=== PATIENT | female | born 1970 | race Caucasian/White ===

== ENCOUNTER 2017-03-15 20:15 | Emergency (ER) | payer MEDICAID ==
[~2017-03-15] VITALS: Ht 162.6 cm; Wt 77.1 kg
[~2017-03-15 20:15] MED LIST: ACYCLOVIR800 MG PO; BACTRIM DS 8001 TA1 PO; CEPHALEXIN500 MG PO; CYCLOBENZAPRINE10 MG PO; Docusate Sodiu100 MG PO; FLAX OIL1000 MG PO; LAMICTAL 100 M100 MG PO; LORTAB 5/500 501 TAB PO; MUCINEX D 12001 TER PO; NEURONTIN400 MG PO; NEXIUM40 MG PO; PREVACID 30MG C30 M1 PO; SEROQUEL 100MG100 MG PO; SEROQUEL400 MG PO; VITAMIN D1000 IU PO; VITAMIN D31000 IU PO; ZANAFLEX4 MG PO; ZOFRAN4 MG PO
--- NOTE | 2017-03-15 20:46 | Emergency Room Report ---
History of Present Illness Time Seen by MD 2020 Presenting Problem in Triage Pt arrived:Walked Presenting Problem:SEVERAL WEEKS OF HACKY COUGH WITH ALLERGIES AND DRAINAGE, FEVER X 2 DAYS. HAD CARDIAC STENT OF LAD X 3 DAYS AGO AND SINCE PATIENT HAS WORSENED COUGH WITH SUBSTERNAL CHEST PAIN UPON COUGHING. 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 Y Clinical Suspician of Infection? Y Mental Status: 1 - Regular (Normal Baseline) Sepsis Risk:Possible Sepsis Risk Have you (or family members/close friends) recently traveled outside the [place]? N If Yes, where/when: Have you had exposure to infectious disease within the past month? N TB? Other? Specify: Source patient, RN notes reviewed, RN/MD Exam Limitations no limitations Comment This is a 46-year-old female arriving to the emergency room with midsternal chest pain, worse with deep inspiration, associated with a productive cough, for the past 2 weeks. Patient stated that she underwent a cardiac catheterization by Dr. Weston, 2 weeks ago, resulting in one stent deployment. Currently on Brillenta. She continues to smoke, however she has decreased the number of cigarettes per day drastically. She denies any shortness of breath, or radiation. ALLERGIES Coded Allergies: hydroxyzine (From Vistaril) (Intermediate, JITTERY 04/14/16) Home Medications Reported Medications TIZANIDINE HCL (Zanaflex) 4 MG PO Q8P Lamotrigine (Lamictal 100Mg) 200 MG PO DAILY QUETIAPINE FUMARATE (Quetiapine Fumarate) 300 MG PO QHS Lansoprazole (Prevacid) 30 MG PO DAILY Docusate Sodium (Docusate Sodium 100MG Capsule) 100 MG PO BID CHOLECALCIFEROL (VITAMIN D3) (Vitamin D3) 5,000 IUNITS PO DAILY GUAIFENESIN/PSEUDOEPHEDRNE HCL (Mucinex D ER 1,200-120 MG Tab) 1 TAB PO BID GABAPENTIN (Gabapentin) 400 MG PO QHS Acyclovir (Acyclovir 800MG) 800 MG PO TID Quetiapine Fumarate (Seroquel 400MG) 400 MG PO QHS Cyclobenzaprine Hcl (Cyclobenzaprine 10MG) 10 MG PO BID History Medical History General Angina: No VT: No Hypertension? No Hyperlipidemia? No CHF? No COPD? No Asthma? No Anemia? Yes Hernia? No CVA? No Seizures? No Diabetes? No UTI? Yes Stones? No GB Disease: No Hepatitis? No Arthritis? Yes Cataracts? No Glaucoma? No MRSA? No TB? No Cancer? Yes Site: KIDNEY CA-NO TREATMENTS More? Yes Additional hx: RECENT STENT OF LAD ON 03/12/17 Immunization Hx DT/Tetanus 2016 Flu 2015-FSN Pneumonia Unknown Surgical Hx Previous Surgery?Y HYSTERECTOMY APPENDECTOMY TUBAL BLADDER TACK - 2010 LEFT KIDNEY CA-REMOV 12/01 D & C SINUS Cath w/Stent [employer] Hx LMP N/A Family History Family Hx Diabetes No CAD Yes Hypertension No Hyperlipidemia Yes Cancer No TB No Social History Smoking Hx Smoker: Current Every Day Smoker Tobacco: Yes Type Cigarettes Packs/day 1 1/2 - 2 Packs Alcohol Alcohol: No Review of Systems All Other Systems Reviewed and Negative Respiratory cough Cardiovascular chest pain Physical Exam Vital Signs Vital Signs Date Time Temp Pulse Resp B/P Pulse O2 O2 Flow FiO2 Ox Delivery Rate 03/16 0152 18 97 03/16 0150 97.7 69 18 132/68 97 03/16 0149 97.7 69 18 132/68 97 03/16 0041 66 22 110/63 97 03/15 2322 72 22 110/40 97 03/15 2231 67 22 111/60 99 03/15 2109 22 03/15 2019 98.5 98 20 127/72 99 General Appearance normal appearance, WD/WN, no apparent distress Respiratory Status Yes: trachea midline, chest symmetrical, tender on palpation (also with deep inspiration). No: respiratory distress. Lung Sounds bilateral: normal breath sounds, lungs clear. Cardiovascular normal exam, regular rate/rhythm, no peripheral edema, no gallop, no JVD, no murmur, no rub, normal peripheral pulses Gastrointestinal normal bowel sounds, normal exam, non tender, soft, no organomegaly Extremities non-tender, normal range of motion, normal inspection Neurologic alert, wood heel back liner II-XII nml as tested, normal exam, oriented x 3 Mental status normal mood/affect Skin intact, normal color, warm/dry Medical Decision Making LABS/Meds/Orders Pt receiving controlled substance in ED? No Comment On reevaluation the patient appears medically stable, in no acute distress. Discussed with patient results obtained, and with a diagnosis of pleurisy. Given the patient's current treatment with Brillenta I did not feel that NSAIDs be safe for her. Prescribed patient antibiotics and cough suppressants and instructed her to follow-up with Dr. Weston if any further chest pain, within the next 2 days. Results/Orders Laboratory Tests 03/15/172109: Creatine Kinase 46, CK-MB (CK-2) Rel Index 1.1, CK and CKMB Interp 0.5, Troponin I 0.04 Current Medication Orders Sig/Erika Start time Last Medication Dose Route Stop Time Status Admin Amoxicillin/ 0 .STK-MED ONE 03/16 0140 DC Clavulanate Potassium PO Amoxicillin/ 500 MG ONCE ONE 03/150 DC 03/16 Clavulanate Potassium PO 03/15 2331 0141 Ketorolac 0 .STK-MED ONE 03/15 2054 DC Tromethamine .ROUTE Ondansetron HCl 0 .STK-MED ONE 03/15 2054 DC .ROUTE Ketorolac 30 MG ONCE ONE 03/15 2045 DC 03/15 Tromethamine IV 03/15 Ondansetron HCl 4 MG ONCE ONE 03/15 2045 DC 03/15 IV 03/15 Sodium Chloride 10 ML PRN PRN 03/15 2045 DCD IV 03/16 2043 Orders Procedure Date/time Status IV SALINE LOCK 03/15 2043 Active CARDIAC ENZYMES 03/15 2043 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 Rhythm Normal Sinus Rhythm Rate 88 Ectopy No Comments No acute ischemic changes XRAY/CT/US XRAY/CT/US XRAY chest XR interpretation by reviewed by me Xray Results no infiltrates, normal heart size, normal lung inflation louie Departure Departure Time of Disposition 2320 Disposition DC Home or Self Care(routine) Clinical Impression Primary Impression: Pleurisy Secondary Impressions: Acute bronchitis Qualifiers: Bronchitis organism: unspecified organism Qualified Code: J20.9 - Acute bronchitis, unspecified Condition STABLE Referrals ASHLEE MUSTAFA (Family) Patient Instructions DI for Acute Bronchitis, DI for Pleurisy Additional Instructions Please take the medications prescribed as directed, follow up with Dr Weston if not better. Discharge Counseling Counseled pt/family regarding diagnosis, test results, medications/RX, home care, follow up needs Comment Please take the medications prescribed as directed, follow up with Dr Weston if not better. Prescriptions Current Visit Scripts Amoxicillin/Potassium Clav (Augmentin 875-125 Tablet) 1 EACH PO BID #19 TAB Benzonatate (Tessalon Perle) 100 MG PO TIDP PRN cough #30 SGL ED Critical Care Critical Care No at 0806
--- NOTE | 2017-03-15 22:28 | RADIOLOGY REPORT PS360 ---
CHEST(2 VIEWS-NOT PORTABLE) HISTORY: pain with coughing ORDERING PHYSICIAN: Bola Barajas MD PATIENT AGE: 46 years COMPARISON: 07/09/2016 FINDINGS: The cardiomediastinal silhouette and pulmonary vascularity are within normal limits. The lungs are clear without infiltrates, suspicious nodules, or pleural effusions. No acute bony abnormalities. The extreme lung bases apices are clipped on the exam IMPRESSION: Negative chest, no acute finding
[2017-03-15] MEDS ORDERED: AUGMENTIN 875-1 EACH PO (23:23)
[2017-03-16] MEDS ORDERED: TESSALON PERLE100 M1 PO (01:43)
[2017-03-16 01:50] VITALS: BP 132/68
== END 2017-03-16 01:52 | disposition home or self-care (01) ==
LOC: ER 20:15
DX: J20.9 Acute bronchitis, unspecified (principal); R09.1 Pleurisy; F17.210 Nicotine dependence, cigarettes, uncomplicated; D64.9 Anemia, unspecified; Z88.8 Allergy status to other drugs, medicaments and biological substances
CPT/HCPCS: J2405

== ENCOUNTER 2017-04-05 16:10 | Emergency (ER) | payer MEDICAID ==
[~2017-04-05] VITALS: Ht 162.6 cm; Wt 83.9 kg
[~2017-04-05 16:10] MED LIST changes: +AUGMENTIN 875-1 EACH PO; +TESSALON PERLE100 M1 PO
--- OUTSIDE RECORDS SUMMARY | 2017-04-05 16:22 | External Medical Summary Rpt | CCD ---
Author Author , DEIDRE Organization DEIDRE Address Unknown Phone Care Team Providers Care Sales Training Representative Name Role Phone COLMENARES, COLMENARES Unavailable Unavailable COLMENARES IVETH, COLMENARES Unavailable Unavailable IVETH [facility] Un[facility] Unavailable [place] [place] ALLRAN JR REJI, ALLRAN Unavailable Unavailable JR REJI HUSSEIN TER, HUSSEIN TER Unavailable Unavailable BESSON FANNIE, BESSON Unavailable Unavailable FANNIE CHACON ALL, CHACON ALL Unavailable Unavailable SHEEHAN CHERYL Unavailable Unavailable LATANYA, SHEEHAN CHERYL LATANYA SHEEHAN CHERYL Unavailable Unavailable LATANYA, SHEEHAN CHERYL LATANY[facility]available [facility] BIRD, BIRD Unavailable Unavailable BIRD CUAUHTEMOC, Unavailable Unavailable BIRD CUAUHTEMOC SAEID ELINA, SAEID Unavailable Unavailable ELINA HODAN PEREZ PA-C Unavailable Unavailable HODAN RAE PA-C BUTCH BUCK BILL, Unavailable Unavailable BUCK BILL BUCK BILL, Unavailable Unavailable BUCK BILL FRYMAN EUG, FRYMAN Unavailable Unavailable EUG BELTRAN ELINA, BELTRAN Unavailable Unavailable ELINA [facility] Unavailable Unavailable INC, [facility] Unavailable Unavailable [facility], [facility] Unavailable Unavailable [facility] P, [facility] P [facility], Unavailable Unavailable [facility] Unavailable Unavailable [facility] DUMONT CLARITA, DUMONT Unavailable Unavailable CLARITA AMADOU JR DWI, AMADOU Unavailable Unavailable JR DWI MARLEEN GRE, Unavailable Unavailable MARLEEN GRE MARLEEN GRE, Unavailable Unavailable MARLEEN GRE [facility], Unavailable Unavailable [facility], Unavailable Unavailable [facility] SERGO TROTTER Unavailable Unavailable HAMILTON, HAMILTON Unavailable Unavailable NU, Unavailable Unavailable NU STONE, STONE Unavailable Unavailable STONE BUTCH, STONE BUTCH Unavailable Unavailable BETSY MALACHI, BETSY Unavailable Unavailable MALACHI RAYO CADE Unavailable Unavailable RAYO DIXON MAR Unavailable Unavailable Purpose Continuity of Care Document - 09-15-2013 through 2016 Problems Code Diagnosis DOS Provider Status I10 ESSENTIAL 03-12-2017 [facility] HYPERTENSIO [facility] N I208 OTHER FORMS 03-12-2017 [facility] OF ANGINA [facility]YS[facility] [place] GROUP [id number] [facility]SHD [place] 03-12-2017 [facility] COR ART PHYSICIANS W/OTH FORMS GROUP ANGINA [place] [id number] [facility]SHD [place] 03-12-2017 [facility] W/UNS INC ANGINA [place] Z720 TOBACCO USE 03-12-2017 [facility] INC R0600 DYSPNEA 02-05-2017 [facility]IED [facility] INC R0602 SHORTNESS 02-05-2017 [facility] OF BREATH PHYSICIANS GROUP R0789 OTHER CHEST 02-05-2017 [facility] INC R079 CHEST PAIN 02-05-2017 [facility] UNSPECIFIED PHYSICIANS GROUP R42 DIZZINESS 02-05-2017 [facility] GIDDINESS INC R531 WEAKNESS 02-05-2017 [facility] INC R609 EDEMA 02-05-2017 [facility] INC R9431 ABNORMAL 02-05-2017 [facility] ELECTROCARD PHYSICIANS IOGRAM GROUP I209 ANGINA 02-02-2017 [place] [facility] ASS I200 UNSTABLE 01-19-2017 [facility] INC J301 ALLERGIC 01-07-2017 [facility] DUE TO [place] POLLEN J3081 ALLERG 01-07-2017 [facility] D/T ANIMAL [place] CAT DOG HAIR & DANDER J3089 OTHER 01-07-2017 [facility] RHINITIS [place] J302 OTHER 12-31-2016 [facility] SEASONAL PHYSICIANS ALLERGIC GROUP RHINITIS [id number] UNSPECIFIED 12-31-2016 [facility] ASTHMA PHYSICIANS UNCOMPLICAT GROUP ED R030 ELEVATED 12-31-2016 [facility] BLOOD-PRESS PHYSICIANS URE READING GROUP WITHOUT DX HTN Z0000 ENCOUNTER 12-31-2016 [facility]ULT [facility] MED EXAM INC W/O ABNORMAL FIND Z8249 FAMILY HX 12-31-2016 [facility] ISCHEMIC PHYSICIANS HRT DZ OTH GROUP DZ CIRC SYSTEM J4540 MODERATE 12-29-2016 [facility] [place] UNCOMPLICAT ED [id number] OTHER 07-16-2016 [place] [facility] R05 COUGH 07-09-2016 [facility] J399 DISEASE OF 06-25-2016 [facility] UPPER PHYSICIANS RESPIRATORY GROUP TRACT UNSPECIFIED M1712 UNILATERAL 06-10-2016 [facility] OSTEOARTHRI INC TIS LEFT KNEE M7582 OTHER 06-10-2016 [facility] LESIONS INC LEFT SHOULDER Z23 ENCOUNTER 06-04-2016 [facility] FOR PHYSICIANS IMMUNIZATIO GROUP N M542 CERVICALGIA 05-27-2016 [facility] M545 LOW BACK 05-27-2016 [facility] PAIN BILL M546 PAIN IN 05-27-2016 [facility] THORACIC BILL SPINE M9901 SEGMENTAL & 05-27-2016 [facility] SOMATIC BILL DYSFUNCTION CERVICAL REGION M9902 SEGMENTAL & 05-27-2016 [facility] S[facility]AT[facility] BILL DYSFUNCTION THORACIC REGION M9903 SEGMENTAL & 05-27-2016 [facility] SOMATIC BILL DYSFUNCTION OF LUMBAR REGION M9905 SEGMENTAL & 05-27-2016 [facility] SOMAT[facility] BILL DYSFUNCTION OF PELVIC REGION R3911 HESITANCY 05-27-2016 [facility] P Z8553 PERSONAL 05-27-2016 [facility] NE[facility] RENAL PELVIS J4530 MILD 05-26-2016 [facility] [place] UNCOMPLICAT ED K219 GASTRO-ESOP 05-26-2016 [facility] H REFLUX [facility] DISEASE [place] WITHOUT ESOPHAGITIS Z0100 ENCOUNTER 05-21-2016 [facility] EXAM EYES & GRE VISION W/O ABNORMAL FIND 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 UNSPECIFIED R1013 EPIGASTRIC 05-19-2016 [facility] PAIN PHYSICIANS GROUP 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 R921 MAMMO 05-07-2016 [place] [facility] ON FOUND ON IMAGING ASS DX IMAGING BREAST R928 OTH ABNORM 05-07-2016 [facility] INCONCLUSIV INC E FIND ON DX IMAG BREAST R1310 DYSPHAGIA 04-23-2016 [place] [facility]ING ASS 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-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 K210 GASTRO-ESOP 04-15-2016 [facility] HAGEAL LLC REFLUX DISEASE W/ ESOPHAGITIS K5730 DIVERTICULO 04-15-2016 [facility] SIS LG PHYSICIANS INTEST W/O GROUP PERF/ABSC W/O BLEED Z1211 ENCOUNTER 04-15-2016 [facility] SCREENING PHYSICIANS MALIGNANT GROUP NEOPLASM OF COLON H06393 PERSONAL 04-15-2016 [facility] HISTORY OF PHYSICIANS COLONIC GROUP POLYPS R140 ABDOMINAL 03-25-2016 [facility] GASEOUS INC [id number] UNS ROT 03-24-2016 [facility] CUFF [facility] TEAR/RUPT INC LT SHLDR NOT SPEC TRAUMAT Z1231 ENCOUNTER 03-21-2016 [place] [facility]CRE[facility]ING [facility]ICAL MAMMO MALIG IMAGING ASS NEOPLASM BREAST J449 CHRONIC 03-13-2016 [facility] P DISEASE UNS R4702 DYSPHASIA 03-13-2016 [facility] Q08527 PAIN IN 02-26-2016 [place] LEFT MEDICAL SHOULDER IMAGING ASS J4520 MILD 02-11-2016 [facility] INTERMITTEN [facility] T [place] [place] UNCOMPLICAT ED J329 CHRONIC 01-22-2016 [facility] SINUSITIS PHYSICIANS UNSPECIFIED GROUP A08360 PAIN IN 01-22-2016 [facility] UNSPECIFIED PHYSICIANS KNEE GROUP Q42838 PAIN IN 01-22-2016 [facility] LEFT ARM PHYSICIANS GROUP J37917 ENCOUNTER 01-01-2016 [facility] R D INTERNSHIP EXAM LLC GENERAL RTN W/O ABNORMAL FIND N319 NEUROMUSCUL 12-25-2015 [facility] P OF BLADDER UNSPECIFIED E56942 OTHER 11-22-2015 [place] [facility] RIGHT KNEE IM[facility]ING ASS J28473 OTHER 11-22-2015 [place] [facility] LEFT KNEE IMAGING ASS L12874 CONTACT 11-22-2015 [place] WITH & MEDICAL SUSPECTED IMAGING ASS EXPOSURE TO MOLD TOXIC M179 OSTEOARTHRI 10-24-2015 [facility] TIS OF KNEE [facility] INC UNSPECIFIED J0390 ACUTE 10-11-2015 [facility] TONSILLITIS PHYSICIANS GROUP UNSPECIFIED J3501 CHRONIC 10-11-2015 [facility] TONSILLITIS [facility] INC J351 HYPERTROPHY 10-11-2015 [facility] OF TONSILS LLC T45032 ENCOUNTER 09-13-2015 [facility] P AL CARIOVASCUL AR EXAM S41631 ENCOUNTER 09-13-2015 [facility] P AL LABORATORY EXAM M797 FIBROMYALGI 08-14-2015 [facility] A PHYSICIANS GROUP J320 CHRONIC 05-31-2015 [facility] MAXILLARY LLC SINUSITIS J342 DEVIATED 05-31-2015 [facility] NASAL ANESTH OF SEPTUM THE BLUE J90422 ENCOUNTER 05-30-2015 [facility] FOR OTHER [facility] PREPROCEDUR INC AL EXAMINATION J0100 ACUTE 05-22-2015 [facility]ARY [facility] SINUSITIS HOSPITAL UNSPECIFIED J209 ACUTE 05-22-2015 [facility] J328 OTHER 04-26-2015 [facility] CHRONIC [facility] SINUSITIS INC B001 HERPESVIRAL 04-11-2015 [facility] VESICULAR PHYSICIANS DERMATITIS GROUP 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 H524 PRESBYOPIA 03-28-2015 SHEEHAN CHERYL LATANYA 4619 ACUTE 12-20-2014 [facility] 6929 CONTACT 12-20-2014 [facility]IS[facility] OTHER HOSPITAL ECZEMA DUE UNSPEC CAUSE 470 DEVIATED 12-14-2014 [facility] NASAL PHYSICIANS SEPTUM GROUP 4730 CHRONIC 12-14-2014 [facility] MAXILLARY PHYSICIANS SINUSITIS GROUP 4739 UNSPECIFIED 12-14-2014 [facility] SINUSITIS PHYSICIANS GROUP 46158 OTHER 12-14-2014 [facility] DISEASES OF PHYSICIANS NASAL GROUP CAVITY AND SINUSES 4779 ALLERGIC 10-31-2014 [facility] RHINITIS [facility] UNSPECIFIED 462 ACUTE 10-20-2014 [facility] PHARYNGITIS [facility] 4611 ACUTE 05-15-2014 [facility] FRONTAL [facility] SINUSITIS [facility] 68335 PAIN IN 10-27-2013 [place] JOINT, [facility] Allergies, Adverse Reactions, Alerts Clinical Alert Notifications Alert Asthma: ICS non-compliance with h/o of SA beta agonist Medications Na ND Rx Da Fi Fi Am Da Di Ph RX Ph St me C No te ll ll ou ys ag ar # ys at rm s nt no ma ic us Or Da si cy ia de te s n re d FL 60 09 10 16 30 00 OK Ac UT 43 -2 -1 .0 00 L- ti IC 20 0- 3- 00 07 MA ve 26 20 20 47 RT ON 41 17 17 46 E 5 36 PH VA AR OP MA CY 50 #5 MC 91 G SP RA Y ME 62 09 10 30 30 00 OK Ac TO 03 -1 -1 .0 00 L- ti VA 70 4- 3- 00 07 MA ve OL 83 20 20 50 RT OL 01 17 17 95 0 41 PH CASTELLANOS AR CC MA CY ER #5 25 91 MG TA B AC 00 09 10 90 30 00 WA Ac ET -1 -1 .0 00 L- ti AM 30 4- 3- 00 04 MA ve IN 15 20 20 53 RT OP 01 17 17 12 HE 0 00 PH N- AR CO MA D CY #3 #5 TA 91 BL ET AK 57 08 09 30 30 00 OK Ac RT 23 -2 -2 .0 00 L- ti AZ 70 8- 2- 00 07 MA ve AP 00 20 20 45 RT IN 93 17 17 83 E 0 99 PH 30 AR MA MG CY TA #5 BL 91 ET CY 68 08 09 90 30 00 [facility] CL 64 -2 -2 .0 00 L- ti OB 50 8- 2- 00 07 MA ve EN 51 20 20 45 RT ZA 89 17 17 83 VA 0 98 PH IN AR E MA 10 CY MG #5 91 TA BL ET MU 63 08 09 30 15 00 [facility] CI 82 -2 -2 .0 00 L- ti NE 40 8- 2- 00 08 MA ve X 05 20 20 83 RT D 71 17 17 77 ER 8 58 PH AR 60 MA 0- CY 60 #5 MG 91 TA BL ET MO 57 08 09 30 30 00 [facility] NT 23 -2 -2 .0 00 L- ti EL 70 8- 2- 00 07 MA ve UK 25 20 20 48 RT 53 17 17 06 T 0 14 PH SO AR D MA 10 CY MG #5 91 TA BL ET VE 00 08 09 18 17 00 [facility] NT 17 -2 -2 .0 00 L- ti OL 30 8- 2- 00 07 MA ve IN 68 20 20 48 RT 22 17 17 06 HF 0 13 PH A AR 90 MA CY MC G #5 IN 91 MENDEZ LE R LO 00 08 09 30 30 00 [facility] RA 78 -2 -2 .0 00 L- ti TA 15 8- 2- 00 08 MA ve DI 07 20 20 83 RT NE 70 17 17 83 1 62 PH 10 AR MA MG CY TA #5 BL 91 ET AC 00 08 09 60 30 00 OK Ac YC 09 -2 -2 .0 00 L- ti LO 38 8- 2- 00 07 MA ve 94 20 20 45 RT R 70 17 17 83 80 1 97 PH 0 AR MG MA CY TA BL #5 ET 91 64 08 09 4. 28 00 OK Ac T 38 -2 -2 00 00 L- ti D2 00 8- 2- 0 07 MA ve 73 20 20 49 RT 1. 70 17 17 97 25 6 33 PH AR MG MA CY (5 0, #5 00 91 0 UN IT ) ES 68 08 09 30 30 00 OK Ac CI 64 -2 -2 .0 00 L- ti TA 50 8- 2- 00 07 MA ve LO 52 20 20 50 RT VA 05 17 17 63 AM 4 44 PH AR 20 MA CY MG #5 TA 91 BL ET LA 69 08 09 60 30 00 OK Ac MO 09 -2 -2 .0 00 L- ti TR 70 8- 2- 00 07 MA ve IG 15 20 20 50 RT IN 20 17 17 63 E 3 41 PH 20 AR 0 MA MG CY TA #5 BL 91 ET FA 68 08 09 30 30 00 OK Ac MO 64 -2 -2 .0 00 L- ti TI 50 8- 2- 00 07 MA ve DI 14 20 20 50 RT NE 05 17 17 15 9 38 PH 20 AR MA MG CY TA #5 BL 91 ET LA 00 08 09 30 30 00 [facility] NS 09 -2 -2 .0 00 L- ti OP 37 8- 2- 00 07 MA ve RA 35 20 20 45 RT ZO 15 17 17 83 LE [address] MA CY 30 #5 MG 91 CA PS UL E QU 16 08 09 30 30 00 [facility] ET 72 -2 -2 .0 00 L- ti IA 90 8- 2- 00 07 MA ve PI 15 20 20 45 RT NE 00 17 17 84 1 01 PH FU AR MA MA RA CY TE #5 40 91 0 MG TA B AZ 51 08 09 30 31 00 [facility] EL 52 -2 -2 .0 00 L- ti 50 8- 2- 00 07 MA ve TI 29 20 20 47 RT NE 40 17 17 46 3 39 PH 0. AR 1% MA CY (1 37 #5 91 MC G) SP RY MU 63 08 09 60 30 00 [facility] CI 82 -2 -2 .0 00 L- ti NE 40 8- 2- 00 08 MA ve X 00 20 20 83 RT ER 83 17 17 88 4 80 PH 60 AR 0 MA MG CY TA #5 BL 91 ET FL 60 08 09 16 60 00 [facility] UT 43 -2 -2 .0 00 L- ti IC 20 8- 2- 00 07 MA ve 26 20 20 48 RT ON 41 17 17 06 E 5 16 PH VA AR OP MA CY 50 #5 MC 91 G SP RA Y LA 69 07 08 60 30 00 OK Ac MO 09 -2 -2 .0 00 L- ti TR 70 7- 5- 00 07 MA ve IG 15 20 20 50 RT IN 20 17 17 10 E 3 52 PH 20 AR 0 MA MG CY TA #5 BL 91 ET FA 68 07 08 30 30 00 WA Ac MO 64 -3 -2 .0 00 L- ti TI 50 1- 5- 00 07 MA ve DI 14 20 20 50 RT NE 05 17 17 15 9 38 PH 20 AR MA MG CY TA #5 BL 91 ET CY 68 07 08 90 30 00 WA Ac CL 64 -2 -1 .0 00 L- ti OB 50 1- 8- 00 07 MA ve EN 51 20 20 50 RT ZA 89 17 17 00 VA 0 95 PH IN AR E MA 10 CY MG #5 91 TA BL ET GA 00 07 08 90 30 00 WA Ac BA 22 -2 -1 .0 00 L- ti PE 82 1- 8- 00 04 MA ve NT 63 20 20 53 RT IN 65 17 17 11 0 99 PH 60 AR 0 MA MG CY TA #5 BL 91 ET AC 00 07 08 90 30 00 OK Ac ET 09 -2 -1 .0 00 L- ti AM 30 1 8 00 04 MA ve IN 15 20 20 53 RT OP 01 17 17 12 HE 0 00 PH N- AR CO MA D CY #3 #5 TA 91 BL ET LE 66 07 08 14 8 00 WA Ac VA 99 -1 -1 4. 00 L- ti LB 30 3- 1- 00 07 MA ve UT 02 20 20 0 49 RT ER 32 17 17 83 OL 7 56 PH AR 1. MA 25 CY MG #5 /3 91 ML SO L LO 00 07 08 30 30 00 WA Ac RA 78 -1 -1 .0 00 L- ti TA 15 9- 1- 00 08 MA ve DI 07 20 20 84 RT NE 70 17 17 02 1 08 PH 10 AR MA MG CY TA #5 BL 91 ET FL 60 07 08 16 30 00 WA Ac UT 43 -1 -1 .0 00 L- ti IC 20 9- 1- 00 07 MA ve 26 20 20 49 RT ON 41 17 17 78 E 5 66 PH VA AR OP MA CY 50 #5 MC 91 G SP RA Y AZ 51 07 08 30 30 00 WA Ac EL 52 -1 -1 .0 00 L- ti 50 9- 1- 00 07 MA ve TI 29 20 20 49 RT NE 40 17 17 78 3 67 PH 0. AR 1% MA CY (1 37 #5 91 MC G) SP RY 64 07 08 4. 28 00 OK Ac T 38 -1 -1 00 00 L- ti D2 00 9- 1- 0 07 MA ve 73 20 20 49 RT 1. 70 17 17 97 25 6 33 PH AR MG MA CY (5 0, #5 00 91 0 UN IT ) MO 31 07 08 30 30 00 OK Ac NT 72 -1 -0 .0 00 L- ti EL 20 2- 4- 00 07 MA ve UK 72 20 20 49 RT 61 17 17 78 T 0 68 PH SO AR D MA 10 CY MG #5 91 TA BL ET KE 17 07 08 5. 50 00 OK Ac TO 47 -1 -0 00 00 L- ti TI 80 0- 4- 0 08 MA ve FE 71 20 20 84 RT N 71 17 17 02 FU 0 09 PH M AR 0. MA 02 CY 5% #[address] OP S GA 00 06 07 90 30 00 [facility] BA 22 -2 -2 .0 00 L- ti PE 82 6- 8- 00 07 MA ve NT 63 20 20 44 RT IN 65 17 17 49 0 50 PH 60 AR 0 MA MG CY TA #5 BL 91 ET AC 00 06 07 60 30 00 OK Ac YC 09 -2 -2 .0 00 L- ti LO 38 6- 8- 00 07 MA ve 94 20 20 45 RT R 70 17 17 83 80 1 97 PH 0 AR MG MA CY TA BL #5 ET 91 LO 00 06 07 30 30 00 OK Ac RA 78 -2 -2 .0 00 L- ti TA 15 6- 8- 00 08 MA ve DI 07 20 20 83 RT NE 70 17 17 67 1 12 PH 10 AR MA MG CY TA #5 BL 91 ET ES 68 06 07 30 30 00 OK Ac CI 64 -2 -2 .0 00 L- ti TA 50 6- 8- 00 07 MA ve LO 52 20 20 44 RT VA 05 17 17 54 AM 4 27 PH AR 20 MA CY MG #5 TA 91 BL ET FL 60 06 07 16 30 00 OK Ac UT 43 -2 -2 .0 00 L- ti IC 20 6- 8- 00 07 MA ve 26 20 20 44 RT ON 41 17 17 85 E 5 36 PH VA AR OP MA CY 50 #5 MC 91 G SP RA Y AZ 51 06 07 30 30 00 OK Ac EL 52 -2 -2 .0 00 L- ti 50 6- 8- 00 07 MA ve TI 29 20 20 44 RT NE 40 17 17 85 3 44 PH 0. AR 1% MA CY (1 37 #5 91 MC G) SP RY [place] 57 06 30 30 00 OK Ac RT 23 -2 -2 .0 00 L- ti AZ 70 6- 8- 00 07 MA ve AP 00 20 20 45 RT IN 93 17 17 83 E 0 99 PH 30 AR MA MG CY TA #5 BL 91 ET LA 00 06 07 30 30 00 [facility] NS 09 -2 -2 .0 00 L- ti OP 37 6- 8- 00 07 MA ve RA 35 20 20 45 RT ZO 15 17 17 83 LE [address] MA CY 30 #5 MG 91 CA PS UL E CY 68 06 07 90 30 00 [facility] CL 64 -2 -2 .0 00 L- ti OB 50 6- 8- 00 07 MA ve EN 51 20 20 45 RT ZA 89 17 17 83 VA 0 98 PH IN AR E MA 10 CY MG #5 91 TA BL ET MU 63 06 07 60 30 00 [facility] CI 82 -1 -1 .0 00 L- ti NE 40 8- 4- 00 08 MA ve X 00 20 20 83 RT ER 83 17 17 88 2 80 PH 60 AR 0 MA MG CY TA #5 BL 91 ET MO 31 11 26 30 30 00 [facility] NT 72 -1 -1 .0 00 L- ti EL 20 9- 4- 00 07 MA ve UK 72 20 20 47 RT 61 17 17 46 T 0 38 PH SO AR D MA 10 CY MG #5 91 TA BL ET AZ 51 05 30 31 00 [facility] EL 52 -2 -2 .0 00 L- ti 50 7- 3- 00 07 MA ve TI 29 20 20 47 RT NE 40 17 17 46 3 39 PH 0. AR 1% MA CY (1 37 #5 91 MC G) SP RY FL 00 05 06 12 30 00 OK Ac OV 17 -2 -2 .0 00 L- ti EN 30 7- 3- 00 07 MA ve T 71 20 20 46 RT HF 92 17 17 55 A 0 99 PH 11 AR 0 MA MC CY G IN #5 MENDEZ 91 LE R FL 55 05 06 1. 1 00 [facility] UC 11 -2 -2 00 00 L- ti ON 10 7- 3- 0 07 MA ve AZ 14 20 20 46 RT OL 51 17 17 68 E 2 06 PH 15 AR 0 MA MG CY TA #5 BL 91 ET AK 57 05 30 30 00 WA Ac RT 23 -2 -2 .0 00 L- ti AZ 70 7- 3- 00 07 MA ve AP 00 20 20 45 RT IN 93 17 17 83 E 0 99 PH 30 AR MA MG CY TA #5 BL 91 ET QU 16 05 30 30 00 OK Ac ET 72 -2 -2 .0 00 L- ti IA 90 7- 3- 00 07 MA ve PI 15 20 20 45 RT NE 00 17 17 84 1 01 PH FU AR MA MA RA CY TE #5 40 91 0 MG TA B GA 00 05 06 90 30 00 OK Ac BA 22 -2 -2 .0 00 L- ti PE 82 7- 3- 00 07 MA ve NT 63 20 20 45 RT IN 65 17 17 83 0 92 PH 60 AR 0 MA MG CY TA #5 BL 91 ET LO 00 05 30 30 00 OK Ac RA 78 -2 -2 .0 00 L- ti TA 15 7- 3- 00 08 MA ve DI 07 20 20 83 RT NE 70 17 17 83 1 62 PH 10 AR MA MG CY TA #5 BL 91 ET MO 31 05 30 30 00 OK Ac NT 72 -2 -2 .0 00 L- ti EL 20 7- 3- 00 07 MA ve UK 72 20 20 44 RT 61 17 17 85 T 0 42 PH SO AR D MA 10 CY MG #5 91 TA BL ET FL 60 04 05 16 60 00 OK Ac UT 43 -1 -1 .0 00 L- ti IC 20 5- 2- 00 07 MA ve 26 20 20 48 RT ON 41 17 17 06 E 5 16 PH VA AR OP MA CY 50 #5 MC 91 G SP RA Y LO 00 04 04 30 30 00 OK Ac RA 78 -0 -2 .0 00 L- ti TA 15 5- 8- 00 08 MA ve DI 07 20 20 83 RT NE 70 17 17 88 1 79 PH 10 AR MA MG CY TA #5 BL 91 ET AZ 51 04 04 30 30 00 OK Ac EL 52 -0 -2 .0 00 L- ti 50 5- 8- 00 07 MA ve TI 29 20 20 48 RT NE 40 17 17 06 3 15 PH 0. AR 1% MA CY (1 37 #5 91 MC G) SP RY MU 63 04 04 60 30 00 OK Ac CI 82 -0 -2 .0 00 L- ti NE 40 5- 8- 00 08 MA ve X 00 20 20 83 RT ER 83 17 17 88 4 80 PH 60 AR 0 MA MG CY TA #5 BL 91 ET FL 00 04 04 12 30 00 OK Ac OV 17 -0 -2 .0 00 L- ti EN 30 5- 8- 07 MA ve T 71 20 20 48 RT HF 92 17 17 06 A 0 17 PH 11 AR 0 MA MC CY G IN #5 MENDEZ 91 LE R AL 00 04 04 75 30 00 OK Ac BU 48 -0 -2 .0 00 L- ti TE 79 5- 8- 00 07 MA ve RO 50 20 20 48 RT L 12 17 17 06 CASTELLANOS 5 19 PH L AR 2. MA 5 CY MG /3 #5 [address] SO LN MO 54 04 04 30 30 00 OK Ac NT 45 -0 -2 .0 00 L- ti EL 80 5 8 07 MA ve UK 89 20 20 48 RT 01 17 17 06 T 0 14 PH SO AR D MA 10 CY MG #5 91 TA BL ET LA 69 03 04 60 30 00 OK Ac MO 09 -2 -1 .0 00 L- ti TR 70 0- 4- 00 07 MA ve IG 15 20 20 47 RT IN 20 17 17 74 E 3 34 PH 20 AR 0 MA MG CY TA #5 BL 91 ET MU 63 03 03 60 30 00 [facility] CI 82 -0 -3 .0 00 L- ti NE 40 6- 1- 00 08 MA ve X 00 20 20 83 RT ER 83 17 17 83 4 63 PH 60 AR 0 MA MG CY TA #5 BL 91 ET AM 00 03 03 20 10 00 OK Ac OX 78 -0 -3 .0 00 L- ti -C 11 7- 1- 07 MA ve LA 85 20 20 47 RT V 22 17 17 47 87 0 96 PH 5- AR 12 MA 5 CY MG #5 TA 91 BL ET CASTELLANOS 65 03 03 20 10 00 OK Ac LF 86 -0 -3 .0 00 L- ti AM 20 8- 1- 00 07 MA ve ET 42 20 20 47 RT HO 00 17 17 50 XA 5 79 PH ZO AR LE MA -T CY MP #5 DS 91 TA BL ET CY 68 03 03 90 30 00 OK Ac CL 64 -0 -3 .0 00 L- ti OB 50 2- 1- 00 07 MA ve EN 51 20 20 47 RT ZA 89 17 17 38 VA 0 39 PH IN AR E MA 10 CY MG #5 91 TA BL ET FL 55 03 03 2. 2 00 WA Ac UC 11 -0 -3 00 00 L- ti ON 10 6- 1- 0 07 MA ve AZ 14 20 20 47 RT OL 51 17 17 46 E 2 35 PH 15 AR 0 MA MG CY TA #5 BL 91 ET LO 00 03 03 30 30 00 WA Ac RA 78 -0 -3 .0 00 L- ti TA 15 6- 1- 00 08 MA ve DI 07 20 20 83 RT NE 70 17 17 83 1 62 PH 10 AR MA MG CY TA #5 BL 91 ET FL 00 03 03 12 30 00 WA Ac OV 17 -0 -3 .0 00 L- ti EN 30 6- 1- 00 07 MA ve T 71 20 20 47 RT HF 92 17 17 46 A 0 37 PH 11 AR 0 MA MC CY G IN #5 MENDEZ 91 LE R AZ 51 03 03 30 31 00 [place] Ac EL 52 -0 -3 .0 00 L- ti 50 6- 1- 00 07 MA ve TI 29 20 20 47 RT NE 40 17 17 46 3 39 PH 0. AR 1% MA CY (1 37 #5 91 MC G) SP RY FL 60 03 03 16 60 00 WA Ac UT 43 -0 -2 .0 00 L- ti IC 20 1- 4- 00 07 MA ve 26 20 20 47 RT ON 41 17 17 37 E 5 81 PH VA AR OP MA CY 50 #5 MC 91 G SP RA Y MU 63 02 03 30 15 00 [place] Ac CI 82 -1 -1 .0 00 L- ti NE 40 6- 7- 00 08 MA ve X 05 20 20 83 RT D 73 17 17 77 ER 6 58 PH AR 60 MA 0- CY 60 #5 MG 91 TA BL ET LA 69 02 03 60 30 00 WA Ac MO 09 -1 -1 .0 00 L- ti TR 70 6- 7- 00 07 MA ve IG 15 20 20 45 RT IN 20 17 17 83 E 3 95 PH 20 AR 0 MA MG CY TA #5 BL 91 ET GA 00 02 03 90 30 00 WA Ac BA 22 -1 -1 .0 00 L- ti PE 82 6- 7- 00 07 MA ve NT 63 20 20 45 RT IN 65 17 17 83 0 92 PH 60 AR 0 MA MG CY TA #5 BL 91 ET AC 00 02 03 90 30 00 WA Ac ET 09 -1 -1 .0 00 L- ti AM 30 6- 7- 00 04 MA ve IN 15 20 20 52 RT OP 01 17 17 87 HE 0 41 PH N- AR CO MA D CY #3 #5 TA 91 BL ET PA 54 02 03 30 30 00 [facility] RO 45 -1 -1 .0 00 L- ti XE 80 6- 7- 00 07 MA ve TI 98 20 20 45 RT NE 91 17 17 84 0 00 PH HC AR L MA 20 CY MG #5 91 TA BL ET MO 54 02 03 30 30 00 [facility] NT 45 -1 -1 .0 00 L- ti EL 80 6- 7- 00 07 MA ve UK 89 20 20 44 RT 01 17 17 85 T 0 42 PH SO AR D MA 10 CY MG #5 91 TA BL ET AC 00 02 03 60 30 00 [facility] YC 09 -0 -1 .0 00 L- ti LO 38 9- 0- 00 07 MA ve 94 20 20 40 RT R 70 17 17 32 80 1 76 PH 0 AR MG MA CY TA BL #5 ET 91 AK 57 02 03 30 30 00 [facility] RT 23 -0 -0 .0 00 L- ti AZ 70 4- 3- 00 07 MA ve AP 00 20 20 45 RT IN 93 17 17 83 E 0 99 PH 30 AR MA MG CY TA #5 BL 91 ET LA 00 02 03 30 30 00 [facility] NS 09 -0 -0 .0 00 L- ti OP 37 4- 3- 00 07 MA ve RA 35 20 20 40 RT ZO 15 17 17 32 LE [address] MA CY 30 #5 MG 91 CA PS UL E CY 68 02 03 90 30 00 [facility] CL 64 -0 -0 .0 00 L- ti OB 50 4- 3- 00 07 MA ve EN 51 20 20 40 RT ZA 89 17 17 32 VA 0 71 PH IN AR E MA 10 CY MG #5 91 TA BL ET QU 16 02 03 30 30 00 [facility] ET 72 -0 -0 .0 00 L- ti IA 90 4- 3- 00 07 MA ve PI 15 20 20 45 RT NE 00 17 17 84 1 01 PH FU AR MA MA RA CY TE #5 40 91 0 MG TA B FL 55 01 02 1. 1 00 [facility] UC 11 -2 -1 00 00 L- ti ON 10 5- 7- 0 07 MA ve AZ 14 20 20 46 RT OL 51 17 17 68 E 2 06 PH 15 AR 0 MA MG CY TA #5 BL 91 ET FL 00 01 02 12 30 00 [place] Ac OV 17 -1 -1 .0 00 L- ti EN 30 9- 7- 00 07 MA ve T 71 20 20 46 RT HF 92 17 17 55 A 0 99 PH 11 AR 0 MA MC CY G IN #5 MENDEZ 91 LE R AM 00 01 02 20 10 00 WA Ac OX 14 -2 -1 .0 00 L- ti IC 39 5- 7- 00 07 MA ve IL 95 20 20 46 RT LI 10 17 17 68 N 1 08 PH 87 AR 5 MA MG CY TA #5 BL 91 ET AL 00 01 02 75 5 00 WA Ac BU 48 -2 -1 .0 00 L- ti TE 79 5- 7- 00 07 MA ve RO 50 20 20 46 RT L 12 17 17 68 CASTELLANOS 5 65 PH L AR 2. MA 5 CY MG /3 #5 [address] AC 00 01 02 60 30 00 OK Ac YC 09 -1 -1 .0 00 L- ti LO 38 2- 0- 00 07 MA ve 94 20 20 40 RT R 70 17 17 32 80 1 76 PH 0 AR MG MA CY TA BL #5 ET 91 AC 00 01 02 90 30 00 WA Ac ET 09 -1 -1 .0 00 L- ti AM 30 6- 0- 00 04 MA ve IN 15 20 20 52 RT OP 01 17 17 87 HE 0 41 PH N- AR CO MA D CY #3 #5 TA 91 BL ET ## 01 02 30 15 00 OK Ac ## -1 -1 .0 00 L- ti ## 8- 0- 00 08 MA ve ## 20 20 83 RT ## 17 17 77 # 58 PH AR MA CY #5 91 FL 00 01 02 10 60 00 WA Ac OV 17 -1 -1 .5 00 L- ti EN 30 4- 0- 99 07 MA ve T 71 20 20 44 RT HF 82 17 17 85 A 0 37 PH 44 AR MA MC CY G IN #5 MENDEZ 91 LE R VE 00 01 02 18 17 00 WA Ac NT 17 -1 -1 .0 00 L- ti OL 30 4- 0- 00 07 MA ve IN 68 20 20 44 RT 22 17 17 85 HF 0 43 PH A AR 90 MA CY MC G #5 IN 91 MENDEZ LE R MO 54 01 02 30 30 00 WA Ac NT 45 -1 -1 .0 00 L- ti EL 80 4- 0- 00 07 MA ve UK 89 20 20 44 RT 01 17 17 85 T 0 42 PH SO AR D MA 10 CY MG #5 91 TA BL ET PA 54 01 02 30 30 00 OK Ac RO 45 -1 -1 .0 00 L- ti XE 80 4- 0- 00 07 MA ve TI 98 20 20 45 RT NE 91 17 17 84 0 00 PH HC AR L MA 20 CY MG #5 91 TA BL ET LA 69 01 02 60 30 00 OK Ac MO 09 -1 -1 .0 00 L- ti TR 70 4- 0- 00 07 MA ve IG 15 20 20 45 RT IN 20 17 17 83 E 3 95 PH 20 AR 0 MA MG CY TA #5 BL 91 ET LA 00 02 30 30 00 OK Ac NS 09 -0 -0 .0 00 L- ti OP 37 6- 3- 00 07 MA ve RA 35 20 20 40 RT ZO 15 17 17 32 LE [address] MA CY 30 #5 MG 91 CA PS UL E CY 68 01 02 90 30 00 OK Ac CL 64 -0 -0 .0 00 L- ti OB 50 6- 3- 00 07 MA ve EN 51 20 20 40 RT ZA 89 17 17 32 VA 0 71 PH IN AR E MA 10 CY MG #5 91 TA BL ET QU 16 02 30 30 00 OK Ac ET 72 -0 -0 .0 00 L- ti IA 90 5- 3- 00 07 MA ve PI 15 20 20 42 RT NE 00 17 17 61 1 22 PH FU AR MA MA RA CY TE #5 40 91 0 MG TA B AK 57 01 02 30 30 00 OK Ac RT 23 -0 -0 .0 00 L- ti AZ 70 5- 3- 00 07 MA ve AP 00 20 20 42 RT IN 93 17 17 61 E 0 29 PH 30 AR MA MG CY TA #5 BL 91 ET LO 00 01 02 30 30 00 OK Ac RA 78 -0 -0 .0 00 L- ti TA 15 5- 3- 00 08 MA ve DI 07 20 20 83 RT NE 70 17 17 75 1 20 PH 10 AR MA MG CY TA #5 BL 91 ET BE 51 12 01 21 7 00 OK Ac NZ 22 -3 -2 .0 00 L- ti ON 40 0- 7- 00 07 MA ve AT 00 20 20 46 RT AT 16 16 17 17 E 0 02 PH 20 AR 0 MA MG CY CA #5 PS 91 UL E VA 00 01 01 20 10 00 OK Ac OM 60 -0 -2 0. 00 L- ti ET 31 4- 7- 00 07 MA ve MENDEZ 58 20 20 0 46 RT ZI 65 17 17 26 NE 8 85 PH -D AR M MA SY CY RU P #5 91 AZ 59 01 01 6. 5 00 OK Ac IT 76 -0 -2 00 00 L- ti HR 23 4- 7- 0 07 MA ve OM 06 20 20 46 RT YC 00 17 17 26 IN 1 86 PH AR 25 MA 0 CY MG #5 TA 91 BL ET VA 00 01 01 10 5 00 OK Ac ED 14 -0 -2 .0 00 L- ti NI 39 4- 7- 00 07 MA ve SO 73 20 20 46 RT NE 80 17 17 26 5 87 PH 20 AR MA MG CY TA #5 BL 91 ET FL 60 01 01 16 60 00 [facility] [place] 43 -0 -2 .0 00 L- ti IC 20 1- 7- 00 07 MA ve 26 20 20 40 RT ON 41 17 17 32 E 5 79 PH VA AR OP MA CY 50 #5 MC 91 G SP RA Y AC 00 12 01 60 30 00 OK Ac YC 09 -2 -1 .0 00 L- ti LO 38 0- 3- 00 07 MA ve 94 20 20 45 RT R 70 16 17 83 80 1 97 PH 0 AR MG MA CY TA BL #5 ET 91 AK 57 12 30 30 00 OK Ac RT 23 -1 -0 .0 00 L- ti AZ 70 3- 9- 00 07 MA ve AP 00 20 20 42 RT IN 93 16 17 61 E 0 29 PH 30 AR MA MG CY TA #5 BL 91 ET QU 16 12 30 30 00 OK Ac ET 72 -1 -0 .0 00 L- ti IA 90 3- 9- 00 07 MA ve PI 15 20 20 42 RT NE 00 16 17 61 1 22 PH FU AR MA MA RA CY TE #5 40 91 0 MG TA B GA 00 12 90 30 00 OK Ac BA 22 -1 -0 .0 00 L- ti PE 82 4- 9- 00 07 MA ve NT 63 20 20 45 RT IN 65 16 17 83 0 92 PH 60 AR 0 MA MG CY TA #5 BL 91 ET LA 00 12 30 30 00 OK Ac NS 09 -1 -0 .0 00 L- ti OP 37 4- 9- 00 07 MA ve RA 35 20 20 45 RT ZO 15 16 17 83 LE [address] MA CY 30 #5 MG 91 CA PS UL E CY 68 12 01 90 30 00 WA Ac CL 64 -1 -0 .0 00 L- ti OB 50 07 MA ve EN 45 20 20 45 RT ZA 09 16 17 83 VA 0 98 PH IN AR E MA 10 CY MG #5 91 TA BL ET PA 54 12 07 21 30 00 WA Ac RO 45 -1 -0 .0 00 L- ti XE 80 07 MA ve TI 98 20 20 45 RT NE 91 16 17 84 0 00 PH HC AR L MA 20 CY MG #5 91 TA BL ET LA 69 12 01 60 30 00 WA Ac MO 09 -1 -0 .0 00 L- ti TR 70 07 MA ve IG 15 20 20 45 RT IN 20 16 17 83 E 3 95 PH 20 AR 0 MA MG CY TA #5 BL 91 ET AC 00 12 01 90 30 00 OK Ac ET 09 -1 -0 .0 00 L- ti AM 30 04 MA ve IN 15 20 20 52 RT OP 01 16 17 87 HE 0 41 PH N- AR CO MA D CY #3 #5 TA 91 BL ET LO 00 12 07 21 30 00 WA Ac RA 78 -1 -0 .0 00 L- ti TA 15 08 MA ve DI 07 20 20 83 RT NE 70 16 17 73 1 03 PH 10 AR MA MG CY TA #5 BL 91 ET Immunization Name Date Rout CVX Reac Dose Comm Prov Is Faci e tion ent ider Refu lity Give sed n TDAP 02-2 115 GAIN No [facility] 3-20 EY PHYS VACC 16 ELINA ICIA INE NS 7 GROU YRS/ P > IM Procedures Procedure DOS Code Location Performer Comment BLOOD 49476 [facility] COMPLETE INC INC AUTO&AUTO DIFRNTL WBC COAGULATI 19982 ROBERT JONES ON TIME 7 [facility] [place] [address] [facility] SERGO TRLUML 7 PHYSICIAN CORONARY S GROUP STENT W/ANGIO ONE ART/BRNCH MOD SED 42021 ROBERT JONES SAME 7 [facility] PHYS/QHP INC INC INITIAL 15 MINS <5 YRS IV DOP 68387 [facility] SERGO NICKO&/OR 7 PHYSICIAN PRESS S GROUP C/MONO RSRV SHALA 1ST VSL CATH PLMT 25005 [facility] SERGO L HRT & 7 PHYSICIAN ARTS S GROUP W/NJX & ANGIO IMG S&I BASIC 24102 ROBERT JONES METABOLIC 7 [facility] PANEL INC INC CALCIUM TOTAL STENT C1876 ROBERT JONES NON-COATE 7 [facility] D/NON-COV INC INC ERED W/DELIVER Y SYSTEM TECHNETIU A9502 ROBERT ROBERT M TC-99M 7 [facility] TETROFOSM INC INC IN DX PER STUDY DOSE MYOCARDIA 70382 [facility] SRIVASTAV L SPECT 7 PHYSICIAN A MULTIPLE S GROUP STUDIES ECHO 63630 ROBERT JONES TTHRC R-T 7 [facility] 2D INC INC W/WOM-MOD E COMPL SPEC&COLR D CT HEART [address]04 [place] NO 7 MEDICAL CONTRAST IMAGING QUANT ASS EVAL CORONRY CALCIUM FINAL G9638 [place] [facility] REPORTS 7 MEDICAL W/O DOC IMAGING 1/MORE ASS DOSE REDUCTION TECH ECG 28593 ROBERT WALTERSON ROUTINE 7 [facility] ECG INC INC W/LEAST 12 LDS TRCG ONLY W/O I&R PREPJ& 12794 [facility] CADE ALLERGEN 7 PARTNERS IMMUNOTHE OF POE RAPY 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 COLLECTIO 30831 [facility] STONE N VENOUS 7 PHYSICIAN BLOOD S GROUP VENIPUNCT URE COMPREHEN 48703 ROBERT WALTERSON SIVE 7 [facility] METABOLIC INC INC PANEL BLOOD 79807 ROBERT JONES COUNT 7 [facility] COMPLETE INC INC AUTO&[place] [address] ROBERT JONES FREE 7 [facility] [place] [address] ROBERT JONES THYROID 7 [facility] STIMULATI INC INC NG HORMONE TSH SPMTRY 17106 [facility]GY [place] W/VC 7 PARTNERS EXPIRATOR OF POE Y MONO CO W/WO MXML VOL VNTJ SPMTRY 22359 ALLERGY CADE W/VC 7 PARTNERS EXPIRATOR OF POE Y MONO CO W/WO MXML VOL VNTJ PROF SVCS 22075 [facility] CADE ALLG 7 PARTNERS IMMNTX X OF POE W/PRV CO ALLGIC XTRCS NJXS NITRIC 84748 [facility]ER[facility] CADE OXIDE 7 PARTNERS OF PO[facility] GAS CO DETERMINA TION AREO MASK A7015 MT MED MT MED USED W/ 7 EQUIPMENT EQUIPMENT DME NEB INC INC NEBULIZER E0570 MT MED MT MED WITH 7 EQUIPMENT EQUIPMENT COMPRESSO INC INC R ADMN SET A7005 MT MED MT MED W/SM VOL 7 EQUIPMENT EQUIPMENT NONFILTR LonoCloud INC NEBULIZR NON-DISPB L NITRIC 02631 ALLERGY CADE OXIDE 7 PARTNERS OF POE GAS CO DETERMINA TION SPMTRY 62316 ALLERGY CADE W/VC 7 PARTNERS EXPIRATOR OF POE Y [place] W/[place] [address] [facility] CADE ALLG 7 PARTNERS IMMNTX X OF POE W/PRV CO ALLGIC XTRCS NJXS RADIOLOGI 27821 ROBERT JONES C EXAM 7 [facility] CHEST 2 INC INC VIEWS FRONTAL&L ATERAL THERAPEUT 11536 [facility] STONE IC 7 PHYSICIAN PROPHYLAC S GROUP TIC/DX INJECTION SUBQ/IM INJECTION J1040 [facility] SYSTEM 7 PHYSICIAN PHYSICIAN METHYLPRE S GROUP S GROUP DNISOLONE ACETATE 80 MG INJECTION J0696 [facility] STONE 7 PHYSICIAN CEFTRIAXO S GROUP NE SODIUM PER 250 MG PHYSICAL 47982 ROBRET JONES THERAPY 6 [facility] EVALUATIO INC INC N IM ADM 71062 [facility] STONE BUTCH PRQ ID 6 PHYSICIAN SUBQ/IM S GROUP NJXS 1 VACCINE PROF [facility] 22535 ALLERGY CADE MAR ALLG 6 PARTNERS IMMNTX X OF POE W/PRV CO ALLGIC XTRCS NJXS PROF [facility] 15363 ALLERGY CADE MAR ALLG 6 PARTNERS IMMNTX X OF POE W/PRV CO ALLGIC XTRCS NJXS SHALA 20892 ROBERT COLMENARES POST-VOID 6 [facility] RESIDUAL P URINE&/BL ADDER CAP CHIROPRAC 59124 CIELO BUCK TIC 6 BILL BILL MANIPULAT MIKE [place] SPINAL 3-4 REGIONS NITRIC 58582 ALLERGY CADE MAR OXIDE 6 PARTNERS OF POE GAS CO DETERMINA TION PROF [facility] 76709 ALLERGY CADE MAR ALLG 6 PARTNERS IMMNTX X OF POE W/PRV CO ALLGIC XTRCS NJXS SPMTRY 91612 ALLERGY CADE MAR W/VC 6 PARTNERS EXPIRATOR OF POE Y MONO CO W/WO MXML VOL VNTJ OPHTH 99574 [facility] 6 GRE GRE XM&EVAL COMPRHNSV ESTAB PT 1/> PROF [facility] 38135 ALLERGY CADE MAR ALLG 6 PARTNERS IMMNTX X OF POE W/PRV CO ALLGIC XTRCS NJXS BX BREAST 58260 ROBERT JONES W/DEVICE 6 [facility] 1ST INC INC LESION STEREOTAC TIC GUID DIAGNOSTI G0206 ROBERT JONES C 6 [facility] MAMMOGRAP INC INC HY INCL CAD [place]; [place] [address] [facility], SURG 6 [facility] PATHOLOGY GROSS&ELINA ROSCOPIC EXAM PROF [facility] 90263 ALLERGY CADE MAR ALLG 6 PARTNERS IMMNTX X OF POE W/PRV CO ALLGIC XTRCS NJXS PROF [facility] 87613 ALLERGY CADE MAR ALLG 6 PARTNERS IMMNTX X OF POE W/PRV CO ALLGIC XTRCS NJXS SWALLOWIN 57100 ROBERT Pritchett FUNCJ 6 [facility] W/CINERAD INC INC IOGRAPY/V IDRADIOG MOTION 65305 ROBERT JONES FLUOR 6 [facility] EVAL INC INC SWLNG FUNCJ C/V REC PROF [facility] 04780 ALLERGY CADE MAR ALLG 6 PARTNERS IMMNTX X OF POE W/PRV CO ALLGIC XTRCS NJXS ECG 10-25-201 06160 ROBERT TOBAR JR ROUTINE 6 [facility] W/LEAST P 12 LDS I&R ONLY COLONOSCO 33238 [facility] BYRON PEGUERO PY 6 PHYSICIAN REJI W/BIOPSY S GROUP SINGLE/MU LTIPLE EGD 65478 [facility] BYRON PEGUERO TRANSORAL 6 PHYSICIAN REJI BIOPSY S GROUP SINGLE/[place] [address] [facility]G [address] [place] [address] PATHOLOGY GROSS&[place] [address] ROBERT JONES HPYLORI 6 [facility] INC INC NITRIC 31153 ALLERGY CADE MAR OXIDE 6 PARTNERS OF POE GAS CO DETERMINA TION PROF SVCS 35189 ALLERGY CADE MAR ALLG 6 PARTNERS IMMNTX X OF POE W/PRV CO ALLGIC XTRCS NJXS SPMTRY 79434 ALLERGY CADE MAR W/VC 6 PARTNERS EXPIRATOR OF POE Y MONO CO W/WO MXML VOL VNTJ US BREAST 24756 ROBERT JONES UNI REAL 6 [facility] TIME INC INC WITH IMAGE COMPLETE US BREAST 84921 [place] UNI REAL 6 MEDICAL [place] TIME IMAGING WITH ASS IMAGE LIMITED DIAGNOSTI G0206 [facility] 6 MEDICAL [place] MAMMOGRAP IMAGING HY INCL ASS CAD WHEN PERF; UNI PHYSICAL 95880 ROBERT JONES THERAPY 6 [facility] EVALUATIO INC INC N CHIROPRAC 97699 BUCK BUCK TIC 6 BILL BILL MANIPULAT MIKE [place] SPINAL 3-4 REGIONS PROF SVCS 64299 ALLERGY CADE MAR ALLG 6 PARTNERS IMMNTX X OF POE W/[place] [address] ROBERT JONES ABDOMINAL 6 [facility] REAL INC INC TIME W/IMAGE LIMITED CHIROPRAC 85078 BUCK BUCK TIC 6 BILL BILL MANIPULAT MIKE [place] SPINAL 3-4 REGIONS SCREENING G0202 ROBERT JONES 6 [facility] MAMMOGRAP INC INC HY HILL INCL CAD WHEN [facility]- 15401 ROBERT JONES AIDED 6 [facility] DETECTION INC INC SCREENING MAMMOGRAP HY PROF [facility] 91284 ALLERGY CADE MAR ALLG 6 PARTNERS IMMNTX X OF POE W/PRV CO ALLGIC XTRCS NJXS PROF [facility] 05868 ALLERGY CADE MAR ALLG 6 PARTNERS IMMNTX X OF POE W/PRV CO ALLGIC XTRCS NJXS BRNCDILAT 99767 ROBERT JONES RSPSE 6 [facility] SPMTRY INC INC PRE&POST- BRNCDILAT ADMN RADEX 81253 ROBERT JONES ESOPHAGUS 6 [facility] INC CHIROPRAC 95045 BUCK BUCK TIC 6 BILL BILL MANIPULAT MIKE [place] SPINAL 3-4 REGIONS PROF [facility] 86734 ALLERGY CADE MAR ALLG 6 PARTNERS IMMNTX X OF POE W/PRV CO ALLGIC XTRCS NJXS PROF [facility] 02513 ALLERGY CADE MAR ALLG 6 PARTNERS IMMNTX X OF POE W/PRV CO ALLGIC XTRCS NJXS RADEX 87737 [place] [facility] [facility] 6 MEDICAL [place] COMPLETE IMAGING MINIMUM 2 ASS [facility]WS [facility] 76183 BUCK BUCK TIC 6 BILL BILL MANIPULAT MIKE [place] SPINAL 3-4 REGIONS CHIROPRA 96382 BUCK BUCK TIC 6 BILL BILL MANIPULAT MIKE [place] SPINAL 3-4 REGIONS PROF [facility] 79802 ALLERGY CADE MAR ALLG 6 PARTNERS IMMNTX X OF POE W/PRV CO ALLGIC XTRCS NJXS PREPJ& 51496 ALLERGY CADE ALLERGEN 6 PARTNERS IMMUNOTHE OF POE 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 CHIROPRA 09427 BUCK BUCK TIC 6 BILL BILL MANIPULAT MIKE [place] SPINAL 3-4 REGIONS NITRIC 41623 ALLERGY CADE MAR OXIDE 6 PARTNERS OF POE GAS CO DETERMINA TION SPACR A4627 MT MED MT MED BAG/RESRV 6 EQUIPMENT EQUIPMENT OR W/WO INC INC MASK W/METRD DOSE INHAL DEMO&/KIM 58864 ALLERGY CADE MAR L OF PT 6 PARTNERS UTILIZ OF POE AERSL CO GEN/NEB/I NHLR/IP SPMTRY 73722 ALLERGY CADE MAR W/VC 6 PARTNERS EXPIRATOR OF POE Y MONO CO W/WO MXML VOL VNTJ PERCUTANE 26160 ALLERGY CADE MAR OUS TESTS 6 PARTNERS OF POE W/ALLERGE CO CAROLINE EXTRACTS INTRACUTA 09900 ALLERGY CADE MAR NEOUS 6 PARTNERS TESTS OF POE W/ALLERGE CO CAROLINE EXTRACTS CHIROPRAC 31819 BUCK BUCK TIC 6 BILL BILL MANIPULAT MIKE [place] SPINAL 3-4 REGIONS CHIROPRAC 65966 BUCK BUCK TIC 6 BILL BILL MANIPULAT MIKE [place] SPINAL 3-4 REGIONS CHIROPRAC 06629 BUCK BUCK TIC 6 BILL BILL MANIPULAT MIKE [place] SPINAL 3-4 REGIONS CHIROPRAC 44077 BUCK BUCK TIC 6 BILL BILL MANIPULAT MIKE [place] SPINAL 3-4 REGIONS CYTP C/V 30182 [facility], AUTO THIN 6 [facility] LYR PREPJ SCR MNL RESCR PHYS RADIOLOGI 52989 [place] ALL C 6 MEDICAL EXAMINATI IMAGING ON CHEST ASS SINGLE VIEW FRONTAL RADIOLOGI 55368 [place] ALL C 6 MEDICAL EXAMINATI IMAGING ON KNEE ASS 1/2 VIEWS CHIROPRAC 75108 BUCK BUCK TIC 6 BILL BILL MANIPULAT MIKE [place] SPINAL 1-2 REGIONS DRUG TST G0477 ROBERT JONES PRESUMP;C 6 [facility] PBL BEING INC INC READ DC OPT OBV ONLY LEVEL III 12081 [facility] SURG 6 [facility] PATHOLOGY GROSS&ELINA ROSCOPIC EXAM INJECTION J2710 ROBERT JONES 6 [facility] NEOSTIGMI INC INC NE METHYLSUL FATE UP TO 0.5 MG TONSILLEC 83736 ROBERT JONES DAVID 6 [facility] PRIMARY/S INC INC ECONDARY AGE 12/> ANESTHESI 63907 [facility] BETSY A 6 ANESTH MALACHI INTRAORAL OF THE WITH BLUE BIOPSY NOS INJECTION J2405 ROBERT JONES 6 [facility] ONDANSETR INC INC ON HCL PER 1 MG ECG 56390 ROBERT JONES ROUTINE 6 [facility] ECG INC INC W/LEAST 12 LDS TRCG ONLY W/O I&R BLOOD 42336 ROBERT JONES COUNT 6 [facility] COMPLETE INC INC AUTO&AUTO DIFRNTL WBC ECG 55474 ROBERT PERALTA ROUTINE 6 [facility] W/LEAST P 12 LDS I&R ONLY COLLECTIO 71193 ROBERT JONES N VENOUS 6 [facility] BLOOD INC INC VENIPUNCT URE COMPREHEN 71684 ROBERT JONES SIVE 6 [facility] METABOLIC INC INC PANEL COLLECTIO 17142 [facility] BELTRAN N VENOUS 6 PHYSICIAN ELINA BLOOD S GROUP VENIPUNCT URE COMPREHEN 86139 ROBERT JONES SIVE 6 [facility] METABOLIC INC INC PANEL IM ADM 90950 [facility] BELTRAN PRQ ID 6 PHYSICIAN ELINA SUBQ/IM S GROUP NJXS 1 [place] [address] ROBERT JONES THYROXINE 6 [facility] [place] [address] ROBERT JONES THYROID 6 [facility] STIMULATI INC INC NG HORMONE TSH BLOOD 22731 ROBERT JONES COUNT 6 [facility] COMPLETE INC INC AUTO&AUTO DIFRNTL WBC TDAP 40647 [facility] BELTRAN VACCINE 7 6 PHYSICIAN ELINA YRS/> IM S GROUP 25 43841 ROBERT JONES HYDROXY 6 [facility] INCLUDES INC INC FRACTIONS IF PERFORMED ANESTHESI 77997 COMMUNITY BETSY A NOSE & 5 ANESTH MALACHI ACCESSORY [place] [address] [facility], SURG 5 [facility] PATHOLOGY GROSS&ELINA ROSCOPIC EXAM COLLECTIO 41496 ROBERT JONES N VENOUS 5 [facility] BLOOD INC INC VENIPUNCT URE BASIC 85366 ROBERT JONES METABOLIC 5 [facility] PANEL INC INC CALCIUM TOTAL ECG 64674 ROBERT JONES ROUTINE 5 [facility] ECG INC INC W/LEAST 12 LDS TRCG ONLY W/O I&R BLOOD 82009 ROBERT JONES COUNT 5 [facility] COMPLETE INC INC AUTO&AUTO DIFRNTL WBC ECG 50106 FABIAN PERALTA ROUTINE 5 FANNIE FANNIE ECG W/LEAST 12 LDS I&[place] [address] [place] ALL MAXILLOFA 5 MEDICAL CIAL W/O IMAGING CONTRAST ASS MATERIAL INJECTION J1040 [facility] HODAN 5 PHYSICIAN STONE METHYLPRE S GROUP PA-C BUTCH DNISOLONE ACETATE 80 MG THERAPEUT 70415 [facility] HODAN IC 5 PHYSICIAN STONE PROPHYLAC S GROUP PA-C BUTCH TIC/DX INJECTION SUBQ/IM OPHTH 04015 [facility] 5 CHERYL LUNA XM&EVAL LATANYA ORTIZ NEW PT 1/> VST INJECTION J1040 ROBERT BREAUX 5 [facility] DNISOLONE ACETATE 80 MG THERAPEUT 89753 ROBERT BREAUX IC 5 [facility] TIC/DX INJECTION SUBQ/IM INJECTION J0696 ROBERT BREAUX 5 [facility] NE SODIUM PER 250 MG RADIOLOGI 89356 ROBERT JONES C 4 [facility] EXAMINATI INC INC ON KNEE 1/2 VIEWS 3D 87834 ROBERT JONES RENDERING 4 [facility] INC INC W/INTERP& [place] [address] ROBERT JONES MAXILLOFA 4 [facility] CIAL W/O INC INC CONTRAST MATERIAL Encounters Encounter Start End Date Code Location Performer Type Date [facility] ROBERT - 7 7 [facility] OUTPATIEN INC [facility] ROBERT - 7 7 [facility] OUTPATIEN [facility] ROBERT - 7 7 [facility] OUTPATIEN [facility] T OFFICE 60650 [facility] STONE OUTPATIEN 7 7 PHYSICIAN T VISIT S GROUP 25 [facility] ROBERT - 7 7 [facility] OUTPATIEN [facility] T OFFICE 12447 [facility] OUTPATIEN 7 7 [facility] T VISIT OF POE 25 CO MINUTES OFFICE 14011 [facility] OUTPATIEN 7 7 [facility] T VISIT OF POE 25 CO MINUTES OFFICE 63981 [facility] OUTPATIEN 7 7 [facility] T V[facility]IT [facility] 40 CO MINUTES HOSPITAL ROBERT - 7 7 [facility] OUTPATIEN [facility] ROBERT - 6 6 [facility] OUTPATIEN [facility] T OFFICE 07710 ROBERT COLMENARES OUTPATIEN 6 6 [facility] 15 P MINUTES OFFICE 79040 [facility] MAR OUTPATIEN 6 6 [facility]NERS T VISIT OF POE 40 CO MINUTES OFFICE 73068 [facility] ALLRAN JR OUTPATIEN 6 6 PHYSICIAN REJI T VISIT S GROUP 10 [facility] ROBERT - 6 6 [facility] OUTPATIEN [facility] ROBERT - 6 6 [facility]PATIEN [facility] ROBERT - 6 6 [facility]PATI[facility] T OFFICE 84614 ALLERGY CADE MAR OUTPATIEN 6 6 PARTNERS T [facility]ISIT OF POE 25 CO MINUTES HOSPITAL ROBERT - 6 6 [facility] OUTPATIEN [facility] T OFFICE 60927 [facility] ALLRAN JR OUTPATIEN 6 6 PHYSICIAN REJI T VISIT S GROUP 10 [facility] ROBERT - 6 6 [facility] OUTPATIEN [facility] ROBERT - 6 6 [facility]PATIEN [facility] ROBERT - 6 6 [facility] OUTPATI[facility] T OFFICE 29905 [facility] BYRON OUTPATIEN 6 6 PHYSICIAN REJI T NEW 30 S GROUP MINUTES HOSPITAL ROBERT - 6 6 [facility]PATIEN [facility] ROBERT - 6 6 [facility] OUTPATIEN [facility] T OFFICE 90594 ALLERGY CADE MAR CONSULTAT 6 6 PARTNERS ION OF POE NEW/ESTAB CO PATIENT 60 MIN OFFICE 20011 [facility] CHRIS RAE OUTPATIEN 6 6 PHYSICIAN T VISIT S GROUP 15 MINUTES OFFICE 72786 ROBERT COLMENARES OUTPATIEN 6 6 [facility] 10 P [facility] ROBERT - 6 6 [facility] OUTPATIEN [facility] ROBERT - 6 6 [facility] ROBERT - 6 6 [facility] OUTPATIEN [facility] T OFFICE 70779 [facility] [place] OUTPATIEN 6 6 PHYSICIAN CLARITA T VISIT S GROUP 15 MINUTES HOSPITAL ROBERT - 6 6 [facility] OUTPATIEN [facility] ROBERT - 5 5 [facility] T OFFICE [id number] [facility] [place] OUTPATIEN 5 5 [facility] 15 MINUT[facility] OFFICE [id number] [facility] OUT[facility] 5 5 PHYS[facility] CLARITA T VISIT S GROUP 10 MINUTES HOSPITAL [facility]ERT [facility] 5 5 [facility] T OFFICE [id number] [facility] OUTPATIEN 5 5 PHYSICIAN STONE T VISIT S GROUP HUAN RAE 25 MINUTES OFFICE [id number] [facility]AUX OUTPATIEN 5 [facility] 15 MINUT[facility] OFFICE 80347 [facility] OUTPATI[facility] 5 5 PHYSICIAN CLARITA T NEW 30 S GROUP MINUTES OFFICE [id number] [facility] OUTPATIEN 5 5 [facility] 15 MINUTES OFFICE 24488 [facility] OUTPATIEN 5 5 [facility] 10 MINUT[facility] OFFICE [id number] [facility] OUTPATIEN 5 5 [facility] 15 MINUT[facility] OFFICE [id number] [facility] OUTPATIEN 4 4 [facility] ROBERT - 4 4 [facility]IEN [facility]ERT [facility] 4 4 [facility]
--- OUTSIDE RECORDS SUMMARY | 2017-04-05 16:22 | External Medical Summary Rpt | CCD ---
Author Author , DEIDRE Organization DEIDRE Address Unknown Phone [email or web address] Care Team Providers Care Fire Officer Name Role Phone COLMENARES, COLMENARES Unavailable Unavailable [...] EUG BELTRAN ELINA, BELTRAN Unavailable Unavailable ELINA [facility] Unavailable Unavailable INC, [facility] Un[facility] Un[facility] Un[facility], [facility], Unavailable Unavailable [facility] Unavailable Unavailable [facility], [facility] DUMONT CLARITA, DUMONT Unavailable [...] HYPERTENSIO INC N I208 OTHER FORMS 03-12-2017 [facility]A [facility] PECTORIS GROUP [id number] ASHD LYTTON 03-12-2017 [facility] COR ART PHYSICIANS W/OTH FORMS GROUP ANGINA PECTORIS [id number] ASHD LYTTON 03-12-2017 [facility] W/UNS INC ANGINA PECTORIS Z720 TOBACCO USE 03-12-2017 [facility] INC R0600 DYSPNEA 02-05-2017 [facility]NSPECIFIED [facility] INC R0602 SHORTNESS 02-05-2017 [facility] OF BREATH PHYSICIANS GROUP R0789 OTHER CHEST 02-05-2017 [facility] PAIN [facility] INC R079 CHEST PAIN 02-05-2017 [facility] UNSPECIFIED PHYSICIANS GROUP R42 DIZZINESS 02-05-2017 [facility] GIDDINESS INC R531 WEAKNESS 02-05-2017 [facility] INC R609 EDEMA 02-05-2017 [facility]PEC[facility] INC R9431 ABNORMAL 02-05-2017 [facility] ELECTROCARD PHYSICIANS IOGRAM GROUP I209 ANGINA 02-02-2017 [facility] UNSPECIFIED IMAGING ASS I200 UNSTABLE 01-19-2017 [facility] INC J301 ALLERGIC 01-07-2017 [facility] RHINITIS PARTNERS OF DUE TO [place] POLLEN J3081 ALLERG 01-07-2017 [facility] OF D/T ANIMAL [place] CAT DOG HAIR & DANDER J3089 OTHER 01-07-2017 [facility] ALLERGIC PARTN[facility] OF RHINITIS [place] J302 OTHER 12-31-2016 [facility] SEASONAL PHYSICIANS ALLERGIC GROUP RHINITIS [id number] UNSPECIFIED 12-31-2016 [facility] ASTHMA PHYSICIANS UNCOMPLICAT GROUP ED R030 ELEVATED 12-31-2016 [facility] BLOOD-PRESS PHYSICIANS URE READING GROUP WITHOUT DX HTN Z0000 ENCOUNTER 12-31-2016 [facility] ADULT [facility] MED EXAM INC W/O ABNORMAL FIND Z8249 FAMILY HX 12-31-2016 [facility] ISCHEMIC PHYSICIANS HRT DZ OTH GROUP DZ CIRC SYSTEM J4540 MODERATE 12-29-2016 [facility] PERSISTENT [facility] OF ASTHMA [place] UNCOMPLICAT ED [id number] OTHER 07-16-2016 [place] [facility] EQUIPMENT INC R05 COUGH 07-09-2016 [facility] J399 DISEASE OF 06-25-2016 [facility] UPPER PHYSICIANS RESPIRATORY GROUP TRACT UNSPECIFIED M1712 UNILATERAL 06-10-2016 [facility] OSTEOARTHRI INC TIS LEFT KNEE M7582 OTHER 06-10-2016 [facility] LESIONS INC LEFT SHOULDER Z23 ENCOUNTER 06-04-2016 [facility]YS[facility]ANS IMMUNIZATIO GROUP N M542 CERVICALGIA [...] REGION R3911 HESITANCY 05-27-2016 [facility] P Z8553 PERSONAL 05-27-2016 [facility] NEOPLASM RENAL PELVIS J4530 MILD 05-26-2016 [facility] AST[facility] [place] UNCOMPLICAT ED K219 GASTRO-ESOP 05-26-2016 [facility] H REFLUX PARTNERS OF DISEASE [place] WITHOUT ESOPHAGITIS Z0100 ENCOUNTER 05-21-2016 [facility] EXAM EYES & GRE VISION W/O ABNORMAL FIND 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 UNSPECIFIED R1013 EPIGASTRIC 05-19-2016 [facility] PAIN PHYSICIANS GROUP 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 R921 MAMMO 05-07-2016 [facility]ICAL ON FOUND ON IMAGING ASS DX IMAGING BREAST R928 OTH ABNORM 05-07-2016 [facility] INCONCLUSIV INC E FIND ON DX IMAG BREAST R1310 DYSPHAGIA 04-23-2016 [facility] ASS 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-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 K210 GASTRO-ESOP 04-15-2016 [facility] HAGEAL LLC REFLUX DISEASE W/ ESOPHAGITIS K5730 DIVERTICULO 04-15-2016 [facility] SIS LG PHYSICIANS INTEST W/O GROUP PERF/ABSC W/O BLEED Z1211 ENCOUNTER 04-15-2016 [facility] SCREENING PHYSICIANS MALIGNANT GROUP NEOPLASM OF COLON D60129 PERSONAL 04-15-2016 [facility] HISTORY OF PHYSICIANS COLONIC GROUP POLYPS R140 ABDOMINAL 03-25-2016 [facility] GASEOUS INC U01819 UNS ROT 03-24-2016 [facility] CUFF [facility] TEAR/RUPT INC LT SHLDR NOT SPEC TRAUMAT Z1231 ENCOUNTER 03-21-2016 [facility] MAMMO MALIG IMAGING ASS NEOPLASM BREAST J449 CHRONIC 03-13-2016 [facility] P DISEASE UNS R4702 DYSPHASIA 03-13-2016 [facility] I05585 PAIN IN 02-26-2016 [facility] LEFT MEDICAL SHOULDER IMAGING ASS J4520 MILD 02-11-2016 [facility] INTERMITTEN PARTNERS OF T ASTHMA [place] UNCOMPLICAT ED J329 CHRONIC 01-22-2016 [facility] SINUSITIS PHYSICIANS UNSPECIFIED GROUP D05964 PAIN IN 01-22-2016 [facility] UNSPECIFIED PHYSICIANS KNEE GROUP Q51904 PAIN IN 01-22-2016 [facility] LEFT ARM PHYSICIANS GROUP X78032 ENCOUNTER 01-01-2016 [facility] 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 AND PRODUCTION 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 EXAM LLC GENERAL RTN W/O ABNORMAL FIND N319 NEUROMUSCUL 12-25-2015 [facility] P OF BLADDER UNSPECIFIED Z69069 OTHER 11-22-2015 [facility] RIGHT KNEE IMAGING ASS M51323 OTHER 11-22-2015 [facility] LEFT KNEE IMAGING ASS O48319 CONTACT 11-22-2015 [facility] WITH & MEDICAL SUSPECTED IMAGING ASS EXPOSURE TO MOLD TOXIC M179 OSTEOARTHRI 10-24-2015 [facility] TIS OF KNEE [facility] INC UNSPECIFIED J0390 ACUTE 10-11-2015 [facility] TONSILLITIS PHYSICIANS GROUP UNSPECIFIED J3501 CHRONIC 10-11-2015 [facility] TONSILLITIS [facility] INC J351 HYPERTROPHY 10-11-2015 [facility], OF TONSILS LLC M61930 ENCOUNTER 09-13-2015 [facility] AL CARIOVASCUL AR EXAM N45554 ENCOUNTER 09-13-2015 [facility] P AL LABORATORY EXAM M797 FIBROMYALGI 08-14-2015 [facility] A PHYSICIANS GROUP J320 CHRONIC 05-31-2015 [facility] MAXILLARY LLC SINUSITIS J342 DEVIATED 05-31-2015 [facility] ANESTH OF SEPTUM THE BLUE O65501 ENCOUNTER 05-30-2015 [facility] [facility] FOR OTHER [facility] PREPROCEDUR INC AL EXAMINATION J0100 ACUTE 05-22-2015 [facility] [facility] MAXILLARY [facility] SINUSITIS HOSPITAL UNSPECIFIED J209 ACUTE 05-22-2015 [facility] J328 OTHER 04-26-2015 [place] [facility] CHRONIC [facility] SINUSITIS INC B001 HERPESVIRAL 04-11-2015 [facility] VESICULAR PHYSICIANS DERMATITIS GROUP 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 H524 PRESBYOPIA 03-28-2015 [facility] CHERYL LATANY[facility] 4619 ACUTE 12-20-2014 [place] [facility], [facility] 6929 CONTACT 12-20-2014 [place] DERMATITIS& [facility] OTHER HOSPITAL ECZEMA DUE UNSPEC CAUSE 470 DEVIATED 12-14-2014 [facility] NASAL PHYSICIANS SEPTUM GROUP 4730 CHRONIC 12-14-2014 [facility] MAXILLARY PHYSICIANS SINUSITIS GROUP 4739 UNSPECIFIED 12-14-2014 [facility] SINUSITIS PHYSICIANS GROUP 04300 OTHER 12-14-2014 [facility] DISEASES OF PHYSICIANS NASAL GROUP CAVITY AND SINUSES 4779 ALLERGIC 10-31-2014 [place] RHINITIS [facility] UNSPECIFIED 462 ACUTE 10-20-2014 [facility] [facility] PHARYNGITIS [facility] 4611 ACUTE 05-15-2014 [facility] [facility] FRONTAL [facility] SINUSITIS [facility] 71096 PAIN IN 10-27-2013 [place] JOINT, [facility] LOWER LEG INC Allergies, Adverse Reactions, Alerts [...] FL 60 09 [address] Ac [place] 43 -2 -1 .0 00 L- ti IC 20 0- 3- 00 07 MA ve 26 20 20 47 RT ON 41 17 17 46 E 5 36 PH KS AR OP MA CY 50 #5 MC 91 G SP RA Y ME 62 09 [address] Ac TO 03 -1 -1 .0 00 L- ti KS 70 4- 3- 00 07 MA ve [...] CY #3 #5 TA 91 BL ET WI 57 08 [address] Ac RT 23 -2 -2 .0 00 L- ti AZ 70 8- 2- 00 07 MA ve AP 00 20 20 45 RT IN 93 17 17 83 E 0 99 PH 30 AR MA MG CY TA #5 BL 91 ET CY 68 08 09 90 30 00 [facility] CL 64 -2 -2 .0 00 L- ti OB 50 8- 2- 00 07 MA ve EN 51 20 20 45 RT ZA 89 17 17 83 KS 0 98 PH IN AR E MA 10 CY MG #5 91 TA BL ET MU 63 08 09 30 15 00 [facility] CI 82 -2 -2 .0 00 L- ti NE 40 8- 2- 00 08 MA ve X 05 20 20 83 RT D 71 17 17 77 ER 8 58 PH AR 60 MA 0- CY 60 #5 MG 91 TA BL ET MO 57 08 09 30 30 00 [facility] NT 23 -2 -2 .0 00 L- ti EL 70 8- 2- 00 07 MA ve UK 25 20 20 48 RT 53 17 17 06 T 0 14 PH SO AR D MA 10 CY MG #5 91 TA BL ET VE 00 08 09 18 17 00 [facility] NT 17 -2 -2 .0 00 L- ti OL 30 8- 2- 00 07 MA ve IN 68 20 20 48 RT 22 17 17 06 HF 0 13 PH A AR 90 MA CY MC G #5 IN 91 MENDEZ LE R LO 00 08 09 30 30 00 [facility] RA 78 -2 -2 .0 00 L- ti TA 15 8- 2- 00 08 MA ve DI 07 20 20 83 RT NE 70 17 17 83 1 62 PH 10 AR MA MG CY TA #5 BL 91 ET AC 00 08 [address] Ac YC 09 -2 -2 .0 00 L- ti LO 38 8- 2- 00 07 MA ve 94 20 20 45 RT R 70 17 17 83 80 1 97 PH 0 AR MG MA CY TA BL #5 ET 91 64 [address] Ac T 38 -2 -2 00 00 L- ti D2 00 8- 2- 0 07 MA ve 73 20 20 49 RT 1. 70 17 17 97 25 6 33 PH AR MG MA CY (5 0, #5 00 91 0 UN IT ) ES 68 [address] Ac CI 64 -2 -2 .0 00 L- ti TA 50 8- 2- 00 07 MA ve LO 52 20 20 50 RT KS 05 17 17 63 AM 4 44 PH AR 20 MA CY MG #5 TA 91 BL ET LA 69 08 [address] Ac MO 09 -2 -2 .0 00 L- ti TR 70 8- 2- 00 07 MA ve IG 15 20 20 50 RT IN 20 17 17 63 E 3 41 PH 20 AR 0 MA MG CY TA #5 BL 91 ET FA 68 08 [address] Ac MO 64 -2 -2 .0 00 L- ti TI 50 8- 2- 00 07 MA ve DI 14 20 20 50 RT NE 05 17 17 15 9 38 PH 20 AR MA MG CY TA #5 BL 91 ET LA 00 08 09 30 30 00 [facility] NS 09 -2 -2 .0 00 L- ti OP 37 8- 2- 00 07 MA ve RA 35 20 20 45 RT ZO 15 17 17 83 LE [address] MA CY 30 #5 MG 91 CA PS UL E QU 16 08 09 30 30 00 [facility] ET 72 -2 -2 .0 00 L- ti IA 90 8- 2- 00 07 MA ve PI 15 20 20 45 RT NE 00 17 17 84 1 01 PH FU AR MA MA RA CY TE #5 40 91 0 MG TA B AZ 51 08 09 30 31 00 [facility] EL 52 -2 -2 .0 00 L- ti 50 8- 2- 00 07 MA ve TI 29 20 20 47 RT NE 40 17 17 46 3 39 PH 0. AR 1% MA CY (1 37 #5 91 MC G) SP RY MU 63 08 09 60 30 00 [facility] CI 82 -2 -2 .0 00 L- ti NE 40 8- 2- 00 08 MA ve X 00 20 20 83 RT ER 83 17 17 88 4 80 PH 60 AR 0 MA MG CY TA #5 BL 91 ET FL 60 08 09 16 60 00 [facility] UT 43 -2 -2 .0 00 L- ti IC 20 8- 2- 00 07 MA ve 26 20 20 48 RT ON 41 17 17 06 E 5 16 PH KS AR OP MA CY 50 #5 MC 91 G SP RA Y LA 69 07 [address] Ac MO 09 -2 -2 .0 00 [...] 50 RT ZA 89 17 17 00 KS 0 95 PH IN AR E MA [...] AC 00 07 [address] Ac ET 09 -2 -1 .0 00 [...] 17 17 78 E 5 66 PH KS AR OP MA CY 50 #5 MC [...] RY 64 [address] Ac T 38 -1 -1 00 00 L- ti D2 00 9- 1- 0 07 MA ve 73 20 20 49 RT 1. 70 17 17 97 25 6 33 PH AR MG MA CY (5 0, #5 00 91 0 UN IT ) MO 31 07 [address] Ac NT 72 -1 -0 .0 00 L- ti EL 20 2- 4- 00 07 MA ve UK 72 20 20 49 RT 61 17 17 78 T 0 68 PH SO AR D MA 10 CY MG #5 91 TA BL ET KE 17 [address] Ac TO 47 -1 -0 00 00 L- ti TI 80 0- 4- 0 08 MA ve FE 71 20 20 84 RT N 71 17 17 02 FU 0 09 PH M AR 0. MA 02 CY 5% #[address] OP S GA 00 06 07 90 30 00 [facility] BA 22 -2 -2 .0 00 L- ti PE 82 6- 8- 00 07 MA ve NT 63 20 20 44 RT IN 65 17 17 49 0 50 PH 60 AR 0 MA MG CY TA #5 BL 91 ET AC 00 06 [address] Ac YC 09 -2 -2 .0 00 L- ti LO 38 6- 8- 00 07 MA ve 94 20 20 45 RT R 70 17 17 83 80 1 97 PH 0 AR MG MA CY TA BL #5 ET 91 LO 00 06 [address] Ac RA 78 -2 -2 .0 00 L- ti TA 15 6- 8- 00 08 MA ve DI 07 20 20 83 RT NE 70 17 17 67 1 12 PH 10 AR MA MG CY TA #5 BL 91 ET ES 68 06 [address] Ac CI 64 -2 -2 .0 00 L- ti TA 50 6- 8- 00 07 MA ve LO 52 20 20 44 RT KS 05 17 17 54 AM 4 27 PH AR 20 MA CY MG #5 TA 91 BL ET FL 60 06 [address] Ac UT 43 -2 -2 .0 00 L- ti IC 20 6- 8- 00 07 MA ve 26 20 20 44 RT ON 41 17 17 85 E 5 36 PH KS AR OP MA CY 50 #5 MC 91 G SP RA Y AZ 51 06 [address] Ac EL 52 -2 -2 .0 00 L- ti 50 6- 8- 00 07 MA ve TI 29 20 20 44 RT NE 40 17 17 85 3 44 PH 0. AR 1% MA CY (1 37 #5 91 MC G) SP RY WI 57 [address] Ac RT 23 -2 -2 .0 00 L- ti AZ 70 6- 8- 00 07 MA ve AP 00 20 20 45 RT IN 93 17 17 83 E 0 99 PH 30 AR MA MG CY TA #5 BL 91 ET LA 00 06 07 30 30 00 [facility] NS 09 -2 -2 .0 00 L- ti OP 37 6- 8- 00 07 MA ve RA 35 20 20 45 RT ZO 15 17 17 83 LE [address] MA CY 30 #5 MG 91 CA PS UL E CY 68 06 07 90 30 00 [facility] CL 64 -2 -2 .0 00 L- ti OB 50 6- 8- 00 07 MA ve EN 51 20 20 45 RT ZA 89 17 17 83 KS 0 98 PH IN AR E MA 10 CY MG #5 91 TA BL ET MU 63 06 07 60 30 00 [facility] CI 82 -1 -1 .0 00 L- ti NE 40 8- 4- 00 08 MA ve X 00 20 20 83 RT ER 83 17 17 88 2 80 PH 60 AR 0 MA MG CY TA #5 BL 91 ET MO 31 11 26 30 30 00 [facility] NT 72 -1 -1 .0 00 L- ti EL 20 9- 4- 00 07 MA ve UK 72 20 20 47 RT 61 17 17 46 T 0 38 PH SO AR D MA 10 CY MG #5 91 TA BL ET AZ 51 05 30 31 00 [facility] EL 52 -2 -2 .0 00 L- ti 50 7- 3- 00 07 MA ve TI 29 20 20 47 RT NE 40 17 17 46 3 39 PH 0. AR 1% MA CY (1 37 #5 91 MC G) SP RY FL 00 05 [address] Ac OV 17 -2 -2 .0 00 L- ti EN 30 7- 3- 00 07 MA ve T 71 20 20 46 RT HF 92 17 17 55 A 0 99 PH 11 AR 0 MA MC CY G IN #5 MENDEZ 91 LE R FL 55 05 06 1. 1 00 [facility] UC 11 -2 -2 00 00 L- ti ON 10 7- 3- 0 07 MA ve AZ 14 20 20 46 RT OL 51 17 17 68 E 2 06 PH 15 AR 0 MA MG CY TA #5 BL 91 ET WI 57 05 30 30 00 [place] Ac RT 23 -2 -2 .0 00 L- ti AZ 70 7- 3- 00 07 MA ve AP 00 20 20 45 RT IN 93 17 17 83 E 0 99 PH 30 AR MA MG CY TA #5 BL 91 ET QU 16 [address] Ac ET 72 -2 -2 .0 00 L- ti IA 90 7- 3- 00 07 MA ve PI 15 20 20 45 RT NE 00 17 17 84 1 01 PH FU AR MA MA RA CY TE #5 40 91 0 MG TA B GA 00 05 [address] Ac BA 22 -2 -2 .0 00 L- ti PE 82 7- 3- 00 07 MA ve NT 63 20 20 45 RT IN 65 17 17 83 0 92 PH 60 AR 0 MA MG CY TA #5 BL 91 ET LO 00 [address] Ac RA 78 -2 -2 .0 00 L- ti TA 15 7- 3- 00 08 MA ve DI 07 20 20 83 RT NE 70 17 17 83 1 62 PH 10 AR MA MG CY TA #5 BL 91 ET MO 31 [address] Ac NT 72 -2 -2 .0 00 L- ti EL 20 7- 3- 00 07 MA ve UK 72 20 20 44 RT 61 17 17 85 T 0 42 PH SO AR D MA 10 CY MG #5 91 TA BL ET FL 60 04 [address] Ac UT 43 -1 -1 .0 00 L- ti IC 20 5- 2- 00 07 MA ve 26 20 20 48 RT ON 41 17 17 06 E 5 16 PH KS AR OP MA CY 50 #5 MC 91 G SP RA Y LO 00 04 [address] Ac RA 78 -0 -2 .0 00 L- ti TA 15 5- 8- 00 08 MA ve DI 07 20 20 83 RT NE 70 17 17 88 1 79 PH 10 AR MA MG CY TA #5 BL 91 ET AZ 51 04 [address] Ac EL 52 -0 -2 .0 00 L- ti 50 5- 8- 00 07 MA ve TI 29 20 20 48 RT NE 40 17 17 06 3 15 PH 0. AR 1% MA CY (1 37 #5 91 MC G) SP RY MU 63 04 [address] Ac CI 82 -0 -2 .0 00 L- ti NE 40 5- 8- 00 08 MA ve X 00 20 20 83 RT ER 83 17 17 88 4 80 PH 60 AR 0 MA MG CY TA #5 BL 91 ET FL 00 04 [address] Ac OV 17 -0 -2 .0 00 L- ti EN 30 5- 8- 07 MA ve T 71 20 20 48 RT HF 92 17 17 06 A 0 17 PH 11 AR 0 MA MC CY G IN #5 MENDEZ 91 LE R AL 00 04 [address] Ac BU 48 -0 -2 .0 00 L- ti TE 79 5- 8- 00 07 MA ve RO 50 20 20 48 RT L 12 17 17 06 CASTELLANOS 5 19 PH L AR 2. MA 5 CY MG /3 #5 [address] MO 54 04 [address] Ac NT 45 -0 -2 .0 00 L- ti EL 80 5 8 07 MA ve UK 89 20 20 48 RT 01 17 17 06 T 0 14 PH SO AR D MA 10 CY MG #5 91 TA BL ET LA 69 03 [address] Ac MO 09 -2 -1 .0 00 L- ti TR 70 0- 4- 00 07 MA ve IG 15 20 20 47 RT IN 20 17 17 74 E 3 34 PH 20 AR 0 MA MG CY TA #5 BL 91 ET MU 63 03 03 60 30 00 [facility] CI 82 -0 -3 .0 00 L- ti NE 40 6- 1- 00 08 MA ve X 00 20 20 83 RT ER 83 17 17 83 4 63 PH 60 AR 0 MA MG CY TA #5 BL 91 ET AM 00 03 [address] Ac OX 78 -0 -3 .0 00 L- ti -C 11 7- 1- 07 MA ve LA 85 20 20 47 RT V 22 17 17 47 87 0 96 PH 5- AR 12 MA 5 CY MG #5 TA 91 BL ET CASTELLANOS 65 03 [address] Ac LF 86 -0 -3 .0 00 L- ti AM 20 8- 1- 00 07 MA ve ET 42 20 20 47 RT HO 00 17 17 50 XA 5 79 PH ZO AR LE MA -T CY MP #5 DS 91 TA BL ET CY 68 03 [address] Ac CL 64 -0 -3 .0 00 L- ti OB 50 2- 1- 00 07 MA ve EN 51 20 20 47 RT ZA 89 17 17 38 KS 0 39 PH IN AR E MA [...] 17 17 37 E 5 81 PH KS AR OP MA CY 50 #5 MC [...] PA 54 02 03 30 30 00 [facility] RO 45 -1 -1 .0 00 L- ti XE 80 6- 7- 00 07 MA ve TI 98 20 20 45 RT NE 91 17 17 84 0 00 PH HC AR L MA 20 CY MG #5 91 TA BL ET MO 54 02 03 30 30 00 [facility] NT 45 -1 -1 .0 00 L- ti EL 80 6- 7- 00 07 MA ve UK 89 20 20 44 RT 01 17 17 85 T 0 42 PH SO AR D MA 10 CY MG #5 91 TA BL ET AC 00 02 03 60 30 00 [facility] YC 09 -0 -1 .0 00 L- ti LO 38 9- 0- 00 07 MA ve 94 20 20 40 RT R 70 17 17 32 80 1 76 PH 0 AR MG MA CY TA BL #5 ET 91 WI 57 02 03 30 30 00 [facility] RT 23 -0 -0 .0 00 L- ti AZ 70 4- 3- 00 07 MA ve AP 00 20 20 45 RT IN 93 17 17 83 E 0 99 PH 30 AR MA MG CY TA #5 BL 91 ET LA 00 02 03 30 30 00 [facility] NS 09 -0 -0 .0 00 L- ti OP 37 4- 3- 00 07 MA ve RA 35 20 20 40 RT ZO 15 17 17 32 LE [address] MA CY 30 #5 MG 91 CA PS UL E CY 68 02 03 90 30 00 [facility] CL 64 -0 -0 .0 00 L- ti OB 50 4- 3- 00 07 MA ve EN 51 20 20 40 RT ZA 89 17 17 32 KS 0 71 PH IN AR E MA 10 CY MG #5 91 TA BL ET QU 16 02 03 30 30 00 [facility] ET 72 -0 -0 .0 00 L- ti IA 90 4- 3- 00 07 MA ve PI 15 20 20 45 RT NE 00 17 17 84 1 01 PH FU AR MA MA RA CY TE #5 40 91 0 MG TA B FL 55 01 02 1. 1 00 [facility] UC 11 -2 -1 00 00 L- [...] AC 00 01 [address] Ac YC 09 -1 -1 .0 00 [...] ET ## 01 [address] Ac ## -1 -1 .0 00 L- [...] PA 54 01 [address] Ac RO 45 -1 -1 .0 00 L- ti XE 80 4- 0- 00 07 MA ve TI 98 20 20 45 RT NE 91 17 17 84 0 00 PH HC AR L MA 20 CY MG #5 91 TA BL ET LA 69 01 [address] Ac MO 09 -1 -1 .0 00 L- ti TR 70 4- 0- 00 07 MA ve IG 15 20 20 45 RT IN 20 17 17 83 E 3 95 PH 20 AR 0 MA MG CY TA #5 BL 91 ET LA 00 [address] Ac NS 09 -0 -0 .0 00 L- ti OP 37 6- 3- 00 07 MA ve RA 35 20 20 40 RT ZO 15 17 17 32 LE [address] MA CY 30 #5 MG 91 CA PS UL E CY 68 01 [address] Ac CL 64 -0 -0 .0 00 L- ti OB 50 6- 3- 00 07 MA ve EN 51 20 20 40 RT ZA 89 17 17 32 KS 0 71 PH IN AR E MA 10 CY MG #5 91 TA BL ET QU 16 [address] Ac ET 72 -0 -0 .0 00 L- ti IA 90 5- 3- 00 07 MA ve PI 15 20 20 42 RT NE 00 17 17 61 1 22 PH FU AR MA MA RA CY TE #5 40 91 0 MG TA B WI 57 01 [address] Ac RT 23 -0 -0 .0 00 L- ti AZ 70 5- 3- 00 07 MA ve AP 00 20 20 42 RT IN 93 17 17 61 E 0 29 PH 30 AR MA MG CY TA #5 BL 91 ET LO 00 01 [address] Ac RA 78 -0 -0 .0 00 L- ti TA 15 5- 3- 00 08 MA ve DI 07 20 20 83 RT NE 70 17 17 75 1 20 PH 10 AR MA MG CY TA #5 BL 91 ET BE 51 12 [address] Ac NZ 22 -3 -2 .0 00 L- ti ON 40 0- 7- 00 07 MA ve AT 00 20 20 46 RT AT 16 16 17 17 E 0 02 PH 20 AR 0 MA MG CY CA #5 PS 91 UL E KS 00 01 [address] Ac OM 60 -0 -2 0. 00 L- ti ET 31 4- 7- 00 07 MA ve MENDEZ 58 20 20 0 46 RT ZI 65 17 17 26 NE 8 85 PH -D AR M MA SY CY RU P #5 91 AZ 59 [address] Ac IT 76 -0 -2 00 00 L- ti HR 23 4- 7- 0 07 MA ve OM 06 20 20 46 RT YC 00 17 17 26 IN 1 86 PH AR 25 MA 0 CY MG #5 TA 91 BL ET KS 00 01 [address] Ac ED 14 -0 -2 .0 00 L- ti NI 39 4- 7- 00 07 MA ve SO 73 20 20 46 RT NE 80 17 17 26 5 87 PH 20 AR MA MG CY TA #5 BL 91 ET FL 60 01 01 16 60 00 [facility] UT 43 -0 -2 .0 00 L- ti IC 20 1- 7- 00 07 MA ve 26 20 20 40 RT ON 41 17 17 32 E 5 79 PH KS AR OP MA CY 50 #5 MC 91 G SP RA Y AC 00 12 [address] Ac YC 09 -2 -1 .0 00 L- ti LO 38 0- 3- 00 07 MA ve 94 20 20 45 RT R 70 16 17 83 80 1 97 PH 0 AR MG MA CY TA BL #5 ET 91 WI 57 [address] Ac RT 23 -1 -0 .0 00 L- ti AZ 70 3- 9- 00 07 MA ve AP 00 20 20 42 RT IN 93 16 17 61 E 0 29 PH 30 AR MA MG CY TA #5 BL 91 ET QU 16 [address] Ac ET 72 -1 -0 .0 00 L- ti IA 90 3- 9- 00 07 MA ve PI 15 20 20 42 RT NE 00 16 17 61 1 22 PH FU AR MA MA RA CY TE #5 40 91 0 MG TA B GA 00 [address] Ac BA 22 -1 -0 .0 00 L- ti PE 82 4- 9- 00 07 MA ve NT 63 20 20 45 RT IN 65 16 17 83 0 92 PH 60 AR 0 MA MG CY TA #5 BL 91 ET LA 00 [address] Ac NS 09 -1 -0 .0 00 [...] 45 RT ZA 09 16 17 83 KS 0 98 PH IN AR E MA [...] AC 00 12 [address] Ac ET 09 -1 -0 .0 00 [...] Procedure DOS Code Location Performer Comment BLOOD [id number] [facility] COMPLETE INC INC AUTO&AUTO DIFRNTL WBC COAGULATI [id number] [facility] ON TIME [facility] [place]Q [address] [facility] TRLUML 7 PHYSICIAN CORONARY S GROUP STENT W/ANGIO ONE ART/BRNCH MOD SED 42915 [facility] SAME 7 [facility] PHYS/QHP INC INC INITIAL 15 MINS <5 YRS IV DOP 97194 [facility] NICKO&/OR 7 PHYSICIAN PRESS S GROUP C/MONO RSRV SHALA 1ST VSL CATH PLMT 77403 [facility] L HRT & 7 PHYSICIAN ARTS S GROUP W/NJX & ANGIO IMG S&I BASIC [id number] [facility] METABOLIC 7 [facility] PANEL INC INC CALCIUM TOTAL STENT C1876 [facility] J[facility] NON-[facility] 7 [facility] D/NON-COV INC INC ERED W/DELIVER Y SYSTEM TECHNETIU [id number] ROBERT ROBERT M TC-99M 7 [facility] TETROFOSM INC INC IN DX PER STUDY DOSE MYOCARDIA 23822 [facility] SRIVASTAV L SPECT 7 PHYSICIAN A MULTIPLE S GROUP STUDIES ECHO 04422 ROBERT JONES TTHRC R-T 7 [facility] 2D INC INC W/WOM-MOD E COMPL SPEC&COLR D CT HEART 56414 [facility] [facility] NO 7 MEDICAL CONTRAST IMAGING QUANT ASS EVAL CORONRY CALCIUM FINAL G9638 [facility] REPORTS 7 MEDICAL W/O DOC IMAGING 1/MORE ASS DOSE REDUCTION TECH ECG 14400 ROBERT WALTERSON ROUTINE 7 [facility] ECG INC INC W/LEAST 12 LDS TRCG ONLY W/O I&R PREPJ& 23189 [facility] CADE ALLERGEN 7 PARTNERS IMMUNOTHE OF POE RAPY CO 1/INVESTIGATION OFFICER ANTIGEN COLLECTIO 83438 [facility] STONE N VENOUS 7 PHYSICIAN BLOOD S GROUP VENIPUNCT URE COMPREHEN 63504 [facility] WALTERSON SIVE 7 [facility] METABOLIC INC INC PANEL BLOOD 43678 [facility] JONES COUNT 7 [facility] COMPLETE INC INC AUTO&[place] [address] [facility] JONES FREE 7 [facility] [place] [address] ROB[facility] JONES THYROID 7 [facility] STIMULATI INC INC NG HORMONE TSH SPMTRY 74437 [facility] [place] W/VC 7 PARTNERS EXPIRATOR OF POE Y MONO CO W/WO MXML VOL VNTJ SPMTRY 49225 ALLERGY CADE W/VC 7 PARTNERS EXPIRATOR OF POE Y MONO CO W/WO MXML VOL VNTJ PROF SVCS 13745 [facility]ER[facility] CADE ALLG 7 PARTNERS IMMNTX X OF POE W/PRV CO ALLGIC XTRCS NJXS NITRIC 98778 ALLER[facility] CADE OXIDE 7 PARTNERS OF POE GAS CO DETERMINA TION AREO MASK A7015 [facility] MT MED USED W/ 7 EQUIPMENT EQUIPMENT DME NEB INC INC NEBULIZER E0570 [facility] MED MT MED WITH 7 EQUIPMENT EQUIPMENT COMPRESSO INC INC R ADMN SET A7005 MT MED MT MED W/SM VOL 7 EQUIPMENT EQUIPMENT NONFILTR [employer] INC NEBULIZR NON-DISPB L NITRIC 71216 ALLER[facility] CADE OXIDE 7 PARTNERS OF POE GAS CO DETERMINA TION SPMTRY 18112 ALLERGY CADE W/VC 7 PARTNERS EXPIRATOR OF POE Y MON[place] CO W/[place] [address] ALLERGY CADE ALLG 7 PARTNERS IMMNTX X OF POE W/PRV CO ALLGIC XTRCS NJXS RADIOLOGI 59445 ROBERT JONES C EXAM 7 [facility] CHEST 2 INC INC VIEWS FRONTAL&L ATERAL THERAPEUT 67155 [facility] STONE IC 7 PHYSICIAN PROPHYLAC S GROUP TIC/DX INJECTION SUBQ/IM INJECTION J1040 [facility] 7 PHYSICIAN PHYSICIAN METHYLPRE S GROUP S GROUP DNISOLONE ACETATE 80 MG INJECTION J0696 [facility] STONE 7 PHYSICIAN CEFTRIAXO S GROUP NE SODIUM PER 250 MG PHYSICAL 59417 ROBERT JONES THERAPY 6 [facility] EVALUATIO INC INC N IM ADM 94034 [facility] STONE BUTCH PRQ ID [id number] PHYSICIAN SUBQ/IM S GROUP NJXS 1 VACCINE PROF [facility] 42593 ALLERGY CADE MAR ALLG 6 PARTNERS IMMNTX X OF POE W/PRV CO ALLGIC XTRCS NJXS PROF [facility] 39950 ALLERGY CADE MAR ALLG 6 PARTNERS IMMNTX X OF POE W/PRV CO ALLGIC XTRCS NJXS SHALA 24411 ROBERT COLMENARES POST-VOID 6 [facility] RESIDUAL P URINE&/BL ADDER CAP CHIROPRAC 97720 CIELO BUCK TIC 6 BILL BILL MANIPULAT MIKE [place] SPINAL 3-4 REGIONS NITRIC 48821 ALLERGY CADE MAR OXIDE 6 PARTNERS OF POE GAS CO DETERMINA TION PROF [facility] 87096 ALLERGY CADE MAR ALLG 6 PARTNERS IMMNTX X OF POE W/PRV CO ALLGIC XTRCS NJXS SPMTRY 20148 ALLERGY CADE MAR W/VC 6 PARTNERS EXPIRATOR OF POE Y MONO CO W/WO MXML VOL VNTJ OPHTH 36855 [facility] 6 GRE GRE XM&EVAL COMPRHNSV ESTAB PT 1/> PROF [facility] 34151 ALLERGY CADE MAR ALLG 6 PARTNERS IMMNTX X OF POE W/PRV CO ALLGIC XTRCS NJXS BX BREAST 84438 ROBERT JONES W/DEVICE 6 [facility] 1ST INC INC LESION STEREOTAC TIC GUID DIAGNOSTI G0206 ROBERT JONES C 6 [facility] MAMMOGRAP INC INC HY INCL CAD [place]; [place] [address] [facility], SURG 6 [facility] PATHOLOGY GROSS&ELINA ROSCOPIC EXAM PROF [facility] 17792 ALLERGY CADE MAR ALLG 6 PARTNERS IMMNTX X OF POE W/PRV CO ALLGIC XTRCS NJXS PROF [facility] 78839 ALLERGY CADE MAR ALLG 6 PARTNERS IMMNTX X OF POE W/PRV CO ALLGIC XTRCS NJXS SWALLOWIN 68303 ROBERT Pritchett FUNCJ 6 [facility] W/CINERAD INC INC IOGRAPY/V IDRADIOG MOTION 99121 ROBERT JONES FLUOR 6 [facility] EVAL INC INC SWLNG FUNCJ C/V REC PROF [facility] 15831 ALLERGY CADE MAR ALLG 6 PARTNERS IMMNTX X OF POE W/PRV CO ALLGIC XTRCS NJXS ECG 10-25-201 60310 ROBERT TOBAR JR ROUTINE 6 [facility] W/LEAST P 12 LDS I&R ONLY COLONOSCO 15919 [facility] PEGUERO PY 6 PHYSICIAN REJI W/BIOPSY S GROUP SINGLE/MU LTIPLE EGD 91343 [facility] PEGUERO TRANSORAL 6 PHYSICIAN REJI BIOPSY S GROUP SINGLE/[place] [address] [facility], [facility] SURG [address] [place] [address] PATHOLOGY GROSS&[place] [address] ROBERT JONES HPYLORI 6 [facility] INC INC NITRIC 80950 ALLERGY CADE MAR OXIDE 6 PARTNERS OF POE GAS CO DETERMINA TION PROF [facility] 00928 ALLERGY CADE MAR ALLG 6 PARTNERS IMMNTX X OF POE W/PRV CO ALLGIC XTRCS NJXS SPMTRY 41013 ALLERGY CADE MAR W/VC 6 PARTNERS EXPIRATOR OF POE Y MONO CO W/WO MXML VOL VNTJ US BREAST 70050 ROBERT JONES UNI REAL 6 [facility] TIME INC INC WITH IMAGE COMPLETE US BREAST 09865 [place] REAL 6 [facility] [place] TIME IMAGING WITH ASS IMAGE LIMITED DIAGNOSTI G0206 [facility] [place] MAMMOGRAP IMAGING HY INCL ASS CAD WHEN PERF; UNI PHYSICAL 78330 ROBERT JONES THERAPY 6 [facility] EVALUATIO INC INC N CHIROPRAC 78032 BUCK BUCK TIC 6 BILL BILL MANIPULAT IMKE TX SPINAL 3-4 REGIONS PROF [facility] 42997 ALLERGY CADE MAR ALLG 6 PARTNERS IMMNTX X OF POE W/[place] [address] ROBERT JONES ABDOMINAL 6 [facility] REAL INC INC TIME W/IMAGE LIMITED CHIROPRAC 96013 BUCK BUCK TIC 6 BILL BILL MANIPULAT MIKE TX SPINAL 3-4 REGIONS SCREENING G0202 ROBERT JONES 6 [facility] MAMMOGRAP INC INC HY HILL INCL CAD WHEN PERFORMD [facility]- 13047 ROBERT JONES AIDED 6 [facility] DETECTION INC INC SCREENING MAMMOGRAP HY PROF [facility] 66511 ALLERGY CADE MAR ALLG 6 PARTNERS IMMNTX X OF POE W/PRV CO ALLGIC XTRCS NJXS PROF [facility] 81049 ALLERGY CADE MAR ALLG 6 PARTNERS IMMNTX X OF POE W/PRV CO ALLGIC XTRCS NJXS BRNCDILAT 03883 ROBERT JONES RSPSE 6 [facility] SPMTRY INC INC PRE&POST- BRNCDILAT ADMN RADEX 24661 ROBERT JONES ESOPHAGUS 6 [facility] INC CHIROPRAC 70627 BUCK BUCK TIC 6 BILL BILL MANIPULAT MIKE TX SPINAL 3-4 REGIONS PROF [facility] 83008 ALLERGY CADE MAR ALLG 6 PARTNERS IMMNTX X OF POE W/PRV CO ALLGIC XTRCS NJXS PROF [facility] 08463 ALLERGY CADE MAR ALLG 6 PARTNERS IMMNTX X OF POE W/PRV CO ALLGIC XTRCS NJXS RADEX 97849 [place] [facility] [facility] 6 [facility] [place] COMPLETE IMAGING MINIMUM 2 [facility] 49750 BUCK BUCK TIC 6 BILL BILL MANIPULAT MIKE TX SPINAL 3-4 REGIONS CHIROPRA 41747 BUCK BUCK TIC 6 BILL BILL MANIPULAT MIKE TX SPINAL 3-4 REGIONS PROF [facility] 60807 ALLERGY CADE MAR ALLG 6 PARTNERS IMMNTX X OF POE W/PRV CO ALLGIC XTRCS NJXS PREPJ& 40590 ALLERGY CADE ALLERGEN 6 PARTNERS IMMUNOTHE OF POE RAPY CO 1/INVESTIGATION OFFICER ANTIGEN CHIROPRA 83994 BUCK BUCK TIC 6 BILL BILL MANIPULAT MIKE TX SPINAL 3-4 REGIONS NITRIC 52520 ALLERGY CADE MAR OXIDE 6 PARTNERS OF POE GAS CO DETERMINA TION SPACR A4627 MT MED MT MED BAG/RESRV 6 EQUIPMENT EQUIPMENT OR W/WO INC INC MASK W/METRD DOSE INHAL DEMO&/KIM 11754 ALLERGY CADE MAR L OF PT 6 PARTNERS UTILIZ OF POE AERSL CO GEN/NEB/I NHLR/IP SPMTRY 27776 ALLERGY CADE MAR W/VC 6 PARTNERS EXPIRATOR OF POE Y MONO CO W/WO MXML VOL VNTJ PERCUTANE 08096 ALLERGY CADE MAR OUS TESTS 6 PARTNERS OF POE W/ALLERGE CO CAROLINE EXTRACTS INTRACUTA 03993 ALLERGY CADE MAR NEOUS 6 PARTNERS TESTS OF POE W/ALLERGE CO CAROLINE EXTRACTS CHIROPRAC 93134 BUCK BUCK TIC 6 BILL BILL MANIPULAT MIKE TX SPINAL 3-4 REGIONS CHIROPRAC 01810 BUCK BUCK TIC 6 BILL BILL MANIPULAT MIKE TX SPINAL 3-4 REGIONS CHIROPRAC 30098 BUCK BUCK TIC 6 BILL BILL MANIPULAT MIKE TX SPINAL 3-4 REGIONS CHIROPRAC 51864 BUCK BUCK TIC 6 BILL BILL MANIPULAT MIKE TX SPINAL 3-4 REGIONS CYTP C/V 51497 [facility], AUTO THIN 6 [facility] LYR PREPJ SCR MNL RESCR PHYS RADIOLOGI 40612 [place] CH[place] ALL C 6 MEDICAL EXAMINATI IMAGING ON CHEST ASS SINGLE VIEW FRONTAL RADIOLOGI 53972 [place] ALL C 6 MEDICAL EXAMINATI IMAGING ON KNEE ASS 1/2 VIEWS CHIROPRAC 18250 BUCK BUCK TIC 6 BILL BILL MANIPULAT MIKE TX SPINAL 1-2 REGIONS DRUG TST G0477 ROBERT JONES PRESUMP;C 6 [facility] PBL BEING INC INC READ DC OPT OBV ONLY LEVEL III 63096 [facility], SURG 6 [facility] PATHOLOGY GROSS&ELINA ROSCOPIC EXAM INJECTION J2710 ROBERT JONES 6 [facility] NEOSTIGMI INC INC NE METHYLSUL FATE UP TO 0.5 MG TONSILLEC 75426 ROBERT JONES DAVID 6 [facility] PRIMARY/S INC INC ECONDARY AGE 12/> ANESTHESI 68215 COMMUNITY BETSY A 6 ANESTH MALACHI INTRAORAL OF THE WITH BLUE BIOPSY NOS INJECTION J2405 ROBERT JONES 6 [facility] ONDANSETR INC INC ON HCL PER 1 MG ECG 66322 ROBERT JONES ROUTINE 6 [facility] ECG INC INC W/LEAST 12 LDS TRCG ONLY W/O I&R BLOOD 75509 ROBERT JONES COUNT 6 [facility] COMPLETE INC INC AUTO&AUTO DIFRNTL WBC ECG 44047 ROBERT PERALTA ROUTINE 6 [facility] W/LEAST P 12 LDS I&R ONLY COLLECTIO 81525 ROBERT JONES N VENOUS 6 [facility] BLOOD INC INC VENIPUNCT URE COMPREHEN 07870 ROBERT JONES SIVE 6 [facility] METABOLIC INC INC PANEL COLLECTIO 73845 [facility] BELTRAN N VENOUS 6 PHYSICIAN ELINA BLOOD S GROUP VENIPUNCT URE COMPREHEN 80411 ROBERT JONES SIVE 6 [facility] METABOLIC INC INC PANEL IM ADM 01052 [facility] BELTRAN PRQ ID 6 PHYSICIAN ELINA SUBQ/IM S GROUP NJXS 1 [place] [address] ROBERT JONES THYROXINE 6 [facility] [place] [address] ROBERT JONES THYROID 6 [facility] STIMULATI INC INC NG HORMONE TSH BLOOD 31406 ROBERT JONES COUNT 6 [facility] COMPLETE INC INC AUTO&AUTO DIFRNTL WBC TDAP 57514 [facility] BELTRAN VACCINE 7 6 PHYSICIAN ELINA YRS/> IM S GROUP 25 88197 ROBERT JONES HYDROXY 6 [facility] INCLUDES INC INC FRACTIONS IF PERFORMED ANESTHESI 28207 COMMUNITY BETSY A NOSE & 5 ANESTH MALACHI ACCESSORY [place] [address] [facility], SURG 5 [facility] PATHOLOGY GROSS&ELINA ROSCOPIC EXAM COLLECTIO 84562 ROBERT JONES N VENOUS 5 [facility] BLOOD INC INC VENIPUNCT URE BASIC 19264 ROBERT JONES METABOLIC 5 [facility] PANEL INC INC CALCIUM TOTAL ECG 41586 ROBERT JONES ROUTINE 5 [facility] ECG INC INC W/LEAST 12 LDS TRCG ONLY W/O I&R BLOOD 63235 ROBERT JONES COUNT 5 [facility] COMPLETE INC INC AUTO&AUTO DIFRNTL WBC ECG 24645 FABIAN PERALTA ROUTINE 5 FANNIE FANNIE ECG W/LEAST 12 LDS I&[place] [address] [place] CHACON ALL MAXILLOFA 5 MEDICAL CIAL W/O IMAGING CONTRAST ASS MATERIAL INJECTION J1040 [facility] HODAN 5 PHYSICIAN STONE METHYLPRE S GROUP PA-C BUTCH DNISOLONE ACETATE 80 MG THERAPEUT 44562 [facility] HODAN IC 5 PHYSICIAN STONE PROPHYLAC S GROUP PA-C BUTCH TIC/DX INJECTION SUBQ/IM OPHTH 32040 [facility] 5 CHERYL LUNA XM&EVAL LATANYA ORTZI NEW PT 1/> VST INJECTION J1040 ROBERT BREAUX 5 [facility] DNISOLONE ACETATE 80 MG THERAPEUT 91746 ROBERT BREAUX IC 5 [facility] TIC/DX INJECTION SUBQ/IM INJECTION J0696 ROBERT BREAUX 5 [facility] NE SODIUM PER 250 MG RADIOLOGI 45909 ROBERT JONES C 4 [facility] HOSP EXAMINATI INC INC ON KNEE 1/2 VIEWS 3D 69648 ROBERT JONES RENDERING 4 [facility] HOS[facility] INC INC W/INTERP& [place] [address] ROBERT JONES MAXILLOFA 4 [facility] HOSP CIAL W/O INC INC CONTRAST MATERIAL Encounters Encounter Start End Date Code Location Performer Type Date [facility] ROBERT - 7 7 [facility] OUTPATIEN INC [facility] ROBERT - 7 7 [facility] OUTPATIEN INC [facility] ROBERT - 7 7 [facility] OUTPATIEN [facility] T OFFICE 05522 [facility] STONE OUTPATIEN 7 7 PHYSICIAN T VISIT S GROUP 25 [facility] H[facility]PITAL ROBERT - 7 7 [facility] OUTPATIEN [facility] T OFFICE 28483 [facility] [place] OUTPATIEN 7 7 PARTNERS T VISIT OF POE 25 CO MINUTES OFFICE 95612 [facility] OUTPATIEN 7 7 PARTNERS T VISIT OF POE 25 CO MINUTES OFFICE 56395 [facility] OUTPATIEN 7 7 PARTNERS T VISIT OF POE 40 CO MINUTES HOSPITAL ROBERT - 7 7 [facility] OUTPATIEN [facility] ROBERT - 6 6 [facility] OUTPATIEN [facility] T OFFICE 18748 ROBERT COLMENARES OUTPATIEN 6 6 [facility] 15 P MINUTES OFFICE 05760 [facility]ER[facility] CADE MAR OUTPATIEN 6 6 PARTNERS T VISIT OF POE 40 CO MINUTES OFFICE 13524 [facility] ALLRAN JR OUTPATIEN 6 6 PHYSICIAN REJI T VISIT S GROUP [address] [facility] ROBERT - 6 6 [facility] OUTPATIEN [facility] ROBERT - 6 6 [facility]PATIEN [facility] ROBERT - 6 6 [facility] OUTPATIEN [facility] T OFFICE 69401 ALLERGY CADE MAR OUTPATIEN 6 6 PARTNERS T VISIT OF POE 25 CO MINUTES HOSPITAL ROBERT - 6 6 [facility] OUTPATIEN [facility] T OFFICE 49638 [facility] ALLRAN JR OUTPATIEN 6 6 PHYSICIAN REJI T VISIT S GROUP [address] [facility] ROBERT - 6 6 [facility] OUTPATIEN [facility] ROBERT - 6 6 [facility] OUTPATIEN [facility] ROBERT - 6 6 [facility] OUTPATIEN [facility] T OFFICE 05096 [facility] BYRON OUTPATIEN 6 6 PHYSICIAN REJI T NEW 30 S GROUP MINUTES HOSPITAL ROBERT - 6 6 [facility] OUTPATIEN [facility] ROBERT - 6 6 [facility] OUTPATIEN [facility] T OFFICE 98347 ALLERGY CADE MAR CONSULTAT 6 6 PARTNERS ION OF POE NEW/ESTAB CO PATIENT 60 MIN OFFICE 12060 [facility] CHRIS RAE OUTPATIEN 6 6 PHYSICIAN T VISIT S GROUP 15 MINUTES OFFICE 51636 ROBERT COLMENARES OUTPATIEN 6 6 [facility] [address] [facility] ROBERT - 6 6 [facility] OUTPATIEN [facility] ROBERT - 6 6 [facility] OUTPATIEN [facility] ROBERT - 6 6 [facility] OUTPATIEN [facility] T OFFICE 98185 [facility] [place] OUTPATIEN 6 6 PHYSICIAN CLARITA T VISIT S GROUP 15 MINUTES HOSPITAL ROBERT - 6 6 [facility] OUTPATIEN [facility] HOSPITAL ROBERT - 5 5 [facility] OUTPATIEN [facility] T OFFICE 29136 ROBERT WAITE OUTPATIEN 5 5 [facility] 15 MINUTES OFFICE 86408 [facility] OUTPATIEN 5 5 PHYSICIAN CLARITA T VISIT S GROUP 10 MINUTES HOSPITAL ROBERT - 5 5 [facility] OUTPATIEN [facility] T OFFICE 94587 [facility] HODAN OUTPATIEN 5 5 PHYSICIAN STONE T VISIT S GROUP HUAN RAE 25 MINUTES OFFICE 61200 ROBERT BREAUX OUTPATIEN 5 5 [facility] 15 MINUTES OFFICE 89902 [facility] OUTPATIEN 5 5 PHYSICIAN CLARITA T NEW 30 S GROUP MINUTES OFFICE 87235 ROBERT LUCERO OUTPATIEN 5 5 [facility] 15 MINUTES OFFICE 06152 ROBERT LUCERO OUTPATIEN 5 5 [facility] 10 MINUTES OFFICE 96417 ROBERT LUCERO OUTPATIEN 5 5 [facility] 15 MINUTES OFFICE 34658 ROBERT LUCERO OUTPATIEN 4 4 [facility] 15 MINUTES HOSPITAL ROBERT - 4 4 [facility] OUTPATIEN [facility] ROBERT - 4 4 [facility] OUTPATIEN [facility]
--- OUTSIDE RECORDS SUMMARY | 2017-04-05 16:28 | External Medical Summary Rpt | CCD ---
Author Author , DEIDRE Organization DEIDRE Address Unknown Phone [email or web address] Care Team Providers Care Campaign Fundraiser Name Role Phone COLMENARES, COLMENARES Unavailable Unavailable COLMENARES IVETH, COLMENARES Unavailable Unavailable IVETH [facility] Unavailable Unavailable [place] [place] ALLRAN JR REJI, ALLRAN Unavailable Unavailable JR REJI HUSSEIN TER, HUSSEIN TER Unavailable Unavailable BESSON FANNIE, BESSON Unavailable Unavailable FANNIE CHACON, CHACON Unavailable Unavailable CHACON ALL, CHACON ALL Unavailable Unavailable SHEEHAN CHERYL Unavailable Unavailable LATANYA, SHEEHAN CHERYL LATANYA SHEEHAN CHERYL Unavailable Unavailable LATANYA, SHEEHAN CHERYL LATANYA [facility] Unavailable [facility]available [facility] BIRD, BIRD Unavailable Unavailable BIRD CUAUHTEMOC, Unavailable Unavailable BIRD CUAUHTEMOC SAEID ELINA, SAEID Unavailable Unavailable ELINA HODAN PEREZ PA-C Unavailable Unavailable BUTCHHODAN PA-C BUTCH BUCK BILL, Unavailable Unavailable BUCK BILL BUCK BILL, Unavailable Unavailable BUCK BILL FRYMAN EUG, FRYMAN Unavailable Unavailable EUG BELTRAN ELINA, BELTRAN Unavailable Unavailable ELINA [facility] Unavailable Unavailable [facility], [facility] Unavailable [facility]available [facility], [facility] Unavailable Unavailable [facility] P, [facility] P [facility], Unavailable Unavailable [facility] Unavailable Unavailable [facility], [facility] Unavailable [facility] SERGO, SERGO Unavailable Unavailable HAMILTON, HAMILTON Unavailable Unavailable STONE, STONE Unavailable Unavailable STONE BUTCH, STONE BUTCH Unavailable Unavailable BETSY MALACHI, BETSY Unavailable Unavailable MALACHI CADE, CADE Unavailable Unavailable CADE MAR, CADE MAR Unavailable Unavailable Purpose Continuity of Care Document - 09-15-2013 through 2016 Problems Code Diagnosis DOS Provider Status I10 ESSENTIAL 03-12-2017 [facility] HYPERTENSIO [facility] N I208 OTHER FORMS 03-12-2017 [facility] OF ANGINA PHYSICIANS PECTORIS GROUP [id number] ASHD COMANCHE 03-12-2017 [facility] COR ART PHYSICIANS W/OTH FORMS GROUP ANGINA PECT[place] [id number] ASHD COMANCHE 03-12-2017 [facility] W/UNS INC ANGINA [facility] Z720 TOBACCO USE 03-12-2017 [facility] INC R0600 DYSPNEA 02-05-2017 [facility] R0602 SHORTNESS 02-05-2017 [facility] OF BREATH PHYSICIANS GROUP R0789 OTHER CHEST 02-05-2017 [facility] R079 CHEST PAIN 02-05-2017 [facility] UNSPECIFIED PHYSICIANS GROUP R42 DIZZINESS 02-05-2017 [facility] GIDDINESS INC R531 WEAKNESS 02-05-2017 [facility] INC R609 EDEMA 02-05-2017 [facility] R9431 ABNORMAL 02-05-2017 [facility] ELECTROCARD PHYSICIANS IOGRAM GROUP I209 ANGINA 02-02-2017 [place] [facility] I200 UNSTABLE 01-19-2017 [facility] INC J301 ALLERGIC 01-07-2017 [facility] DUE TO [place] POLLEN J3081 ALLERG 01-07-2017 [facility] D/T ANIMAL [place] CAT DOG HAIR & DANDER J3089 OTHER 01-07-2017 [facility] RHINIT[facility] [place] J302 OTHER 12-31-2016 [facility] SEASONAL PHYSICIANS ALLERGIC GROUP RHINITIS [id number] UNSPECIFIED 12-31-2016 [facility] ASTHMA PHYSICIANS UNCOMPLICAT GROUP ED R030 ELEVATED 12-31-2016 [facility] BLOOD-PRESS PHYSICIANS URE READING GROUP WITHOUT DX HTN Z0000 ENCOUNTER 12-31-2016 [facility] MED EXAM INC W/O ABNORMAL FIND Z8249 FAMILY HX 12-31-2016 [facility] ISCHEMIC PHYSICIANS HRT DZ OTH GROUP DZ CIRC SYSTEM J4540 MODERATE 12-29-2016 [facility] [place] UNCOMPLICAT ED [id number] OTHER 07-16-2016 [place] [facility] EQUIPMENT INC R05 COUGH 07-09-2016 [facility] J399 DISEASE OF 06-25-2016 [facility] UPPER PHYSICIANS RESPIRATORY GROUP TRACT UNSPECIFIED M1712 UNILATERAL 06-10-2016 [facility] OSTEOARTHRI INC TIS LEFT KNEE M7582 OTHER 06-10-2016 [facility] LESIONS INC LEFT SHOULDER Z23 ENCOUNTER 06-04-2016 [facility] FOR PHYSICIANS IMMUNIZATIO GROUP N M542 [...] REGION R3911 HESITANCY 05-27-2016 [facility] P Z8553 PERSONAL 05-27-2016 [facility] P NEOPLASM RENAL PELVIS J4530 MILD 05-26-2016 [facility] [place] UNCOMPLICAT ED K219 GASTRO-ESOP 05-26-2016 [facility] H REFLUX [facility] OF DISEASE [place] WITHOUT ESOPHAGITIS Z0100 ENCOUNTER 05-21-2016 [facility] EXAM EYES & GRE VISION W/O ABNORMAL FIND 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 GROUP UNSPECIFIED R1013 EPIGASTRIC 05-19-2016 [facility] PAIN PHYSICIANS GROUP 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-07-2016 [...] REFLUX DISEASE W/ ESOPHAGITIS K5730 DIVERTICULO 04-15-2016 [facility] SIS LG PHYSICIANS INTEST W/O GROUP PERF/ABSC W/O BLEED Z1211 ENCOUNTER 04-15-2016 [facility] SCREENING PHYSICIANS MALIGNANT GROUP NEOPLASM OF COLON P33688 PERSONAL 04-15-2016 [facility] HISTORY OF PHYSICIANS COLONIC GROUP POLYPS R140 ABDOMINAL 03-25-2016 [facility] GASEOUS INC [id number] UNS ROT 03-24-2016 [facility] TEAR/RUPT INC LT SHLDR NOT SPEC TRAUMAT Z1231 ENCOUNTER 03-21-2016 [place] [facility] MALIG [facility]AG[facility] ASS NEOPLASM BREAST J449 CHRONIC 03-13-2016 [facility] P DISEASE UNS R4702 DYSPHASIA 03-13-2016 [facility] Q67100 PAIN IN 02-26-2016 [place] LEFT MEDICAL SHOULDER IMAGING ASS J4520 MILD 02-11-2016 [facility]MITTEN [facility] T ASTH[facility] [place] UNCOMPLICAT ED J329 CHRONIC 01-22-2016 [facility] SINUSITIS PHYSICIANS UNSPECIFIED GROUP [id number] PAIN IN 01-22-2016 [facility] UNSPECIFIED PHYSICIANS KNEE GROUP O83821 PAIN IN 01-22-2016 [facility] LEFT ARM PHYSICIANS GROUP T40192 ENCOUNTER 01-01-2016 [facility] 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 EXAM LLC GENERAL RTN W/O ABNORMAL FIND N319 NEUROMUSCUL 12-25-2015 [facility] P OF BLADDER UNSPECIFIED J57333 OTHER 11-22-2015 [place] [facility] Z77192 OTHER 11-22-2015 [place] [facility] LEFT [facility]NEE [facility] B26695 CONTACT 11-22-2015 [place] WITH [facility] MEDICAL SUSPECTED IMAGING ASS EXPOSURE TO MOLD TOXIC M179 OSTEOARTHRI 10-24-2015 [facility] TIS [facility] INC UNSPECIFIED J0390 ACUTE 10-11-2015 [facility] TONSILLITIS PHYSICIANS GROUP UNSPECIFIED J3501 CHRONIC 10-11-2015 [facility]LLITIS [facility] J351 HYPERTROPHY 10-11-2015 [facility], OF TONSILS LLC P91285 ENCOUNTER 09-13-2015 [facility] P AL CARIOVASCUL AR EXAM L41306 ENCOUNTER 09-13-2015 [facility] P AL LABORATORY EXAM M797 FIBROMYALGI 08-14-2015 [facility] A PHYSICIANS GROUP J320 CHRONIC 05-31-2015 [facility] MAXILLARY LLC SINUSITIS J342 DEVIATED 05-31-2015 [facility]EST[facility] SEPTUM THE BLUE B16306 ENCOUNTER 05-30-2015 [facility] PREPROCEDUR INC AL EXAMINATION J0100 ACUTE 05-22-2015 [place] [facility]ILLARY [facility] UNSPECIFIED J209 ACUTE 05-22-2015 [place] [facility]IS [facility] J328 OTHER 04-26-2015 [place] SINUSITIS INC B001 HERPESVIRAL 04-11-2015 [facility] VESICULAR PHYSICIANS DERMATITIS GROUP 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 H524 PRESBYOPIA 03-28-2015 SHEEHAN CHERYL LATANYA 4619 ACUTE 12-20-2014 [place] [facility] 6929 CONTACT 12-20-2014 [place]IS[facility] ECZEMA DUE UNSPEC CAUSE 470 DEVIATED 12-14-2014 [facility] NASAL PHYSICIANS SEPTUM GROUP 4730 CHRONIC 12-14-2014 [facility] MAXILLARY PHYSICIANS SINUSITIS GROUP 4739 UNSPECIFIED 12-14-2014 [facility] SINUSITIS PHYSICIANS GROUP 33248 OTHER 12-14-2014 [facility] DISEASES OF PHYSICIANS NASAL GROUP CAVITY AND SINUSES 4779 ALLERGIC 10-31-2014 [place] RHINITIS [facility] UNSPECIFIED 462 ACUTE 10-20-2014 [facility] PHARYNGITIS [facility] 4611 ACUTE 05-15-2014 [facility] SINUSITIS [facility] 64277 PAIN IN 10-27-2013 [place] JOINT, [facility] Medications Na ND Rx Da Fi Fi Am Da Di Ph RX Ph St me C No te ll ll ou ys ag ar # ys at rm s nt no ma ic us Or Da si cy ia de te s n re d ME 62 09 10 30 30 00 NV Ac TO 03 -1 -1 .0 00 L- ti MS 70 4- 3- 00 07 MA ve OL 83 20 20 50 RT OL 01 17 17 95 0 41 PH CASTELLANOS AR CC MA CY ER #5 25 91 MG TA B AC 00 09 10 90 30 00 [place] Ac ET 09 -1 -1 .0 00 L- ti AM 30 4- 3- 00 04 MA ve IN 15 20 20 53 RT OP 01 17 17 12 HE 0 00 PH N- AR CO MA D CY #3 #5 TA 91 BL ET FL 60 09 10 16 30 00 [place] Ac UT 43 -2 -1 .0 00 L- ti IC 20 0- 3- 00 07 MA ve 26 20 20 47 RT ON 41 17 17 46 E 5 36 PH MS AR OP MA CY 50 #5 MC 91 G SP RA Y MU 63 08 09 60 30 00 [facility] CI 82 -2 -2 .0 00 L- ti NE 40 8- 2- 00 08 MA ve X 00 20 20 83 RT ER 83 17 17 88 4 80 PH 60 AR 0 MA MG CY TA #5 BL 91 ET FL 60 08 09 16 60 00 [facility] UT 43 -2 -2 .0 00 L- ti IC 20 8- 2- 00 07 MA ve 26 20 20 48 RT ON 41 17 17 06 E 5 16 PH MS AR OP MA CY 50 #5 MC 91 G SP RA Y VE 00 08 09 18 17 00 [facility] NT 17 -2 -2 .0 00 L- ti OL 30 8- 2- 00 07 MA ve IN 68 20 20 48 RT 22 17 17 06 HF 0 13 PH A AR 90 MA CY MC G #5 IN 91 MENDEZ LE R LO 00 08 09 30 30 00 [facility] RA 78 -2 -2 .0 00 L- ti TA 15 8- 2- 00 08 MA ve DI 07 20 20 83 RT NE 70 17 17 83 1 62 PH 10 AR MA MG CY TA #5 BL 91 ET AC 00 08 09 60 30 00 [facility] YC 09 -2 -2 .0 00 L- ti LO 38 8- 2- 00 07 MA ve 94 20 20 45 RT R 70 17 17 83 80 1 97 PH 0 AR MG MA CY TA BL #5 ET 91 64 08 09 4. 28 00 NV Ac T 38 -2 -2 00 00 L- ti D2 00 8- 2- 0 07 MA ve 73 20 20 49 RT 1. 70 17 17 97 25 6 33 PH AR MG MA CY (5 0, #5 00 91 0 UN IT ) MU 63 08 09 30 15 00 [facility] CI 82 -2 -2 .0 00 L- ti NE 40 8- 2- 00 08 MA ve X 05 20 20 83 RT D 71 17 17 77 ER 8 58 PH AR 60 MA 0- CY 60 #5 MG 91 TA BL ET MO 57 08 09 30 30 00 NV Ac NT 23 -2 -2 .0 00 L- ti EL 70 8- 2- 00 07 MA ve UK 25 20 20 48 RT 53 17 17 06 T 0 14 PH SO AR D MA 10 CY MG #5 91 TA BL ET FA 68 08 09 30 30 00 NV Ac MO 64 -2 -2 .0 00 L- ti TI 50 8- 2- 00 07 MA ve DI 14 20 20 50 RT NE 05 17 17 15 9 38 PH 20 AR MA MG CY TA #5 BL 91 ET LA 00 08 09 30 30 00 [place] Ac NS 09 -2 -2 .0 00 L- ti OP 37 8- 2- 00 07 MA ve RA 35 20 20 45 RT ZO 15 17 17 83 LE [address] MA CY 30 #5 MG 91 CA PS UL E QU 16 08 30 30 00 [place] Ac ET 72 -2 -2 .0 00 L- ti IA 90 8- 2- 00 07 MA ve PI 15 20 20 45 RT NE 00 17 17 84 1 01 PH FU AR MA MA RA CY TE #5 40 91 0 MG TA B AZ 51 08 09 30 31 00 [place] Ac EL 52 -2 -2 .0 00 L- ti 50 8- 2- 00 07 MA ve TI 29 20 20 47 RT NE 40 17 17 46 3 39 PH 0. AR 1% MA CY (1 37 #5 91 MC G) SP RY ES 68 08 09 30 30 00 NV Ac CI 64 -2 -2 .0 00 L- ti TA 50 8- 2- 00 07 MA ve LO 52 20 20 50 RT MS 05 17 17 63 AM 4 44 PH AR 20 MA CY MG #5 TA 91 BL ET LA 69 08 09 60 30 00 WA Ac MO 09 -2 -2 .0 00 L- ti TR 70 8- 2- 00 07 MA ve IG 15 20 20 50 RT IN 20 17 17 63 E 3 41 PH 20 AR 0 MA MG CY TA #5 BL 91 ET MA 57 08 09 30 30 00 NV Ac RT 23 -2 -2 .0 00 L- ti AZ 70 8- 2- 00 07 MA ve AP 00 20 20 45 RT IN 93 17 17 83 E 0 99 PH 30 AR MA MG CY TA #5 BL 91 ET CY 68 08 09 90 30 00 WA Ac CL 64 -2 -2 .0 00 L- ti OB 50 8- 2- 00 07 MA ve EN 51 20 20 45 RT ZA 89 17 17 83 MS 0 98 PH IN AR E MA 10 CY MG #5 91 TA BL ET LA 69 07 08 60 30 00 WA Ac MO 09 -2 -2 .0 00 [...] CY 68 07 08 90 30 00 NV Ac CL 64 -2 -1 .0 00 L- ti OB 50 1- 8- 00 07 MA ve EN 51 20 20 50 RT ZA 89 17 17 00 MS 0 95 PH IN AR E MA 10 CY MG #5 91 TA BL ET GA 00 07 08 90 30 00 NV Ac BA 22 -2 -1 .0 00 L- ti PE 82 1- 8- 00 04 MA ve NT 63 20 20 53 RT IN 65 17 17 11 0 99 PH 60 AR 0 MA MG CY TA #5 BL 91 ET AC 00 07 08 90 30 00 NV Ac ET 09 -2 -1 .0 00 L- ti AM 30 1- 8- 00 04 MA ve IN 15 20 20 53 RT OP 01 17 17 12 HE 0 00 PH N- AR CO MA D CY #3 #5 TA 91 BL ET LE 66 07 08 14 8 00 [facility] VA 99 -1 -1 4. 00 L- ti LB 30 3- 1- 00 07 MA ve UT 02 20 20 0 49 RT ER 32 17 17 83 OL 7 56 PH AR 1. MA 25 CY MG #5 /3 91 ML SO L LO 00 07 08 30 30 00 NV Ac RA 78 -1 -1 .0 00 L- ti TA 15 9- 1- 00 08 MA ve DI 07 20 20 84 RT NE 70 17 17 02 1 08 PH 10 AR MA MG CY TA #5 BL 91 ET FL 60 07 08 16 30 00 NV Ac UT 43 -1 -1 .0 00 L- ti IC 20 9- 1- 00 07 MA ve 26 20 20 49 RT ON 41 17 17 78 E 5 66 PH MS AR OP MA CY 50 #5 MC 91 G SP RA Y AZ 51 07 08 30 30 00 NV Ac EL 52 -1 -1 .0 00 L- ti 50 9- 1- 00 07 MA ve TI 29 20 20 49 RT NE 40 17 17 78 3 67 PH 0. AR 1% MA CY (1 37 #5 91 MC G) SP RY 64 07 08 4. 28 00 NV Ac T 38 -1 -1 00 00 L- ti D2 00 9- 1- 0 07 MA ve 73 20 20 49 RT 1. 70 17 17 97 25 6 33 PH AR MG MA CY (5 0, #5 00 91 0 UN IT ) KE 17 07 08 5. 50 00 NV Ac TO 47 -1 -0 00 00 L- ti TI 80 0- 4- 0 08 MA ve FE 71 20 20 84 RT N 71 17 17 02 FU 0 09 PH M AR 0. MA 02 CY 5% #[address] OP S MO 31 07 08 30 30 00 NV Ac NT 72 -1 -0 .0 00 L- ti EL 20 2- 4- 00 07 MA ve UK 72 20 20 49 RT 61 17 17 78 T 0 68 PH SO AR D MA 10 CY MG #5 91 TA BL ET AZ 51 06 07 30 30 00 [facility] EL 52 -2 -2 .0 00 L- ti 50 6- 8- 00 07 MA ve TI 29 20 20 44 RT NE 40 17 17 85 3 44 PH 0. AR 1% MA CY (1 37 #5 91 MC G) SP RY MA 57 06 07 30 30 00 [facility] RT 23 -2 -2 .0 00 L- ti AZ 70 6- 8- 00 07 MA ve AP 00 20 20 45 RT IN 93 17 17 83 E 0 99 PH 30 AR MA MG CY TA #5 BL 91 ET LA 00 06 07 30 30 00 [facility] NS 09 -2 -2 .0 00 L- ti OP 37 6- 8- 00 07 MA ve RA 35 20 20 45 RT ZO 15 17 17 83 LE [address] MA CY 30 #5 MG 91 CA PS UL E CY 68 06 07 90 30 00 [facility] CL 64 -2 -2 .0 00 L- ti OB 50 6- 8- 00 07 MA ve EN 51 20 20 45 RT ZA 89 17 17 83 MS 0 98 PH IN AR E MA 10 CY MG #5 91 TA BL ET GA 00 06 07 90 30 00 NV Ac BA 22 -2 -2 .0 00 L- ti PE 82 6- 8- 00 07 MA ve NT 63 20 20 44 RT IN 65 17 17 49 0 50 PH 60 AR 0 MA MG CY TA #5 BL 91 ET AC 00 06 07 60 30 00 NV Ac YC 09 -2 -2 .0 00 L- ti LO 38 6- 8- 00 07 MA ve 94 20 20 45 RT R 70 17 17 83 80 1 97 PH 0 AR MG MA CY TA BL #5 ET 91 LO 00 11 26 30 30 00 NV Ac RA 78 -2 -2 .0 00 L- ti TA 15 6- 8- 00 08 MA ve DI 07 20 20 83 RT NE 70 17 17 67 1 12 PH 10 AR MA MG CY TA #5 BL 91 ET ES 68 06 30 30 00 NV Ac CI 64 -2 -2 .0 00 L- ti TA 50 6- 8- 00 07 MA ve LO 52 20 20 44 RT MS 05 17 17 54 AM 4 27 PH AR 20 MA CY MG #5 TA 91 BL ET FL 60 06 16 30 00 NV Ac UT 43 -2 -2 .0 00 L- ti IC 20 6 8- 00 07 MA ve 26 20 20 44 RT ON 41 17 17 85 E 5 36 PH MS AR OP MA CY 50 #5 MC 91 G SP RA Y MU 63 06 60 30 00 [facility] CI 82 -1 -1 .0 00 L- ti NE 40 8- 4- 00 08 MA ve X 00 20 20 83 RT ER 83 17 17 88 2 80 PH 60 AR 0 MA MG CY TA #5 BL 91 ET MO 31 06 01 18 30 00 [facility] NT 72 -1 -1 .0 00 L- ti EL 20 9- 4- 00 07 MA ve UK 72 20 20 47 RT 61 17 17 46 T 0 38 PH SO AR D MA 10 CY MG #5 91 TA BL ET FL 00 05 12 30 00 NV Ac OV 17 -2 -2 .0 00 L- ti EN 30 3- 00 07 MA ve T 71 20 20 46 RT HF 92 17 17 55 A 0 99 PH 11 AR 0 MA MC CY G IN #5 MENDEZ 91 LE R FL 55 05 06 1. 1 00 NV Ac UC 11 -2 -2 00 00 L- ti ON 10 7- 3- 0 07 MA ve AZ 14 20 20 46 RT OL 51 17 17 68 E 2 06 PH 15 AR 0 MA MG CY TA #5 BL 91 ET MA 57 05 30 30 00 NV Ac RT 23 -2 -2 .0 00 L- ti AZ 70 7- 3- 00 07 MA ve AP 00 20 20 45 RT IN 93 17 17 83 E 0 99 PH 30 AR MA MG CY TA #5 BL 91 ET QU 16 05 12 19 30 00 NV Ac ET 72 -2 -2 .0 00 L- ti IA 90 7- 3- 00 07 MA ve PI 15 20 20 45 RT NE 00 17 17 84 1 01 PH FU AR MA MA RA CY TE #5 40 91 0 MG TA B GA 00 05 06 30 00 WA Ac BA 22 -2 -2 .0 00 L- ti PE 82 7- 3- 00 07 MA ve NT 63 20 20 45 RT IN 65 17 17 83 0 92 PH 60 AR 0 MA MG CY TA #5 BL 91 ET LO 00 05 06 30 30 00 WA Ac RA 78 -2 -2 .0 00 L- ti TA 15 7- 3- 00 08 MA ve DI 07 20 20 83 RT NE 70 17 17 83 1 62 PH 10 AR MA MG CY TA #5 BL 91 ET MO 31 05 06 30 30 00 WA Ac NT 72 -2 -2 .0 00 L- ti EL 20 7- 3- 00 07 MA ve UK 72 20 20 44 RT 61 17 17 85 T 0 42 PH SO AR D MA 10 CY MG #5 91 TA BL ET AZ 51 05 30 31 00 NV Ac EL 52 -2 -2 .0 00 L- ti 50 7- 3- 00 07 MA ve TI 29 20 20 47 RT NE 40 17 17 46 3 39 PH 0. AR 1% MA CY (1 37 #5 91 MC G) SP RY FL 60 04 05 16 60 00 NV Ac UT 43 -1 -1 .0 00 L- ti IC 20 5- 2- 00 07 MA ve 26 20 20 48 RT ON 41 17 17 06 E 5 16 PH MS AR OP MA CY 50 #5 MC 91 G SP RA Y MO 54 04 04 30 30 00 NV Ac NT 45 -0 -2 .0 00 L- ti EL 80 5- 8- 00 07 MA ve UK 89 20 20 48 RT 01 17 17 06 T 0 14 PH SO AR D MA 10 CY MG #5 91 TA BL ET LO 00 04 04 30 30 00 WA Ac RA 78 -0 -2 .0 00 L- ti TA 15 5- 8- 00 08 MA ve DI 07 20 20 83 RT NE 70 17 17 88 1 79 PH 10 AR MA MG CY TA #5 BL 91 ET AZ 51 04 04 30 30 00 [place] Ac EL 52 -0 -2 .0 00 L- ti 50 5- 8- 00 07 MA ve TI 29 20 20 48 RT NE 40 17 17 06 3 15 PH 0. AR 1% MA CY (1 37 #5 91 MC G) SP RY MU 63 04 04 60 30 00 [place] Ac CI 82 -0 -2 .0 00 L- ti NE 40 5- 8- 00 08 MA ve X 00 20 20 83 RT ER 83 17 17 88 4 80 PH 60 AR 0 MA MG CY TA #5 BL 91 ET FL 00 04 04 12 30 00 WA Ac OV 17 -0 -2 .0 00 L- ti EN 30 5- 8- 00 07 MA ve T 71 20 20 48 RT HF 92 17 17 06 A 0 17 PH 11 AR 0 MA MC CY G IN #5 MENDEZ 91 LE R AL 00 04 04 75 30 00 WA Ac BU 48 -0 -2 .0 00 L- ti TE 79 5- 8- 00 07 MA ve RO 50 20 20 48 RT L 12 17 17 06 CASTELLANOS 5 19 PH L AR 2. MA 5 CY MG /3 #5 [address] LA 69 03 04 60 30 00 NV Ac MO 09 -2 -1 .0 00 L- ti TR 70 0- 4- 00 07 MA ve IG 15 20 20 47 RT IN 20 17 17 74 E 3 34 PH 20 AR 0 MA MG CY TA #5 BL 91 ET CY 68 03 03 90 30 00 NV Ac CL 64 -0 -3 .0 00 L- ti OB 50 2- 1- 00 07 MA ve EN 51 20 20 47 RT ZA 89 17 17 38 MS 0 39 PH IN AR E MA 10 CY MG #5 91 TA BL ET FL 55 03 03 2. 2 00 NV Ac UC 11 -0 -3 00 00 [...] 91 MC G) SP RY MU 63 03 03 60 30 00 [place] Ac CI 82 -0 -3 .0 00 L- ti NE 40 6- 1- 00 08 MA ve X 00 20 20 83 RT ER 83 17 17 83 4 63 PH 60 AR 0 MA MG CY TA #5 BL 91 ET AM 00 03 03 20 10 00 WA Ac OX 78 -0 -3 .0 00 L- ti -C 11 7- 1- 00 07 MA ve LA 85 20 20 47 RT V 22 17 17 47 87 0 96 PH 5- AR 12 MA 5 CY MG #5 TA 91 BL ET CASTELLANOS 65 03 03 20 10 00 WA Ac LF 86 -0 -3 .0 00 L- ti AM 20 8- 1- 00 07 MA ve ET 42 20 20 47 RT HO 00 17 17 50 XA 5 79 PH ZO AR LE MA -T CY MP #5 DS 91 TA BL ET FL 60 03 03 16 60 00 NV Ac UT 43 -0 -2 .0 00 L- ti IC 20 1- 4- 00 07 MA ve 26 20 20 47 RT ON 41 17 17 37 E 5 81 PH MS AR OP MA CY 50 #5 MC 91 G SP RA Y LA 69 02 03 60 30 00 WA Ac MO 09 -1 -1 .0 00 L- ti TR 70 6- 7- 00 07 MA ve IG 15 20 20 45 RT IN 20 17 17 83 E 3 95 PH 20 AR 0 MA MG CY TA #5 BL 91 ET GA 00 02 03 90 30 00 NV Ac BA 22 -1 -1 .0 00 [...] PA 54 02 03 30 30 00 WA Ac RO 45 -1 -1 .0 00 L- ti XE 80 6- 7- 00 07 MA ve TI 98 20 20 45 RT NE 91 17 17 84 0 00 PH HC AR L MA 20 CY MG #5 91 TA BL ET MO 54 02 03 30 30 00 NV Ac NT 45 -1 -1 .0 00 L- ti EL 80 6- 7- 00 07 MA ve UK 89 20 20 44 RT 01 17 17 85 T 0 42 PH SO AR D MA 10 CY MG #5 91 TA BL ET MU 63 02 03 30 15 00 [facility] CI 82 -1 -1 .0 00 L- ti NE 40 6- 7- 00 08 MA ve X 05 20 20 83 RT D 73 17 17 77 ER 6 58 PH AR 60 MA 0- CY 60 #5 MG 91 TA BL ET AC 00 02 03 60 30 00 NV Ac YC 09 -0 -1 .0 00 L- ti LO 38 9- 0- 00 07 MA ve 94 20 20 40 RT R 70 17 17 32 80 1 76 PH 0 AR MG MA CY TA BL #5 ET 91 MA 57 02 03 30 30 00 [facility] RT 23 -0 -0 .0 00 L- ti AZ 70 4- 3- 00 07 MA ve AP 00 20 20 45 RT IN 93 17 17 83 E 0 99 PH 30 AR MA MG CY TA #5 BL 91 ET LA 00 02 03 30 30 00 [facility] NS 09 -0 -0 .0 00 L- ti OP 37 4- 3- 00 07 MA ve RA 35 20 20 40 RT ZO 15 17 17 32 LE [address] MA CY 30 #5 MG 91 CA PS UL E CY 68 02 03 90 30 00 [facility] CL 64 -0 -0 .0 00 L- ti OB 50 4- 3- 00 07 MA ve EN 51 20 20 40 RT ZA 89 17 17 32 MS 0 71 PH IN AR E MA 10 CY MG #5 91 TA BL ET QU 16 02 03 30 30 00 [facility] ET 72 -0 -0 .0 00 L- ti IA 90 4- 3- 00 07 MA ve PI 15 20 20 45 RT NE 00 17 17 84 1 01 PH FU AR MA MA RA CY TE #5 40 91 0 MG TA B FL 55 01 02 1. 1 00 NV Ac UC 11 -2 -1 00 00 L- ti ON 10 5- 7- 0 07 MA ve AZ 14 20 20 46 RT OL 51 17 17 68 E 2 06 PH 15 AR 0 MA MG CY TA #5 BL 91 ET AM 00 01 02 20 10 00 NV Ac OX 14 -2 -1 .0 00 [...] MG /3 #5 [address] SO [address] FL 00 01 02 12 30 00 NV Ac OV 17 -1 -1 .0 00 L- ti EN 30 9- 7- 00 07 MA ve T 71 20 20 46 RT HF 92 17 17 55 A 0 99 PH 11 AR 0 MA MC CY G IN #5 MENDEZ 91 LE R AC 00 01 02 60 30 00 WA Ac YC 09 -1 -1 .0 00 L- ti LO 38 2- 0- 00 07 MA ve 94 20 20 40 RT R 70 17 17 32 80 1 76 PH 0 AR MG MA CY TA BL #5 ET 91 FL 00 01 02 10 60 00 NV Ac OV 17 -1 -1 .5 00 L- ti EN 30 4- 0- 99 07 MA ve T 71 20 20 44 RT HF 82 17 17 85 A 0 37 PH 44 AR MA MC CY G IN #5 MENDEZ 91 LE R VE 00 01 02 18 17 00 NV Ac NT 17 -1 -1 .0 00 L- ti OL 30 4- 0- 00 07 MA ve IN 68 20 20 44 RT 22 17 17 85 HF 0 43 PH A AR 90 MA CY MC G #5 IN 91 MENDEZ LE R MO 54 01 02 30 30 00 NV Ac NT 45 -1 -1 .0 00 L- ti EL 80 4- 0- 00 07 MA ve UK 89 20 20 44 RT 01 17 17 85 T 0 42 PH SO AR D MA 10 CY MG #5 91 TA BL ET PA 54 01 02 30 30 00 WA Ac RO 45 -1 -1 .0 00 L- ti XE 80 4- 0- 00 07 MA ve TI 98 20 20 45 RT NE 91 17 17 84 0 00 PH HC AR L MA 20 CY MG #5 91 TA BL ET LA 69 01 02 60 30 00 WA Ac MO 09 -1 -1 .0 00 L- ti TR 70 4- 0- 00 07 MA ve IG 15 20 20 45 RT IN 20 17 17 83 E 3 95 PH 20 AR 0 MA MG CY TA #5 BL 91 ET AC 00 01 02 90 30 00 NV Ac ET 09 -1 -1 .0 00 L- ti AM 30 6- 0- 00 04 MA ve IN 15 20 20 52 RT OP 01 17 17 87 HE 0 41 PH N- AR CO MA D CY #3 #5 TA 91 BL ET ## 01 02 30 15 00 NV Ac ## -1 -1 .0 00 L- ti ## 8- 0- 00 08 MA ve ## 20 20 83 RT ## 17 17 77 # 58 PH AR MA CY #5 91 QU 16 01 02 30 30 00 NV Ac ET 72 -0 -0 .0 00 L- ti IA 90 5- 3- 00 07 MA ve PI 15 20 20 42 RT NE 00 17 17 61 1 22 PH FU AR MA MA RA CY TE #5 40 91 0 MG TA B MA 57 01 02 30 30 00 NV Ac RT 23 -0 -0 .0 00 L- ti AZ 70 5- 3- 00 07 MA ve AP 00 20 20 42 RT IN 93 17 17 61 E 0 29 PH 30 AR MA MG CY TA #5 BL 91 ET LO 00 01 02 30 30 00 NV Ac RA 78 -0 -0 .0 00 L- ti TA 15 5- 3- 00 08 MA ve DI 07 20 20 83 RT NE 70 17 17 75 1 20 PH 10 AR MA MG CY TA #5 BL 91 ET LA 00 01 02 30 30 00 NV Ac NS 09 -0 -0 .0 00 L- ti OP 37 6- 3- 00 07 MA ve RA 35 20 20 40 RT ZO 15 17 17 32 LE [address] MA CY 30 #5 MG 91 CA PS UL E CY 68 01 02 90 30 00 NV Ac CL 64 -0 -0 .0 00 L- ti OB 50 6- 3- 00 07 MA ve EN 51 20 20 40 RT ZA 89 17 17 32 MS 0 71 PH IN AR E MA 10 CY MG #5 91 TA BL ET FL 60 01 01 16 60 00 NV Ac UT 43 -0 -2 .0 00 L- ti IC 20 1- 7- 00 07 MA ve 26 20 20 40 RT ON 41 17 17 32 E 5 79 PH MS AR OP MA CY 50 #5 MC 91 G SP RA Y MS 00 01 01 20 10 00 NV Ac OM 60 -0 -2 0. 00 L- ti ET 31 4- 7- 00 07 MA ve MENDEZ 58 20 20 0 46 RT ZI 65 17 17 26 NE 8 85 PH -D AR M MA SY CY RU P #5 91 AZ 59 01 01 6. 5 00 NV Ac IT 76 -0 -2 00 00 L- ti HR 23 4- 7- 0 07 MA ve OM 06 20 20 46 RT YC 00 17 17 26 IN 1 86 PH AR 25 MA 0 CY MG #5 TA 91 BL ET MS 00 01 01 10 5 00 NV Ac ED 14 -0 -2 .0 00 L- ti NI 39 4- 7- 00 07 MA ve SO 73 20 20 46 RT NE 80 17 17 26 5 87 PH 20 AR MA MG CY TA #5 BL 91 ET BE 51 12 01 21 7 00 NV Ac NZ 22 -3 -2 .0 00 L- ti ON 40 0- 7- 00 07 MA ve AT 00 20 20 46 RT AT 16 16 17 17 E 0 02 PH 20 AR 0 MA MG CY CA #5 PS 91 UL E AC 00 12 01 60 30 00 NV Ac YC 09 -2 -1 .0 00 L- ti LO 38 0- 3- 00 07 MA ve 94 20 20 45 RT R 70 16 17 83 80 1 97 PH 0 AR MG MA CY TA BL #5 ET 91 PA 54 12 01 30 30 00 NV Ac RO 45 -1 -0 .0 00 L- ti XE 80 4- 9- 00 07 MA ve TI 98 20 20 45 RT NE 91 16 17 84 0 00 PH HC AR L MA 20 CY MG #5 91 TA BL ET LA 69 12 01 60 30 00 NV Ac MO 09 -1 -0 .0 00 L- ti TR 70 4- 9- 00 07 MA ve IG 15 20 20 45 RT IN 20 16 17 83 E 3 95 PH 20 AR 0 MA MG CY TA #5 BL 91 ET AC 00 12 01 90 30 00 NV Ac ET 09 -1 -0 .0 00 L- ti AM 30 4- 9- 00 04 MA ve IN 15 20 20 52 RT OP 01 16 17 87 HE 0 41 PH N- AR CO MA D CY #3 #5 TA 91 BL ET MA 57 12 01 30 30 00 NV Ac RT 23 -1 -0 .0 00 L- ti AZ 70 3- 9- 00 07 MA ve AP 00 20 20 42 RT IN 93 16 17 61 E 0 29 PH 30 AR MA MG CY TA #5 BL 91 ET QU 16 12 01 30 30 00 WA Ac ET 72 -1 -0 .0 00 L- ti IA 90 07 MA ve PI 15 20 20 42 RT NE 00 16 17 61 1 22 PH FU AR MA MA RA CY TE #5 40 91 0 MG TA B LO 00 00 WA Ac RA 78 -1 -0 .0 00 L- ti TA 15 08 MA ve DI 07 20 20 83 RT NE 70 16 17 73 1 03 PH 10 AR MA MG CY TA #5 BL 91 ET GA 00 12 30 00 WA Ac BA 22 -1 -0 .0 00 L- ti PE 82 07 MA ve NT 63 20 20 45 RT IN 65 16 17 83 0 92 PH 60 AR 0 MA MG CY TA #5 BL 91 ET LA 00 00 WA Ac NS 09 -1 -0 .0 00 L- ti OP 37 07 MA ve RA 35 20 20 45 RT ZO 15 16 17 83 LE [address] MA CY 30 #5 MG 91 CA PS UL E CY 68 12 30 00 NV Ac CL 64 -1 -0 .0 00 L- ti OB 50 07 MA ve EN 45 20 20 45 RT ZA 09 16 17 83 MS 0 98 PH IN AR E MA 10 CY MG #5 91 TA BL ET Immunization Name Date Rout CVX Reac Dose Comm Prov Is Faci e tion ent ider Refu lity Give sed n TDAP 02-2 115 GAIN No [facility] 3-20 EY PHYS VACC 16 ELINA ICIA INE NS 7 GROU YRS/ P > IM Procedures Procedure DOS Code [place] 132[address] ROBERT J[facility]UML [facility] CORONARY INC INC STENT W/ANGIO ONE ART/BRNCH CATH PLMT 10084 [facility] SERGO L HRT & 7 PHYSICIAN ARTS S GROUP W/NJX & ANGIO IMG S&I BASIC 22500 ROBERT JONES METABOLIC 7 [facility] PANEL INC INC CALCIUM TOTAL MOD SED 33021 ROBERT JONES SAME 7 [facility] PHYS/QHP INC INC INITIAL 15 MINS <5 YRS IV DOP 42871 ROBERT JONES NICKO&/OR 7 [facility] PRESS INC INC C/MONO RSRV SHALA 1ST VSL STENT C1876 ROBERT JONES NON-COATE 7 [facility] D/NON-COV INC INC ERED W/DELIVER Y SYSTEM COAGULATI 14431 ROBERT JONES ON TIME 7 [facility] ACTIVATED INC INC BLOOD 85040 ROBERT JONES COUNT 7 [facility] COMPLETE INC INC AUTO&AUTO DIFRNTL WBC TECHNETIU A9502 ROBERT Max TC-99M 7 [facility] TETROFOSM INC INC IN DX PER STUDY DOSE MYOCARDIA 64237 ROBERT JONES L SPECT 7 [facility] MULTIPLE INC INC STUDIES ECHO 65125 ROBERT JONES TTHRC R-T 7 [facility] 2D INC INC W/WOM-MOD E COMPL SPEC&COLR D CT HEART 19433 [place] NO 7 MEDICAL CONTRAST IMAGING QUANT ASS EVAL CORONRY CALCIUM FINAL G9638 [place] REPORTS 7 MEDICAL W/O DOC IMAGING 1/MORE ASS DOSE REDUCTION TECH ECG 43803 ROBERT JONES ROUTINE 7 [facility] ECG INC INC W/LEAST 12 LDS TRCG ONLY W/O I&R PREPJ& 83466 ALLERGY CADE ALLERGEN 7 PARTNERS IMMUNOTHE OF POE RAPY CO 1/SENIOR IT AUDITOR ANTIGEN COMPREHEN 50842 ROBERT JONES SIVE 7 [facility] METABOLIC INC INC PANEL COLLECTIO 13277 [facility] STONE N VENOUS 7 PHYSICIAN B[place] [address] ROBERT JONES FREE 7 [facility] THYROXINE INC INC BLOOD 84022 ROBERTGAVINO JONES COUNT 7 [facility] COMPLETE INC INC AUTO&[place] [address] ROBERT JONES THYROID 7 [facility] STIMULATI INC INC NG HORMONE TSH SPMTRY 69805 ALLERGY H[place] W/VC 7 PARTNERS EXPIRATOR OF POE Y MONO CO W/WO MXML VOL VNTJ SPMTRY 54392 ALLERGY CADE W/VC 7 PARTNERS EXPIRATOR OF POE Y MONO CO W/WO MXML VOL VNTJ PROF SVCS 47877 ALLERGY CADE ALLG 7 PARTNERS IMMNTX X OF POE W/PRV CO ALLGIC XTRCS NJXS NITRIC 22408 ALLERGY CADE OXIDE 7 PARTNERS OF POE GAS CO DETERMINA TION AREO MASK A7015 MT MED MT MED USED W/ 7 EQUIPMENT EQUIPMENT DME NEB INC INC NEBULIZER E0570 MT MED MT MED WITH 7 EQUIPMENT EQUIPMENT COMPRESSO INC INC R ADMN SET A7005 MT MED MT MED W/SM VOL 7 EQUIPMENT EQUIPMENT NONFILTR INC INC NEBULIZR NON-DISPB L NITRIC 49490 ALLERGY CADE OXIDE 7 PARTNERS OF POE GAS CO DETERMINA TION PROF SVCS 65996 ALLERGY CADE ALLG 7 PARTNERS IMMNTX X OF POE W/PRV CO ALLGIC XTRCS NJXS SPMTRY 77322 ALLERGY CADE W/VC 7 PARTNERS EXPIRATOR OF POE Y MONO CO W/WO MXML VOL VNTJ RADIOLOGI 48703 [place] C EXAM 7 MEDICAL CHEST 2 IMAGING VIEWS ASS FRONTAL&L ATERAL INJECTION J1040 [facility] 7 PHYSICIAN PHYSICIAN METHYLPRE S GROUP S GROUP DNISOLONE ACETATE 80 MG INJECTION J0696 [facility] STONE 7 PHYSICIAN CEFTRIAXO S GROUP NE SODIUM PER 250 MG THERAPEUT 17196 [facility] STONE IC 7 PHYSICIAN PROPHYLAC S GROUP TIC/DX INJECTION SUBQ/IM PHYSICAL 42592 ROBERT JONES THERAPY 6 [facility] EVALUATIO INC INC N IM ADM 89615 [facility] STONE BUTCH PRQ ID 6 PHYSICIAN SUBQ/IM S GROUP NJXS 1 VACCINE PROF SVCS 33741 ALLERGY CADE MAR ALLG 6 PARTNERS IMMNTX X OF POE W/PRV CO ALLGIC XTRCS NJXS PROF SVCS 48959 ALLERGY CADE MAR ALLG 6 PARTNERS IMMNTX X OF POE W/PRV CO ALLGIC XTRCS NJXS SHALA 01647 ROBERT COLMENARES POST-VOID 6 [facility] RESIDUAL P URINE&/BL ADDER CAP CHIROPRAC 70000 CIELO LEEGUSON TIC 6 BILL BILL MANIPULAT MIKE [place] SPINAL 3-4 REGIONS PROF [facility] 85742 ALLERGY CADE MAR ALLG 6 PARTNERS IMMNTX X OF POE W/PRV CO ALLGIC XTRCS NJXS SPMTRY 63374 ALLERGY CADE MAR W/VC 6 PARTNERS EXPIRATOR OF POE Y MONO CO W/WO MXML VOL VNTJ NITRIC 49567 ALLERGY CADE MAR OXIDE 6 [place] [address] ALLERGY CADE MAR ALLG 6 PARTNERS IMMNTX X OF POE W/PRV CO ALLGIC XTRCS NJXS OPHTH 06705 [facility] 6 GRE GRE XM&EVAL COMPRHNSV ESTAB PT 1/> BX BREAST 39111 YONY BIRD W/DEVICE 6 MEDICAL 1ST IMAGING LESION ASS STEREOTAC TIC GUID DIAGNOSTI G0206 ROBERT JONES C 6 [facility] MAMMOGRAP INC INC HY INCL CAD [place]; [place] [address] [facility], SURG 6 [facility] PATHOLOGY GROSS&ELINA ROSCOPIC EXAM PROF [facility] 42968 ALLERGY CADE MAR ALLG 6 PARTNERS IMMNTX X OF POE W/PRV CO ALLGIC XTRCS NJXS PROF [facility] 28721 ALLERGY CADE MAR ALLG 6 PARTNERS IMMNTX X OF POE W/PRV CO ALLGIC XTRCS NJXS SWALLOWIN 61907 [facility] G FUNCJ 6 MEDICAL CUAUHTEMOC W/CINERAD IMAGING IOGRAPY/V ASS IDRADIOG MOTION 10592 ROBERT JONES FLUOR 6 [facility] EVAL INC INC SWLNG FUNCJ C/V REC PROF [facility] 29124 ALLERGY CADE MAR ALLG 6 PARTNERS IMMNTX X OF POE W/PRV CO ALLGIC XTRCS NJXS ECG 24214 ROBERT TOBAR JR ROUTINE 6 [facility] HOSPITAL W/LEAST P 12 LDS I&R ONLY EGD 81421 ROBERT JONES TRANSORAL 6 [facility] BIOPSY INC INC SINGLE/MU LTIPLE COLONOSCO 00783 [facility] BYRON PEGUERO PY 6 PHYSICIAN REJI W/BIOPSY S GROUP SINGLE/[place] [address] ROBERT JONES HPYLORI 6 [place] [address] [facility], SURG 6 [facility] PATHOLOGY GROSS&ELINA ROSCOPIC EXAM NITRIC 58346 ALLERGY CADE MAR OXIDE 6 PARTNERS OF POE GAS CO DETERMINA TION SPMTRY 65679 ALLERGY CADE MAR W/VC 6 PARTNERS EXPIRATOR OF POE Y MONO CO W/WO MXML VOL VNTJ PROF [facility] 25920 ALLERGY CADE MAR ALLG 6 PARTNERS IMMNTX X OF POE W/PRV CO ALLGIC XTRCS NJXS US BREAST 52821 ROBERT JONES UNI REAL 6 [facility] TIME INC INC WITH IMAGE COMPLETE US BREAST 05101 [place] UNI REAL 6 MEDICAL CUAUHTEMOC TIME IMAGING WITH ASS IMAGE LIMITED PHYSICAL 78186 ROBERT JONES THERAPY 6 [facility] EVALUATIO INC INC N CHIROPRAC 28990 BUCK BUCK TIC 6 BILL BILL MANIPULAT MIKE [place] SPINAL 3-4 REGIONS DIAGNOSTI G0206 ROBERT JONES C 6 [facility] MAMMOGRAP INC INC HY INCL CAD WHEN PERF; UNI PROF [facility] 88130 ALLERGY CADE MAR ALLG 6 PARTNERS IMMNTX X OF POE W/[place] [address] ROBERT JONES ABDOMINAL 6 [facility] REAL INC INC TIME W/IMAGE LIMITED CHIROPRAC 16031 BUCK BUCK TIC 6 BILL BILL MANIPULAT MIKE [place] SPINAL 3-4 REGIONS COMPUTER- 67653 [facility] AIDED 6 MEDICAL CUAUHTEMOC DETECTION IMAGING ASS SCREENING MAMMOGRAP HY SCREENING G0202 [place] [address] MEDICAL CUAUHTEMOC MAMMOGRAP IMAGING HY HILL ASS INCL CAD WHEN PERFORMD PROF SVCS 54175 ALLERGY CADE MAR ALLG 6 PARTNERS IMMNTX X OF POE W/PRV CO ALLGIC XTRCS NJXS PROF SVCS 36509 ALLERGY CADE MAR ALLG 6 PARTNERS IMMNTX X OF POE W/PRV CO ALLGIC XTRCS NJXS BRNCDILAT 79799 ROBERT PERALTA RSPSE 6 [facility] PRE&POST- P BRNCDILAT ADMN CHIROPRAC 74073 BUCK BUCK TIC 6 BILL BILL MANIPULAT MIKE [place] SPINAL 3-4 REGIONS RADEX 89954 [place] ALL ESOPHAGUS 6 MEDICAL IMAGING ASS PROF [facility] 77953 ALLERGY CADE MAR ALLG 6 PARTNERS IMMNTX X OF POE W/PRV CO ALLGIC XTRCS NJXS PROF [facility] 75684 ALLERGY CADE MAR ALLG 6 PARTNERS IMMNTX X OF POE W/PRV CO ALLGIC XTRCS NJXS RADEX 89399 ROBERT JONES SHOULDER 6 [facility] COMPLETE INC INC MINIMUM 2 VIEWS CHIROPRA 23236 BUCK BUCK TIC 6 BILL BILL MANIPULAT MIKE [place] SPINAL 3-4 REGIONS CHIROPRAC 40904 BUCK BUCK TIC 6 BILL BILL MANIPULAT MIKE TX SPINAL 3-4 REGIONS PROF [facility] 90787 ALLERGY CADE MAR ALLG 6 PARTNERS IMMNTX X OF PEO W/PRV CO ALLGIC XTRCS NJXS PREPJ& 29343 ALLERGY CADE ALLERGEN 6 PARTNERS IMMUNOTHE OF POE RAPY CO 1/SENIOR IT AUDITOR ANTIGEN CHIROPRAC 00455 BUCK BUCK TIC 6 BILL BILL MANIPULAT MIKE [place] SPINAL 3-4 REGIONS DEMO&/KIM 26630 ALLERGY CADE MAR L OF PT 6 PARTNERS UTILIZ OF POE AERSL CO GEN/NEB/I NHLR/IP NITRIC 90282 ALLERGY CADE MAR OXIDE 6 PARTNERS OF POE GAS CO DETERMINA TION PERCUTANE 47054 ALLERGY CADE MAR OUS TESTS 6 PARTNERS OF POE W/ALLERGE CO CAROLINE EXTRACTS INTRACUTA 12518 ALLERGY CADE MAR NEOUS 6 PARTNERS TESTS OF POE W/ALLERGE CO CAROLINE EXTRACTS SPACR A4627 MT MED MT MED BAG/RESRV 6 EQUIPMENT EQUIPMENT OR W/WO INC INC MASK W/METRD DOSE INHAL SPMTRY 32095 ALLERGY CADE MAR W/VC 6 PARTNERS EXPIRATOR OF POE Y MONO CO W/WO MXML VOL VNTJ CHIROPRAC 77137 BUCK BUCK TIC 6 BILL BILL MANIPULAT MIKE [place] SPINAL 3-4 REGIONS CHIROPRAC 43291 BUCK BUCK TIC 6 BILL BILL MANIPULAT MIKE [place] SPINAL 3-4 REGIONS CHIROPRAC 23364 BUCK BUCK TIC 6 BILL BILL MANIPULAT MIKE [place] SPINAL 3-4 REGIONS CHIROPRAC 91204 BUCK BUCK TIC 6 BILL BILL MANIPULAT MIKE TX SPINAL 3-4 REGIONS CYTP C/V 91644 [facility], AUTO THIN 6 [employer] [facility] LYR PREPJ SCR MNL RESCR PHYS RADIOLOGI 69364 [place] C 6 MEDICAL EXAMINATI IMAGING ON KNEE ASS 1/2 VIEWS RADIOLOGI 23113 [place] C 6 MEDICAL EXAMINATI IMAGING ON CHEST ASS SINGLE VIEW FRONTAL CHIROPRAC 58930 BUCK BUCK TIC 6 BILL BILL MANIPULAT MIKE [place] SPINAL 1-2 REGIONS DRUG TST G0477 ROBERT JONES PRESUMP;C 6 [facility] PBL BEING INC INC READ DC OPT OBV ONLY ANESTHESI 48116 [facility] A 6 ANESTH MALACHI INTRAORAL OF THE WITH BLUE BIOPSY NOS LEVEL III 51139 [facility], SURG 6 [facility] PATHOLOGY GROSS&ELINA ROSCOPIC EXAM INJECTION J2405 ROBERT JONES 6 [facility] ONDANSETR INC INC ON HCL PER 1 MG INJECTION J2710 ROBERT JONES 6 [facility] NEOSTIGMI INC INC NE METHYLSUL FATE UP TO 0.5 MG TONSILLEC 82116 [facility] DUMONT DAVID 6 PHYSICIAN CLARITA PRIMARY/S S GROUP ECONDARY AGE 12/> COMPREHEN 45937 ROBERT JONES SIVE 6 [facility] METABOLIC INC INC PANEL ECG 94055 ROBERT PERALTA ROUTINE 6 [facility] W/LEAST P 12 LDS I&R ONLY COLLECTIO 78276 ROBERT JONES N VENOUS 6 [facility] BLOOD INC INC VENIPUNCT URE ECG 93076 ROBERT JONES ROUTINE 6 [facility] ECG INC INC W/LEAST 12 LDS TRCG ONLY W/O I&R BLOOD 24480 ROBERT JONES COUNT 6 [facility] COMPLETE INC INC AUTO&AUTO DIFRNTL WBC BLOOD 28973 ROBERT JONES COUNT 6 [facility] COMPLETE INC INC AUTO&AUTO DIFRNTL WBC 25 93979 ROBERT JONES HYDROXY 6 [facility] INCLUDES [place] [address] ROBERT JONES THYROID 6 [facility] STIMULATI INC INC NG HORMONE TSH IM ADM 20232 [facility] PRQ ID 6 PHYSICIAN ELINA SUBQ/IM S GROUP NJXS 1 [place] [address] ROBERT JONES THYROXINE 6 [facility] TOTAL INC INC COLLECTIO 49432 [facility] BELTRAN N VENOUS 6 PHYSICIAN ELINA BLOOD S GROUP VENIPUNCT URE TDAP 31898 [facility] 7 6 PHYSICIAN ELINA YRS/> IM S GROUP COMPREHEN 58893 ROBERT JONES SIVE 6 [facility] [address] [facility], SURG 5 [facility] PATHOLOGY GROSS&ELINA ROSCOPIC EXAM ANESTHESI 55210 [facility] BETSY A NOSE & 5 ANESTH MALACHI ACCESSORY OF THE SINUSES BLUE NOS BLOOD 28162 ROBERT JONES COUNT 5 [facility] COMPLETE INC INC AUTO&AUTO DIFRNTL WBC COLLECTIO 68278 ROBERT JONES N VENOUS 5 [facility] BLOOD INC INC VENIPUNCT URE ECG 02023 ROBERT JONES ROUTINE 5 [facility] ECG INC INC W/LEAST 12 LDS TRCG ONLY W/O I&R BASIC 59889 ROBERT JONES METABOLIC 5 [facility] PANEL INC INC CALCIUM TOTAL ECG 79488 FABIAN PERALTA ROUTINE 5 FANNIE FANNIE ECG W/LEAST 12 LDS I&[place] [address] [place] ALL MAXILLOFA 5 MEDICAL CIAL W/O IMAGING CONTRAST ASS MATERIAL INJECTION J1040 [facility] HODAN 5 PHYSICIAN STONE METHYLPRE S GROUP PA-C BUTCH DNISOLONE ACETATE 80 MG THERAPEUT 42134 [facility] HODAN IC 5 PHYSICIAN STONE PROPHYLAC S GROUP PA-C BUTCH TIC/DX INJECTION SUBQ/IM OPHTH 82824 [facility] MEDICAL 5 CHERYL LUNA XM&EVAL LATANYA PELAEZ MENAE NEW PT 1/> VST THERAPEUT 62720 ROBERT BREAUX IC 5 [facility] TIC/DX INJECTION SUBQ/IM INJECTION J1040 ROBERT BREAUX 5 [facility] DNISOLONE ACETATE 80 MG INJECTION J0696 ROBERT BREAUX 5 [facility] NE SODIUM PER 250 MG RADIOLOGI 87733 ROBERT OJNES C 4 [facility] EXAMINATI INC INC ON KNEE 1/[address] [place] [address] ROBERT JONES MAXILLOFA 4 [facility]OS[facility] CIAL W/O INC INC CONTRAST MATERIAL 3D 50127 ROBERT JONES RENDERING 4 [facility] INC INC W/INTERP& POSTPROC DIFF WORK STATION Encounters Encounter Start End Date Code Location Performer Type Date HOSPITAL ROBERT - 7 7 [facility] OUTPATIEN [facility] ROBERT - 7 7 [facility] ROBERT - 7 7 [facility] OUTPATIEN INC T OFFICE 77766 [facility] STONE OUTPATIEN 7 7 PHYSICIAN T VISIT S GROUP 25 MINUTES HOSPITAL ROBERT - 7 7 [facility] OUTPATIEN [facility] T OFFICE 81086 [facility]ERGY H[facility] OUTPATIEN 7 7 PARTNERS T VISIT OF POE 25 CO [facility] OFFICE 51322 ALLERGY CADE OUTPATIEN 7 7 PARTNERS T VISIT OF POE 25 CO [facility] ROBERT - 7 7 [facility]PATIEN [facility] T OFFICE 28603 [facility]ER[facility] CADE OUTPATIEN 7 7 PARTNERS T VISIT OF POE 40 CO [facility] ROBERT - 6 6 [facility] OUTPATIEN [facility] T OFFICE 18482 ROBERT COLMENARES OUTPATIEN 6 6 [facility] 15 P MINUTES OFFICE 37928 ALLERGY CADE MAR OUTPATIEN 6 6 PARTNERS T VISIT OF POE 40 CO [facility] OFFICE 85816 [facility] BYRON OUTPATIEN 6 6 PHYSICIAN REJI T VISIT S GROUP [address] [place] [address] ROBERT - 6 6 [facility] OUTPATIEN [facility] ROBERT - 6 6 [facility] OUTPATIEN [facility] ROBERT - 6 6 [facility]PATIEN [facility] T OFFICE 03659 ALLERGY CADE MAR OUTPATIEN 6 6 PARTNERS T VISIT OF POE 25 CO [facility] ROBERT - 6 6 [facility] OUTPATIEN [facility] T OFFICE 54813 [facility] ALLTHERESE OUTPATIEN 6 6 PHYSICIAN REJI T VISIT S GROUP 10 [facility] ROBERT - 6 6 [facility] OUTPATIEN [facility] ROBERT - 6 6 [facility] OUTPATIEN [facility] ROBERT - 6 6 [facility]PATIEN [facility] T OFFICE 71092 [facility] BYRON OUTPATIEN 6 6 PHYSICIAN REJI T NEW [address] [facility] ROBERT - 6 6 [facility] ROBERT - 6 6 [facility] OUTPATIEN [facility] OFFICE 99042 ALLERGY CADE MAR CONSULTAT 6 6 PARTNERS ION OF DEE[place] NEW/ESTAB CO PATIENT 60 MIN OFFICE 50533 [facility] STONE BUTCH OUTPATIEN 6 6 PHYSICIAN T VISIT S GROUP 15 MINUTES OFFICE 18912 ROBERT COLMENARES OUTPATIEN 6 6 [facility] 10 P MINUTES HOSPITAL ROBERT - 6 6 [facility] OUTPATIEN [facility] ROBERT - 6 6 [facility] OUTPATIEN [facility] OFFICE 25531 [facility] DUMONT OUTPATIEN 6 6 PHYSICIAN CLARITA T VISIT S GROUP 15 MINUTES HOSPITAL ROBERT - 6 6 [facility] OUTPATIEN [facility] ROBERT - 6 6 [facility] ROBERT - 5 5 [facility] OUTPATIEN [facility] OFFICE 63000 ROBERT WAITE OUTPATIEN 5 5 [facility] 15 MINUTES OFFICE 90176 [facility] DUMONT OUTPATIEN 5 5 PHYSICIAN CLARITA T VISIT S GROUP 10 MINUTES HOSPITAL ROBERT - 5 5 [facility] OUTPATIEN [facility] OFFICE 03094 [facility] HODAN OUTPATIEN 5 5 PHYSICIAN STONE T VISIT S GROUP PA-C [facility] 25 MINUTES OFFICE 10432 ROBERT BREAUX OUTPATIEN 5 5 [facility] 15 MINUTES OFFICE 58495 [facility] DUMONT OUTPATIEN 5 5 PHYSICIAN CLARITA T NEW 30 S GROUP MINUTES OFFICE 27734 ROBERT LUCERO OUTPATIEN 5 5 [facility] 15 MINUTES OFFICE 35766 ROBERT PALACIOSPATIDARCIE 5 5 [facility] 10 MINUTES OFFICE 14792 ROBERT LUCERO OUTPATIDARCIE 5 5 [facility] 15 MINUTES OFFICE 61602 ROBERT LUCERO OUTAUBREYEN 4 4 [facility] 15 MINUTES HOSPITAL ROBERT - 4 4 [facility]
--- OUTSIDE RECORDS SUMMARY | 2017-04-05 16:28 | External Medical Summary Rpt | CCD ---
Author Author , DEIDRE Organization DEIDRE Address Unknown Phone [email or web address] Team Providers Care Policeman Name Role Phone COLMENARES, COLMENARES Unavailable Unavailable [...] EUG BELTRAN ELINA, BELTRAN Unavailable Unavailable [facility] Unavailable Un[facility] Unavailable Unavailable [facility]PITAL, [facility] Unavailable Unavailable [facility] P, [facility], Unavailable Unavailable [facility] Unavailable Unavailable [facility], [facility] DUMONT CLARITA, DUMONT Unavailable [...] HYPERTENSIO INC N I208 OTHER FORMS 03-12-2017 [facility] OF ANGINA PHYSICIANS [place] GROUP 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 ASHD [place] 03-12-2017 [facility] COR ART PHYSICIANS W/OTH FORMS GROUP ANGINA [place] [id number] ASHD [place] 03-12-2017 [facility] W/UNS INC ANGINA [place] Z720 TOBACCO USE 03-12-2017 [facility] R0600 DYSPNEA 02-05-2017 [facility]PECIFIED [facility] R0602 SHORTNESS 02-05-2017 [facility] OF BREATH PHYSICIANS GROUP R0789 OTHER CHEST 02-05-2017 [facility] PAIN [facility] R079 CHEST PAIN 02-05-2017 [facility] UNSPECIFIED PHYSICIANS GROUP R42 DIZZINESS 02-05-2017 [facility] GIDDINESS INC R531 WEAKNESS 02-05-2017 [facility] R609 EDEMA 02-05-2017 [facility] INC R9431 ABNORMAL 02-05-2017 [facility] ELECTROCARD PHYSICIANS IOGRAM GROUP I209 ANGINA 02-02-2017 [place] [facility] UNSPECIFIED IMAG[facility] ASS I200 UNSTABLE 01-19-2017 [facility] INC J301 ALLERGIC 01-07-2017 [facility] RH[facility] PARTNERS OF DUE TO [place] POLLEN J3081 ALLERG 01-07-2017 [facility] OF D/T ANIMAL [place] CAT DOG HAIR & DANDER J3089 OTHER 01-07-2017 [facility] ALL[facility]GIC [facility] OF RHINITIS [place] J302 OTHER 12-31-2016 [facility] SEASONAL PHYSICIANS ALLERGIC GROUP RHINITIS [id number] UNSPECIFIED 12-31-2016 [facility] ASTHMA PHYSICIANS UNCOMPLICAT GROUP ED R030 ELEVATED 12-31-2016 [facility] BLOOD-PRESS PHYSICIANS URE READING GROUP WITHOUT DX HTN Z0000 ENCOUNTER 12-31-2016 [facility]ULT [facility] MED EXAM INC W/O ABNORMAL FIND Z8249 FAMILY HX 12-31-2016 [facility] ISCHEMIC PHYSICIANS HRT DZ OTH GROUP DZ CIRC SYSTEM J4540 MODERATE 12-29-2016 [facility] PERSISTENT PARTNERS OF ASTH[place] UNCOMPLICAT ED [id number] OTHER 07-16-2016 [facility] EQUIPMENT INC R05 COUGH 07-09-2016 [facility] J399 DISEASE OF 06-25-2016 [facility] UPPER PHYSICIANS RESPIRATORY GROUP TRACT UNSPECIFIED M1712 UNILATERAL 06-10-2016 [place] [facility] [facility] OSTEOARTHRI INC TIS LEFT KNEE M7582 OTHER 06-10-2016 [facility] LESIONS INC LEFT SHOULDER Z23 ENCOUNTER 06-04-2016 [facility] FOR PHYSICIANS IMMUNIZATIO GROUP N [...] OF PELVIC REGION R3911 HESITANCY 05-27-2016 [facility] P Z8553 PERSONAL 05-27-2016 [facility] P NEOPLASM RENAL PELVIS J4530 MILD 05-26-2016 [facility] OF [place] UNCOMPLICAT ED K219 GASTRO-ESOP 05-26-2016 [facility] H REFLUX PARTNERS OF DISEASE [place] WITHOUT ESOPHAGITIS Z0100 ENCOUNTER 05-21-2016 [facility] EXAM EYES & GRE VISION W/O ABNORMAL FIND 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 UNSPECIFIED R1013 EPIGASTRIC 05-19-2016 [facility] PAIN PHYSICIANS GROUP 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 R921 MAMMO 05-07-2016 [place] CALCIFICATI MEDICAL ON FOUND ON IMAGING ASS DX IMAGING BREAST R928 OTH ABNORM 05-07-2016 [facility] INCONCLUSIV INC E FIND ON DX IMAG BREAST R1310 DYSPHAGIA 04-23-2016 [place] UNSPECIFIED MEDICAL IMAGING ASS 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-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 K210 GASTRO-ESOP 04-15-2016 [facility] HAGEAL LLC REFLUX DISEASE W/ ESOPHAGITIS K5730 DIVERTICULO 04-15-2016 [facility] SIS LG PHYSICIANS INTEST W/O GROUP PERF/ABSC W/O BLEED Z1211 ENCOUNTER 04-15-2016 [facility] SCREENING PHYSICIANS MALIGNANT GROUP NEOPLASM OF COLON V93108 PERSONAL 04-15-2016 [facility] HISTORY OF PHYSICIANS COLONIC GROUP POLYPS R140 ABDOMINAL 03-25-2016 [facility] GASEOUS INC Z25184 UNS ROT 03-24-2016 [place] [facility] TEAR/RUPT INC LT SHLDR NOT SPEC TRAUMAT Z1231 ENCOUNTER 03-21-2016 [place] SCREENING MEDICAL MAMMO MALIG IMAGING ASS NEOPLASM BREAST J449 CHRONIC 03-13-2016 [facility] PULMONARY [facility] P DISEASE UNS R4702 DYSPHASIA 03-13-2016 [facility] Z90268 PAIN IN 02-26-2016 [place] LEFT MEDICAL SHOULDER IMAGING ASS J4520 MILD 02-11-2016 [facility] INTERMITTEN PARTNERS OF T ASTH[place] UNCOMPLICAT ED J329 CHRONIC 01-22-2016 [facility] SINUSITIS PHYSICIANS UNSPECIFIED GROUP B08626 PAIN IN 01-22-2016 [facility] UNSPECIFIED PHYSICIANS KNEE GROUP Y22688 PAIN IN 01-22-2016 [facility] LEFT ARM PHYSICIANS GROUP J96998 ENCOUNTER 01-01-2016 [facility] PECAN MALLOW DIPPER EXAM LLC GENERAL RTN W/O ABNORMAL FIND N319 NEUROMUSCUL 12-25-2015 [facility] P OF BLADDER UNSPECIFIED S26514 OTHER 11-22-2015 [place] INSTABILITY [facility]ICAL RIGHT KNEE IMAGING ASS H69320 OTHER 11-22-2015 [place] IN[facility]ABILITY MEDICAL LEFT KNEE IMAGING ASS Q25426 CONTACT 11-22-2015 [place] WITH & MEDICAL SUSPECTED IMAGING ASS EXPOSURE TO MOLD TOXIC M179 OSTEOARTHRI 10-24-2015 [facility] TIS OF K[facility]EE [facility] INC UNSPECIFIED J0390 ACUTE 10-11-2015 [facility] TONSILLITIS PHYSICIANS GROUP UNSPECIFIED J3501 CHRONIC 10-11-2015 [facility]ONSILLITIS [facility] INC J351 HYPERTROPHY 10-11-2015 [facility] OF TONSILS LLC L71624 ENCOUNTER 09-13-2015 [facility] AL CARIOVASCUL AR EXAM Q43061 ENCOUNTER 09-13-2015 [facility] AL LABORATORY EXAM M797 FIBROMYALGI 08-14-2015 [facility] A PHYSICIANS GROUP J320 CHRONIC 05-31-2015 [facility] MAXILLARY LLC SINUSITIS J342 DEVIATED 05-31-2015 [facility] NASAL ANESTH OF SEPTUM THE BLUE U43469 ENCOUNTER 05-30-2015 [facility] PREPROCEDUR INC AL EXAMINATION J0100 ACUTE 05-22-2015 [place] MAXILLARY [facility] SINUSITIS HOSPITAL UNSPECIFIED J209 ACUTE 05-22-2015 [place] BRONCHITIS [facility]PITAL J328 OTHER 04-26-2015 [place] CHRONIC [facility] SINUSITIS INC B001 HERPESVIRAL 04-11-2015 [facility] VESICULAR PHYSICIANS DERMATITIS GROUP 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 H524 PRESBYOPIA 03-28-2015 [facility] CHERYL LATANYA 4619 ACUTE 12-20-2014 [place] [facility] 6929 CONTACT 12-20-2014 [place] DERMATITIS& [facility] ECZEMA DUE UNSPEC CAUSE 470 DEVIATED 12-14-2014 [facility] NASAL PHYSICIANS SEPTUM GROUP 4730 CHRONIC 12-14-2014 [facility] MAXILLARY PHYSICIANS SINUSITIS GROUP 4739 UNSPECIFIED 12-14-2014 [facility] SINUSITIS PHYSICIANS GROUP 96437 OTHER 12-14-2014 [facility] DISEASES OF PHYSICIANS NASAL GROUP CAVITY AND SINUSES 4779 ALLERGIC 10-31-2014 [place] [facility] UNSPECIFIED 462 ACUTE 10-20-2014 [place] PHARYNGITIS [facility] 4611 ACUTE 05-15-2014 [facility]INUSITIS [facility] 48214 PAIN IN 10-27-2013 [place] JOINT, [facility] LOWER LEG INC Medications Na ND Rx Da Fi Fi Am Da Di Ph RX Ph St me C No te ll ll ou ys ag ar # ys at rm s nt no ma ic us Or Da si cy ia de te s n re d ME 62 09 10 30 30 00 RI Ac TO 03 -1 -1 .0 00 L- ti DE 70 4- 3- 00 07 MA ve [...] 17 17 46 E 5 36 PH DE AR OP MA CY 50 #5 MC 91 G SP RA Y MU 63 [address] [facility] CI 82 -2 -2 .0 00 L- ti NE 40 8- 2- 00 08 MA ve X 00 20 20 83 RT ER 83 17 17 88 4 80 PH 60 AR 0 MA MG CY TA #5 BL 91 ET FL 60 08 [address] [facility] UT 43 -2 -2 .0 00 L- ti IC 20 8- 2- 00 07 MA ve 26 20 20 48 RT ON 41 17 17 06 E 5 16 PH DE AR OP MA CY 50 #5 MC 91 G SP RA Y VE 00 08 [address] [facility] NT 17 -2 -2 .0 00 L- ti OL 30 8- 2- 00 07 MA ve IN 68 20 20 48 RT 22 17 17 06 HF 0 13 PH A AR 90 MA CY MC G #5 IN 91 MENDEZ LE R LO 00 [address] [facility] RA 78 -2 -2 .0 00 L- ti TA 15 8- 2- 00 08 MA ve DI 07 20 20 83 RT NE 70 17 17 83 1 62 PH 10 AR MA MG CY TA #5 BL 91 ET AC 00 [address] [facility] YC 09 -2 -2 .0 00 L- ti LO 38 8- 2- 00 07 MA ve 94 20 20 45 RT R 70 17 17 83 80 1 97 PH 0 AR MG MA CY TA BL #5 ET 91 64 08 09 4. 28 00 RI Ac T 38 -2 -2 00 00 L- ti D2 00 8- 2- 0 07 MA ve 73 20 20 49 RT 1. 70 17 17 97 25 6 33 PH AR MG MA CY (5 0, #5 00 91 0 UN IT ) MU 63 [address] [facility] CI 82 -2 -2 .0 00 L- ti NE 40 8- 2- 00 08 MA ve X 05 20 20 83 RT D 71 17 17 77 ER 8 58 PH AR 60 MA 0- CY 60 #5 MG 91 TA BL ET MO 57 08 09 30 30 00 RI Ac NT 23 -2 -2 .0 00 L- ti EL 70 8- 2- 00 07 MA ve UK 25 20 20 48 RT 53 17 17 06 T 0 14 PH SO AR D MA 10 CY MG #5 91 TA BL ET FA 68 08 09 30 30 00 RI Ac MO 64 -2 -2 .0 00 [...] ES 68 08 09 30 30 00 RI Ac CI 64 -2 -2 .0 00 L- ti TA 50 8- 2- 00 07 MA ve LO 52 20 20 50 RT DE 05 17 17 63 AM 4 44 [...] CY TA #5 BL 91 ET FL 57 08 09 30 30 00 RI Ac RT 23 -2 -2 .0 00 [...] 45 RT ZA 89 17 17 83 DE 0 98 PH IN AR E MA [...] CY 68 07 08 90 30 00 RI Ac CL 64 -2 -1 .0 00 L- ti OB 50 1- 8- 00 07 MA ve EN 51 20 20 50 RT ZA 89 17 17 00 DE 0 95 PH IN AR E MA 10 CY MG #5 91 TA BL ET GA 00 07 08 90 30 00 RI Ac BA 22 -2 -1 .0 00 L- ti PE 82 1- 8- 00 04 MA ve NT 63 20 20 53 RT IN 65 17 17 11 0 99 PH 60 AR 0 MA MG CY TA #5 BL 91 ET AC 00 07 08 90 30 00 RI Ac ET 09 -2 -1 .0 00 L- ti AM 30 1- 8- 00 04 MA ve IN 15 20 20 53 RT OP 01 17 17 12 HE 0 00 PH N- AR CO MA D CY #3 #5 TA 91 BL ET LE 66 07 [address] [facility] [place] 99 -1 -1 4. 00 L- ti LB 30 3- 1- 00 07 MA ve UT 02 20 20 0 49 RT ER 32 17 17 83 OL 7 56 PH AR 1. MA 25 CY MG #5 /3 91 ML SO L LO 00 07 08 30 30 00 RI Ac RA 78 -1 -1 .0 00 L- ti TA 15 9- 1- 00 08 MA ve DI 07 20 20 84 RT NE 70 17 17 02 1 08 PH 10 AR MA MG CY TA #5 BL 91 ET FL 60 07 08 16 30 00 RI Ac UT 43 -1 -1 .0 00 L- ti IC 20 9- 1- 00 07 MA ve 26 20 20 49 RT ON 41 17 17 78 E 5 66 PH DE AR OP MA CY 50 #5 MC 91 G SP RA Y AZ 51 07 08 30 30 00 RI Ac EL 52 -1 -1 .0 00 L- ti 50 9- 1- 00 07 MA ve TI 29 20 20 49 RT NE 40 17 17 78 3 67 PH 0. AR 1% MA CY (1 37 #5 91 MC G) SP RY 64 07 08 4. 28 00 RI Ac T 38 -1 -1 00 00 L- ti D2 00 9- 1- 0 07 MA ve 73 20 20 49 RT 1. 70 17 17 97 25 6 33 PH AR MG MA CY (5 0, #5 00 91 0 UN IT ) KE 17 07 08 5. 50 00 RI Ac TO 47 -1 -0 00 00 L- ti TI 80 0- 4- 0 08 MA ve FE 71 20 20 84 RT N 71 17 17 02 FU 0 09 PH M AR 0. MA 02 CY 5% #[address] OP S MO 31 07 08 30 30 00 RI Ac NT 72 -1 -0 .0 00 L- ti EL 20 2- 4- 00 07 MA ve UK 72 20 20 49 RT 61 17 17 78 T 0 68 PH SO AR D MA 10 CY MG #5 91 TA BL ET AZ 51 06 [address] [facility] EL 52 -2 -2 .0 00 L- ti 50 6- 8- 00 07 MA ve TI 29 20 20 44 RT NE 40 17 17 85 3 44 PH 0. AR 1% MA CY (1 37 #5 91 MC G) SP RY FL 57 06 [address] [facility] RT 23 -2 -2 .0 00 L- ti AZ 70 6- 8- 00 07 MA ve AP 00 20 20 45 RT IN 93 17 17 83 E 0 99 PH 30 AR MA MG CY TA #5 BL 91 ET LA 00 06 [address] [facility] NS 09 -2 -2 .0 00 L- ti OP 37 6- 8- 00 07 MA ve RA 35 20 20 45 RT ZO 15 17 17 83 LE [address] MA CY 30 #5 MG 91 CA PS UL E CY 68 06 [address] [facility] CL 64 -2 -2 .0 00 L- ti OB 50 6- 8- 00 07 MA ve EN 51 20 20 45 RT ZA 89 17 17 83 DE 0 98 PH IN AR E MA 10 CY MG #5 91 TA BL ET GA 00 06 07 90 30 00 RI Ac BA 22 -2 -2 .0 00 L- ti PE 82 6- 8- 00 07 MA ve NT 63 20 20 44 RT IN 65 17 17 49 0 50 PH 60 AR 0 MA MG CY TA #5 BL 91 ET AC 00 06 07 60 30 00 RI Ac YC 09 -2 -2 .0 00 L- ti LO 38 6- 8- 00 07 MA ve 94 20 20 45 RT R 70 17 17 83 80 1 97 PH 0 AR MG MA CY TA BL #5 ET 91 LO 00 11 26 30 30 00 RI Ac RA 78 -2 -2 .0 00 L- ti TA 15 6- 8- 00 08 MA ve DI 07 20 20 83 RT NE 70 17 17 67 1 12 PH 10 AR MA MG CY TA #5 BL 91 ET ES 68 06 30 30 00 RI Ac CI 64 -2 -2 .0 00 L- ti TA 50 6- 8- 00 07 MA ve LO 52 20 20 44 RT DE 05 17 17 54 AM 4 27 PH AR 20 MA CY MG #5 TA 91 BL ET FL 60 06 16 30 00 RI Ac UT 43 -2 -2 .0 00 L- ti IC 20 6 8- 00 07 MA ve 26 20 20 44 RT ON 41 17 17 85 E 5 36 PH DE AR OP MA CY 50 #5 MC 91 G SP RA Y MU 63 [address] [facility] CI 82 -1 -1 .0 00 L- ti NE 40 8- 4- 00 08 MA ve X 00 20 20 83 RT ER 83 17 17 88 2 80 PH 60 AR 0 MA MG CY TA #5 BL 91 ET MO 31 06 [address] [facility] NT 72 -1 -1 .0 00 L- ti EL 20 9- 4- 00 07 MA ve UK 72 20 20 47 RT 61 17 17 46 T 0 38 PH SO AR D MA 10 CY MG #5 91 TA BL ET FL 00 05 12 30 00 RI Ac OV 17 -2 -2 .0 00 L- ti EN 30 3- 00 07 MA ve T 71 20 20 46 RT HF 92 17 17 55 A 0 99 PH 11 AR 0 MA MC CY G IN #5 MENDEZ 91 LE R FL 55 05 06 1. 1 00 RI Ac UC 11 -2 -2 00 00 L- ti ON 10 7- 3- 0 07 MA ve AZ 14 20 20 46 RT OL 51 17 17 68 E 2 06 PH 15 AR 0 MA MG CY TA #5 BL 91 ET FL 57 05 30 30 00 RI Ac RT 23 -2 -2 .0 00 L- ti AZ 70 7- 3- 00 07 MA ve AP 00 20 20 45 RT IN 93 17 17 83 E 0 99 PH 30 AR MA MG CY TA #5 BL 91 ET QU 16 05 12 19 30 00 RI Ac ET 72 -2 -2 .0 00 [...] ET AZ 51 05 30 31 00 RI Ac EL 52 -2 -2 .0 00 L- ti 50 7- 3- 00 07 MA ve TI 29 20 20 47 RT NE 40 17 17 46 3 39 PH 0. AR 1% MA CY (1 37 #5 91 MC G) SP RY FL 60 04 05 16 60 00 RI Ac UT 43 -1 -1 .0 00 L- ti IC 20 5- 2- 00 07 MA ve 26 20 20 48 RT ON 41 17 17 06 E 5 16 PH DE AR OP MA CY 50 #5 MC 91 G SP RA Y MO 54 04 04 30 30 00 RI Ac NT 45 -0 -2 .0 00 [...] LA 69 03 04 60 30 00 RI Ac MO 09 -2 -1 .0 00 L- ti TR 70 0- 4- 00 07 MA ve IG 15 20 20 47 RT IN 20 17 17 74 E 3 34 PH 20 AR 0 MA MG CY TA #5 BL 91 ET CY 68 03 03 90 30 00 RI Ac CL 64 -0 -3 .0 00 L- ti OB 50 2- 1- 00 07 MA ve EN 51 20 20 47 RT ZA 89 17 17 38 DE 0 39 PH IN AR E MA 10 CY MG #5 91 TA BL ET FL 55 03 03 2. 2 00 RI Ac UC 11 -0 -3 00 00 [...] FL 60 03 03 16 60 00 RI Ac UT 43 -0 -2 .0 00 L- ti IC 20 1- 4- 00 07 MA ve 26 20 20 47 RT ON 41 17 17 37 E 5 81 PH DE AR OP MA CY 50 #5 MC [...] GA 00 02 03 90 30 00 RI Ac BA 22 -1 -1 .0 00 [...] MO 54 02 03 30 30 00 RI Ac NT 45 -1 -1 .0 00 L- ti EL 80 6- 7- 00 07 MA ve UK 89 20 20 44 RT 01 17 17 85 T 0 42 PH SO AR D MA 10 CY MG #5 91 TA BL ET MU 63 02 [address] [facility] CI 82 -1 -1 .0 00 L- ti NE 40 6- 7- 00 08 MA ve X 05 20 20 83 RT D 73 17 17 77 ER 6 58 PH AR 60 MA 0- CY 60 #5 MG 91 TA BL ET AC 00 02 03 60 30 00 RI Ac YC 09 -0 -1 .0 00 L- ti LO 38 9- 0- 00 07 MA ve 94 20 20 40 RT R 70 17 17 32 80 1 76 PH 0 AR MG MA CY TA BL #5 ET 91 FL 57 02 [address] [facility] RT 23 -0 -0 .0 00 L- ti AZ 70 4- 3- 00 07 MA ve AP 00 20 20 45 RT IN 93 17 17 83 E 0 99 PH 30 AR MA MG CY TA #5 BL 91 ET LA 00 02 [address] [facility] NS 09 -0 -0 .0 00 L- ti OP 37 4- 3- 00 07 MA ve RA 35 20 20 40 RT ZO 15 17 17 32 LE [address] MA CY 30 #5 MG 91 CA PS UL E CY 68 02 [address] [facility] CL 64 -0 -0 .0 00 L- ti OB 50 4- 3- 00 07 MA ve EN 51 20 20 40 RT ZA 89 17 17 32 DE 0 71 PH IN AR E MA 10 CY MG #5 91 TA BL ET QU 16 02 [address] [facility] ET 72 -0 -0 .0 00 L- ti IA 90 4- 3- 00 07 MA ve PI 15 20 20 45 RT NE 00 17 17 84 1 01 PH FU AR MA MA RA CY TE #5 40 91 0 MG TA B FL 55 01 02 1. 1 00 RI Ac UC 11 -2 -1 00 00 L- ti ON 10 5- 7- 0 07 MA ve AZ 14 20 20 46 RT OL 51 17 17 68 E 2 06 PH 15 AR 0 MA MG CY TA #5 BL 91 ET AM 00 01 02 20 10 00 RI Ac OX 14 -2 -1 .0 00 [...] FL 00 01 02 12 30 00 RI Ac OV 17 -1 -1 .0 00 [...] FL 00 01 02 10 60 00 RI Ac OV 17 -1 -1 .5 00 L- ti EN 30 4- 0- 99 07 MA ve T 71 20 20 44 RT HF 82 17 17 85 A 0 37 PH 44 AR MA MC CY G IN #5 MENDEZ 91 LE R VE 00 01 02 18 17 00 RI Ac NT 17 -1 -1 .0 00 L- ti OL 30 4- 0- 00 07 MA ve IN 68 20 20 44 RT 22 17 17 85 HF 0 43 PH A AR 90 MA CY MC G #5 IN 91 MENDEZ LE R MO 54 01 02 30 30 00 RI Ac NT 45 -1 -1 .0 00 [...] AC 00 01 02 90 30 00 RI Ac ET 09 -1 -1 .0 00 L- ti AM 30 6- 0- 00 04 MA ve IN 15 20 20 52 RT OP 01 17 17 87 HE 0 41 PH N- AR CO MA D CY #3 #5 TA 91 BL ET ## 01 02 30 15 00 RI Ac ## -1 -1 .0 00 L- ti ## 8- 0- 00 08 MA ve ## 20 20 83 RT ## 17 17 77 # 58 PH AR MA CY #5 91 QU 16 01 02 30 30 00 RI Ac ET 72 -0 -0 .0 00 L- ti IA 90 5- 3- 00 07 MA ve PI 15 20 20 42 RT NE 00 17 17 61 1 22 PH FU AR MA MA RA CY TE #5 40 91 0 MG TA B FL 57 01 02 30 30 00 RI Ac RT 23 -0 -0 .0 00 L- ti AZ 70 5- 3- 00 07 MA ve AP 00 20 20 42 RT IN 93 17 17 61 E 0 29 PH 30 AR MA MG CY TA #5 BL 91 ET LO 00 01 02 30 30 00 RI Ac RA 78 -0 -0 .0 00 L- ti TA 15 5- 3- 00 08 MA ve DI 07 20 20 83 RT NE 70 17 17 75 1 20 PH 10 AR MA MG CY TA #5 BL 91 ET LA 00 01 02 30 30 00 RI Ac NS 09 -0 -0 .0 00 L- ti OP 37 6- 3- 00 07 MA ve RA 35 20 20 40 RT ZO 15 17 17 32 LE [address] MA CY 30 #5 MG 91 CA PS UL E CY 68 01 02 90 30 00 RI Ac CL 64 -0 -0 .0 00 L- ti OB 50 6- 3- 00 07 MA ve EN 51 20 20 40 RT ZA 89 17 17 32 DE 0 71 PH IN AR E MA 10 CY MG #5 91 TA BL ET FL 60 01 01 16 60 00 RI Ac UT 43 -0 -2 .0 00 L- ti IC 20 1- 7- 00 07 MA ve 26 20 20 40 RT ON 41 17 17 32 E 5 79 PH DE AR OP MA CY 50 #5 MC 91 G SP RA Y DE 00 01 01 20 10 00 RI Ac OM 60 -0 -2 0. 00 L- ti ET 31 4- 7- 00 07 MA ve MENDEZ 58 20 20 0 46 RT ZI 65 17 17 26 NE 8 85 PH -D AR M MA SY CY RU P #5 91 AZ 59 01 01 6. 5 00 RI Ac IT 76 -0 -2 00 00 L- ti HR 23 4- 7- 0 07 MA ve OM 06 20 20 46 RT YC 00 17 17 26 IN 1 86 PH AR 25 MA 0 CY MG #5 TA 91 BL ET DE 00 01 01 10 5 00 RI Ac ED 14 -0 -2 .0 00 L- ti NI 39 4- 7- 00 07 MA ve SO 73 20 20 46 RT NE 80 17 17 26 5 87 PH 20 AR MA MG CY TA #5 BL 91 ET BE 51 12 01 21 7 00 RI Ac NZ 22 -3 -2 .0 00 L- ti ON 40 0- 7- 00 07 MA ve AT 00 20 20 46 RT AT 16 16 17 17 E 0 02 PH 20 AR 0 MA MG CY CA #5 PS 91 UL E AC 00 12 01 60 30 00 RI Ac YC 09 -2 -1 .0 00 L- ti LO 38 0- 3- 00 07 MA ve 94 20 20 45 RT R 70 16 17 83 80 1 97 PH 0 AR MG MA CY TA BL #5 ET 91 PA 54 12 01 30 30 00 RI Ac RO 45 -1 -0 .0 00 L- ti XE 80 4- 9- 00 07 MA ve TI 98 20 20 45 RT NE 91 16 17 84 0 00 PH HC AR L MA 20 CY MG #5 91 TA BL ET LA 69 12 01 60 30 00 RI Ac MO 09 -1 -0 .0 00 L- ti TR 70 4- 9- 00 07 MA ve IG 15 20 20 45 RT IN 20 16 17 83 E 3 95 PH 20 AR 0 MA MG CY TA #5 BL 91 ET AC 00 12 01 90 30 00 RI Ac ET 09 -1 -0 .0 00 L- ti AM 30 4- 9- 00 04 MA ve IN 15 20 20 52 RT OP 01 16 17 87 HE 0 41 PH N- AR CO MA D CY #3 #5 TA 91 BL ET FL 57 12 01 30 30 00 RI Ac RT 23 -1 -0 .0 00 [...] UL E CY 68 12 30 00 RI Ac CL 64 -1 -0 .0 00 L- ti OB 50 07 MA ve EN 45 20 20 45 RT ZA 09 16 17 83 DE 0 98 PH IN AR E MA [...] Procedure DOS Code Location Performer [place] [id number] [facility] CORONARY INC INC STENT W/ANGIO ONE ART/BRNCH CATH PLMT 52617 [facility] SERGO L HRT & 7 PHYSICIAN ARTS S GROUP W/NJX & ANGIO IMG S&I BASIC 84478 [facility] METABOLIC [facility] PANEL INC INC [place]CIUM T[place] 637[address] [facility] SAME [facility] PHYS/QHP INC INC INITIAL 15 MINS <5 YRS IV DOP 32907 [facility] NICKO&/OR 7 [facility] PRESS INC INC C/MONO RSRV SHALA 1ST VSL STENT C1876 [facility] NON-COATE 7 [facility] D/NON-COV INC INC ERED W/DELIVER Y SYSTEM COAGULATI 91852 [facility] ON TIME 7 [facility] ACTIVATED INC INC BLOOD 61525 [facility] COUNT 7 [facility] COMPLETE INC INC AUTO&AUTO DIFRNTL WBC TECHNETIU A9502 [facility] Max TC-99M 7 [facility] TETROFOSM INC INC IN DX PER STUDY DOSE MYOCARDIA 06285 [facility] L SPECT 7 [facility] MULTIPLE INC INC STUDIES ECHO 52127 [facility] TTHRC R-T 7 [facility] 2D INC INC W/WOM-MOD E COMPL SPEC&COLR D CT HEART 77021 [place] [facility] NO 7 MEDICAL CONTRAST IMAGING QUANT ASS EVAL CORONRY CALCIUM FINAL G9638 [place] [facility] REPORTS 7 MEDICAL W/O DOC IMAGING 1/MORE ASS DOSE REDUCTION TECH ECG 66988 [facility] ROUTINE 7 [facility] ECG INC INC W/LEAST 12 LDS TRCG ONLY W/O I&R PREPJ& 24288 [facility] CADE ALLERGEN 7 PARTNERS IMMUNOTHE OF POE RAPY CO 1/SALAD CHEF ANTIGEN COMPREHEN 63516 [facility] SIVE 7 [facility] METABOLIC INC INC PANEL COLLECTIO 62539 [facility] STONE N VENOUS 7 PHYSICIAN B[place] [id number] ROBERT JONES FREE 7 [facility] THYROXINE INC INC BLOOD 49698 ROBERTGAVINO JONES COUNT 7 [facility] COMPLETE INC INC AUTO&[place] [address] ROBERT JONES THYROID 7 [facility] STIMULATI INC INC NG HORMONE TSH SPMTRY 21227 ALLERGY HAMILTON W/VC 7 PARTNERS EXPIRATOR OF POE Y MONO CO W/WO MXML VOL VNTJ SPMTRY 08863 ALLERGY CADE W/VC 7 PARTNERS EXPIRATOR OF POE Y MONO CO W/WO MXML VOL VNTJ PROF SVCS 46218 ALLERGY CADE ALLG 7 PARTNERS IMMNTX X OF POE W/PRV CO ALLGIC XTRCS NJXS NITRIC 43379 ALLERGY CADE OXIDE 7 PARTNERS OF POE GAS CO DETERMINA TION AREO MASK [id number] [facility] MT MED USED W/ 7 EQUIPMENT EQUIPMENT DME NEB INC INC NEBULIZER [id number] [facility] MT MED WITH 7 EQUIPMENT EQUIPMENT COMPRESSO INC INC R ADMN SET A7005 MT MED MT MED W/SM VOL 7 EQUIPMENT EQUIPMENT NONFILTR INC INC NEBULIZR NON-DISPB L NITRIC 87714 ALLERGY CADE OXIDE 7 PARTNERS OF POE GAS CO DETERMINA TION PROF SVCS 06074 ALLERGY CADE ALLG 7 PARTNERS IMMNTX X OF POE W/PRV CO ALLGIC XTRCS NJXS SPMTRY 86852 ALLERGY CADE W/VC 7 PARTNERS EXPIRATOR OF POE Y MONO CO W/WO MXML VOL VNTJ RADIOLOGI 23203 [facility] EXAM 7 MEDICAL CHEST 2 IMAGING VIEWS ASS FRONTAL&L ATERAL INJECTION [id number] [facility] 7 PHYSICIAN PHYSICIAN METHYLPRE S GROUP S GROUP DNISOLONE ACETATE 80 MG INJECTION [id number] [facility] STONE 7 PHYSICIAN CEFTRIAXO S GROUP NE SODIUM PER 250 MG THERAPEUT 98227 [facility] STONE IC 7 PHYSICIAN PROPHYLAC S GROUP TIC/DX INJECTION SUBQ/IM PHYSICAL [id number] ROBERT JONES THERAPY 6 [facility] EVALUATIO INC INC N IM ADM 85060 [facility] STONE BUTCH PRQ ID 6 PHYSICIAN SUBQ/IM S GROUP NJXS 1 VACCINE PROF SVCS 62795 ALLERGY CADE MAR ALLG 6 PARTNERS IMMNTX X OF POE W/PRV CO ALLGIC XTRCS NJXS PROF SVCS 61542 ALLERGY CADE MAR ALLG 6 PARTNERS IMMNTX X OF POE W/PRV CO ALLGIC XTRCS NJXS SHALA 78119 ROBERT COLMENARES POST-VOID 6 [facility] RESIDUAL P URINE&/BL ADDER CAP CHIROPRAC 86807 CIELO LEEGUSON TIC 6 BILL BILL MANIPULAT MIKE [place] SPINAL 3-[address] [facility] 29234 ALLERGY CADE MAR ALLG 6 PARTNERS IMMNTX X OF POE W/PRV CO ALLGIC XTRCS NJXS SPMTRY 87086 ALLERGY CADE MAR W/VC 6 PARTNERS EXPIRATOR OF POE Y MONO CO W/WO MXML VOL VNTJ NITRIC 97117 ALLERGY CADE MAR OXIDE 6 [place] [address] ALLERGY CADE MAR ALLG 6 PARTNERS IMMNTX X OF POE W/PRV CO ALLGIC XTRCS NJXS OPHTH 30420 [facility] 6 GRE GRE XM&EVAL COMPRHNSV ESTAB PT 1/> BX BREAST 18723 YONY BIRD W/DEVICE 6 MEDICAL 1ST IMAGING LESION ASS STEREOTAC TIC GUID DIAGNOSTI [id number] [facility]ES C 6 [facility] MAMMOGRAP INC INC HY INCL CAD WHEN PERF; UNI LEVEL [place] [address] [facility], SURG 6 [facility] PATHOLOGY GROSS&ELINA ROSCOPIC EXAM PROF [facility] 23419 ALLERGY CADE MAR ALLG 6 PARTNERS IMMNTX X OF POE W/PRV CO ALLGIC XTRCS NJXS PROF [facility] 26293 ALLERGY CADE MAR ALLG 6 PARTNERS IMMNTX X OF POE W/PRV CO ALLGIC XTRCS NJXS SWALLOWIN 62500 [facility] G FUNCJ 6 [facility] W/CINERAD IMAGING IOGRAPY/V ASS IDRADIOG MOTION 97331 ROBERT JONES FLUOR 6 [facility] EVAL INC INC SWLNG FUNCJ C/V REC PROF [facility] 95221 ALLERGY CADE MAR ALLG 6 PARTNERS IMMNTX X OF POE W/PRV CO ALLGIC XTRCS NJXS ECG 76089 ROBERT TOBAR JR ROUTINE 6 [facility] W/LEAST P 12 LDS I&R ONLY EGD 59884 ROBERT JONES TRANSORAL 6 [facility] BIOPSY INC INC SINGLE/MU LTIPLE COLONOSCO 04583 [facility] BYRON PEGUERO PY 6 PHYSICIAN REJI W/BIOPSY S GROUP SINGLE/[place] [address] ROBERT JONES HPYLORI 6 [place] [address] [facility], SURG 6 [facility] PATHOLOGY GROSS&ELINA ROSCOPIC EXAM NITRIC 40238 ALLERGY CADE MAR OXIDE 6 PARTNERS OF POE GAS CO DETERMINA TION SPMTRY 45788 ALLERGY CADE MAR W/VC 6 PARTNERS EXPIRATOR OF POE Y MONO CO W/WO MXML VOL VNTJ PROF [facility] 53162 ALLERGY CADE MAR ALLG 6 PARTNERS IMMNTX X OF POE W/PRV CO ALLGIC XTRCS NJXS US BREAST 00971 ROBERT JONES UNI REAL 6 [facility] TIME INC INC WITH IMAGE COMPLETE US BREAST 32437 [place] UNI REAL 6 [facility] TIME IMAGING WITH ASS IMAGE LIMITED PHYSICAL 09419 ROBERT JONES THERAPY 6 [facility] EVALUATIO INC INC N CHIROPRAC 73156 BUCK BUCK TIC 6 BILL BILL MANIPULAT MIKE TX SPINAL 3-4 REGIONS DIAGNOSTI G0206 ROBERT JONES C 6 [facility] MAMMOGRAP INC INC HY INCL CAD WHEN PERF; UNI PROF [facility] 56251 ALLERGY CADE MAR ALLG 6 PARTNERS IMMNTX X OF POE W/[place] [address] ROBERT JONES ABDOMINAL 6 [facility] REAL INC INC TIME W/IMAGE LIMITED CHIROPRAC 71998 BUCK BUCK TIC 6 BILL BILL MANIPULAT MIKE TX SPINAL 3-4 REGIONS COMPUTER- 67603 [facility] AIDED 6 MEDICAL [facility] DETECTION IMAGING ASS SCREENING MAMMOGRAP HY SCREENING G0202 [place] [address] MEDICAL [facility] MAMMOGRAP IMAGING HY HILL ASS INCL CAD WHEN PERFORMD PROF [facility] 86887 ALLERGY CADE MAR ALLG 6 PARTNERS IMMNTX X OF POE W/PRV CO ALLGIC XTRCS NJXS PROF [facility] 05796 ALLERGY CADE MAR ALLG 6 PARTNERS IMMNTX X OF POE W/PRV CO ALLGIC XTRCS NJXS BRNCDILAT 09269 ROBERT PERALTA RSPSE 6 [facility] PRE&POST- P BRNCDILAT ADMN CHIROPRAC 23915 BUCK BUCK TIC 6 BILL BILL MANIPULAT MIKE TX SPINAL 3-4 REGIONS RADEX 56616 [place] ALL ESOPHAGUS 6 MEDICAL IMAGING ASS PROF [facility] 23272 ALLERGY CADE MAR ALLG 6 PARTNERS IMMNTX X OF POE W/PRV CO ALLGIC XTRCS NJXS PROF [facility] 95155 ALLERGY CADE MAR ALLG 6 PARTNERS IMMNTX X OF POE W/PRV CO ALLGIC XTRCS NJXS RADEX 20966 ROBERT JONES SHOULDER 6 [facility] COMPLETE INC INC MINIMUM 2 VIEWS CHIROPRA 53780 BUCK BUCK TIC 6 BILL BILL MANIPULAT MIKE TX SPINAL 3-4 REGIONS CHIROPRAC 98808 BUCK BUCK TIC 6 BILL BILL MANIPULAT MIKE TX SPINAL 3-[address] [facility] 79430 ALLERGY CADE MAR ALLG 6 PARTNERS IMMNTX X OF POE W/PRV CO ALLGIC XTRCS NJXS PREPJ& 21758 ALLERGY CADE ALLERGEN 6 PARTNERS IMMUNOTHE OF POE RAPY CO 1/SALAD CHEF ANTIGEN CHIROPRAC 83724 BUCK BUCK TIC 6 BILL BILL MANIPULAT MIKE TX SPINAL 3-4 REGIONS DEMO&/KIM 33069 ALLERGY CADE MAR L OF PT 6 PARTNERS UTILIZ OF POE AERSL CO GEN/NEB/I NHLR/IP NITRIC 79084 ALLERGY CADE MAR OXIDE 6 PARTNERS OF POE GAS CO DETERMINA TION PERCUTANE 79227 ALLERGY CADE MAR OUS TESTS 6 PARTNERS OF POE W/ALLERGE CO CAROLINE EXTRACTS INTRACUTA 23040 ALLERGY CADE MAR NEOUS 6 PARTNERS TESTS OF POE W/ALLERGE CO CAROLINE EXTRACTS SPACR A4627 MT MED MT MED BAG/RESRV 6 EQUIPMENT EQUIPMENT OR W/WO INC INC MASK W/METRD DOSE INHAL SPMTRY 40998 ALLERGY CADE MAR W/VC 6 PARTNERS EXPIRATOR OF POE Y MONO CO W/WO MXML VOL VNTJ CHIROPRAC 71966 BUCK BUCK TIC 6 BILL BILL MANIPULAT MIKE TX SPINAL 3-4 REGIONS CHIROPRAC 30851 BUCK BUCK TIC 6 BILL BILL MANIPULAT MIKE TX SPINAL 3-4 REGIONS CHIROPRAC 41056 BUCK BUCK TIC 6 BILL BILL MANIPULAT MIKE TX SPINAL 3-4 REGIONS CHIROPRAC 01037 BUCK BUCK TIC 6 BILL BILL MANIPULAT MIKE TX SPINAL 3-4 REGIONS CYTP C/V 80143 [facility], AUTO THIN 6 [employer] [facility] LYR PREPJ SCR MNL RESCR PHYS RADIOLOGI 38578 [place] ALL C 6 MEDICAL EXAMINATI IMAGING ON KNEE ASS 1/2 VIEWS RADIOLOGI 00573 [place] C 6 MEDICAL EXAMINATI IMAGING ON CHEST ASS SINGLE VIEW FRONTAL CHIROPRAC 60914 BUCK BUCK TIC 6 BILL BILL MANIPULAT MIKE TX SPINAL 1-2 REGIONS DRUG TST G0477 ROBERT JONES PRESUMP;C 6 [facility] PBL BEING INC INC READ DC OPT OBV ONLY ANESTHESI 98798 [facility] A 6 ANESTH MALACHI INTRAORAL OF THE WITH BLUE BIOPSY NOS LEVEL III 93970 [facility], SURG 6 [facility] PATHOLOGY GROSS&ELINA ROSCOPIC EXAM INJECTION J2405 ROBERT JONES 6 [facility] ONDANSETR INC INC ON HCL PER 1 MG INJECTION J2710 ROBERT JONES 6 [facility] NEOSTIGMI INC INC NE METHYLSUL FATE UP TO 0.5 MG TONSILLEC 67238 [facility] DUMONT DAVID 6 PHYSICIAN CLARITA PRIMARY/S S GROUP ECONDARY AGE 12/> COMPREHEN 46672 ROBERT JONES SIVE 6 [facility] METABOLIC INC INC PANEL ECG 61229 ROBERT PERALTA ROUTINE 6 [facility] W/LEAST P 12 LDS I&R ONLY COLLECTIO 41156 ROBERT JONES N VENOUS 6 [facility] BLOOD INC INC VENIPUNCT URE ECG 39511 ROBERT JONES ROUTINE 6 [facility] ECG INC INC W/LEAST 12 LDS TRCG ONLY W/O I&R BLOOD 67322 ROBERT JONES COUNT 6 [facility] COMPLETE INC INC AUTO&AUTO DIFRNTL WBC BLOOD 56158 ROBERT JONES COUNT 6 [facility] COMPLETE INC INC AUTO&AUTO DIFRNTL WBC 25 31870 ROBERT JONES HYDROXY 6 [facility] INCLUDES [place] [address] ROBERT JONES THYROID 6 [facility] STIMULATI INC INC NG HORMONE TSH IM ADM 69358 [facility] PRQ ID 6 PHYSICIAN ELINA SUBQ/IM S GROUP NJXS 1 [place] [address] ROBERT JONES THYROXINE 6 [facility] TOTAL INC INC COLLECTIO 86135 [facility] BELTRAN N VENOUS 6 PHYSICIAN ELINA BLOOD S GROUP VENIPUNCT URE TDAP 00727 [facility] VACCINE 7 6 PHYSICIAN ELINA YRS/> IM S GROUP COMPREHEN 64860 ROBERT JONES SIVE 6 [facility] [place] [address] [facility], SURG 5 [facility] PATHOLOGY GROSS&ELINA ROSCOPIC EXAM ANESTHESI 84504 [facility] BETSY A NOSE & 5 ANESTH MALACHI ACCESSORY OF THE SINUSES BLUE NOS BLOOD 90046 ROBERT JONES COUNT 5 [facility] COMPLETE INC INC AUTO&AUTO DIFRNTL WBC COLLECTIO 11254 ROBERT JONES N VENOUS 5 [facility] BLOOD INC INC VENIPUNCT URE ECG 30273 ROBERT JONES ROUTINE 5 [facility] ECG INC INC W/LEAST 12 LDS TRCG ONLY W/O I&R BASIC 05177 ROBERT JONES METABOLIC 5 [facility] PANEL INC INC CALCIUM TOTAL ECG 20553 FABIAN PERALTA ROUTINE 5 FANNIE FANNIE ECG W/LEAST 12 LDS I&[place] [address] [place] MAXILLOFA 5 MEDICAL CIAL W/O IMAGING CONTRAST ASS MATERIAL INJECTION J1040 [facility] HODAN 5 PHYSICIAN STONE METHYLPRE S GROUP PA-C BUTCH DNISOLONE ACETATE 80 MG THERAPEUT 07650 [facility] HODAN IC 5 PHYSICIAN STONE PROPHYLAC S GROUP PA-C BUTCH TIC/DX INJECTION SUBQ/IM OPHTH 41679 [facility] MEDICAL 5 CHERYL LUNA XM&EVAL LATANYA PELAEZ MENAE NEW PT 1/> VST THERAPEUT 79347 ROBERT BREAUX IC 5 [facility] TIC/DX INJECTION SUBQ/IM INJECTION J1040 ROBERT BREAUX 5 [facility] DNISOLONE ACETATE 80 MG INJECTION J0696 ROBERT BREAUX 5 [facility] NE SODIUM PER 250 MG RADIOLOGI 54677 ROBERT JONES C 4 [facility] EXAMINATI INC INC ON KNEE 1/[address] [place] [address] ROBERT JONES MAXILLOFA 4 [facility] CIAL W/O INC INC CONTRAST MATERIAL 3D 02534 ROBERT JONES RENDERING 4 [facility] INC INC W/INTERP& POSTPROC DIFF WORK STATION Encounters Encounter Start End Date Code Location Performer Type Date HOSPITAL ROBERT - 7 7 [facility] OUTPATIEN [facility] ROBERT - 7 7 [facility] ROBERT - 7 7 [facility] OUTPATIEN INC T OFFICE 63040 [facility] STONE OUTPATIEN 7 7 PHYSICIAN T VISIT S GROUP 25 MINUTES HOSPITAL ROBERT - 7 7 [facility] OUTPATIEN [facility] T OFFICE 64900 [facility] OUTPATIEN 7 7 PARTNERS T VISIT OF POE 25 CO [facility] OFFICE 28312 ALLERGY CADE OUTPATIEN 7 7 PARTNERS T VISIT OF POE 25 CO [facility] ROBERT - 7 7 [facility] OUTPATIEN [facility] T OFFICE 59299 ALLERGY CADE OUTPATIEN 7 7 PARTNERS T VISIT OF POE 40 CO [facility] ROBERT - 6 6 [facility] OUTPATIEN [facility] T OFFICE 60759 ROBERT COLMENARES OUTPATIEN 6 6 [facility] 15 P MINUTES OFFICE 33832 ALLERGY CADE MAR OUTPATIEN 6 6 PARTNERS T VISIT OF POE 40 CO [facility] OFFICE 33156 [facility] BYRON OUTPATIEN 6 6 PHYSICIAN REJI T VISIT S GROUP [address] [place] [address] ROBERT - 6 6 [facility] OUTPATIEN [facility] ROBERT - 6 6 [facility] OUTPATIEN [facility] ROBERT - 6 6 [facility] OUTPATIEN [facility] T OFFICE 79501 ALLERGY CADE MAR OUTPATIEN 6 6 PARTNERS T VISIT OF POE 25 CO [facility] ROBERT - 6 6 [facility] OUTPATIEN [facility] T OFFICE 06617 [facility] ALLTHERESE OUTPATIEN 6 6 PHYSICIAN REJI T VISIT S GROUP 10 [facility] ROBERT - 6 6 [facility] OUTPATIEN [facility] ROBERT - 6 6 [facility] OUTPATIEN [facility] ROBERT - 6 6 [facility]PATI[facility] T OFFICE 61703 [facility] BYRON OUTPATIEN 6 6 PHYSICIAN REJI T NEW 30 S [facility] ROBERT - 6 6 [facility] OUTPATIEN [facility] ROBERT - 6 6 [facility] OUTPATIEN [facility] OFFICE 08165 ALLERGY CADE MAR CONSULTAT 6 6 PARTNERS ION OF [place] NEW/ESTAB CO PATIENT 60 MIN OFFICE 07933 [facility] STONE BUTCH OUTPATIEN 6 6 PHYSICIAN T VISIT S GROUP 15 MINUTES OFFICE 68172 ROBERT COLMENARES OUTPATIEN 6 [facility] P [facility]ES [facility]PITAL ROBERT - 6 6 [facility] OUTPATIEN [facility] ROBERT - 6 6 [facility] OUTPATIEN [facility] OFFICE 59635 [facility] [place]UMONT OUTPATIEN 6 6 PHYSICIAN CLARITA T VISIT S GROUP 15 MINUTES HOSPITAL ROBERT - 6 6 [facility] OUTPATIEN [facility] ROBERT - 6 6 [facility] ROBERT - 5 5 [facility] OUTPATIEN [facility] OFFICE 56525 ROBERT WAITE OUTPATIEN 5 5 [facility] 15 MINUTES OFFICE 15547 [facility] [place] OUTPATIEN 5 5 PHYSICIAN CLARITA T VISIT S GROUP 10 MINUTES HOSPITAL ROBERT - 5 5 [facility] OUTPATIEN [facility] OFFICE 73369 [facility] HODAN OUTPATIEN 5 5 PHYSICIAN STONE T VISIT S GROUP PA-C BUTCH 25 MINUTES OFFICE 67659 ROBERT BREAUX OUTPATIEN 5 5 [facility] 15 MINUTES OFFICE 03654 [facility] [place] OUTPATIEN 5 5 PHYSICIAN CLARITA T NEW 30 S GROUP MINUTES OFFICE 39631 ROBERT LUCERO OUTPATIEN 5 5 [facility] 15 MINUTES OFFICE 46711 ROBERT PALACIOSPATIDARCIE 5 5 [facility] 10 MINUTES OFFICE 63194 ROBERT LUCERO OUTPATIDARCIE 5 5 [facility] 15 MINUTES OFFICE 40168 ROBERT LUCERO OUTAUBREYEN 4 4 [facility] 15 MINUTES HOSPITAL ROBERT - 4 4 [facility] ROB[facility] - 4 4 [facility]
--- OUTSIDE RECORDS SUMMARY | 2017-04-05 16:30 | External Medical Summary Rpt ---
Author Author DEIDRE Alatorre, [employer]IDRE [employer] Organization [employer] Address Unknown Phone Unavailable Results Cardiac enzymes Observa Value Referen Units Interpr Notes Date tion ce etation Range Creatine 0 - 4.0 U/L Normal No Sep 24 kinase.MB informati 2017 9:10 /Creatine on in PM source kinase.to data josé miguel [Ratio] in Serum or Plasma Creatine 0.0 - 3.6 ng/mL Normal No Sep 24 kinase.MB informati 2017 9:10 on in PM [Mass/vol source ume] in data Serum or Plasma Creatine 26 - 192 U/L Normal No Sep 24 kinase informati 2017 9:10 [Enzymati on in PM c source activity/ data volume] in Serum or Plasma Troponin 0.00 - ng/mL Normal No Sep 24 I.cardiac 0.06 informati 2017 9:10 on in PM [Mass/vol source ume] in data Serum or Plasma Activated clotting time in Blood by Coagulation assay Observa Value Referen Units Interpr Notes Date tion ce etation Range Activated 74 - 125 SEC High No Sep 21 clotting alert informati 2017 9:10 time in on in AM Blood by source Coagulati data on assay Activated clotting time in Blood by Coagulation assay Observa Value Referen Units Interpr Notes Date tion ce etation Range Activated 74 - 125 SEC High No Sep 21 clotting alert informati 2017 8:59 time in on in AM Blood by source Coagulati data on assay Basic metabolic panel in Blood Observa Value Referen Units Interpr Notes Date tion ce etation Range Urea 7 - 18 mg/dL High No Sep 21 nitrogen informati 2017 7:50 [Mass/vol on in AM ume] in source Serum or data Plasma Calcium 8.5 - mg/dL Normal No Sep 21 [Mass/vol 10.1 informati 2017 7:50 ume] in on in AM Serum or source Plasma data Chloride 98 - 107 mmoL/L Normal No Sep 21 [Moles/vo informati 2017 7:50 lume] in on in AM Serum or source Plasma data Carbon 21.0 - mmoL/L Normal No Sep 21 dioxide, 32.0 informati 2016 7:50 total on in AM [Moles/vo source lume] in data Serum or Plasma Creatinin 0.55 - mg/dL High No Sep 21 e 1.02 informati 2017 7:50 [Mass/vol on in AM ume] in source Serum or data Plasma Estimated 59- ML/MIN Low REFERENCE Sep 21 RANGE: 2016 7:50 glomerula >60 AM r ML/MIN/1. filtratio 73 SQUARE n rate METERSIf (GF this patient is -A merican, then multiply theresult by 1.210. Glucose 74 - 106 mg/dL Normal No Sep 21 [Mass/vol informati 2016 7:50 ume] in on in AM Serum or source Plasma data Potassium 3.5 - 5.1 mmoL/L Normal No Sep 21 informati 2016 7:50 [Moles/vo on in AM lume] in source Serum or data Plasma Sodium 136 - 145 mmoL/L Normal No Sep 21 [Moles/vo informati 2016 7:50 lume] in on in AM Serum or source Plasma data CBC W Auto Differential panel in Blood Observa Value Referen Units Interpr Notes Date tion ce etation Range Basophils 0 - 0.2 K/MM3 Normal No Sep 21 informati 2017 7:50 [#/volume on in AM ] in source Blood by data Automated count Basophils 0.1 - 2.0 % Normal No Sep 21 /100 informati 2017 7:50 leukocyte on in AM s in source Blood by data Automated count Eosinophi 0.0 - 0.4 K/mm3 Normal No Sep 21 ls informati 2016 7:50 [#/volume on in AM ] in source Blood by data Automated count Eosinophi 0.1 - % Normal No Sep 21 ls/100 12.0 informati 2016 7:50 leukocyte on in AM s in source Blood by data Automated count Granulocy 1.8 - 7.8 K/mm3 Normal No Sep 21 ryder informati 2016 7:50 [#/volume on in AM ] in source Blood by data Automated count Granulocy 37.0 - % Normal No Sep 21 ryder/100 80.0 informati 2016 7:50 leukocyte on in AM s in source Blood by data Automated count Hematocri 37.0 - % Normal No Sep 21 t [Volume 47.0 informati 2017 7:50 on in AM Fraction] source of Blood data Hemoglobi 12.2 - g/dL Normal No Sep 21 n 16.2 informati 2017 7:50 [Mass/vol on in AM ume] in source Blood data Lymphocyt 0.7 - 4.5 K/mm3 Normal No Sep 21 es informati 2017 7:50 [#/volume on in AM ] in source Unspecifi data ed specimen by Automated count Lymphocyt 10 - 50.0 % Normal No Sep 21 es informati 2017 7:50 [#/volume on in AM ] in source Unspecifi data ed specimen by Automated count Erythrocy 27 - 31.2 pg Normal No Sep 21 te mean informati 2017 7:50 corpuscul on in AM ar source hemoglobi data n [Entitic mass] Erythrocy 31.8 - g/dl Normal No Sep 21 te mean 35.4 informati 2017 7:50 corpuscul on in AM ar source hemoglobi data n concentra tion [Mass/vol ume] by Automated count Erythrocy 82.2 - fl Normal No Sep 21 te mean 97.8 informati 2017 7:50 corpuscul on in AM ar volume source [Entitic data volume] by Automated count Monocytes 0.1 - 1.0 K/mm3 Normal No Sep 21 informati 2017 7:50 [#/volume on in AM ] in source Blood by data Automated count Monocytes 1.7 - 9.3 % Normal No Sep 21 /100 informati 2017 7:50 leukocyte on in AM s in source Blood by data Automated count Platelet 7.4 - fl Low No Sep 21 mean 10.4 informati 2017 7:50 volume on in AM [Entitic source volume] data in Blood by Automated count Platelets 142 - 424 K/mm3 Normal No Sep 21 informati 2017 7:50 [#/volume on in AM ] in source Blood data Erythrocy 4.2 - 5.4 M/mm3 Normal No Sep 21 ryder informati 2017 7:50 [#/volume on in AM ] in source Amniotic data fluid Erythrocy 11.5 - % Normal No Sep 21 te 17.5 informati 2017 7:50 distribut on in AM ion width source [Entitic data volume] by Automated count Leukocyte 4.8 - K/MM3 Normal No Sep 21 s 10.8 informati 2016 7:50 [#/volume on in AM ] in source Blood data 25-Hydroxyvitamin D [Mass/volume] in Serum or Plasma Observa Value Referen Units Interpr Notes Date tion ce etation Range 25-Hydrox 30.0 - ng/mL Low Vitamin D Dec 31 yvitamin 100.0 2016 8:55 D deficienc AM [Mass/vol y has ume] in been Serum or defined Plasma by the [place] [facility] e and an Endocrine Society practice guideline as alevel of serum 25-OH vitamin D less than 20 ng/mL (1,2).The Endocrine Society went on to further define vitamin Dinsuffic iency as a level between 21 and 29 ng/mL (2).1. IOM (Institut e of Medicine) . 2010. Dietary reference intakes for calcium and D. [place]: [employer].2. Norris MF, Teja NC, Maurilio Marinelli MENDEZ, et al.Evalua tion, treatment , and preventio n of vitamin Ddeficien cy: an Endocrine Society clinical practiceg uideline. JCEM. 2010; 96(7):191 1-30.Perf ormed at: CB - [facility] [address] [id number] Recruiting Associate: Howie Antunez PhD, Phone: [phone] CBC W Auto Differential panel in Blood Observa Value Referen Units Interpr Notes Date tion ce etation Range Basophils 0 - 0.2 K/MM3 Normal No Dec 312016 8:55 [#/volume on in AM ] in source Blood by data Automated count Basophils 0.1 - 2.0 % Normal No Dec 31 inform2016 8:55 leukocyte on in AM s in source Blood by data Automated count Eosinophi 0.0 - 0.4 K/mm3 Normal No Dec 31 ls informati 2016 8:55 [#/volume on in AM ] in source Blood by data Automated count Eosinophi 0.1 - % Normal No Dec 31 12.0 informati 2016 8:55 leukocyte on in AM s in source Blood by data Automated count Granulocy 1.8 - 7.8 K/mm3 Normal No Dec 31 ryder informati 2016 8:55 [#/volume on in AM ] in source Blood by data Automated count Granulocy 37.0 - % Normal No Dec 31 ryder/100 80.0 informati 2017 8:55 leukocyte on in AM s in source Blood by data Automated count Hematocri 37.0 - % Normal No Dec 31 t [Volume 47.0 informati 2016 8:55 on in AM Fraction] source of Blood data Hemoglobi 12.2 - g/dL Normal No Dec 31 n 16.2 informati 2016 8:55 [Mass/vol on in AM ume] in source Blood data Lymphocyt 0.7 - 4.5 K/mm3 Normal No Dec 31 es informati 2016 8:55 [#/volume on in AM ] in source Unspecifi data ed specimen by Automated count Lymphocyt 10 - 50.0 % Normal No Dec 31 es informati 2016 8:55 [#/volume on in AM ] in source Unspecifi data ed specimen by Automated count Erythrocy 27 - 31.2 pg Normal No Dec 31 te mean informati 2016 8:55 corpuscul on in AM ar source hemoglobi data n [Entitic mass] Erythrocy 31.8 - g/dl Normal No Dec 31 te mean 35.4 informati 2016 8:55 corpuscul on in AM ar source hemoglobi data n concentra tion [Mass/vol ume] by Automated count Erythrocy 82.2 - fl Normal No Dec 31 te mean 97.8 informati 2016 8:55 corpuscul on in AM ar volume source [Entitic data volume] by Automated count Monocytes 0.1 - 1.0 K/mm3 Normal No Dec 31 informati 2016 8:55 [#/volume on in AM ] in source Blood by data Automated count Monocytes 1.7 - 9.3 % Normal No Dec 31 informati 2016 8:55 leukocyte on in AM s in source Blood by data Automated count Platelet 7.4 - fl Normal No Dec 31 mean 10.4 informati 2017 8:55 volume on in AM [Entitic source volume] data in Blood by Automated count Platelets 142 - 424 K/mm3 High No Dec 31 informati 2016 8:55 [#/volume on in AM ] in source Blood data Erythrocy 4.2 - 5.4 M/mm3 Normal No Dec 31 ryder informati 2016 8:55 [#/volume on in AM ] in source Amniotic data fluid Erythrocy 11.5 - % Normal No Dec 31 te 17.5 informati 2017 8:55 distribut on in AM ion width source [Entitic data volume] by Automated count Leukocyte 4.8 - K/MM3 Normal No Dec 31 s 10.8 informati 2016 8:55 [#/volume on in AM ] in source Blood data Comprehensive metabolic 2000 panel in Serum or Plasma Observa Value Referen Units Interpr Notes Date tion ce etation Range Albumin/G 1.1 - 1.8 No Normal No Dec 31 lobulin informati informati 2016 8:55 [Mass on in on in AM ratio] in source source Serum or data data Plasma Albumin 3.4 - 5.0 gm/dL Normal No Dec 31 [Mass/vol informati 2016 8:55 ume] in on in AM Serum or source Plasma data Alkaline 46 - 116 U/L Normal No Dec 31 phosphata informati 2016 8:55 se on in AM [Enzymati source c data activity/ volume] in Serum or Plasma Bilirubin 0.2 - 1.0 mg/dL Normal No Dec 31 .total informati 2016 8:55 [Mass/vol on in AM ume] in source Serum or data Plasma Urea 7 - 18 mg/dL Normal No Dec 31 nitrogen informati 2016 8:55 [Mass/vol on in AM ume] in source Serum or data Plasma Calcium 8.5 - mg/dL Normal No Dec 31 [Mass/vol 10.1 informati 2016 8:55 ume] in on in AM Serum or source Plasma data Chloride 98 - 107 mmoL/L Normal No Dec 31 [Moles/vo informati 2016 8:55 lume] in on in AM Serum or source Plasma data Carbon 21.0 - mmoL/L Normal No Dec 31 dioxide, 32.0 informati 2016 8:55 total on in AM [Moles/vo source lume] in data Serum or Plasma Creatinin 0.55 - mg/dL Normal No Dec 31 e 1.02 informati 2016 8:55 [Mass/vol on in AM ume] in source Serum or data Plasma Estimated 59- ML/MIN No REFERENCE Dec 31 informati RANGE: 2017 8:55 glomerula on in >60 AM r source ML/MIN/1. filtratio data 73 SQUARE n rate METERSIf (GF this patient is -A merican, then multiply theresult by 1.210. Globulin 1.3 - 3.2 gm/dL Normal No Dec 31 [Mass/vol informati 2017 8:55 ume] in on in AM Serum source data Glucose 74 - 106 mg/dL Normal No Dec 31 [Mass/vol informati 2016 8:55 ume] in on in AM Serum or source Plasma data Potassium 3.5 - 5.1 mmoL/L Normal No Dec 31 informati 2016 8:55 [Moles/vo on in AM lume] in source Serum or data Plasma Sodium 136 - 145 mmoL/L Normal No Dec 31 [Moles/vo informati 2016 8:55 lume] in on in AM Serum or source Plasma data Aspartate 15 - 37 U/L Normal No Dec 31 informati 2016 8:55 aminotran on in AM sferase source [Enzymati data c activity/ volume] in Serum or Plasma Alanine 12 - 78 U/L Normal No Dec 31 aminotran informati 2016 8:55 sferase on in AM [Enzymati source c data activity/ volume] in Serum or Plasma Protein 6.4 - 8.2 gm/dL Normal No Dec 31 [Mass/vol informati 2016 8:55 ume] in on in AM Serum or source Plasma data Thyroxine (T4) free [Mass/volume] in Serum or Plasma Observa Value Referen Units Interpr Notes Date tion ce etation Range Thyroxine 0.76 - ng/dL Normal No Dec 31 (T4) 1.46 informati 2016 8:55 free on in AM [Mass/vol source ume] in data Serum or Plasma Thyrotropin [Units/volume] in Serum or Plasma Observa Value Referen Units Interpr Notes Date tion ce etation Range Thyrotrop 0.358 - uIU/ml No No Dec 31 in 3.740 informati informati 2016 8:55 [Units/vo on in on in AM lume] in source source Serum or data data Plasma
--- OUTSIDE RECORDS SUMMARY | 2017-04-05 16:30 | External Medical Summary Rpt | CCD ---
Demographics Preferred Language Uzbek Marital Status Unknown Church Affiliation Unknown Race Unknown Ethnic Group Unknown Author Author , DEIDRE JIANG Address Unknown Phone Immunization No patient found.
--- OUTSIDE RECORDS SUMMARY | 2017-04-05 16:30 | External Medical Summary Rpt | CCD ---
Demographics Preferred Language Lao Marital Status Unknown Quaker Affiliation Unknown Race Unknown Ethnic Group Unknown Author Author , DEIDRE JIANG Address Unknown Phone Immunization No patient found.
--- OUTSIDE RECORDS SUMMARY | 2017-04-05 16:30 | External Medical Summary Rpt ---
[...] been Serum or defined Plasma by the [place] [facility] e and an Endocrine Society practice guideline as alevel of serum 25-OH vitamin D less than 20 ng/mL (1,2).The Endocrine Society went on to further define vitamin Dinsuffic iency as a level between 21 and 29 ng/mL (2).1. IOM (Institut e of Medicine) . 2010. Dietary reference intakes for calcium and D. [place]: [employer].2. Norris MF, Teja NC, Maurilio Marinelli MENDEZ, et al.Evalua tion, treatment , and preventio n of vitamin Ddeficien cy: an Endocrine Society clinical practiceg uideline. JCEM. 2010; 96(7):191 1-30.Perf ormed at: CB - [facility] [address] [id number] [employer] Reactivator Operator: Howie Antunez PhD, Phone: [phone] CBC W Auto Differential panel in [...]
--- NOTE | 2017-04-05 16:43 | Urgent Treatment Center Report ---
History of Present Issue Date/Time Seen by Provider 04/05/17 1640 Visit Reason Pt arrived:Walked Presenting Problem:PT C/O SORE THROAT Location if Accident: Onset of symptoms date/time:/ or onset unknown for:MEDICAL HX UNKNOWN Have you (or family members/close friends) recently traveled outside the [place]? N If Yes, where/when: Have you had exposure to infectious disease within the past month? TB? Other? Specify: Source patient, RN notes reviewed Exam Limitations no limitations Comment Patient complains of bilateral ear pain and sore throat for several weeks. Has already completed a round of Augmentin. Is on numerous allergy meds from Dr Kauffman. She recently had an LAD stent (03/12/17). No fever. ALLERGIES Coded Allergies: hydroxyzine (From Vistaril) (Jose, STEPHANIE 04/14/16) Home Medications Active Scripts Benzonatate (Tessalon Perle) 100 MG PO TIDP PRN cough #30 SGL Prov: 03/16/17 Reported Medications TIZANIDINE HCL (Zanaflex) 4 MG PO Q8P Lamotrigine (Lamictal 100Mg) 200 MG PO DAILY QUETIAPINE FUMARATE (Quetiapine Fumarate) 300 MG PO QHS Lansoprazole (Prevacid) 30 MG PO DAILY Docusate Sodium (Docusate Sodium 100MG Capsule) 100 MG PO BID CHOLECALCIFEROL (VITAMIN D3) (Vitamin D3) 5,000 IUNITS PO DAILY GUAIFENESIN/PSEUDOEPHEDRNE HCL (Mucinex D ER 1,200-120 MG Tab) 1 TAB PO BID GABAPENTIN (Gabapentin) 400 MG PO QHS Acyclovir (Acyclovir 800MG) 800 MG PO TID Quetiapine Fumarate (Seroquel 400MG) 400 MG PO QHS Cyclobenzaprine Hcl (Cyclobenzaprine 10MG) 10 MG PO BID History Medical History General Angina: No [place]: No Hypertension? No Hyperlipidemia? No CHF? No COPD? No Asthma? No Anemia? Yes Hernia? No CVA? No Seizures? No Diabetes? No UTI? Yes Stones? No GB Disease: No Hepatitis? No Arthritis? Yes Cataracts? No Glaucoma? No MRSA? No TB? No Cancer? Yes Site: KIDNEY [place]-NO TREATMENTS More? Yes Additional hx: RECENT STENT OF LAD ON 03/12/17 Immunization HX DT/Tetanus 2016 Flu 2015- Flu Season Pneumonia Unknown Surgical Hx Previous Surgery?Y HYSTERECTOMY APPENDECTOMY TUBAL BLADDER TACK - 2010 LEFT KIDNEY CA-REMOV 12/01 D & C SINUS Cath w/Stent Family History Family HX Diabetes No CAD Yes Hypertension No Hyperlipidemia Yes Cancer No TB No Social History Smoking Hx Smoker: Current Every Day Smoker Tobacco: Yes Type Cigarettes Packs/day 1 1/2 - 2 Packs Alcohol Alcohol: No Review of Systems All Other Systems Reviewed and Negative ENT ear pain, throat pain. Physical Exam Vital Signs Vital Signs Date Time Temp Pulse Resp B/P Pulse O2 O2 Flow FiO2 Ox Delivery Rate 04/05 1616 98.5 88 16 130/92 98 General Appearance normal appearance, no apparent distress Ear, Nose, Throat hearing grossly normal, abnormal TM (R), abnormal TM (L), pharyngeal erythema Respiratory Status No: respiratory distress, trachea midline, chest symmetrical. Lung Sounds bilateral: normal breath sounds, lungs clear. Cardiovascular normal exam, regular rate/rhythm, no peripheral edema, no gallop, no JVD, no murmur, no rub Extremities non-tender, normal range of motion, normal inspection, normal capillary refill Neurologic alert, normal exam, oriented x 3 Mental status normal mood/affect Medical Decision Making LABS/Meds/Orders Pt receiving controlled substance in ED? No Results/Orders Current Medication Orders Sig/Erika Start time Last Medication Dose Route Stop Time Status Admin Ceftriaxone Sodium 1 GM ONCE ONE 04/05 1645 DC 04/05 IM 04/05 1646 1643 Lidocaine HCl 0 ONCE ONE 04/05 1645 DC 04/05 IM 04/05 1646 1643 Methylprednisolone 40 MG ONCE ONE 04/05 1645 DC 04/05 Acetate IM 04/05 164 1643 Ceftriaxone Sodium 0 .STK-MED ONE 04/05 1641 DC .ROUTE Lidocaine HCl 0 .STK-MED ONE 04/05 164 DC .ROUTE Methylprednisolone 0 .STK-MED ONE 04/05 163 DC Acetate IM Departure Departure Time of Disposition 1648 Disposition DC Home or Self Care(routine) Clinical Impression Primary Impression: Otitis media Qualifiers: Otitis media type: allergic Chronicity: chronic Laterality: bilateral Qualified Code: H65.413 - Chronic allergic otitis media, bilateral Condition STABLE Referrals ASHLEE MUSTAFA (Family) Patient Instructions DI for Otitis Media (Middle Ear Infection)-Child Discharge Counseling Counseled pt/family regarding diagnosis, medications/RX, home care, follow up needs Prescriptions Current Visit Scripts CEFDINIR (Cefdinir) 300 MG PO BID #20 CAP Prednisone (Prednisone 20MG) 20 MG PO BID #10 TAB at 7780
[2017-04-05] MEDS ORDERED: PREDNISONE 20MG20 MG PO (16:50)
[2017-04-05] MEDS ORDERED: CEFDINIR 300MG300 MG PO (16:50)
[2017-04-05 17:13] VITALS: BP 130/92
== END 2017-04-05 17:13 | disposition home or self-care (01) ==
LOC: UTC 16:10
DX: H65.413 Chronic allergic otitis media, bilateral (principal); D64.9 Anemia, unspecified; Z72.0 Tobacco use
CPT/HCPCS: J1030

== ENCOUNTER 2017-05-28 12:00 | Emergency (ER) | payer MEDICAID ==
[~2017-05-28] VITALS: Ht 162.6 cm; Wt 81.6 kg
[~2017-05-28 12:00] MED LIST changes: +CEFDINIR 300MG300 MG PO; +PREDNISONE 20MG20 MG PO
[2017-05-28] MEDS ORDERED: MUCINEX1200 MG PO (13:18)
[2017-05-28] MEDS ORDERED: ZITHROMAX Z PA250 MG PO (13:18)
[2017-05-28] MEDS ORDERED: PREDNISONE 20MG20 MG PO (13:18)
[2017-05-28] MEDS ORDERED: FLONASE 50 MCG16 GM (13:18)
[2017-05-28] MEDS ORDERED: PROMETHAZINE D118 ML PO (13:18)
--- NOTE | 2017-05-28 13:18 | Urgent Treatment Center Report ---
History of Present Issue Date/Time Seen by Provider 05/28/17 1311 Visit Reason Pt arrived:Walked Presenting Problem:COUGH, CONGESTION X3 DAYS Location if Accident: Onset of symptoms date/time:/ or onset unknown for:MEDICAL HX UNKNOWN Have you (or family members/close friends) recently traveled outside the [place]? N If Yes, where/when: Have you had exposure to infectious disease within the past month? TB? Other? Specify: Patient states that she has been having cough and congestion for about 3-4 days now States that she has continued to get worse State that she feels like she is having drainage down the back of her throat State that she is not coughing anything up and it is making her throat raw and irritated ALLERGIES Coded Allergies: hydroxyzine (From Vistaril) (Intermediate, JITTERY 04/14/16) Home Medications Active Scripts Benzonatate (Tessalon Perle) 100 MG PO TIDP PRN cough #30 SGL Prov: 03/16/17 CEFDINIR (Cefdinir) 300 MG PO BID #20 CAP Prov: 04/05/17 Prednisone (Prednisone 20MG) 20 MG PO BID #10 TAB Prov: 04/05/17 Reported Medications TIZANIDINE HCL (Zanaflex) 4 MG PO Q8P Lamotrigine (Lamictal 100Mg) 200 MG PO DAILY QUETIAPINE FUMARATE (Quetiapine Fumarate) 300 MG PO QHS Lansoprazole (Prevacid) 30 MG PO DAILY Docusate Sodium (Docusate Sodium 100MG Capsule) 100 MG PO BID CHOLECALCIFEROL (VITAMIN D3) (Vitamin D3) 5,000 IUNITS PO DAILY GUAIFENESIN/PSEUDOEPHEDRNE HCL (Mucinex D ER 1,200-120 MG Tab) 1 TAB PO BID GABAPENTIN (Gabapentin) 400 MG PO QHS Acyclovir (Acyclovir 800MG) 800 MG PO TID Quetiapine Fumarate (Seroquel 400MG) 400 MG PO QHS Cyclobenzaprine Hcl (Cyclobenzaprine 10MG) 10 MG PO BID History Medical History General Angina: No [place]: No Hypertension? No Hyperlipidemia? No CHF? No COPD? No Asthma? No Anemia? Yes Hernia? No CVA? No Seizures? No Diabetes? No UTI? Yes Stones? No GB Disease: No Hepatitis? No Arthritis? Yes Cataracts? No Glaucoma? No MRSA? No TB? No Cancer? Yes Site: KIDNEY [place]-NO TREATMENTS More? Yes Additional hx: RECENT STENT OF LAD ON 03/12/17 Immunization HX DT/Tetanus 2015 Flu 2015- Flu Season Pneumonia Unknown Surgical Hx Previous Surgery?Y HYSTERECTOMY APPENDECTOMY TUBAL BLADDER TACK - 2010 LEFT KIDNEY CA-REMOV 12/01 D & C SINUS Cath w/Stent Family History Family HX Diabetes No CAD Yes Hypertension No Hyperlipidemia Yes Cancer No TB No Social History Smoking Hx Smoker: Current Every Day Smoker Tobacco: Yes Type Cigarettes Packs/day 1 1/2 - 2 Packs Alcohol Alcohol: No Review of Systems All Other Systems Reviewed and Negative ENT throat pain. Respiratory cough, denies shortness of breath, denies wheezing Physical Exam Vital Signs Vital Signs Date Time Temp Pulse Resp B/P Pulse O2 O2 Flow FiO2 Ox Delivery Rate 05/28 1217 98.2 100 20 129/57 98 General Appearance normal appearance, WD/WN, no apparent distress Ear, Nose, Throat throat red irritated, drainage noted in back of throat Respiratory Status Yes: trachea midline, chest symmetrical, non tender chest. No: respiratory distress. Lung Sounds bilateral: normal breath sounds, lungs clear. Cardiovascular normal exam, regular rate/rhythm, no peripheral edema Neurologic alert, normal exam, oriented x 3 Medical Decision Making LABS/Meds/Orders Pt receiving controlled substance in ED? No Results/Orders Orders Procedure Date/time Status CHEST(2 VIEWS-NOT PORTABLE) 05/28 1215 Active Departure Departure Time of Disposition 1315 Disposition DC Home or Self Care(routine) Clinical Impression Primary Impression: Upper respiratory infection Qualifiers: URI type: unspecified URI Qualified Code: J06.9 - Acute upper respiratory infection, unspecified Condition STABLE Referrals ASHLEE MUSTAFA (Family) Patient Instructions Cough, Sore Throat Additional Instructions * Monitor Temp. Tylenol and/or Ibuprofen as needed. ER if fever is no less than 101 despite alternating Tylenol and Ibuprofen * Encourage fluids, water, Gatorade, powerade, pedialyte if infant/toddler/or child * Warm salt water gargles for throat irritation *Warm fluids *Sore throat lozenges *Sleep elevated *humidifier or vaporizer Lots of rest Increase fluids, water, Gatorade, powerade Follow up IMMEDIATELY for new or worsening of symptoms OR no noticeable improvement over the next 48-72 hours. 911 immediately for any life threatening symptoms such as chest pain or difficulty breathing Discharge Counseling Counseled pt/family regarding diagnosis, test results, medications/RX, home care, follow up needs Prescriptions Current Visit Scripts Azithromycin (Zithromycin (Z-ERMA) 250MG Tab) 250 MG PO DAILY #6 TAB TAKE TWO (2) TABLETS ON DAY 1, THEN ONE (1) TABLET DAY #2 THRU #5 Fluticasone Propionate (Flonase 50 Mcg Nasal [place]) 2 SPRAY NA DAILY #1 BOT Guaifenesin (Mucinex) 1,200 MG PO BID #20 TER Prednisone (Prednisone 20MG) 20 MG PO BID #10 TAB PROMETHAZINE/DEXTROMETHORPHAN (Promethazine-Dm Syrup) 5 ML PO Q4HP PRN cough #120 SYR at 1314
--- OUTSIDE RECORDS SUMMARY | 2017-05-28 13:18 | External Medical Summary Rpt | CCD ---
Author Author , DEIDRE JIANG Address Unknown Phone [email or web address] Care Team Providers Care Infrastructure Solutions Architect Name Role Phone [facility] Unavailable Unavailable [place] [place] SHEEHAN CHERYL Unavailable Unavailable LATANY[facility], SHEEHAN CHERYL [facility] Unavailable [facility]available [facility], Unavailable Unavailable [facility] Unavailable Unavailable INC, [facility] Unavailable Unavailable [facility], [facility] Unavailable [facility]available [facility]PITAL P, [facility], Unavailable [facility]available [facility], [facility]available Unavailable [facility] Unavailable Unavailable [facility] MARLEEN GRE, Unavailable Unavailable MARLEEN BRAY [facility], Unavailable Unavailable [facility] Un[facility], Unavailable Unavailable PLL[facility], [facility] Purpose Continuity of Care Document - 09-15-2013 through 2016 Problems Code Diagnosis DOS Provider Status D649 ANEMIA 04-05-2017 [facility] [id number] CHRONIC 04-05-2017 [facility] OTITIS INC MEDIA BILATERAL Z720 TOBACCO USE 04-05-2017 [facility] E782 MIXED 03-19-2017 [facility] HYPERLIPIDE PHYSICIANS AURE GROUP I10 ESSENTIAL 03-19-2017 [facility] PRIMARY PHYSICIANS HYPERTENSIO GROUP N I2510 ASHD ALATNA 03-19-2017 [facility] CORONARY PHYSICIANS ARTERY W/O GROUP ANGINA PECTORIS K219 GASTRO-ESOP 03-19-2017 [facility] H REFLUX PHYSICIANS DISEASE GROUP WITHOUT ESOPHAGITIS Z8249 FAMILY HX 03-19-2017 [facility] ISCHEMIC PHYSICIANS HRT DZ OTH GROUP DZ CIRC SYSTEM Z955 PRESENCE OF 03-19-2017 [facility] CORONARY PHYSICIANS ANGIOPLASTY GROUP IMPLANT & GRAFT J209 ACUTE 03-15-2017 [facility] UNSPECIFIED PLL[facility] R05 COUGH 03-15-2017 [facility] R079 CHEST PAIN 03-15-2017 [facility] I208 OTHER FORMS 03-12-2017 [facility] OF ANGINA PHYSICIANS PECTORIS GROUP [id number] ASHD ALATNA 03-12-2017 [facility] COR ART PHYSICIANS W/OTH FORMS GROUP ANGINA PECTORIS [id number] ASHD ALATNA 03-12-2017 [facility] W/UNS INC ANGINA PECT[place]IS R0602 SHORTNESS 03-05-2017 [facility] OF BREATH PHYSICIANS GROUP R0789 OTHER CHEST 03-05-2017 [facility] PAIN PHYSICIANS GROUP R55 SYNCOPE AND 03-05-2017 [facility] COLLAPSE PHYSICIANS GROUP R0600 DYSPNEA 02-05-2017 [facility] R42 DIZZINESS 02-05-2017 [facility] GIDDINESS INC R531 WEAKNESS 02-05-2017 [facility] R609 EDEMA 02-05-2017 [facility] R9431 ABNORMAL 02-05-2017 [facility] ELECTROCARD PHYSICIANS IOGRAM GROUP I209 ANGINA 02-02-2017 [facility] UNSPECIFIED IM[facility] ASS I200 UNSTABLE 01-19-2017 [facility] J301 ALLERGIC 01-07-2017 [facility] DUE TO [place] POLLEN J3081 ALLERG 01-07-2017 [facility] D/T ANIMAL [place] CAT DOG HAIR & DANDER J3089 OTHER 01-07-2017 [facility] RHINITIS [place] J302 OTHER 12-31-2016 [facility] SEASONAL PHYSICIANS ALLERGIC GROUP RHINITIS [id number] UNSPECIFIED 12-31-2016 [facility] ASTHMA PHYSICIANS UNCOMPLICAT GROUP ED R030 ELEVATED 12-31-2016 [facility] BLOOD-PRESS PHYSICIANS URE READING GROUP WITHOUT DX HTN Z0000 ENCOUNTER 12-31-2016 [facility]ULT [facility] MED EXAM INC W/O ABNORMAL FIND J4540 MODERATE 12-29-2016 [facility] ASTHMA [place] UNCOMPLICAT ED [id number] OTHER 07-16-2016 [facility] INC J399 DISEASE OF 06-25-2016 [facility] UPPER PHYSICIANS RESPIRATORY GROUP TRACT UNSPECIFIED J00 ACUTE 06-20-2016 [facility] NASOPHARYNG PHYSICIAN ITIS COMMON GROUP COLD J040 ACUTE 06-20-2016 [facility] LARYNGITIS PHYSICIAN GROUP M1712 UNILATERAL 06-10-2016 [facility] OSTEOARTHRI INC TIS LEFT KNEE M7582 OTHER 06-10-2016 [facility] LESIONS INC LEFT SHOULDER Z23 ENCOUNTER 06-04-2016 [facility] FOR PHYSICIANS IMMUNIZATIO GROUP N M542 [...] OF [place] R3911 HESITANCY 05-27-2016 [facility] Z8553 PERSONAL 05-27-2016 [facility] 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 J4530 MILD 05-26-2016 [facility] [place] UNCOMPLICAT ED Z0100 ENCOUNTER 05-21-2016 [facility] EXAM EYES & GRE VISION W/O ABNORMAL FIND 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 GROUP UNSPECIFIED R1013 EPIGASTRIC 05-19-2016 [facility] PAIN PHYSICIANS GROUP 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 R921 MAMMO 05-07-2016 [facility] ON FOUND ON IMAGING ASS DX IMAGING BREAST R928 OTH ABNORM 05-07-2016 [facility] INCONCLUSIV INC E FIND ON DX IMAG BREAST R1310 DYSPHAGIA 04-23-2016 [facility] 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-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 K210 GASTRO-ESOP 04-15-2016 [facility] HAGEAL LLC REFLUX DISEASE W/ ESOPHAGITIS K5730 DIVERTICULO 04-15-2016 [facility] SIS LG PHYSICIANS INTEST W/O GROUP PERF/ABSC W/O BLEED Z1211 ENCOUNTER 04-15-2016 [facility] SCREENING PHYSICIANS MALIGNANT GROUP NEOPLASM OF COLON P95795 PERSONAL 04-15-2016 [facility] HISTORY OF PHYSICIANS COLONIC GROUP POLYPS R140 ABDOMINAL 03-25-2016 [facility] DISTENSION [facility] GASEOUS INC D08872 UNS ROT 03-24-2016 [facility] CUFF [facility] TEAR/RUPT INC LT SHLDR NOT SPEC TRAUMAT Z1231 ENCOUNTER 03-21-2016 [facility] SCREENING MEDICAL MAMMO MALIG IMAGING ASS NEOPLASM BREAST J449 CHRONIC 03-13-2016 [facility] 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[facility] P DISEASE UNS R4702 DYSPHASIA 03-13-2016 [facility] [id number] PAIN IN 02-26-2016 [facility] LEFT MEDICAL SHOULDER IMAGING ASS J4520 MILD 02-11-2016 [facility] T [place] UNCOMPLICAT ED J329 CHRONIC 01-22-2016 [facility] SINUSITIS PHYSICIANS UNSPECIFIED GROUP [id number] PAIN IN 01-22-2016 [facility] UNSPECIFIED PHYSICIANS KNEE GROUP [id number] PAIN IN 01-22-2016 [facility] LEFT ARM PHYSICIANS GROUP G60809 ENCOUNTER 01-01-2016 [facility] 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 LLC GENERAL RTN W/O ABNORMAL FIND N319 NEUROMUSCUL 12-25-2015 [facility] P OF BLADDER UNSPECIFIED K71699 OTHER 11-22-2015 [facility] RIGHT KNEE IMAGING ASS H19157 OTHER 11-22-2015 [facility] LEFT KNEE IMAGING ASS Y72661 CONTACT 11-22-2015 [facility] WITH & MEDICAL SUSPECTED IMAGING ASS EXPOSURE TO MOLD TOXIC M179 OSTEOARTHRI 10-24-2015 [place] TIS OF [facility]EE [facility] INC UNSPECIFIED J0390 ACUTE 10-11-2015 [facility] TONSILLITIS PHYSICIANS GROUP UNSPECIFIED J3501 CHRONIC 10-11-2015 [place] [facility]ONSILLITIS [facility] J351 HYPERTROPHY 10-11-2015 [facility], OF TONSILS LLC S74810 ENCOUNTER 09-13-2015 [facility] P AL CARIOVASCUL AR EXAM T71386 ENCOUNTER 09-13-2015 [facility] P AL LABORATORY EXAM M797 FIBROMYALGI 08-14-2015 [facility] A PHYSICIANS GROUP J320 CHRONIC 05-31-2015 [facility], MAXILLARY LLC SINUSITIS J342 DEVIATED 05-31-2015 [facility] OF SEPTUM THE BLUE [id number] ENCOUNTER 05-30-2015 [facility] AL EXAMINATION J0100 ACUTE 05-22-2015 [facility] UNSPECIFIED J328 OTHER 04-26-2015 [facility] H[facility] SINUSITIS INC B001 HERPESVIRAL 04-11-2015 [facility] VESICULAR PHYSICIANS DERMATITIS GROUP 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 CHERYL PELAEZ H524 PRESBYOPIA 03-28-2015 AGUILA PELAEZ 4619 ACUTE 12-20-2014 [place] SINUSITIS, [facility] UNSPECIFIED HOSPITAL 6929 CONTACT 12-20-2014 [place] [facility]ERMATITIS& [facility] OTHER HOSPITAL ECZEMA DUE UNSPEC CAUSE 470 DEVIATED 12-14-2014 [facility] NASAL PHYSICIANS SEPTUM GROUP 4730 CHRONIC 12-14-2014 [facility] MAXILLARY PHYSICIANS SINUSITIS GROUP 4739 UNSPECIFIED 12-14-2014 [facility] SINUSITIS PHYSICIANS GROUP 02603 OTHER 12-14-2014 [facility] DISEASES OF PHYSICIANS NASAL GROUP CAVITY AND SINUSES 4779 ALLERGIC 10-31-2014 [place] RHINITIS [facility] UNSPECIFIED 462 ACUTE 10-20-2014 [place] PHARYNGITIS [facility] 4611 ACUTE 05-15-2014 [place] FRONTAL [facility] SINUSITIS [facility] 87951 PAIN IN 10-27-2013 [place] [facility] LOWER LEG INC J20.9 ACUTE BRONCHITIS, UNSPECIFIED R09.1 PLEURISY Allergies, Adverse Reactions, Alerts Clinical Alert Notifications Alert Asthma: ICS non-compliance with h/o of SA beta agonist Asthma: non-ICS non-compliance with h/o of SA beta agonist Medications Na ND Rx Da Fi Fi Am Da Di Ph RX Ph St me C No te ll ll ou ys ag ar # ys at rm s nt no ma ic us Or Da si cy ia de te s n re d LE 66 10 11 14 8 00 [place] Ac VA 99 -1 -1 4. 00 L- ti LB 30 4- 0- 00 07 MA ve UT 02 20 20 0 49 RT ER 32 17 17 83 OL 7 56 PH AR 1. MA 25 CY MG #5 /3 91 ML SO L CE 68 10 11 20 10 00 [place] Ac FD 18 -1 -1 .0 00 L- ti IN 00 5- 0- 00 07 MA ve IR 71 20 20 51 RT 16 17 17 54 30 0 56 PH 0 AR MG MA CY CA PS #5 UL 91 E IN 00 10 11 10 5 00 [place] Ac ED 60 -1 -1 .0 00 L- ti NI 35 5- 0- 00 07 MA ve SO 33 20 20 51 RT NE 92 17 17 54 8 57 PH 20 AR MA MG CY TA #5 BL 91 ET ES 68 10 11 30 30 00 [place] Ac CI 64 -1 -1 .0 00 L- ti TA 50 6- 0- 00 07 MA ve LO 52 20 20 51 RT IN 05 17 17 56 AM 4 33 PH AR 20 MA CY MG #5 TA 91 BL ET FL 60 10 11 16 30 00 SC Ac UT 43 -1 -1 .0 00 L- ti IC 20 3- 0- 00 07 MA ve 26 20 20 49 RT ON 41 17 17 78 E 5 66 PH IN AR OP MA CY 50 #5 MC 91 G SP RA Y LO 00 10 11 30 30 00 SC Ac RA 78 -1 -1 .0 00 L- ti TA 15 2- 0- 00 08 MA ve DI 07 20 20 83 RT NE 70 17 17 83 1 62 PH 10 AR MA MG CY TA #5 BL 91 ET GA 00 10 11 90 30 00 SC Ac BA 22 -1 -1 .0 00 L- ti PE 82 2- 0- 00 04 MA ve NT 63 20 20 53 RT IN 65 17 17 11 0 99 PH 60 AR 0 MA MG CY TA #5 BL 91 ET QU 16 10 11 30 30 00 [facility] ET 72 -1 -1 .0 00 L- ti IA 90 2- 0- 00 07 MA ve PI 15 20 20 45 RT NE 00 17 17 84 1 01 PH FU AR MA MA RA CY TE #5 40 91 0 MG TA B MO 57 10 11 30 30 00 [facility] NT 23 -1 -1 .0 00 L- ti EL 70 2- 0- 00 07 MA ve UK 25 20 20 47 RT 53 17 17 46 T 0 38 PH SO AR D MA 10 CY MG #5 91 TA BL ET MU 63 10 11 30 15 00 [facility] CI 82 -1 -1 .0 00 L- ti NE 40 2- 0- 00 08 MA ve X 05 20 20 83 RT D 71 17 17 77 ER 8 58 PH AR 60 MA 0- CY 60 #5 MG 91 TA BL ET MD 57 10 11 30 30 00 SC Ac RT 23 -1 -1 .0 00 L- ti AZ 70 2- 0- 00 07 MA ve AP 00 20 20 45 RT IN 93 17 17 83 E 0 99 PH 30 AR MA MG CY TA #5 BL 91 ET 64 10 11 4. 28 00 SC Ac T 38 -1 -1 00 00 L- ti D2 00 2- 0- 0 07 MA ve 73 20 20 49 RT 1. 70 17 17 97 25 6 33 PH AR MG MA CY (5 0, #5 00 91 0 UN IT ) FA 68 10 11 30 30 00 WA Ac MO 64 -1 -1 .0 00 L- ti TI 50 2- 0- 00 07 MA ve DI 14 20 20 50 RT NE 05 17 17 15 9 38 PH 20 AR MA MG CY TA #5 BL 91 ET AC 00 10 11 60 30 00 SC Ac YC 09 -1 -1 .0 00 L- ti LO 38 2- 0- 00 07 MA ve 94 20 20 45 RT R 70 17 17 83 80 1 97 PH 0 AR MG MA CY TA BL #5 ET 91 BE 68 09 10 30 10 00 SC Ac NZ 38 -2 -2 .0 00 L- ti ON 20 5- 0- 00 07 MA ve AT 24 20 20 51 RT AT 70 17 17 15 E 1 93 PH 10 AR 0 MA MG CY CA #5 PS 91 UL E AM 00 09 10 19 10 00 SC Ac OX 78 -2 -2 .0 00 L- ti -C 11 5- 0- 00 07 MA ve LA 85 20 20 51 RT V 22 17 17 16 87 0 01 PH 5- AR 12 MA 5 CY MG #5 TA 91 BL ET ## 09 10 20 10 00 SC Ac ## -2 -2 0. 00 L- ti ## 7- 0- 00 08 MA ve ## 20 20 0 84 RT ## 17 17 13 # 38 PH AR MA CY #5 91 AT 60 09 10 30 30 00 CL Ac OR 50 -2 -2 .0 00 IN ti VA 52 1- 0- [address] 58 20 20 44 AT 00 17 17 33 PH IN 9 58 AR MA 40 CY MG TA BL ET 00 09 10 30 30 00 CL Ac PI 90 -2 -2 .0 00 IN ti R- 47 1- 0- 00 00 IC ve LO 70 20 20 44 W 48 17 17 33 PH EC 0 60 AR MA 81 CY MG TA BL ET ME 62 09 10 30 30 00 SC Ac TO 03 -1 -1 .0 00 L- ti IN 70 4- 3- 00 07 MA ve [...] 17 17 46 E 5 36 PH IN AR OP MA CY 50 #5 MC 91 G SP RA Y 64 08 09 4. 28 00 SC Ac T 38 -2 -2 00 00 L- ti D2 00 8- 2- 0 07 MA ve 73 20 20 49 RT 1. 70 17 17 97 25 6 33 PH AR MG MA CY (5 0, #5 00 91 0 UN IT ) ES 68 08 09 30 30 00 SC Ac CI 64 -2 -2 .0 00 L- ti TA 50 8- 2- 00 07 MA ve LO 52 20 20 50 RT IN 05 17 17 63 AM 4 44 PH AR 20 MA CY MG #5 TA 91 BL ET LA 69 08 09 60 30 00 SC Ac MO 09 -2 -2 .0 00 L- ti TR 70 8- 2- 00 07 MA ve IG 15 20 20 50 RT IN 20 17 17 63 E 3 41 PH 20 AR 0 MA MG CY TA #5 BL 91 ET MD 57 08 09 30 30 00 SC Ac RT 23 -2 -2 .0 00 L- ti AZ 70 8- 2- 00 07 MA ve AP 00 20 20 45 RT IN 93 17 17 83 E 0 99 PH 30 AR MA MG CY TA #5 BL 91 ET CY 68 08 09 90 30 00 SC Ac CL 64 -2 -2 .0 00 L- ti OB 50 8- 2- 00 07 MA ve EN 51 20 20 45 RT ZA 89 17 17 83 IN 0 98 PH IN AR E MA 10 CY MG #5 91 TA BL ET VE 00 08 09 18 17 00 SC Ac NT 17 -2 -2 .0 00 L- ti OL 30 8- 2- 00 07 MA ve IN 68 20 20 48 RT 22 17 17 06 HF 0 13 PH A AR 90 MA CY MC G #5 IN 91 MENDEZ LE R LO 00 08 09 30 30 00 WA Ac RA 78 -2 -2 .0 00 L- ti TA 15 8- 2- 00 08 MA ve DI 07 20 20 83 RT NE 70 17 17 83 1 62 PH 10 AR MA MG CY TA #5 BL 91 ET AC 00 08 09 60 30 00 WA Ac YC 09 -2 -2 .0 00 L- ti LO 38 8- 2- 00 07 MA ve 94 20 20 45 RT R 70 17 17 83 80 1 97 PH 0 AR MG MA CY TA BL #5 ET 91 MU 63 08 09 60 30 00 SC Ac CI 82 -2 -2 .0 00 L- ti NE 40 8- 2- 00 08 MA ve X 00 20 20 83 RT ER 83 17 17 88 4 80 PH 60 AR 0 MA MG CY TA #5 BL 91 ET FL 60 08 09 16 60 00 SC Ac UT 43 -2 -2 .0 00 L- ti IC 20 8- 2- 00 07 MA ve 26 20 20 48 RT ON 41 17 17 06 E 5 16 PH IN AR OP MA CY 50 #5 MC 91 G SP RA Y MU 63 08 09 30 15 00 SC Ac CI 82 -2 -2 .0 00 L- ti NE 40 8- 2- 00 08 MA ve X 05 20 20 83 RT D 71 17 17 77 ER 8 58 PH AR 60 MA 0- CY 60 #5 MG 91 TA BL ET MO 57 08 30 30 00 [facility] NT 23 -2 -2 .0 00 L- ti EL 70 8- 2- 00 07 MA ve UK 25 20 20 48 RT 53 17 17 06 T 0 14 PH SO AR D MA 10 CY MG #5 91 TA BL ET FA 68 08 09 30 30 00 SC Ac MO 64 -2 -2 .0 00 L- ti TI 50 8- 2- 00 07 MA ve DI 14 20 20 50 RT NE 05 17 17 15 9 38 PH 20 AR MA MG CY TA #5 BL 91 ET LA 00 08 09 30 30 00 SC Ac NS 09 -2 -2 .0 00 L- ti OP 37 8- 2- 00 07 MA ve RA 35 20 20 45 RT ZO 15 17 17 83 LE [address] MA CY 30 #5 MG 91 CA PS UL E QU 16 08 09 30 30 00 SC Ac ET 72 -2 -2 .0 00 L- ti IA 90 8- 2- 00 07 MA ve PI 15 20 20 45 RT NE 00 17 17 84 1 01 PH FU AR MA MA RA CY TE #5 40 91 0 MG TA B AZ 51 08 09 30 31 00 SC Ac EL 52 -2 -2 .0 00 L- ti 50 8- 2- 00 07 MA ve TI 29 20 20 47 RT NE 40 17 17 46 3 39 PH 0. AR 1% MA CY (1 37 #5 91 MC G) SP RY FA 68 07 08 30 30 00 WA Ac MO 64 -3 -2 .0 00 L- ti TI 50 1- 5- 00 07 MA ve DI 14 20 20 50 RT NE 05 17 17 15 9 38 PH 20 AR MA MG CY TA #5 BL 91 ET LA 69 07 08 60 30 [...] 50 RT ZA 89 17 17 00 IN 0 95 PH IN AR E MA 10 CY MG #5 91 TA BL ET GA 00 07 08 90 30 00 SC Ac BA 22 -2 -1 .0 00 L- ti PE 82 1- 8- 00 04 MA ve NT 63 20 20 53 RT IN 65 17 17 11 0 99 PH 60 AR 0 MA MG CY TA #5 BL 91 ET AC 00 07 08 90 30 00 WA Ac ET 09 -2 -1 .0 00 L- ti AM 30 1- 8- 00 04 MA ve IN 15 20 20 53 RT OP 01 17 17 12 HE 0 00 PH N- AR CO MA D CY #3 #5 TA 91 BL ET LE 66 07 08 14 8 00 SC Ac VA 99 -1 -1 4. 00 L- ti LB 30 3- 1- 00 07 MA ve UT 02 20 20 0 49 RT ER 32 17 17 83 OL 7 56 PH AR 1. MA 25 CY MG #5 /3 91 ML SO L 64 07 08 4. 28 00 WA Ac T 38 -1 -1 00 00 L- ti D2 00 9- 1- 0 07 MA ve 73 20 20 49 RT 1. 70 17 17 97 25 6 33 PH AR MG MA CY (5 0, #5 00 91 0 UN IT ) AZ 51 07 08 30 30 00 WA Ac EL 52 -1 -1 .0 00 L- ti 50 9- 1- 00 07 MA ve TI 29 20 20 49 RT NE 40 17 17 78 3 67 PH 0. AR 1% MA CY (1 37 #5 91 MC G) SP RY LO 00 07 08 30 30 00 WA Ac RA 78 -1 -1 .0 00 L- ti TA 15 9- 1- 00 08 MA ve DI 07 20 20 84 RT NE 70 17 17 02 1 08 PH 10 AR MA MG CY TA #5 BL 91 ET FL 60 07 08 16 30 00 SC Ac UT 43 -1 -1 .0 00 L- ti IC 20 9- 1- 00 07 MA ve 26 20 20 49 RT ON 41 17 17 78 E 5 66 PH IN AR OP MA CY 50 #5 MC 91 G SP RA Y KE 17 07 08 5. 50 00 SC Ac TO 47 -1 -0 00 00 L- ti TI 80 0- 4- 0 08 MA ve FE 71 20 20 84 RT N 71 17 17 02 FU 0 09 PH M AR 0. MA 02 CY 5% #[address] OP S MO 31 08 30 30 00 SC Ac NT 72 -1 -0 .0 00 L- ti EL 20 2- 4- 00 07 MA ve UK 72 20 20 49 RT 61 17 17 78 T 0 68 PH SO AR D MA 10 CY MG #5 91 TA BL ET FL 60 11 26 16 30 00 SC Ac UT 43 -2 -2 .0 00 L- ti IC 20 6- 8- 00 07 MA ve 26 20 20 44 RT ON 41 17 17 85 E 5 36 PH IN AR OP MA CY 50 #5 MC 91 G SP RA Y CY 68 06 90 30 00 [facility] CL 64 -2 -2 .0 00 L- ti OB 50 6- 8- 00 07 MA ve EN 51 20 20 45 RT ZA 89 17 17 83 IN 0 98 PH IN AR E MA 10 CY MG #5 91 TA BL ET GA 00 11 26 90 30 00 SC Ac BA 22 -2 -2 .0 00 L- ti PE 82 6- 8- 00 07 MA ve NT 63 20 20 44 RT IN 65 17 17 49 0 50 PH 60 AR 0 MA MG CY TA #5 BL 91 ET AC 00 06 07 60 30 00 SC Ac YC 09 -2 -2 .0 00 L- ti LO 38 6- 8- 00 07 MA ve 94 20 20 45 RT R 70 17 17 83 80 1 97 PH 0 AR MG MA CY TA BL #5 ET 91 LO 00 06 07 30 30 00 SC Ac RA 78 -2 -2 .0 00 L- ti TA 15 6- 8- 00 08 MA ve DI 07 20 20 83 RT NE 70 17 17 67 1 12 PH 10 AR MA MG CY TA #5 BL 91 ET ES 68 06 30 30 00 WA Ac CI 64 -2 -2 .0 00 L- ti TA 50 6- 8- 00 07 MA ve LO 52 20 20 44 RT IN 05 17 17 54 AM 4 27 PH AR 20 MA CY MG #5 TA 91 BL ET MD 57 06 07 30 30 00 WA Ac RT 23 -2 -2 .0 00 L- ti AZ 70 6- 8- 00 07 MA ve AP 00 20 20 45 RT IN 93 17 17 83 E 0 99 PH 30 AR MA MG CY TA #5 BL 91 ET LA 00 07 30 30 00 WA Ac NS 09 -2 -2 .0 00 L- ti OP 37 6- 8- 00 07 MA ve RA 35 20 20 45 RT ZO 15 17 17 83 LE [address] MA CY 30 #5 MG 91 CA PS UL E AZ 51 11 26 29 30 00 SC Ac EL 52 -2 -2 .0 00 L- ti 50 6- 8- 00 07 MA ve TI 29 20 20 44 RT NE 40 17 17 85 3 44 PH 0. AR 1% MA CY (1 37 #5 91 MC G) SP RY MU 63 06 07 60 30 00 WA Ac CI 82 -1 -1 .0 00 L- ti NE 40 8- 4- 00 08 MA ve X 00 20 20 83 RT ER 83 17 17 88 2 80 PH 60 AR 0 MA MG CY TA #5 BL 91 ET MO 31 11 26 29 30 00 WA Ac NT 72 -1 -1 .0 00 L- ti EL 20 9- 4- 00 07 MA ve UK 72 20 20 47 RT 61 17 17 46 T 0 38 PH SO AR D MA 10 CY MG #5 91 TA BL ET GA 00 10 25 89 30 00 WA Ac BA 22 -2 -2 .0 00 L- ti PE 82 7- 3- 00 07 MA ve NT 63 20 20 45 RT IN 65 17 17 83 0 92 PH 60 AR 0 MA MG CY TA #5 BL 91 ET LO 00 10 25 30 30 00 WA Ac RA 78 -2 -2 .0 00 L- ti TA 15 7- 3- 00 08 MA ve DI 07 20 20 83 RT NE 70 17 17 83 1 62 PH 10 AR MA MG CY TA #5 BL 91 ET MO 31 10 25 30 30 00 WA Ac NT 72 -2 -2 .0 00 L- ti EL 20 7- 3- 00 07 MA ve UK 72 20 20 44 RT 61 17 17 85 T 0 42 PH SO AR D MA 10 CY MG #5 91 TA BL ET AZ 51 05 06 30 31 00 [facility] EL 52 -2 -2 .0 00 L- ti 50 7- 3- 00 07 MA ve TI 29 20 20 47 RT NE 40 17 17 46 3 39 PH 0. AR 1% MA CY (1 37 #5 91 MC G) SP RY FL 00 05 06 12 30 00 [facility] OV 17 -2 -2 .0 00 L- ti EN 30 7- 3- 00 07 MA ve T 71 20 20 46 RT HF 92 17 17 55 A 0 99 PH 11 AR 0 MA MC CY G IN #5 MENDEZ 91 LE R FL 55 05 06 1. 1 00 [facility] UC 11 -2 -2 00 00 L- ti ON 10 7- 3- 0 07 MA ve AZ 14 20 20 46 RT OL 51 17 17 68 E 2 06 PH 15 AR 0 MA MG CY TA #5 BL 91 ET MD 57 05 06 30 30 00 [facility] RT 23 -2 -2 .0 00 L- ti AZ 70 7- 3- 00 07 MA ve AP 00 20 20 45 RT IN 93 17 17 83 E 0 99 PH 30 AR MA MG CY TA #5 BL 91 ET QU 16 05 06 30 30 00 [facility] ET 72 -2 -2 .0 00 L- ti IA 90 7- 3- 00 07 MA ve PI 15 20 20 45 RT NE 00 17 17 84 1 01 PH FU AR MA MA RA CY TE #5 40 91 0 MG TA B FL 60 04 05 16 60 00 [facility] UT 43 -1 -1 .0 00 L- ti IC 20 5- 2- 00 07 MA ve 26 20 20 48 RT ON 41 17 17 06 E 5 16 PH IN AR OP MA CY 50 #5 MC 91 G SP RA Y AL 00 04 04 75 30 00 [facility] BU 48 -0 -2 .0 00 L- ti TE 79 5- 8- 00 07 MA ve RO 50 20 20 48 RT L 12 17 17 06 CASTELLANOS 5 19 PH L AR 2. MA 5 CY MG /3 #[address] MO 54 04 04 30 30 00 [facility] NT 45 -0 -2 .0 00 L- [...] 00 L- ti NE 40 5- 8- 08 MA ve X 00 20 20 83 RT ER 83 17 17 88 4 80 PH 60 AR 0 MA MG CY TA #5 BL 91 ET FL 00 04 04 12 30 00 WA Ac OV 17 -0 -2 .0 00 L- ti EN 30 07 MA ve T 71 20 20 48 RT HF 92 17 17 06 A 0 17 PH 11 AR 0 MA MC CY G IN #5 MENDEZ 91 LE R LA 69 03 04 60 30 00 WA Ac MO 09 -2 -1 .0 00 L- ti TR 70 0- 4- 00 07 MA ve IG 15 20 20 47 RT IN 20 17 17 74 E 3 34 PH 20 AR 0 MA MG CY TA #5 BL 91 ET CY 68 03 03 90 30 00 WA Ac CL 64 -0 -3 .0 00 L- ti OB 50 2- 1- 00 07 MA ve EN 51 20 20 47 RT ZA 89 17 17 38 IN 0 39 PH IN AR E MA 10 CY MG #5 91 TA BL ET AM 00 03 03 20 10 [...] MP #5 DS 91 TA BL ET AZ 51 03 03 30 31 00 SC Ac EL 52 -0 -3 .0 00 L- ti 50 6- 1- 00 07 MA ve TI 29 20 20 47 RT NE 40 17 17 46 3 39 PH 0. AR 1% MA CY (1 37 #5 91 MC G) SP RY MU 63 03 03 60 30 00 SC Ac CI 82 -0 -3 .0 00 L- ti NE 40 6- 1- 00 08 MA ve X 00 20 20 83 RT ER 83 17 17 83 4 63 PH 60 AR 0 MA MG CY TA #5 BL 91 ET FL 55 03 03 2. 2 00 SC Ac UC 11 -0 -3 00 00 L- ti ON 10 6- 1- 0 07 MA ve AZ 14 20 20 47 RT OL 51 17 17 46 E 2 35 PH 15 AR 0 MA MG CY TA #5 BL 91 ET LO 00 03 03 30 30 00 SC Ac RA 78 -0 -3 .0 00 L- ti TA 15 6- 1- 00 08 MA ve DI 07 20 20 83 RT NE 70 17 17 83 1 62 PH 10 AR MA MG CY TA #5 BL 91 ET FL 00 03 03 12 30 00 [facility] OV 17 -0 -3 .0 00 L- ti EN 30 6- 1- 00 07 MA ve T 71 20 20 47 RT HF 92 17 17 46 A 0 37 PH 11 AR 0 MA MC CY G IN #5 MENDEZ 91 LE R FL 60 03 03 16 60 00 [facility] UT 43 -0 -2 .0 00 L- ti IC 20 1- 4- 00 07 MA ve 26 20 20 47 RT ON 41 17 17 37 E 5 81 PH IN AR OP MA CY 50 #5 MC 91 G SP RA Y LA 69 02 03 60 30 00 SC Ac MO 09 -1 -1 .0 00 [...] AC 00 02 03 90 30 00 SC Ac ET 09 -1 -1 .0 00 [...] MO 54 02 03 30 30 00 SC Ac NT 45 -1 -1 .0 00 L- ti EL 80 6- 7- 00 07 MA ve UK 89 20 20 44 RT 01 17 17 85 T 0 42 PH SO AR D MA 10 CY MG #5 91 TA BL ET MU 63 02 03 30 15 00 SC Ac CI 82 -1 -1 .0 00 L- ti NE 40 6- 7- 00 08 MA ve X 05 20 20 83 RT D 73 17 17 77 ER 6 58 PH AR 60 MA 0- CY 60 #5 MG 91 TA BL ET AC 00 02 03 60 30 00 SC Ac YC 09 -0 -1 .0 00 L- ti LO 38 9- 0- 00 07 MA ve 94 20 20 40 RT R 70 17 17 32 80 1 76 PH 0 AR MG MA CY TA BL #5 ET 91 CY 68 02 03 90 30 00 SC Ac CL 64 -0 -0 .0 00 L- ti OB 50 4- 3- 00 07 MA ve EN 51 20 20 40 RT ZA 89 17 17 32 IN 0 71 PH IN AR E MA 10 CY MG #5 91 TA BL ET QU 16 02 03 30 30 00 SC Ac ET 72 -0 -0 .0 00 L- ti IA 90 4- 3- 00 07 MA ve PI 15 20 20 45 RT NE 00 17 17 84 1 01 PH FU AR MA MA RA CY TE #5 40 91 0 MG TA B MD 57 02 03 30 30 00 WA Ac RT 23 -0 -0 .0 00 L- ti AZ 70 4- 3- 00 07 MA ve AP 00 20 20 45 RT IN 93 17 17 83 E 0 99 PH 30 AR MA MG CY TA #5 BL 91 ET LA 00 02 03 30 30 00 SC Ac NS 09 -0 -0 .0 00 L- ti OP 37 4- 3- 00 07 MA ve RA 35 20 20 40 RT ZO 15 17 17 32 LE [address] MA CY 30 #5 MG 91 CA PS UL E FL 55 01 02 1. 1 00 [facility] UC 11 -2 -1 00 00 L- ti ON 10 5- 7- 0 07 MA ve AZ 14 20 20 46 RT OL 51 17 17 68 E 2 06 PH 15 AR 0 MA MG CY TA #5 BL 91 ET AM 00 01 02 20 10 00 SC Ac OX 14 -2 -1 .0 00 L- ti IC 39 5- 7- 00 07 MA ve IL 95 20 20 46 RT LI 10 17 17 68 N 1 08 PH 87 AR 5 MA MG CY TA #5 BL 91 ET AL 00 01 02 75 5 00 [facility] BU 48 -2 -1 .0 00 L- ti TE 79 5- 7- 00 07 MA ve RO 50 20 20 46 RT L 12 17 17 68 CASTELLANOS 5 65 PH L AR 2. MA 5 CY MG /3 #5 [address] SO LN FL 00 01 02 12 30 00 SC Ac OV 17 -1 -1 .0 00 L- ti EN 30 9- 7- 00 07 MA ve T 71 20 20 46 RT HF 92 17 17 55 A 0 99 PH 11 AR 0 MA MC CY G IN #5 MENDEZ 91 LE R AC 00 01 02 60 30 00 SC Ac YC 09 -1 -1 .0 00 L- ti LO 38 2- 0- 00 07 MA ve 94 20 20 40 RT R 70 17 17 32 80 1 76 PH 0 AR MG MA CY TA BL #5 ET 91 ## 01 02 30 15 00 SC Ac ## -1 -1 .0 00 L- ti ## 8- 0- 00 08 MA ve ## 20 20 83 RT ## 17 17 77 # 58 PH AR MA CY #5 91 LA 69 01 02 60 30 00 SC Ac MO 09 -1 -1 .0 00 L- ti TR 70 4- 0- 00 07 MA ve IG 15 20 20 45 RT IN 20 17 17 83 E 3 95 PH 20 AR 0 MA MG CY TA #5 BL 91 ET AC 00 01 02 90 30 00 SC Ac ET 09 -1 -1 .0 00 L- ti AM 30 6- 0- 00 04 MA ve IN 15 20 20 52 RT OP 01 17 17 87 HE 0 41 PH N- AR CO MA D CY #3 #5 TA 91 BL ET FL 00 01 02 10 60 00 SC Ac OV 17 -1 -1 .5 00 [...] MO 54 01 02 30 30 00 SC Ac NT 45 -1 -1 .0 00 L- ti EL 80 4- 0- 00 07 MA ve UK 89 20 20 44 RT 01 17 17 85 T 0 42 PH SO AR D MA 10 CY MG #5 91 TA BL ET PA 54 01 02 30 30 00 SC Ac RO 45 -1 -1 .0 00 L- ti XE 80 4- 0- 00 07 MA ve TI 98 20 20 45 RT NE 91 17 17 84 0 00 PH HC AR L MA 20 CY MG #5 91 TA BL ET QU 16 01 02 30 30 00 SC Ac ET 72 -0 -0 .0 00 L- ti IA 90 5- 3- 00 07 MA ve PI 15 20 20 42 RT NE 00 17 17 61 1 22 PH FU AR MA MA RA CY TE #5 40 91 0 MG TA B MD 57 01 02 30 30 00 SC Ac RT 23 -0 -0 .0 00 L- ti AZ 70 5- 3- 00 07 MA ve AP 00 20 20 42 RT IN 93 17 17 61 E 0 29 PH 30 AR MA MG CY TA #5 BL 91 ET LO 00 02 30 30 00 SC Ac RA 78 -0 -0 .0 00 L- ti TA 15 5- 3- 00 08 MA ve DI 07 20 20 83 RT NE 70 17 17 75 1 20 PH 10 AR MA MG CY TA #5 BL 91 ET LA 00 02 30 30 00 SC Ac NS 09 -0 -0 .0 00 L- ti OP 37 6- 3- 00 07 MA ve RA 35 20 20 40 RT ZO 15 17 17 32 LE [address] MA CY 30 #5 MG 91 CA PS UL E CY 68 01 02 90 30 00 SC Ac CL 64 -0 -0 .0 00 L- ti OB 50 6- 3- 00 07 MA ve EN 51 20 20 40 RT ZA 89 17 17 32 IN 0 71 PH IN AR E MA 10 CY MG #5 91 TA BL ET IN 00 12 01 10 5 00 WA Ac ED 14 -3 -2 .0 00 L- ti NI 39 0- 7- 00 07 MA ve SO 73 20 20 46 RT NE 80 16 17 16 5 96 PH 20 AR MA MG CY TA #5 BL 91 ET BE 51 12 01 21 7 00 [facility] [place] 22 -3 -2 .0 00 L- ti ON 40 0- 7- 00 07 MA ve AT 00 20 20 46 RT AT 16 16 17 17 E 0 02 PH 20 AR 0 MA MG CY CA #5 PS 91 UL E FL 60 01 01 16 60 00 [facility] [place] 43 -0 -2 .0 00 L- ti IC 20 1- 7- 00 07 MA ve 26 20 20 40 RT ON 41 17 17 32 E 5 79 PH IN AR OP MA CY 50 #5 MC 91 G SP RA Y IN 00 01 01 20 10 00 [facility] OM 60 -0 -2 0. 00 L- ti ET 31 4- 7- 00 07 MA ve MENDEZ 58 20 20 0 46 RT ZI 65 17 17 26 NE 8 85 PH -D AR M MA SY CY RU P #5 91 AZ 59 01 01 6. 5 00 [facility] IT 76 -0 -2 00 00 L- ti HR 23 4- 7- 0 07 MA ve OM 06 20 20 46 RT YC 00 17 17 26 IN 1 86 PH AR 25 MA 0 CY MG #5 TA 91 BL ET AC 00 12 01 60 30 00 [facility] YC 09 -2 -1 .0 00 L- ti LO 38 0- 3- 00 07 MA ve 94 20 20 45 RT R 70 16 17 83 80 1 97 PH 0 AR MG MA CY TA BL #5 ET 91 CY 68 12 01 90 30 00 [facility] CL 64 -1 -0 .0 00 L- ti OB 50 4- 9- 00 07 MA ve EN 45 20 20 45 RT ZA 09 16 17 83 IN 0 98 PH IN AR E MA 10 CY MG #5 91 TA BL ET PA 54 12 01 30 30 00 [facility] RO 45 -1 -0 .0 00 L- ti XE 80 4- 9- 00 07 MA ve TI 98 20 20 45 RT NE 91 16 17 84 0 00 PH HC AR L MA 20 CY MG #5 91 TA BL ET LA 69 12 01 60 30 00 SC Ac MO 09 -1 -0 .0 00 L- ti TR 70 4- 9- 00 07 MA ve IG 15 20 20 45 RT IN 20 16 17 83 E 3 95 PH 20 AR 0 MA MG CY TA #5 BL 91 ET AC 00 12 01 30 00 WA Ac ET 09 -1 -0 .0 00 L- ti AM 30 04 MA ve IN 15 20 20 52 RT OP 01 16 17 87 HE 0 41 PH N- AR CO MA D CY #3 #5 TA 91 BL ET GA 00 12 01 30 00 WA Ac BA 22 -1 -0 .0 00 L- ti PE 82 4 9 07 MA ve NT 63 20 20 45 RT IN 65 16 17 83 0 92 PH 60 AR 0 MA MG CY TA #5 BL 91 ET LA 00 12 30 30 00 WA Ac NS 09 -1 -0 .0 00 L- ti OP 37 07 MA ve RA 35 20 20 45 RT ZO 15 16 17 83 LE [address] MA CY 30 #5 MG 91 CA PS UL E QU 16 12 01 30 30 00 WA Ac ET 72 -1 -0 .0 00 L- ti IA 90 07 MA ve PI 15 20 20 42 RT NE 00 16 17 61 1 22 PH FU AR MA MA RA CY TE #5 40 91 0 MG TA B LO 00 12 30 30 00 WA Ac RA 78 -1 -0 .0 00 L- ti TA 15 9 08 MA ve DI 07 20 20 83 RT NE 70 16 17 73 1 03 PH 10 AR MA MG CY TA #5 BL 91 ET MD 57 12 07 21 29 00 SC Ac RT 23 -1 -0 .0 00 L- ti AZ 70 07 MA ve AP 00 20 20 42 RT IN 93 16 17 61 E 0 29 PH 30 AR MA MG CY TA #5 BL 91 ET Encounters Encounter Start End Date Code Location Performer Type Date [facility] 7 [facility] 7 [facility] 7 [facility]
--- OUTSIDE RECORDS SUMMARY | 2017-05-28 13:18 | External Medical Summary Rpt | CCD ---
Author Author , DEIDRE JIANG Address Unknown Phone Care Team Providers Care Associate Professor Of Mathematics Name Role Phone [facility] Unavailable Unavailable [place] [place] SHEEHAN CHERYL Unavailable Unavailable LATANY[facility], SHEEHAN CHERYL [facility] Unavailable [facility]available [facility], Unavailable Unavailable [facility] Unavailable Unavailable INC, [facility] Unavailable Unavailable [facility], [facility] Unavailable Unavailable [facility] P, [facility], Unavailable [facility]available [facility], Unavailable Unavailable [facility] Un[facility] MARLEEN GRE, Unavailable Unavailable MARLEEN BRAY [facility], Unavailable Unavailable [facility] Un[facility], Unavailable Unavailable PLL[facility], [facility] Purpose Continuity of Care Document - 09-15-2013 through 2016 Problems Code Diagnosis DOS Provider Status D649 ANEMIA 04-05-2017 [facility] [id number] CHRONIC 04-05-[address] 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 ANGINA PECTORIS K219 GASTRO-ESOP 03-19-2017 [facility] H REFLUX PHYSICIANS DISEASE GROUP WITHOUT ESOPHAGITIS Z8249 FAMILY HX 03-19-2017 [facility] ISCHEMIC PHYSICIANS HRT DZ OTH GROUP DZ CIRC SYSTEM Z955 PRESENCE OF 03-19-2017 [facility] CORONARY PHYSICIANS ANGIOPLASTY GROUP IMPLANT & GRAFT J209 ACUTE 03-15-2017 [facility], UNSPECIFIED PLLC R05 COUGH 03-15-2017 [facility] R079 CHEST PAIN 03-15-2017 [facility] I208 OTHER FORMS 03-12-2017 [facility] OF ANGINA PHYSICIANS PECTORIS GROUP [id number] ASHD LEVELOCK 03-12-2017 [facility] COR ART PHYSICIANS W/OTH FORMS GROUP ANGINA PECTORIS [id number] ASHD LEVELOCK 03-12-2017 [facility] W/UNS INC ANGINA PECT[place]IS R0602 SHORTNESS 03-05-2017 [facility] OF BREATH PHYSICIANS GROUP R0789 OTHER CHEST 03-05-2017 [facility] PAIN PHYSICIANS GROUP R55 SYNCOPE AND 03-05-2017 [facility] COLLAPSE PHYSICIANS GROUP R0600 DYSPNEA 02-05-2017 [facility] R42 DIZZINESS 02-05-2017 [facility] GIDDINESS INC R531 WEAKNESS 02-05-2017 [facility] R609 EDEMA 02-05-2017 [facility] R9431 ABNORMAL 02-05-2017 [facility] ELECTROCARD PHYSICIANS IOGRAM GROUP I209 ANGINA 02-02-2017 [facility]PEC[facility] I200 UNSTABLE 01-19-2017 [facility] J301 ALLERGIC 01-07-2017 [facility] DUE TO [place] POLLEN J3081 ALLERG 01-07-2017 [facility] D/T ANIMAL [place] CAT DOG HAIR & DANDER J3089 OTHER 01-07-2017 [facility] RHINITIS [place] J302 OTHER 12-31-2016 [facility] SEASONAL PHYSICIANS ALLERGIC GROUP RHINITIS [id number] UNSPECIFIED 12-31-2016 [facility] ASTHMA PHYSICIANS UNCOMPLICAT GROUP ED R030 ELEVATED 12-31-2016 [facility] BLOOD-PRESS PHYSICIANS URE READING GROUP WITHOUT DX HTN Z0000 ENCOUNTER 12-31-2016 [facility] GEN [facility]ULT [facility] MED EXAM INC W/O ABNORMAL FIND J4540 MODERATE 12-29-2016 [facility] [place] UNCOMPLICAT ED K11268 OTHER 07-16-2016 [facility] J399 DISEASE OF 06-25-2016 [facility] UPPER PHYSICIANS RESPIRATORY GROUP TRACT UNSPECIFIED J00 ACUTE 06-20-2016 [facility] NASOPHARYNG PHYSICIAN ITIS COMMON GROUP COLD J040 ACUTE 06-20-2016 [facility] LARYNGITIS PHYSICIAN GROUP M1712 UNILATERAL 06-10-2016 [facility] OSTEOARTHRI INC TIS LEFT KNEE M7582 OTHER 06-10-2016 [facility]ER [facility] LESIONS INC LEFT SHOULDER Z23 ENCOUNTER 06-04-2016 [facility] FOR PHYSICIANS IMMUNIZATIO GROUP N M542 [...] OF [place]ION R3911 HESITANCY 05-27-2016 [facility] Z8553 PERSONAL 05-27-2016 [facility] 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 J4530 MILD 05-26-2016 [facility] [place] UNCOMPLICAT ED Z0100 ENCOUNTER 05-21-2016 MAR[facility] EXAM EYES & GRE VISION W/O ABNORMAL FIND 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 GROUP UNSPECIFIED R1013 EPIGASTRIC 05-19-2016 [facility] PAIN PHYSICIANS GROUP 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 R921 MAMMO 05-07-2016 [facility]ICAL ON FOUND ON IMAGING ASS DX IMAGING BREAST R928 OTH ABNORM 05-07-2016 [facility] INCONCLUSIV INC E FIND ON DX IMAG BREAST R1310 DYSPHAGIA 04-23-2016 [facility] 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-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 K210 GASTRO-ESOP 04-15-2016 [facility] HAGEAL LLC REFLUX DISEASE W/ ESOPHAGITIS K5730 DIVERTICULO 04-15-2016 [facility] SIS LG PHYSICIANS INTEST W/O GROUP PERF/ABSC W/O BLEED Z1211 ENCOUNTER 04-15-2016 [facility] SCREENING PHYSICIANS MALIGNANT GROUP NEOPLASM OF COLON N03151 PERSONAL 04-15-2016 [facility] HISTORY OF PHYSICIANS COLONIC GROUP POLYPS R140 ABDOMINAL 03-25-2016 [facility]ENSION [facility] GASEOUS INC [id number] UNS ROT 03-24-2016 [facility] CUFF [facility] TEAR/RUPT INC LT SHLDR NOT SPEC TRAUMAT Z1231 ENCOUNTER 03-21-2016 [facility] SCREENING MEDICAL MAMMO MALIG IMAGING ASS NEOPLASM BREAST J449 CHRONIC 03-13-2016 [facility] 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[facility] P DISEASE UNS R4702 DYSPHASIA 03-13-2016 [facility] [id number] PAIN IN 02-26-2016 [facility] LEFT MEDICAL SHOULDER IMAGING ASS J4520 MILD 02-11-2016 [facility] T [place] UNCOMPLICAT ED J329 CHRONIC 01-22-2016 [facility] SINUSITIS PHYSICIANS UNSPECIFIED GROUP [id number] PAIN IN 01-22-2016 [facility] UNSPECIFIED PHYSICIANS KNEE GROUP C75460 PAIN IN 01-22-2016 [facility] LEFT ARM PHYSICIANS GROUP O51352 ENCOUNTER 01-01-2016 [facility] LATH HAND EXAM LLC GENERAL RTN W/O ABNORMAL FIND N319 NEUROMUSCUL 12-25-2015 [facility] P OF BLADDER UNSPECIFIED K01708 OTHER 11-22-2015 [facility] RIGHT KNEE IMAGING ASS B87636 OTHER 11-22-2015 [facility] LEFT KNEE IMAGING ASS Q92048 CONTACT 11-22-2015 [facility] WITH & MEDICAL SUSPECTED IMAGING ASS EXPOSURE TO MOLD TOXIC M179 OSTEOARTHRI 10-24-2015 [facility] TIS OF [facility] UNSPECIFIED J0390 ACUTE 10-11-2015 [facility] TONSILLITIS PHYSICIANS GROUP UNSPECIFIED J3501 CHRONIC 10-11-2015 [facility]ONSILLITIS [facility] J351 HYPERTROPHY 10-11-2015 [facility], OF TONSILS LLC C17545 ENCOUNTER 09-13-2015 [facility] P AL CARIOVASCUL AR EXAM Q98758 ENCOUNTER 09-13-2015 [facility] P AL LABORATORY EXAM M797 FIBROMYALGI 08-14-2015 [facility] A PHYSICIANS GROUP J320 CHRONIC 05-31-2015 [facility], MAXILLARY LLC SINUSITIS J342 DEVIATED 05-31-2015 [facility] SEPTUM [facility] W63737 ENCOUNTER 05-30-2015 [facility] J0100 ACUTE 05-22-2015 [facility] UNSPEC[facility] J328 OTHER 04-26-2015 [facility] HOSP SINUSITIS INC B001 HERPESVIRAL 04-11-2015 [facility] VESICULAR PHYSICIANS DERMATITIS GROUP 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 CHERYL PELAEZ H524 PRESBYOPIA 03-28-2015 AGUILA PELAEZ 4619 ACUTE 12-20-2014 [facility] SINUSITIS, [facility] UNSPECIFIED HOSPITAL 6929 CONTACT 12-20-2014 [facility] DERMATITIS& [facility] OTHER HOSPITAL ECZEMA DUE UNSPEC CAUSE 470 DEVIATED 12-14-2014 [facility] NASAL PHYSICIANS SEPTUM GROUP 4730 CHRONIC 12-14-2014 [facility] MAXILLARY PHYSICIANS SINUSITIS GROUP 4739 UNSPECIFIED 12-14-2014 [facility] SINUSITIS PHYSICIANS GROUP 29890 OTHER 12-14-2014 [facility] DISEASES OF PHYSICIANS NASAL GROUP CAVITY AND SINUSES 4779 ALLERGIC 10-31-[address] [facility] UNSPECIFIED 462 ACUTE 10-20-2014 [facility] PHARYNGITIS [facility] 4611 ACUTE 05-15-2014 [facility] FRONTAL [facility] SINUSITIS [facility] 93089 PAIN IN 10-27-[address] [facility] [address], [facility] LOWER LEG INC J20.9 ACUTE BRONCHITIS, [...] CY CA PS #5 UL 91 E CO 00 10 11 10 5 00 WA [...] ve LO 52 20 20 51 RT CO 05 17 17 56 AM 4 33 PH AR 20 MA CY MG #5 TA 91 BL ET FL 60 10 11 16 30 00 [place] Ac UT 43 -1 -1 .0 00 L- ti IC 20 3- 0- 00 07 MA ve 26 20 20 49 RT ON 41 17 17 78 E 5 66 PH CO AR OP MA CY 50 #5 MC 91 G SP RA Y LO 00 10 11 30 30 00 [place] Ac RA 78 -1 -1 .0 00 L- ti TA 15 2- 0- 00 08 MA ve DI 07 20 20 83 RT NE 70 17 17 83 1 62 PH 10 AR MA MG CY TA #5 BL 91 ET GA 00 10 11 90 30 00 [place] Ac BA 22 -1 -1 .0 00 L- ti PE 82 2- 0- 00 04 MA ve NT 63 20 20 53 RT IN 65 17 17 11 0 99 PH 60 AR 0 MA MG CY TA #5 BL 91 ET QU 16 10 11 30 30 00 [facility] ET 72 -1 -1 .0 00 L- ti IA 90 2- 0- 00 07 MA ve PI 15 20 20 45 RT NE 00 17 17 84 1 01 PH FU AR MA MA RA CY TE #5 40 91 0 MG TA B MO 57 10 11 30 30 00 [facility] NT 23 -1 -1 .0 00 L- ti EL 70 2- 0- 00 07 MA ve UK 25 20 20 47 RT 53 17 17 46 T 0 38 PH SO AR D MA 10 CY MG #5 91 TA BL ET MU 63 10 11 30 15 00 [facility] CI 82 -1 -1 .0 00 L- ti NE 40 2- 0- 00 08 MA ve X 05 20 20 83 RT D 71 17 17 77 ER 8 58 PH AR 60 MA 0- CY 60 #5 MG 91 TA BL ET CA 57 10 11 30 30 00 [place] Ac RT 23 -1 -1 .0 00 L- ti AZ 70 2- 0- 00 07 MA ve AP 00 20 20 45 RT IN 93 17 17 83 E 0 99 PH 30 AR MA MG CY TA #5 BL 91 ET 64 10 11 4. 28 00 [place] Ac T 38 -1 -1 00 00 [...] AC 00 10 11 60 30 00 [place] Ac YC 09 -1 -1 .0 00 L- ti LO 38 2- 0- 00 07 MA ve 94 20 20 45 RT R 70 17 17 83 80 1 97 PH 0 AR MG MA CY TA BL #5 ET 91 BE 68 09 10 30 10 00 [place] Ac NZ 38 -2 -2 .0 00 L- ti ON 20 5- 0- 00 07 MA ve AT 24 20 20 51 RT AT 70 17 17 15 E 1 93 PH 10 AR 0 MA MG CY CA #5 PS 91 UL E AM 00 09 10 19 10 00 [place] Ac OX 78 -2 -2 .0 00 L- ti -C 11 5- 0- 00 07 MA ve LA 85 20 20 51 RT V 22 17 17 16 87 0 01 PH 5- AR 12 MA 5 CY MG #5 TA 91 BL ET ## 09 10 20 10 00 [place] Ac ## -2 -2 0. 00 L- [...] ME 62 09 10 30 30 00 [place] Ac TO 03 -1 -1 .0 00 L- ti CO 70 4- 3- 00 07 MA ve [...] 17 17 46 E 5 36 PH CO AR OP MA CY 50 #5 MC 91 G SP RA Y 64 08 09 4. 28 00 [place] Ac T 38 -2 -2 00 00 L- ti D2 00 8- 2- 0 07 MA ve 73 20 20 49 RT 1. 70 17 17 97 25 6 33 PH AR MG MA CY (5 0, #5 00 91 0 UN IT ) ES 68 08 09 30 30 00 [place] Ac CI 64 -2 -2 .0 00 L- ti TA 50 8- 2- 00 07 MA ve LO 52 20 20 50 RT CO 05 17 17 63 AM 4 44 PH AR 20 MA CY MG #5 TA 91 BL ET LA 69 08 09 60 30 00 [place] Ac MO 09 -2 -2 .0 00 L- ti TR 70 8- 2- 00 07 MA ve IG 15 20 20 50 RT IN 20 17 17 63 E 3 41 PH 20 AR 0 MA MG CY TA #5 BL 91 ET CA 57 08 09 30 30 00 [place] Ac RT 23 -2 -2 .0 00 L- ti AZ 70 8- 2- 00 07 MA ve AP 00 20 20 45 RT IN 93 17 17 83 E 0 99 PH 30 AR MA MG CY TA #5 BL 91 ET CY 68 08 09 90 30 00 [place] Ac CL 64 -2 -2 .0 00 L- ti OB 50 8- 2- 00 07 MA ve EN 51 20 20 45 RT ZA 89 17 17 83 CO 0 98 PH IN AR E MA 10 CY MG #5 91 TA BL ET VE 00 08 09 18 17 00 [place] Ac NT 17 -2 -2 .0 00 [...] MU 63 08 09 60 30 00 [place] Ac CI 82 -2 -2 .0 00 L- ti NE 40 8- 2- 00 08 MA ve X 00 20 20 83 RT ER 83 17 17 88 4 80 PH 60 AR 0 MA MG CY TA #5 BL 91 ET FL 60 08 09 16 60 00 [place] Ac UT 43 -2 -2 .0 00 L- ti IC 20 8- 2- 00 07 MA ve 26 20 20 48 RT ON 41 17 17 06 E 5 16 PH CO AR OP MA CY 50 #5 MC 91 G SP RA Y MU 63 08 09 30 15 00 [place] Ac CI 82 -2 -2 .0 00 L- ti NE 40 8- 2- 00 08 MA ve X 05 20 20 83 RT D 71 17 17 77 ER 8 58 PH AR 60 MA 0- CY 60 #5 MG 91 TA BL ET MO 57 08 30 30 00 [facility] NT 23 -2 -2 .0 00 L- ti EL 70 8- 2- 00 07 MA ve UK 25 20 20 48 RT 53 17 17 06 T 0 14 PH SO AR D MA 10 CY MG #5 91 TA BL ET FA 68 08 09 30 30 00 [place] Ac MO 64 -2 -2 .0 00 L- ti TI 50 8- 2- 00 07 MA ve DI 14 20 20 50 RT NE 05 17 17 15 9 38 PH 20 AR MA MG CY TA #5 BL 91 ET LA 00 08 09 30 30 00 [place] Ac NS 09 -2 -2 .0 00 L- ti OP 37 8- 2- 00 07 MA ve RA 35 20 20 45 RT ZO 15 17 17 83 LE [address] MA CY 30 #5 MG 91 CA PS UL E QU 16 08 09 30 30 00 [place] Ac ET 72 -2 -2 .0 00 L- ti IA 90 8- 2- 00 07 MA ve PI 15 20 20 45 RT NE 00 17 17 84 1 01 PH FU AR MA MA RA CY TE #5 40 91 0 MG TA B AZ 51 08 09 30 31 00 [place] Ac EL 52 -2 -2 .0 00 [...] 50 RT ZA 89 17 17 00 CO 0 95 PH IN AR E MA 10 CY MG #5 91 TA BL ET GA 00 07 08 90 30 00 [place] Ac BA 22 -2 -1 .0 00 [...] LE 66 07 08 14 8 00 [place] Ac VA 99 -1 -1 4. 00 [...] FL 60 07 08 16 30 00 [place] Ac UT 43 -1 -1 .0 00 L- ti IC 20 9- 1- 00 07 MA ve 26 20 20 49 RT ON 41 17 17 78 E 5 66 PH CO AR OP MA CY 50 #5 MC 91 G SP RA Y KE 17 07 08 5. 50 00 [place] Ac TO 47 -1 -0 00 00 L- ti TI 80 0- 4- 0 08 MA ve FE 71 20 20 84 RT N 71 17 17 02 FU 0 09 PH M AR 0. MA 02 CY 5% #[address] OP S MO 31 08 30 30 00 [place] Ac NT 72 -1 -0 .0 00 L- ti EL 20 2- 4- 00 07 MA ve UK 72 20 20 49 RT 61 17 17 78 T 0 68 PH SO AR D MA 10 CY MG #5 91 TA BL ET FL 60 11 26 16 30 00 [place] Ac UT 43 -2 -2 .0 00 L- ti IC 20 6- 8- 00 07 MA ve 26 20 20 44 RT ON 41 17 17 85 E 5 36 PH CO AR OP MA CY 50 #5 MC 91 G SP RA Y CY 68 06 90 30 00 [facility] CL 64 -2 -2 .0 00 L- ti OB 50 6- 8- 00 07 MA ve EN 51 20 20 45 RT ZA 89 17 17 83 CO 0 98 PH IN AR E MA 10 CY MG #5 91 TA BL ET GA 00 11 26 90 30 00 [place] Ac BA 22 -2 -2 .0 00 L- ti PE 82 6- 8- 00 07 MA ve NT 63 20 20 44 RT IN 65 17 17 49 0 50 PH 60 AR 0 MA MG CY TA #5 BL 91 ET AC 00 06 07 60 30 00 [place] Ac YC 09 -2 -2 .0 00 L- ti LO 38 6- 8- 00 07 MA ve 94 20 20 45 RT R 70 17 17 83 80 1 97 PH 0 AR MG MA CY TA BL #5 ET 91 LO 00 06 07 30 30 00 [place] Ac RA 78 -2 -2 .0 00 [...] ve LO 52 20 20 44 RT CO 05 17 17 54 AM 4 27 PH AR 20 MA CY MG #5 TA 91 BL ET CA 57 06 07 30 30 00 [place] [...] AZ 51 11 26 29 30 00 [place] Ac EL 52 -2 -2 .0 00 [...] AZ 51 05 06 30 31 00 [facility] EL 52 -2 -2 .0 00 L- ti 50 7- 3- 00 07 MA ve TI 29 20 20 47 RT NE 40 17 17 46 3 39 PH 0. AR 1% MA CY (1 37 #5 91 MC G) SP RY FL 00 05 06 12 30 00 [facility] OV 17 -2 -2 .0 00 L- ti EN 30 7- 3- 00 07 MA ve T 71 20 20 46 RT HF 92 17 17 55 A 0 99 PH 11 AR 0 MA MC CY G IN #5 MENDEZ 91 LE R FL 55 05 06 1. 1 00 [facility] UC 11 -2 -2 00 00 L- ti ON 10 7- 3- 0 07 MA ve AZ 14 20 20 46 RT OL 51 17 17 68 E 2 06 PH 15 AR 0 MA MG CY TA #5 BL 91 ET CA 57 05 06 30 30 00 [facility] RT 23 -2 -2 .0 00 L- ti AZ 70 7- 3- 00 07 MA ve AP 00 20 20 45 RT IN 93 17 17 83 E 0 99 PH 30 AR MA MG CY TA #5 BL 91 ET QU 16 05 06 30 30 00 [facility] ET 72 -2 -2 .0 00 L- ti IA 90 7- 3- 00 07 MA ve PI 15 20 20 45 RT NE 00 17 17 84 1 01 PH FU AR MA MA RA CY TE #5 40 91 0 MG TA B FL 60 04 05 16 60 00 [facility] UT 43 -1 -1 .0 00 L- ti IC 20 5- 2- 00 07 MA ve 26 20 20 48 RT ON 41 17 17 06 E 5 16 PH CO AR OP MA CY 50 #5 MC 91 G SP RA Y AL 00 04 04 75 30 00 [facility] BU 48 -0 -2 .0 00 L- ti TE 79 5- 8- 00 07 MA ve RO 50 20 20 48 RT L 12 17 17 06 CASTELLANOS 5 19 PH L AR 2. MA 5 CY MG /3 #[address] MO 54 04 04 30 30 00 [facility] NT 45 -0 -2 .0 00 L- [...] 47 RT ZA 89 17 17 38 CO 0 39 PH IN AR E MA [...] AZ 51 03 03 30 31 00 [place] Ac EL 52 -0 -3 .0 00 L- ti 50 6- 1- 00 07 MA ve TI 29 20 20 47 RT NE 40 17 17 46 3 39 PH 0. AR 1% MA CY (1 37 #5 91 MC G) SP RY MU 63 03 03 60 30 00 [place] Ac CI 82 -0 -3 .0 00 L- ti NE 40 6- 1- 00 08 MA ve X 00 20 20 83 RT ER 83 17 17 83 4 63 PH 60 AR 0 MA MG CY TA #5 BL 91 ET FL 55 03 03 2. 2 00 [place] Ac UC 11 -0 -3 00 00 L- ti ON 10 6- 1- 0 07 MA ve AZ 14 20 20 47 RT OL 51 17 17 46 E 2 35 PH 15 AR 0 MA MG CY TA #5 BL 91 ET LO 00 03 03 30 30 00 [place] Ac RA 78 -0 -3 .0 00 L- ti TA 15 6- 1- 00 08 MA ve DI 07 20 20 83 RT NE 70 17 17 83 1 62 PH 10 AR MA MG CY TA #5 BL 91 ET FL 00 03 03 12 30 00 [facility] OV 17 -0 -3 .0 00 L- ti EN 30 6- 1- 00 07 MA ve T 71 20 20 47 RT HF 92 17 17 46 A 0 37 PH 11 AR 0 MA MC CY G IN #5 MENDEZ 91 LE R FL 60 03 03 16 60 00 [facility] UT 43 -0 -2 .0 00 L- ti IC 20 1- 4- 00 07 MA ve 26 20 20 47 RT ON 41 17 17 37 E 5 81 PH CO AR OP MA CY 50 #5 MC 91 G SP RA Y LA 69 02 03 60 30 00 [place] Ac MO 09 -1 -1 .0 00 [...] AC 00 02 03 90 30 00 [place] Ac ET 09 -1 -1 .0 00 [...] MO 54 02 03 30 30 00 [place] Ac NT 45 -1 -1 .0 00 L- ti EL 80 6- 7- 00 07 MA ve UK 89 20 20 44 RT 01 17 17 85 T 0 42 PH SO AR D MA 10 CY MG #5 91 TA BL ET MU 63 02 03 30 15 00 [place] Ac CI 82 -1 -1 .0 00 L- ti NE 40 6- 7- 00 08 MA ve X 05 20 20 83 RT D 73 17 17 77 ER 6 58 PH AR 60 MA 0- CY 60 #5 MG 91 TA BL ET AC 00 02 03 60 30 00 [place] Ac YC 09 -0 -1 .0 00 L- ti LO 38 9- 0- 00 07 MA ve 94 20 20 40 RT R 70 17 17 32 80 1 76 PH 0 AR MG MA CY TA BL #5 ET 91 CY 68 02 03 90 30 00 [place] Ac CL 64 -0 -0 .0 00 L- ti OB 50 4- 3- 00 07 MA ve EN 51 20 20 40 RT ZA 89 17 17 32 CO 0 71 PH IN AR E MA 10 CY MG #5 91 TA BL ET QU 16 02 03 30 30 00 [place] Ac ET 72 -0 -0 .0 00 L- ti IA 90 4- 3- 00 07 MA ve PI 15 20 20 45 RT NE 00 17 17 84 1 01 PH FU AR MA MA RA CY TE #5 40 91 0 MG TA B CA 57 02 03 30 30 00 [place] Ac RT 23 -0 -0 .0 00 L- ti AZ 70 4- 3- 00 07 MA ve AP 00 20 20 45 RT IN 93 17 17 83 E 0 99 PH 30 AR MA MG CY TA #5 BL 91 ET LA 00 02 03 30 30 00 [place] Ac NS 09 -0 -0 .0 00 L- ti OP 37 4- 3- 00 07 MA ve RA 35 20 20 40 RT ZO 15 17 17 32 LE [address] MA CY 30 #5 MG 91 CA PS UL E FL 55 01 02 1. 1 00 [facility] UC 11 -2 -1 00 00 L- ti ON 10 5- 7- 0 07 MA ve AZ 14 20 20 46 RT OL 51 17 17 68 E 2 06 PH 15 AR 0 MA MG CY TA #5 BL 91 ET AM 00 01 02 20 10 00 [place] Ac OX 14 -2 -1 .0 00 L- ti IC 39 5- 7- 00 07 MA ve IL 95 20 20 46 RT LI 10 17 17 68 N 1 08 PH 87 AR 5 MA MG CY TA #5 BL 91 ET AL 00 01 02 75 5 00 [facility] BU 48 -2 -1 .0 00 L- ti TE 79 5- 7- 00 07 MA ve RO 50 20 20 46 RT L 12 17 17 68 CASTELLANOS 5 65 PH L AR 2. MA 5 CY MG /3 #[address] FL 00 01 02 12 30 00 [place] Ac OV 17 -1 -1 .0 00 L- ti EN 30 9- 7- 00 07 MA ve T 71 20 20 46 RT HF 92 17 17 55 A 0 99 PH 11 AR 0 MA MC CY G IN #5 MENDEZ 91 LE R AC 00 01 02 60 30 00 [place] Ac YC 09 -1 -1 .0 00 L- ti LO 38 2- 0- 00 07 MA ve 94 20 20 40 RT R 70 17 17 32 80 1 76 PH 0 AR MG MA CY TA BL #5 ET 91 ## 01 02 30 15 00 [place] Ac ## -1 -1 .0 00 L- ti ## 8- 0- 00 08 MA ve ## 20 20 83 RT ## 17 17 77 # 58 PH AR MA CY #5 91 LA 69 01 02 60 30 00 [place] Ac MO 09 -1 -1 .0 00 L- ti TR 70 4- 0- 00 07 MA ve IG 15 20 20 45 RT IN 20 17 17 83 E 3 95 PH 20 AR 0 MA MG CY TA #5 BL 91 ET AC 00 01 02 90 30 00 [place] Ac ET 09 -1 -1 .0 00 L- ti AM 30 6- 0- 00 04 MA ve IN 15 20 20 52 RT OP 01 17 17 87 HE 0 41 PH N- AR CO MA D CY #3 #5 TA 91 BL ET FL 00 01 02 10 60 00 [place] Ac OV 17 -1 -1 .5 00 [...] MO 54 01 02 30 30 00 [place] Ac NT 45 -1 -1 .0 00 L- ti EL 80 4- 0- 00 07 MA ve UK 89 20 20 44 RT 01 17 17 85 T 0 42 PH SO AR D MA 10 CY MG #5 91 TA BL ET PA 54 01 02 30 30 00 [place] Ac RO 45 -1 -1 .0 00 L- ti XE 80 4- 0- 00 07 MA ve TI 98 20 20 45 RT NE 91 17 17 84 0 00 PH HC AR L MA 20 CY MG #5 91 TA BL ET QU 16 01 02 30 30 00 [place] Ac ET 72 -0 -0 .0 00 L- ti IA 90 5- 3- 00 07 MA ve PI 15 20 20 42 RT NE 00 17 17 61 1 22 PH FU AR MA MA RA CY TE #5 40 91 0 MG TA B CA 57 01 02 30 30 00 [place] Ac RT 23 -0 -0 .0 00 L- ti AZ 70 5- 3- 00 07 MA ve AP 00 20 20 42 RT IN 93 17 17 61 E 0 29 PH 30 AR MA MG CY TA #5 BL 91 ET LO 00 02 30 30 00 [place] Ac RA 78 -0 -0 .0 00 L- ti TA 15 5- 3- 00 08 MA ve DI 07 20 20 83 RT NE 70 17 17 75 1 20 PH 10 AR MA MG CY TA #5 BL 91 ET LA 00 02 30 30 00 [place] Ac NS 09 -0 -0 .0 00 L- ti OP 37 6- 3- 00 07 MA ve RA 35 20 20 40 RT ZO 15 17 17 32 LE [address] MA CY 30 #5 MG 91 CA PS UL E CY 68 01 02 90 30 00 [place] Ac CL 64 -0 -0 .0 00 L- ti OB 50 6- 3- 00 07 MA ve EN 51 20 20 40 RT ZA 89 17 17 32 CO 0 71 PH IN AR E MA 10 CY MG #5 91 TA BL ET CO 00 12 01 10 5 00 [place] Ac ED 14 -3 -2 .0 00 L- ti NI 39 0- 7- 00 07 MA ve SO 73 20 20 46 RT NE 80 16 17 16 5 96 PH 20 AR MA MG CY TA #5 BL 91 ET BE 51 12 01 21 7 00 [facility] NZ 22 -3 -2 .0 00 L- ti ON 40 0- 7- 00 07 MA ve AT 00 20 20 46 RT AT 16 16 17 17 E 0 02 PH 20 AR 0 MA MG CY CA #5 PS 91 UL E FL 60 01 01 16 60 00 [facility] [place] 43 -0 -2 .0 00 L- ti IC 20 1- 7- 00 07 MA ve 26 20 20 40 RT ON 41 17 17 32 E 5 79 PH CO AR OP MA CY 50 #5 MC 91 G SP RA Y CO 00 01 01 20 10 00 [facility] OM 60 -0 -2 0. 00 L- ti ET 31 4- 7- 00 07 MA ve MENDEZ 58 20 20 0 46 RT ZI 65 17 17 26 NE 8 85 PH -D AR M MA SY CY RU P #5 91 AZ 59 01 01 6. 5 00 [facility] IT 76 -0 -2 00 00 L- ti HR 23 4- 7- 0 07 MA ve OM 06 20 20 46 RT YC 00 17 17 26 IN 1 86 PH AR 25 MA 0 CY MG #5 TA 91 BL ET AC 00 12 01 60 30 00 [facility] YC 09 -2 -1 .0 00 L- ti LO 38 0- 3- 00 07 MA ve 94 20 20 45 RT R 70 16 17 83 80 1 97 PH 0 AR MG MA CY TA BL #5 ET 91 CY 68 12 01 90 30 00 [facility] CL 64 -1 -0 .0 00 L- ti OB 50 4- 9- 00 07 MA ve EN 45 20 20 45 RT ZA 09 16 17 83 CO 0 98 PH IN AR E MA 10 CY MG #5 91 TA BL ET PA 54 12 01 30 30 00 [facility] RO 45 -1 -0 .0 00 L- ti XE 80 4- 9- 00 07 MA ve TI 98 20 20 45 RT NE 91 16 17 84 0 00 PH HC AR L MA 20 CY MG #5 91 TA BL ET LA 69 12 01 60 30 00 [place] Ac MO 09 -1 -0 .0 00 [...] MG CY TA #5 BL 91 ET CA 57 12 07 21 29 00 [place] Ac RT 23 -1 -0 .0 00 L- ti [place] 70 07 MA ve AP 00 20 20 42 RT IN 93 16 17 61 E 0 29 PH 30 AR MA MG CY TA #5 BL 91 ET Encounters Encounter Start End Date Code Location Performer Type Date [facility] - 7 7 [facility] - 7 7 [facility] - 7 7 [facility] - 7 7 [facility] - 7 7 [facility] - [facility] - [facility] - 6 6 [facility] 6 6 [facility] - [facility] - 6 6 [facility] [...] [facility] - 4 4 [facility] - 4 4 [facility]
[2017-05-28 13:22] VITALS: BP 129/57
--- OUTSIDE RECORDS SUMMARY | 2017-05-28 13:25 | External Medical Summary Rpt | CCD ---
Author Author , DEIDRE JIANG Address Unknown Phone [email or web address] Care Team Providers Care Supervisor [employer] [place] Name Role Phone [facility] Unavailable Unavailable [place] [place] SHEEHAN CHERYL Unavailable Unavailable [place], SHEEHAN CHERYL [facility] Un[facility], Unavailable Unavailable [facility] Unavailable Unavailable INC, [facility] Unavailable [facility]available [facility], [facility] Unavailable Unavailable HOSPITAL P, [facility], Unavailable Unavailable [facility], Unavailable Unavailable [facility] Un[facility], [facility] MARLEEN GRE, Unavailable Unavailable MARLEEN BRAY [facility], [facility]available Unavailable [facility], Unavailable Unavailable PLL[facility], [facility] Purpose Continuity of Care Document - 09-15-2013 through 2016 Problems Code Diagnosis DOS Provider Status D649 ANEMIA 04-05-2017 [facility] [id number] CHRONIC 04-05-2017 [facility] OTITIS INC MEDIA BILATERAL Z720 TOBACCO USE 04-05-2017 [facility] E782 MIXED 03-19-2017 [facility] HYPERLIPIDE [facility] AURE GROUP I10 ESSENTIAL 03-19-2017 [facility] PRIMARY PHYSICIANS HYPERTENSIO GROUP N I2510 [facility] [place] 03-19-2017 [facility] CORONARY PHYSICIANS ARTERY W/O GROUP ANGINA [place] K219 GASTRO-ESOP 03-19-2017 [facility] H REFLUX PHYSICIANS DISEASE GROUP WITHOUT ESOPHAGITIS Z8249 FAMILY HX 03-19-2017 [facility] ISCHEMIC PHYSICIANS HRT DZ OTH GROUP DZ CIRC SYSTEM Z955 PRESENCE OF 03-19-2017 [facility] CORONARY PHYSICIANS ANGIOPLASTY GROUP IMPLANT & GRAFT J209 ACUTE 03-15-2017 [facility], UNSPECIFIED PLLC R05 COUGH 03-15-2017 [facility] R079 CHEST PAIN 03-15-2017 [facility] I208 OTHER FORMS 03-12-2017 [facility] OF AN[facility]A [facility] [place] GROUP [id number] [facility] [place] 03-12-2017 [facility] COR ART PHYSICIANS W/OTH FORMS GROUP ANGINA [place] [id number] [facility] [place] 03-12-2017 [facility] W/UNS INC ANGINA [place] R0602 SHORTNESS 03-05-2017 [facility] OF BREATH PHYSICIANS GROUP R0789 OTHER CHEST 03-05-2017 [facility] PAIN PHYSICIANS GROUP R55 SYNCOPE AND 03-05-2017 [facility] COLLAPSE PHYSICIANS GROUP R0600 DYSPNEA 02-05-2017 [facility] R42 DIZZINESS 02-05-2017 [facility] GIDDINESS INC R531 WEAKNESS 02-05-2017 [facility] INC R609 EDEMA 02-05-2017 [facility] R9431 ABNORMAL 02-05-2017 [facility] ELECTROCARD PHYSICIANS IOGRAM GROUP I209 [facility] 02-02[facility] I200 UNSTABLE 01-19-2017 [facility] INC J301 ALLERGIC 01-07-2017 [facility] DUE TO [place] POLLEN J3081 ALLERG 01-07-2017 [facility] D/T ANIMAL [place] CAT DOG HAIR & DANDER J3089 OTHER 01-07-2017 [facility] RHINIT[facility] [place] J302 OTHER 12-31-2016 [facility] SEASONAL PHYSICIANS ALLERGIC GROUP RHINITIS [id number] UNSPECIFIED 12-31-2016 [facility] ASTHMA PHYSICIANS UNCOMPLICAT GROUP ED R030 ELEVATED 12-31-2016 [facility] BLOOD-PRESS PHYSICIANS URE READING GROUP WITHOUT DX HTN Z0000 ENCOUNTER 12-31-2016 [facility] GEN ADULT [facility] MED EXAM INC W/O ABNORMAL FIND J4540 MODERATE 12-29-2016 [facility] [place] UNCOMPLICAT ED Q22054 OTHER 07-16-2016 [place] [facility] J399 DISEASE OF 06-25-2016 [facility] UPPER PHYSICIANS RESPIRATORY GROUP TRACT UNSPECIFIED J00 ACUTE 06-20-2016 [facility] NASOPHARYNG PHYSICIAN ITIS COMMON GROUP COLD J040 ACUTE 06-20-2016 [facility] LARYNGITIS PHYSICIAN GROUP M1712 UNILATERAL 06-10-2016 [facility] OSTEOARTHRI INC TIS LEFT KNEE M7582 OTHER 06-10-2016 [facility] LESIONS INC LEFT SHOULDER Z23 ENCOUNTER 06-04-2016 [facility] FOR PHYS[facility]IANS IMMUNIZATIO GROUP N M542 [...] OF [place]EL[place]ION R3911 HESITANCY 05-27-[address] 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 SIS LG PHYSICIANS INTEST W/O GROUP PERF/ABSC W/O BLEED Z1211 ENCOUNTER 04-15-2016 [facility] SCREENING PHYSICIANS MALIGNANT GROUP NEOPLASM OF COLON E02210 PERSONAL 04-15-2016 [facility] HISTORY OF PHYSICIANS COLONIC GROUP POLYPS R140 ABDOMINAL 03-25-2016 [facility] DISTENSION [facility] GASEOUS INC G21271 UNS ROT 03-24-2016 [facility] CUFF [facility] TEAR/RUPT INC LT SHLDR NOT SPEC TRAUMAT Z1231 ENCOUNTER 03-21-2016 [place] SCREENING MEDICAL MAMMO MALIG IMAGING ASS NEOPLASM BREAST J449 CHRONIC 03-13-2016 [facility] P DISEASE UNS R4702 DYSPHASIA 03-13-2016 [facility] P46739 PAIN IN 02-26-2016 [place] LEFT MEDICAL SHOULDER IMAGING ASS J4520 MILD 02-11-2016 [facility] T [place] UNCOMPLICAT ED J329 CHRONIC 01-22-2016 [facility] SINUSITIS PHYSICIANS UNSPECIFIED GROUP R86005 PAIN IN 01-22-2016 [facility] UNSPECIFIED PHYSICIANS KNEE GROUP C41532 PAIN IN 01-22-2016 [facility] LEFT ARM PHYSICIANS GROUP W74316 ENCOUNTER 01-01-2016 [facility] SUPPORT SERVICES TECH EXAM LLC GENERAL RTN W/O ABNORMAL FIND N319 NEUROMUSCUL 12-25-2015 [facility] P OF BLADDER UNSPECIFIED N21445 OTHER 11-22-2015 [facility] [facility] RIGHT KNEE IMAGING ASS Q31230 OTHER 11-22-2015 [place] [facility] LEFT KNEE IMAGING ASS G18199 CONTACT 11-22-2015 [place] WITH & MEDICAL SUSPECTED IMAGING ASS EXPOSURE TO MOLD TOXIC M179 OSTEOARTHRI 10-24-2015 [facility] TIS OF KNEE [facility] INC UNSPECIFIED J0390 ACUTE 10-11-2015 [facility] TONSILLITIS PHYSICIANS GROUP UNSPECIFIED J3501 CHRONIC 10-11-2015 [facility] TONSILLITIS [facility] INC J351 HYPERTROPHY 10-11-2015 [facility], OF TONSILS LLC C36234 ENCOUNTER 09-13-2015 [facility] P AL CARIOVASCUL AR EXAM Z99761 ENCOUNTER 09-13-2015 [facility] P AL LABORATORY EXAM M797 FIBROMYALGI 08-14-2015 [facility] A PHYSICIANS GROUP J320 CHRONIC 05-31-2015 [facility] MAXILLARY LLC SINUSITIS J342 DEVIATED 05-31-2015 [facility] ANESTH OF SEPTUM [facility] Q98866 ENCOUNTER 05-30-2015 [facility] J0100 ACUTE 05-22-2015 [facility] UNSPECIFIED J328 OTHER 04-26-2015 [facility] SINUSITIS INC B001 HERPESVIRAL 04-11-2015 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 NASAL PHYSICIANS SEPTUM GROUP 4730 CHRONIC 12-14-2014 [facility] MAXILLARY PHYSICIANS SINUSITIS GROUP 4739 UNSPECIFIED 12-14-2014 [facility] SINUSITIS PHYSICIANS GROUP 63571 OTHER 12-14-2014 [facility] DISEASES OF PHYSICIANS NASAL GROUP CAVITY AND SINUSES 4779 ALLERGIC 10-31-2014 [facility] RHINITIS [facility] CAUSE HOSPITAL UNSPECIFIED 462 ACUTE 10-20-2014 [facility]ITIS [facility] 4611 ACUTE 05-15-2014 [facility] FRONTAL [facility] SINUSITIS HOSPITAL 22909 PAIN IN 10-27-2013 [facility] JOINT, [facility] LOWER LEG INC Medications Na ND Rx Da Fi Fi Am Da Di Ph RX Ph St me C No te ll ll ou ys ag ar # ys at rm s nt no ma ic us Or Da si cy ia de te s n re d LE 66 10 11 14 8 00 [facility] VA 99 -1 -1 4. 00 L- ti LB 30 4- 0- 00 07 MA ve UT 02 20 20 0 49 RT ER 32 17 17 83 OL 7 56 PH AR 1. MA 25 CY MG #5 /3 91 ML SO L CE 68 10 11 20 10 00 [facility] FD 18 -1 -1 .0 00 L- ti IN 00 5- 0- 00 07 MA ve IR 71 20 20 51 RT 16 17 17 54 30 0 56 PH 0 AR MG MA CY CA PS #5 UL 91 E MD 00 10 11 10 5 00 [facility] ED 60 -1 -1 .0 00 L- ti NI 35 5- 0- 00 07 MA ve SO 33 20 20 51 RT NE 92 17 17 54 8 57 PH 20 AR MA MG CY TA #5 BL 91 ET ES 68 10 11 30 30 00 [facility] CI 64 -1 -1 .0 00 L- ti TA 50 6- 0- 00 07 MA ve LO 52 20 20 51 RT MD 05 17 17 56 AM 4 33 PH AR 20 MA CY MG #5 TA 91 BL ET AC 00 10 11 60 30 00 [facility] YC 09 -1 -1 .0 00 L- ti LO 38 2- 0- 00 07 MA ve 94 20 20 45 RT R 70 17 17 83 80 1 97 PH 0 AR MG MA CY TA BL #5 ET 91 LO 00 10 11 30 30 00 [place] Ac RA 78 -1 -1 .0 00 L- ti TA 15 2- 0- 00 08 MA ve DI 07 20 20 83 RT NE 70 17 17 83 1 62 PH 10 AR MA MG CY TA #5 BL 91 ET GA 00 10 11 90 30 00 [place] BA 22 -1 -1 .0 00 L- ti PE 82 2- 0- 00 04 MA ve NT 63 20 20 53 RT IN 65 17 17 11 0 99 PH 60 AR 0 MA MG CY TA #5 BL 91 ET QU 16 10 11 30 30 00 [place] ET 72 -1 -1 .0 00 L- ti IA 90 2- 0- 00 07 MA ve PI 15 20 20 45 RT NE 00 17 17 84 1 01 PH FU AR MA MA RA CY TE #5 40 91 0 MG TA B MO 57 10 11 30 30 00 [facility] NT 23 -1 -1 .0 00 L- ti EL 70 2- 0- 00 07 MA ve UK 25 20 20 47 RT 53 17 17 46 T 0 38 PH SO AR D MA 10 CY MG #5 91 TA BL ET FL 60 10 11 16 30 00 [facility] UT 43 -1 -1 .0 00 L- ti IC 20 3- 0- 00 07 MA ve 26 20 20 49 RT ON 41 17 17 78 E 5 66 PH MD AR OP MA CY 50 #5 MC 91 G SP RA Y MU 63 10 11 30 15 00 [facility] CI 82 -1 -1 .0 00 L- ti NE 40 2- 0- 00 08 MA ve X 05 20 20 83 RT D 71 17 17 77 ER 8 58 PH AR 60 MA 0- CY 60 #5 MG 91 TA BL ET NJ 57 10 11 30 30 00 [place] RT 23 -1 -1 .0 00 L- ti AZ 70 2- 0- 00 07 MA ve AP 00 20 20 45 RT IN 93 17 17 83 E 0 99 PH 30 AR MA MG CY TA #5 BL 91 ET 64 10 11 4. 28 00 [place] T 38 -1 -1 00 00 L- ti D2 00 2- 0- 0 07 MA ve 73 20 20 49 RT 1. 70 17 17 97 25 6 33 PH AR MG MA CY (5 0, #5 00 91 0 UN IT ) FA 68 10 11 30 30 00 [place] Ac MO 64 -1 -1 .0 00 L- ti TI 50 2- 0- 00 07 MA ve DI 14 20 20 50 RT NE 05 17 17 15 9 38 PH 20 AR MA MG CY TA #5 BL 91 ET BE 68 09 10 30 10 00 [place] [facility] [place] 38 -2 -2 .0 00 L- ti ON 20 5- 0- 00 07 MA ve AT 24 20 20 51 RT AT 70 17 17 15 E 1 93 PH 10 AR 0 MA MG CY CA #5 PS 91 UL E AM 00 09 10 19 10 00 [place] OX 78 -2 -2 .0 00 L- ti -C 11 5- 0- 00 07 MA ve LA 85 20 20 51 RT V 22 17 17 16 87 0 01 PH 5- AR 12 MA 5 CY MG #5 TA 91 BL ET ## 09 10 20 10 00 [place] Ac ## -2 -2 0. 00 L- [...] ME 62 09 10 30 30 00 [place] TO 03 -1 -1 .0 00 L- ti MD 70 4- 3- 00 07 MA ve [...] FL 60 09 10 16 30 00 [place] [facility] UT 43 -2 -1 .0 00 L- ti IC 20 0- 3- 00 07 MA ve 26 20 20 47 RT ON 41 17 17 46 E 5 36 PH MD AR OP MA CY 50 #5 MC 91 G SP RA Y ES 68 08 09 30 30 00 [place] Ac CI 64 -2 -2 .0 00 L- ti TA 50 8- 2- 00 07 MA ve LO 52 20 20 50 RT MD 05 17 17 63 AM 4 44 [...] TA #5 BL 91 ET MU 63 08 09 60 30 00 [place] CI 82 -2 -2 .0 00 L- ti NE 40 8- 2- 00 08 MA ve X 00 20 20 83 RT ER 83 17 17 88 4 80 PH 60 AR 0 MA MG CY TA #5 BL 91 ET FL 60 08 09 16 60 00 [place] UT 43 -2 -2 .0 00 L- ti IC 20 8- 2- 00 07 MA ve 26 20 20 48 RT ON 41 17 17 06 E 5 16 PH MD AR OP MA CY 50 #5 MC 91 G SP RA Y VE 00 08 09 18 17 00 [place] NT 17 -2 -2 .0 00 L- ti OL 30 8- 2- 00 07 MA ve IN 68 20 20 48 RT 22 17 17 06 HF 0 13 PH A AR 90 MA CY MC G #5 IN 91 MENDEZ LE R LO 00 08 09 30 30 00 [place] RA 78 -2 -2 .0 00 L- ti TA 15 8- 2- 00 08 MA ve DI 07 20 20 83 RT NE 70 17 17 83 1 62 PH 10 AR MA MG CY TA #5 BL 91 ET AC 00 08 09 60 30 00 [place] YC 09 -2 -2 .0 00 L- ti LO 38 8- 2- 00 07 MA ve 94 20 20 45 RT R 70 17 17 83 80 1 97 PH 0 AR MG MA CY TA BL #5 ET 91 64 08 09 4. 28 00 [place] Ac T 38 -2 -2 00 00 L- ti D2 00 8- 2- 0 07 MA ve 73 20 20 49 RT 1. 70 17 17 97 25 6 33 PH AR MG MA CY (5 0, #5 00 91 0 UN IT ) MU 63 08 09 30 15 00 [place] CI 82 -2 -2 .0 00 L- ti NE 40 8- 2- 00 08 MA ve X 05 20 20 83 RT D 71 17 17 77 ER 8 58 PH AR 60 MA 0- CY 60 #5 MG 91 TA BL ET MO 57 08 09 30 30 00 [place] NT 23 -2 -2 .0 00 L- ti EL 70 8- 2- 00 07 MA ve UK 25 20 20 48 RT 53 17 17 06 T 0 14 PH SO AR D MA 10 CY MG #5 91 TA BL ET FA 68 08 09 30 30 00 [place] Ac MO 64 -2 -2 .0 00 L- ti TI 50 8- 2- 00 07 MA ve DI 14 20 20 50 RT NE 05 17 17 15 9 38 PH 20 AR MA MG CY TA #5 BL 91 ET LA 00 08 09 30 30 00 [place] NS 09 -2 -2 .0 00 L- ti OP 37 8- 2- 00 07 MA ve RA 35 20 20 45 RT ZO 15 17 17 83 LE [address] MA CY 30 #5 MG 91 CA PS UL E QU 16 08 30 30 00 [place] ET 72 -2 -2 .0 00 L- ti IA 90 8- 2- 00 07 MA ve PI 15 20 20 45 RT NE 00 17 17 84 1 01 PH FU AR MA MA RA CY TE #5 40 91 0 MG TA B AZ 51 08 09 30 31 00 [place] EL 52 -2 -2 .0 00 L- ti 50 8- 2- 00 07 MA ve TI 29 20 20 47 RT NE 40 17 17 46 3 39 PH 0. AR 1% MA CY (1 37 #5 91 MC G) SP RY NJ 57 08 09 30 30 00 [place] RT 23 -2 -2 .0 00 L- ti AZ 70 8- 2- 00 07 MA ve AP 00 20 20 45 RT IN 93 17 17 83 E 0 99 PH 30 AR MA MG CY TA #5 BL 91 ET CY 68 08 09 90 30 00 [place] [facility] CL 64 -2 -2 .0 00 L- ti OB 50 8- 2- 00 07 MA ve EN 51 20 20 45 RT ZA 89 17 17 83 MD 0 98 PH IN AR E MA 10 CY MG #5 91 TA BL ET LA 69 07 08 60 30 00 [place] Ac MO 09 -2 -2 .0 00 [...] TA #5 BL 91 ET GA 00 07 08 90 30 [...] CY #3 #5 TA 91 BL ET CY 68 07 08 90 30 00 [place] CL 64 -2 -1 .0 00 L- ti OB 50 1- 8- 00 07 MA ve EN 51 20 20 50 RT ZA 89 17 17 00 MD 0 95 PH IN AR E MA 10 CY MG #5 91 TA BL ET LE 66 07 08 14 8 00 [place] VA 99 -1 -1 4. 00 L- ti LB 30 3- 1- 00 07 MA ve UT 02 20 20 0 49 RT ER 32 17 17 83 OL 7 56 PH AR 1. MA 25 CY MG #5 /3 91 ML SO L LO 00 07 08 30 30 00 [place] RA 78 -1 -1 .0 00 L- ti TA 15 9- 1- 00 08 MA ve DI 07 20 20 84 RT NE 70 17 17 02 1 08 PH 10 AR MA MG CY TA #5 BL 91 ET FL 60 07 08 16 30 00 [place] UT 43 -1 -1 .0 00 L- ti IC 20 9- 1- 00 07 MA ve 26 20 20 49 RT ON 41 17 17 78 E 5 66 PH MD AR OP MA CY 50 #5 MC 91 G SP RA Y AZ 51 07 08 30 30 00 [place] EL 52 -1 -1 .0 00 L- ti 50 9- 1- 00 07 MA ve TI 29 20 20 49 RT NE 40 17 17 78 3 67 PH 0. AR 1% MA CY (1 37 #5 91 MC G) SP RY 64 07 08 4. 28 00 [place] T 38 -1 -1 00 00 L- ti D2 00 9- 1- 0 07 MA ve 73 20 20 49 RT 1. 70 17 17 97 25 6 33 PH AR MG MA CY (5 0, #5 00 91 0 UN IT ) KE 17 07 08 5. 50 00 [facility] TO 47 -1 -0 00 00 L- ti TI 80 0- 4- 0 08 MA ve FE 71 20 20 84 RT N 71 17 17 02 FU 0 09 PH M AR 0. MA 02 CY 5% #[address] OP S MO 31 07 08 30 30 00 [facility] NT 72 -1 -0 .0 00 L- ti EL 20 2- 4- 00 07 MA ve UK 72 20 20 49 RT 61 17 17 78 T 0 68 PH SO AR D MA 10 CY MG #5 91 TA BL ET AZ 51 06 07 30 30 00 [facility] EL 52 -2 -2 .0 00 L- ti 50 6- 8- 00 07 MA ve TI 29 20 20 44 RT NE 40 17 17 85 3 44 PH 0. AR 1% MA CY (1 37 #5 91 MC G) SP RY NJ 57 06 07 30 30 00 [facility] RT 23 -2 -2 .0 00 L- ti AZ 70 6- 8- 00 07 MA ve AP 00 20 20 45 RT IN 93 17 17 83 E 0 99 PH 30 AR MA MG CY TA #5 BL 91 ET LA 00 07 30 30 00 [facility] NS 09 -2 -2 .0 00 L- ti OP 37 6- 8- 00 07 MA ve RA 35 20 20 45 RT ZO 15 17 17 83 LE [address] MA CY 30 #5 MG 91 CA PS UL E CY 68 06 07 90 30 00 [facility] CL 64 -2 -2 .0 00 L- ti OB 50 6- 8- 00 07 MA ve EN 51 20 20 45 RT ZA 89 17 17 83 MD 0 98 PH IN AR E MA 10 CY MG #5 91 TA BL ET GA 00 06 07 90 30 00 [facility] BA 22 -2 -2 .0 00 L- ti PE 82 6- 8- 00 07 MA ve NT 63 20 20 44 RT IN 65 17 17 49 0 50 PH 60 AR 0 MA MG CY TA #5 BL 91 ET AC 00 06 07 60 30 00 [facility] YC 09 -2 -2 .0 00 L- ti LO 38 6- 8- 00 07 MA ve 94 20 20 45 RT R 70 17 17 83 80 1 97 PH 0 AR MG MA CY TA BL #5 ET 91 LO 00 11 26 30 30 00 [place] Ac RA 78 -2 -2 .0 00 L- ti TA 15 6- 8- 08 MA ve DI 07 20 20 83 RT NE 70 17 17 67 1 12 PH 10 AR MA MG CY TA #5 BL 91 ET ES 68 06 30 30 00 [place] Ac CI 64 -2 -2 .0 00 L- ti TA 50 6- 8- 07 MA ve LO 52 20 20 44 RT MD 05 17 17 54 AM 4 27 PH AR 20 MA CY MG #5 TA 91 BL ET FL 60 06 16 30 00 [place] UT 43 -2 -2 .0 00 L- ti IC 20 6 8- 07 MA ve 26 20 20 44 RT ON 41 17 17 85 E 5 36 PH MD AR OP MA CY 50 #5 MC 91 G SP RA Y MU 63 06 07 60 30 00 [place] CI 82 -1 -1 .0 00 L- ti NE 40 8 4- 08 MA ve X 00 20 20 83 RT ER 83 17 17 88 2 80 PH 60 AR 0 MA MG CY TA #5 BL 91 ET MO 31 11 26 29 30 00 [place] NT 72 -1 -1 .0 00 L- ti EL 20 9- 4- 00 07 MA ve UK 72 20 20 47 RT 61 17 17 46 T 0 38 PH SO AR D MA 10 CY MG #5 91 TA BL ET GA 00 10 25 89 30 00 [place] BA 22 -2 -2 .0 00 L- ti PE 82 7- 3- 00 07 MA ve NT 63 20 20 45 RT IN 65 17 17 83 0 92 PH 60 AR 0 MA MG CY TA #5 BL 91 ET LO 00 10 25 29 30 00 [place] RA 78 -2 -2 .0 00 L- ti TA 15 7- 3- 00 08 MA ve DI 07 20 20 83 RT NE 70 17 17 83 1 62 PH 10 AR MA MG CY TA #5 BL 91 ET MO 31 10 25 29 30 00 [place] Ac NT 72 -2 -2 .0 00 L- ti EL 20 7- 3- 00 07 MA ve UK 72 20 20 44 RT 61 17 17 85 T 0 42 PH SO AR D MA 10 CY MG #5 91 TA BL ET AZ 51 [place] Ac EL 52 -2 -2 .0 00 L- ti 50 7- 3- 00 07 MA ve TI 29 20 20 47 RT NE 40 17 17 46 3 39 PH 0. AR 1% MA CY (1 37 #5 91 MC G) SP RY FL 00 05 06 12 30 00 [place] Ac OV 17 -2 -2 .0 00 L- ti EN 30 7- 3- 00 07 MA ve T 71 20 20 46 RT HF 92 17 17 55 A 0 99 PH 11 AR 0 MA MC CY G IN #5 MENDEZ 91 LE R FL 55 05 06 1. 1 00 [facility] UC 11 -2 -2 00 00 L- ti ON 10 7- 3- 0 07 MA ve AZ 14 20 20 46 RT OL 51 17 17 68 E 2 06 PH 15 AR 0 MA MG CY TA #5 BL 91 ET NJ 57 05 30 30 00 [facility] RT 23 -2 -2 .0 00 L- ti AZ 70 7- 3- 00 07 MA ve AP 00 20 20 45 RT IN 93 17 17 83 E 0 99 PH 30 AR MA MG CY TA #5 BL 91 ET QU 16 05 30 30 00 [facility] ET 72 -2 -2 .0 00 L- ti IA 90 7- 3- 00 07 MA ve PI 15 20 20 45 RT NE 00 17 17 84 1 01 PH FU AR MA MA RA CY TE #5 40 91 0 MG TA B FL 60 04 05 16 60 00 [facility] UT 43 -1 -1 .0 00 L- ti IC 20 5- 2- 00 07 MA ve 26 20 20 48 RT ON 41 17 17 06 E 5 16 PH MD AR OP MA CY 50 #5 MC 91 G SP RA Y MO 54 04 04 30 30 00 [facility] NT 45 -0 -2 .0 00 L- ti EL 80 5- 8- 00 07 MA ve UK 89 20 20 48 RT 01 17 17 06 T 0 14 PH SO AR D MA 10 CY MG #5 91 TA BL ET LO 00 04 30 30 00 [place] RA 78 -0 -2 .0 00 L- ti TA 15 5- 8- 00 08 MA ve DI 07 20 20 83 RT NE 70 17 17 88 1 79 PH 10 AR MA MG CY TA #5 BL 91 ET AZ 51 04 04 30 30 00 [place] EL 52 -0 -2 .0 00 [...] 47 RT ZA 89 17 17 38 MD 0 39 PH IN AR E MA 10 CY MG #5 91 TA BL ET FL 55 03 03 2. 2 00 [place] UC 11 -0 -3 00 00 [...] MU 63 03 03 60 30 00 [place] CI 82 -0 -3 .0 00 L- ti NE 40 6- 1- 00 08 MA ve X 00 20 20 83 RT ER 83 17 17 83 4 63 PH 60 AR 0 MA MG CY TA #5 BL 91 ET AM 00 03 03 20 10 00 [place] OX 78 -0 -3 .0 00 L- ti -C 11 7- 07 MA ve LA 85 20 20 47 RT V 22 17 17 47 87 0 96 PH 5- AR 12 MA 5 CY MG #5 TA 91 BL ET CASTELLANOS 65 03 03 20 10 00 [place] LF 86 -0 -3 .0 00 L- ti AM 20 8- 00 07 MA ve ET 42 20 20 47 RT HO 00 17 17 50 XA 5 79 PH ZO AR LE MA -T CY MP #5 DS 91 TA BL ET FL 60 03 03 16 60 00 [facility] UT 43 -0 -2 .0 00 L- ti IC 20 1- 4- 00 07 MA ve 26 20 20 47 RT ON 41 17 17 37 E 5 81 PH MD AR OP MA CY 50 #5 MC 91 G SP RA Y LA 69 02 03 60 30 00 [place] MO 09 -1 -1 .0 00 L- ti TR 70 6- 7- 00 07 MA ve IG 15 20 20 45 RT IN 20 17 17 83 E 3 95 PH 20 AR 0 MA MG CY TA #5 BL 91 ET GA 00 02 03 90 30 00 [place] BA 22 -1 -1 .0 00 [...] PA 54 02 03 30 30 00 [place] RO 45 -1 -1 .0 00 L- ti XE 80 6- 7- 00 07 MA ve TI 98 20 20 45 RT NE 91 17 17 84 0 00 PH HC AR L MA 20 CY MG #5 91 TA BL ET MO 54 02 03 30 30 00 [place] NT 45 -1 -1 .0 00 L- ti EL 80 6- 7- 00 07 MA ve UK 89 20 20 44 RT 01 17 17 85 T 0 42 PH SO AR D MA 10 CY MG #5 91 TA BL ET MU 63 02 03 30 15 00 [place] CI 82 -1 -1 .0 00 L- ti NE 40 6- 7- 00 08 MA ve X 05 20 20 83 RT D 73 17 17 77 ER 6 58 PH AR 60 MA 0- CY 60 #5 MG 91 TA BL ET AC 00 02 03 60 30 00 [place] YC 09 -0 -1 .0 00 L- ti LO 38 9- 0- 00 07 MA ve 94 20 20 40 RT R 70 17 17 32 80 1 76 PH 0 AR MG MA CY TA BL #5 ET 91 LA 00 02 03 30 30 00 [place] NS 09 -0 -0 .0 00 L- ti OP 37 4- 3- 00 07 MA ve RA 35 20 20 40 RT ZO 15 17 17 32 LE [address] MA CY 30 #5 MG 91 CA PS UL E CY 68 02 03 90 30 00 [place] CL 64 -0 -0 .0 00 L- ti OB 50 4- 3- 00 07 MA ve EN 51 20 20 40 RT ZA 89 17 17 32 MD 0 71 PH IN AR E MA 10 CY MG #5 91 TA BL ET QU 16 02 03 30 30 00 [place] Ac ET 72 -0 -0 .0 00 L- ti IA 90 4- 3- 00 07 MA ve PI 15 20 20 45 RT NE 00 17 17 84 1 01 PH FU AR MA MA RA CY TE #5 40 91 0 MG TA B NJ 57 02 03 30 30 00 [place] Ac RT 23 -0 -0 .0 00 L- ti AZ 70 4- 3- 00 07 MA ve AP 00 20 20 45 RT IN 93 17 17 83 E 0 99 PH 30 AR MA MG CY TA #5 BL 91 ET FL 55 01 02 1. 1 00 [place] Ac UC 11 -2 -1 00 00 L- ti ON 10 5- 7- 0 07 MA ve AZ 14 20 20 46 RT OL 51 17 17 68 E 2 06 PH 15 AR 0 MA MG CY TA #5 BL 91 ET AM 00 01 02 20 10 00 [place] Ac OX 14 -2 -1 .0 00 L- ti IC 39 5- 7- 00 07 MA ve IL 95 20 20 46 RT LI 10 17 17 68 N 1 08 PH 87 AR 5 MA MG CY TA #5 BL 91 ET AL 00 01 02 75 5 00 [facility] BU 48 -2 -1 .0 00 L- ti TE 79 5- 7- 00 07 MA ve RO 50 20 20 46 RT L 12 17 17 68 CASTELLANOS 5 65 PH L AR 2. MA 5 CY MG /3 #5 [address] FL 00 01 02 12 30 00 [facility] OV 17 -1 -1 .0 00 L- ti EN 30 9- 7- 00 07 MA ve T 71 20 20 46 RT HF 92 17 17 55 A 0 99 PH 11 AR 0 MA MC CY G IN #5 MENDEZ 91 LE R MO 54 01 02 30 30 00 [facility] NT 45 -1 -1 .0 00 L- ti EL 80 4- 0- 00 07 MA ve UK 89 20 20 44 RT 01 17 17 85 T 0 42 PH SO AR D MA 10 CY MG #5 91 TA BL ET PA 54 01 02 30 30 00 [facility] RO 45 -1 -1 .0 00 L- ti XE 80 4- 0- 00 07 MA ve TI 98 20 20 45 RT NE 91 17 17 84 0 00 PH HC AR L MA 20 CY MG #5 91 TA BL ET LA 69 01 02 60 30 00 [facility] MO 09 -1 -1 .0 00 L- ti TR 70 4- 0- 00 07 MA ve IG 15 20 20 45 RT IN 20 17 17 83 E 3 95 PH 20 AR 0 MA MG CY TA #5 BL 91 ET AC 00 01 02 90 30 00 [place] Ac ET 09 -1 -1 .0 00 L- ti AM 30 6- 0- 00 04 MA ve IN 15 20 20 52 RT OP 01 17 17 87 HE 0 41 PH N- AR CO MA D CY #3 #5 TA 91 BL ET ## 01 02 30 15 00 [place] Ac ## -1 -1 .0 00 L- ti ## 8- 0- 00 08 MA ve ## 20 20 83 RT ## 17 17 77 # 58 PH AR MA CY #5 91 AC 00 01 02 60 30 00 [place] Ac YC 09 -1 -1 .0 00 [...] G #5 IN 91 MENDEZ LE R QU 16 01 02 30 30 00 [place] Ac ET 72 -0 -0 .0 00 L- ti IA 90 5- 3- 00 07 MA ve PI 15 20 20 42 RT NE 00 17 17 61 1 22 PH FU AR MA MA RA CY TE #5 40 91 0 MG TA B NJ 57 01 02 30 30 00 [place] Ac RT 23 -0 -0 .0 00 L- ti AZ 70 5- 3- 00 07 MA ve AP 00 20 20 42 RT IN 93 17 17 61 E 0 29 PH 30 AR MA MG CY TA #5 BL 91 ET LO 00 01 02 30 30 00 [place] Ac RA 78 -0 -0 .0 00 L- ti TA 15 5- 3- 00 08 MA ve DI 07 20 20 83 RT NE 70 17 17 75 1 20 PH 10 AR MA MG CY TA #5 BL 91 ET LA 00 01 02 30 30 00 [place] Ac NS 09 -0 -0 .0 00 L- ti OP 37 6- 3- 00 07 MA ve RA 35 20 20 40 RT ZO 15 17 17 32 LE [address] MA CY 30 #5 MG 91 CA PS UL E CY 68 01 02 90 30 00 [place] Ac CL 64 -0 -0 .0 00 L- ti OB 50 6- 3- 00 07 MA ve EN 51 20 20 40 RT ZA 89 17 17 32 MD 0 71 PH IN AR E MA 10 CY MG #5 91 TA BL ET FL 60 01 01 16 60 00 [place] Ac UT 43 -0 -2 .0 00 L- ti IC 20 1- 7- 00 07 MA ve 26 20 20 40 RT ON 41 17 17 32 E 5 79 PH MD AR OP MA CY 50 #5 MC 91 G SP RA Y MD 00 01 01 20 10 00 [place] Ac OM 60 -0 -2 0. 00 L- ti ET 31 4- 7- 00 07 MA ve MENDEZ 58 20 20 0 46 RT ZI 65 17 17 26 NE 8 85 PH -D AR M MA SY CY RU P #5 91 [place] 59 01 01 6. 5 00 [place] Ac IT 76 -0 -2 00 00 L- ti HR 23 4- 7- 0 07 MA ve OM 06 20 20 46 RT YC 00 17 17 26 IN 1 86 PH AR 25 MA 0 CY MG #5 TA 91 BL ET MD 00 01 01 10 5 00 [place] Ac ED 14 -0 -2 .0 00 L- ti NI 39 4- 7- 00 07 MA ve SO 73 20 20 46 RT NE 80 17 17 26 5 87 PH 20 AR MA MG CY TA #5 BL 91 ET BE 51 12 01 21 7 00 [facility] [place] 22 -3 -2 .0 00 L- ti ON 40 0- 7- 00 07 MA ve AT 00 20 20 46 RT AT 16 16 17 17 E 0 02 PH 20 AR 0 MA MG CY CA #5 PS 91 UL E AC 00 12 01 60 30 00 [facility] YC 09 -2 -1 .0 00 L- ti LO 38 0- 3- 00 07 MA ve 94 20 20 45 RT R 70 16 17 83 80 1 97 PH 0 AR MG MA CY TA BL #5 ET 91 PA 54 12 01 30 30 00 [facility] RO 45 -1 -0 .0 00 L- ti XE 80 4- 9- 00 07 MA ve TI 98 20 20 45 RT NE 91 16 17 84 0 00 PH HC AR L MA 20 CY MG #5 91 TA BL ET LA 69 12 01 60 30 00 [place] Ac MO 09 -1 -0 .0 00 L- ti TR 70 4- 9- 00 07 MA ve IG 15 20 20 45 RT IN 20 16 17 83 E 3 95 PH 20 AR 0 MA MG CY TA #5 BL 91 ET AC 00 12 01 90 30 00 [place] Ac ET 09 -1 -0 .0 00 L- ti AM 30 4- 9- 00 04 MA ve IN 15 20 20 52 RT OP 01 16 17 87 HE 0 41 PH N- AR CO MA D CY #3 #5 TA 91 BL ET [place] 57 12 01 30 30 00 [place] Ac RT 23 -1 -0 .0 00 L- ti AZ 70 3- 9- 00 07 MA ve AP 00 20 20 42 RT IN 93 16 17 61 E 0 29 PH 30 AR MA MG CY TA #5 BL 91 ET QU 16 12 07 21 29 00 [place] Ac ET 72 -1 -0 .0 00 L- ti IA 90 07 MA ve PI 15 20 20 42 RT NE 00 16 17 61 1 22 PH FU AR MA MA RA CY TE #5 40 91 0 MG TA B LO 00 12 07 21 29 00 [place] Ac RA 78 -1 -0 .0 00 L- ti TA 15 3 9 08 MA ve DI 07 20 [...] #5 BL 91 ET LA 00 12 07 21 29 00 [place] Ac NS 09 -1 -0 .0 00 L- ti OP 37 07 MA ve RA 35 20 20 45 RT ZO 15 16 17 83 LE [address] MA CY 30 #5 MG 91 CA PS UL E CY 68 12 30 00 [place] Ac CL 64 -1 -0 .0 00 L- ti OB 50 07 MA ve EN 45 20 20 45 RT ZA 09 16 17 83 MD 0 98 PH IN AR E MA 10 CY MG #5 91 TA BL ET Encounters Encounter Start End Date Code Location Performer Type Date [facility] - 7 7 [facility] - 7 7 [facility] - 7 7 [facility] 7 7 [facility] - 7 7 [facility] - 7 7 [facility] - 6 6 [facility] - 6 6 [facility] [address] [facility]
--- OUTSIDE RECORDS SUMMARY | 2017-05-28 13:25 | External Medical Summary Rpt | CCD ---
Author Author , DEIDRE JIANG Address Unknown Phone [email or web address] Team Providers Care Autocad Operator Name Role Phone [facility] Unavailable Unavailable [place] [place] SHEEHAN CHERYL Unavailable Unavailable [place], SHEEHAN CHERYL [facility] Unavailable [facility]available [facility], Unavailable Unavailable [facility] Unavailable Unavailable INC, [facility] Unavailable Unavailable [facility]PITAL, [facility] Unavailable Unavailable [facility]PITAL P, [facility]available Unavailable [facility], Unavailable Unavailable [facility] Un[facility] Unavailable [facility], [facility] MARLEEN GRE, Unavailable Unavailable MARLEEN BRAY [facility], [facility]available Unavailable [facility] Un[facility], Unavailable Unavailable [facility], [facility] Purpose Continuity of Care Document - 09-15-2013 through 2016 Problems Code Diagnosis DOS Provider Status D649 ANEMIA 04-05-2017 [facility] [id number] CHRONIC 04-05-2017 [facility] OTITIS INC MEDIA BILATERAL Z720 TOBACCO USE 04-05-2017 [facility] E782 MIXED 03-19-2017 [facility] HYPERLIPIDE PHYSICIANS AURE GROUP I10 ESSENTIAL 03-19-2017 [facility] PRIMARY PHYSICIANS HYPERTENSIO GROUP N I2510 ASHD LUMBEE 03-19-2017 [facility] CORONARY PHYSICIANS ARTERY W/O GROUP ANGINA [place] K219 GASTRO-ESOP 03-19-2017 [facility] H REFLUX PHYSICIANS DISEASE GROUP WITHOUT ESOPHAGITIS Z8249 FAMILY HX 03-19-2017 [facility] ISCHEMIC PHYSICIANS HRT DZ OTH GROUP DZ CIRC SYSTEM Z955 PRESENCE OF 03-19-2017 [facility] CORONARY PHYSICIANS ANGIOPLASTY GROUP IMPLANT & GRAFT J209 ACUTE 03-15-2017 [facility], UNSPEC[facility]IED PLLC R05 COUGH 03-15-2017 [facility] R079 CHEST PAIN 03-15-2017 [facility] I208 OTHER FORMS 03-12-2017 [facility] OF ANGINA PHYSICIANS PECTORIS GROUP E46011 ASHD LUMBEE 03-12-2017 [facility] COR ART PHYSICIANS W/OTH FORMS GROUP ANGINA PECT[place]IS [id number] ASHD LUMBEE 03-12-2017 [facility] W/UNS INC ANGINA [place] R0602 SHORTNESS 03-05-2017 [facility] OF BREATH PHYSICIANS GROUP R0789 OTHER CHEST 03-05-2017 [facility] PAIN PHYSICIANS GROUP R55 SYNCOPE AND 03-05-2017 [facility] COLLAPSE PHYSICIANS GROUP R0600 DYSPNEA 02-05-2017 [facility] R42 DIZZINESS 02-05-2017 [facility] GIDDINESS INC R531 WEAKNESS 02-05-2017 [facility] INC R609 EDEMA 02-05-2017 [facility] R9431 ABNORMAL 02-05-2017 [facility] ELECTROCARD PHYSICIANS IOGRAM GROUP I209 ANGINA 02-02-2017 [facility] I200 UNSTABLE 01-19-2017 [facility] INC J301 ALLERGIC 01-07-2017 [facility] DUE TO [place] POLLEN J3081 ALLERG 01-07-2017 [facility] D/T ANIMAL [place] CAT DOG HAIR & DANDER J3089 OTHER 01-07-2017 [facility] RHINITIS [place] J302 OTHER 12-31-2016 [facility] SEASONAL PHYSICIANS ALLERGIC GROUP RHINITIS [id number] UNSPECIFIED 12-31-2016 [facility] ASTHMA PHYSICIANS UNCOMPLICAT GROUP ED R030 ELEVATED 12-31-2016 [facility] BLOOD-PRESS PHYSICIANS URE READING GROUP WITHOUT DX HTN Z0000 ENCOUNTER 12-31-2016 [facility] GEN ADULT [facility] MED EXAM INC W/O ABNORMAL FIND J4540 MODERATE 12-29-2016 [facility] [place] UNCOMPLICAT ED X24925 OTHER 07-16-2016 [place] [facility] INC J399 DISEASE OF 06-25-2016 [facility] UPPER PHYSICIANS RESPIRATORY GROUP TRACT UNSPECIFIED J00 ACUTE 06-20-2016 [facility] NASOPHARYNG PHYSICIAN ITIS COMMON GROUP COLD J040 ACUTE 06-20-2016 [facility] LARYNGITIS PHYSICIAN GROUP M1712 UNILATERAL 06-10-2016 [facility] OSTEOARTHRI INC TIS LEFT KNEE M7582 OTHER 06-10-2016 [facility] LESIONS INC LEFT SHOULDER Z23 ENCOUNTER 06-04-2016 [facility] FOR PHYSICIANS IMMUNIZATIO GROUP N [...] PELVIC REGION R3911 HESITANCY 05-27-2016 [facility] OF [facility] P Z8553 PERSONAL 05-27-2016 [facility] HISTORY [facility] 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 J4530 MILD 05-26-2016 [facility] [place] [place] UNCOMPLICAT ED Z0100 ENCOUNTER 05-21-2016 MAR[facility] EXAM EYES & GRE VISION W/O ABNORMAL FIND 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 GROUP UNSPECIFIED R1013 EPIGASTRIC 05-19-2016 [facility] PAIN PHYSICIANS GROUP 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 R921 MAMMO 05-07-2016 [facility] [place] [facility] ON FOUND ON IMAGING ASS DX IMAGING BREAST R928 OTH ABNORM 05-07-2016 [facility] INCONCLUSIV INC E FIND ON DX IMAG BREAST R1310 DYSPHAGIA 04-23-2016 [facility] [place] 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-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 K210 GASTRO-ESOP 04-15-2016 [facility] HAGEAL LLC REFLUX DISEASE W/ ESOPHAGITIS K5730 DIVERTICULO 04-15-2016 [facility] SIS LG PHYSICIANS INTEST W/O GROUP PERF/ABSC W/O BLEED Z1211 ENCOUNTER 04-15-2016 [facility] SCREENING PHYSICIANS MALIGNANT GROUP NEOPLASM OF COLON T79338 PERSONAL 04-15-2016 [facility] HISTORY OF PHYSICIANS COLONIC GROUP POLYPS R140 ABDOMINAL 03-25-2016 [facility] DISTENSION [facility] GASEOUS INC Q53615 UNS ROT 03-24-2016 [facility] CUFF [facility] TEAR/RUPT INC LT SHLDR NOT SPEC TRAUMAT Z1231 ENCOUNTER 03-21-2016 [facility] [place] SCREENING MEDICAL MAMMO MALIG IMAGING ASS NEOPLASM BREAST J449 CHRONIC 03-13-2016 [facility] P DISEASE UNS R4702 DYSPHASIA 03-13-2016 [facility] X59038 PAIN IN 02-26-2016 [facility] LEFT MEDICAL SHOULDER IMAGING ASS J4520 MILD 02-11-2016 [facility]MITTEN [facility] T [facility] [place] UNCOMPLICAT ED J329 CHRONIC 01-22-2016 [facility] SINUSITIS PHYSICIANS UNSPECIFIED GROUP M32597 PAIN IN 01-22-2016 [facility] UNSPECIFIED PHYSICIANS KNEE GROUP C44238 PAIN IN 01-22-2016 [facility] LEFT ARM PHYSICIANS GROUP A01536 ENCOUNTER 01-01-2016 [facility] 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 LLC GENERAL RTN W/O ABNORMAL FIND N319 NEUROMUSCUL 12-25-2015 [facility] P OF BLADDER UNSPECIFIED N19088 OTHER 11-22-2015 [facility] [place] [facility] RIGHT KNEE IMAGING ASS Y06829 OTHER 11-22-2015 [facility] [place] [facility] LEFT KNEE IMAGING ASS I54345 CONTACT 11-22-2015 [facility] WITH & MEDICAL SUSPECTED IMAGING ASS EXPOSURE TO MOLD TOXIC M179 OSTEOARTHRI 10-24-2015 [facility] TIS OF KNEE [facility] INC UNSPECIFIED J0390 ACUTE 10-11-2015 [facility] TONSILLITIS PHYSICIANS GROUP UNSPECIFIED J3501 CHRONIC 10-11-2015 [facility] TONSILLITIS [facility] INC J351 HYPERTROPHY 10-11-2015 [facility], OF TONSILS LLC S82501 ENCOUNTER 09-13-2015 [facility] P AL CARIOVASCUL AR EXAM O30652 ENCOUNTER 09-13-2015 [facility] P AL LABORATORY EXAM M797 FIBROMYALGI 08-14-2015 [facility] A PHYSICIANS GROUP J320 CHRONIC 05-31-2015 [facility] MAXILLARY LLC SINUSITIS J342 DEVIATED 05-31-2015 [facility] SEPTUM THE [facility]UE N68784 ENCOUNTER 05-30-2015 [facility] EXAMINATION J0100 ACUTE 05-22-2015 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 H524 PRESBYOPIA 03-28-2015 SHEEHAN CHERYL [place]ANYA 4619 ACUTE 12-20-2014 [facility] SINUSITIS, [facility] UNSPECIFIED HOSPITAL 6929 CONTACT 12-20-2014 [facility] DERMATITIS& [facility] OTHER HOSPITAL ECZEMA DUE UNSPEC CAUSE 470 DEVIATED 12-14-2014 [facility] NASAL PHYSICIANS SEPTUM GROUP 4730 CHRONIC 12-14-2014 [facility] MAXILLARY PHYSICIANS SINUSITIS GROUP 4739 UNSPECIFIED 12-14-2014 [facility] SINUSITIS PHYSICIANS GROUP 89982 OTHER 12-14-2014 [facility] DISEASES OF PHYSICIANS NASAL GROUP CAVITY AND SINUSES 4779 ALLERGIC 10-31-2014 [facility] RHINITIS [facility] CAUSE HOSPITAL UNSPECIFIED 462 ACUTE 10-20-2014 [facility] 4611 ACUTE 05-15-2014 [facility] FRONTAL [facility] SINUSITIS HOSPITAL 50814 PAIN IN 10-27-2013 [facility] LOWER [facility] INC Medications Na ND Rx Da Fi Fi Am Da Di Ph RX Ph St me C No te ll ll ou ys ag ar # ys at rm s nt no ma ic us Or Da si cy ia de te s n re d LE 66 10 11 14 8 00 [facility] 99 -1 -1 4. 00 L- ti LB 30 4- 0- 00 07 MA ve UT 02 20 20 0 49 RT ER 32 17 17 83 OL 7 56 PH AR 1. MA 25 CY MG #5 /3 91 ML SO L CE 68 10 11 20 10 00 [facility] FD 18 -1 -1 .0 00 L- ti IN 00 5- 0- 00 07 MA ve IR 71 20 20 51 RT 16 17 17 54 30 0 56 PH 0 AR MG MA CY CA PS #5 UL 91 E TN 00 10 11 10 5 00 [facility] ED 60 -1 -1 .0 00 L- ti NI 35 5- 0- 00 07 MA ve SO 33 20 20 51 RT NE 92 17 17 54 8 57 PH 20 AR MA MG CY TA #5 BL 91 ET ES 68 10 11 30 30 00 [facility] CI 64 -1 -1 .0 00 L- ti TA 50 6- 0- 00 07 MA ve LO 52 20 20 51 RT TN 05 17 17 56 AM 4 33 PH AR 20 MA CY MG #5 TA 91 BL ET AC 00 10 11 60 30 00 [facility] YC 09 -1 -1 .0 00 L- ti LO 38 2- 0- 00 07 MA ve 94 20 20 45 RT R 70 17 17 83 80 1 97 PH 0 AR MG MA CY TA BL #5 ET 91 LO 00 10 11 30 30 00 AR Ac RA 78 -1 -1 .0 00 L- ti TA 15 2- 0- 00 08 MA ve DI 07 20 20 83 RT NE 70 17 17 83 1 62 PH 10 AR MA MG CY TA #5 BL 91 ET GA 00 10 11 90 30 00 AR Ac BA 22 -1 -1 .0 00 L- ti PE 82 2- 0- 00 04 MA ve NT 63 20 20 53 RT IN 65 17 17 11 0 99 PH 60 AR 0 MA MG CY TA #5 BL 91 ET QU 16 10 11 30 30 00 AR Ac ET 72 -1 -1 .0 00 L- ti IA 90 2- 0- 00 07 MA ve PI 15 20 20 45 RT NE 00 17 17 84 1 01 PH FU AR MA MA RA CY TE #5 40 91 0 MG TA B MO 57 10 11 30 30 00 [facility] NT 23 -1 -1 .0 00 L- ti EL 70 2- 0- 00 07 MA ve UK 25 20 20 47 RT 53 17 17 46 T 0 38 PH SO AR D MA 10 CY MG #5 91 TA BL ET FL 60 10 11 16 30 00 [facility] UT 43 -1 -1 .0 00 L- ti IC 20 3- 0- 00 07 MA ve 26 20 20 49 RT ON 41 17 17 78 E 5 66 PH TN AR OP MA CY 50 #5 MC 91 G SP RA Y MU 63 10 11 30 15 00 [facility] CI 82 -1 -1 .0 00 L- ti NE 40 2- 0- 00 08 MA ve X 05 20 20 83 RT D 71 17 17 77 ER 8 58 PH AR 60 MA 0- CY 60 #5 MG 91 TA BL ET OH 57 10 11 30 30 00 AR Ac RT 23 -1 -1 .0 00 L- ti AZ 70 2- 0- 00 07 MA ve AP 00 20 20 45 RT IN 93 17 17 83 E 0 99 PH 30 AR MA MG CY TA #5 BL 91 ET 64 10 11 4. 28 00 AR Ac T 38 -1 -1 00 00 L- ti D2 00 2- 0- 0 07 MA ve 73 20 20 49 RT 1. 70 17 17 97 25 6 33 PH AR MG MA CY (5 0, #5 00 91 0 UN IT ) FA 68 10 11 30 30 00 AR Ac MO 64 -1 -1 .0 00 L- ti TI 50 2- 0- 00 07 MA ve DI 14 20 20 50 RT NE 05 17 17 15 9 38 PH 20 AR MA MG CY TA #5 BL 91 ET BE 68 09 10 30 10 00 AR Ac NZ 38 -2 -2 .0 00 L- ti ON 20 5- 0- 00 07 MA ve AT 24 20 20 51 RT AT 70 17 17 15 E 1 93 PH 10 AR 0 MA MG CY CA #5 PS 91 UL E AM 00 09 10 19 10 00 AR Ac OX 78 -2 -2 .0 00 L- ti -C 11 5- 0- 00 07 MA ve LA 85 20 20 51 RT V 22 17 17 16 87 0 01 PH 5- AR 12 MA 5 CY MG #5 TA 91 BL ET ## 09 10 20 10 00 AR Ac ## -2 -2 0. 00 L- [...] ME 62 09 10 30 30 00 AR Ac TO 03 -1 -1 .0 00 L- ti TN 70 4- 3- 00 07 MA ve [...] FL 60 09 10 16 30 00 AR Ac UT 43 -2 -1 .0 00 L- ti IC 20 0- 3- 00 07 MA ve 26 20 20 47 RT ON 41 17 17 46 E 5 36 PH TN AR OP MA CY 50 #5 MC 91 G SP RA Y ES 68 08 09 30 30 00 WA Ac CI 64 -2 -2 .0 00 L- ti TA 50 8- 2- 00 07 MA ve LO 52 20 20 50 RT TN 05 17 17 63 AM 4 44 [...] MU 63 08 09 60 30 00 AR Ac CI 82 -2 -2 .0 00 L- ti NE 40 8- 2- 00 08 MA ve X 00 20 20 83 RT ER 83 17 17 88 4 80 PH 60 AR 0 MA MG CY TA #5 BL 91 ET FL 60 08 09 16 60 00 AR Ac UT 43 -2 -2 .0 00 L- ti IC 20 8- 2- 00 07 MA ve 26 20 20 48 RT ON 41 17 17 06 E 5 16 PH TN AR OP MA CY 50 #5 MC 91 G SP RA Y VE 00 08 09 18 17 00 AR Ac NT 17 -2 -2 .0 00 L- ti OL 30 8- 2- 00 07 MA ve IN 68 20 20 48 RT 22 17 17 06 HF 0 13 PH A AR 90 MA CY MC G #5 IN 91 MENDEZ LE R LO 00 08 09 30 30 00 AR Ac RA 78 -2 -2 .0 00 L- ti TA 15 8- 2- 00 08 MA ve DI 07 20 20 83 RT NE 70 17 17 83 1 62 PH 10 AR MA MG CY TA #5 BL 91 ET AC 00 08 09 60 30 00 AR Ac YC 09 -2 -2 .0 00 [...] MU 63 08 09 30 15 00 AR Ac CI 82 -2 -2 .0 00 L- ti NE 40 8- 2- 00 08 MA ve X 05 20 20 83 RT D 71 17 17 77 ER 8 58 PH AR 60 MA 0- CY 60 #5 MG 91 TA BL ET MO 57 08 09 30 30 00 AR Ac NT 23 -2 -2 .0 00 L- ti EL 70 8- 2- 00 07 MA ve UK 25 20 20 48 RT 53 17 17 06 T 0 14 PH SO AR D MA 10 CY MG #5 91 TA BL ET FA 68 08 09 30 30 00 AR Ac MO 64 -2 -2 .0 00 L- ti TI 50 8- 2- 00 07 MA ve DI 14 20 20 50 RT NE 05 17 17 15 9 38 PH 20 AR MA MG CY TA #5 BL 91 ET LA 00 08 09 30 30 00 AR Ac NS 09 -2 -2 .0 00 L- ti OP 37 8- 2- 00 07 MA ve RA 35 20 20 45 RT ZO 15 17 17 83 LE [address] MA CY 30 #5 MG 91 CA PS UL E QU 16 08 30 30 00 AR Ac ET 72 -2 -2 .0 00 L- ti IA 90 8- 2- 00 07 MA ve PI 15 20 20 45 RT NE 00 17 17 84 1 01 PH FU AR MA MA RA CY TE #5 40 91 0 MG TA B AZ 51 08 09 30 31 00 AR Ac EL 52 -2 -2 .0 00 L- ti 50 8- 2- 00 07 MA ve TI 29 20 20 47 RT NE 40 17 17 46 3 39 PH 0. AR 1% MA CY (1 37 #5 91 MC G) SP RY OH 57 08 09 30 30 00 AR Ac RT 23 -2 -2 .0 00 L- ti AZ 70 8- 2- 00 07 MA ve AP 00 20 20 45 RT IN 93 17 17 83 E 0 99 PH 30 AR MA MG CY TA #5 BL 91 ET CY 68 08 09 90 30 00 AR Ac CL 64 -2 -2 .0 00 L- ti OB 50 8- 2- 00 07 MA ve EN 51 20 20 45 RT ZA 89 17 17 83 TN 0 98 PH IN AR E MA 10 CY MG #5 91 TA BL ET LA 69 07 08 60 30 00 AR Ac MO 09 -2 -2 .0 00 [...] CY 68 07 08 90 30 00 AR Ac CL 64 -2 -1 .0 00 L- ti OB 50 1- 8- 00 07 MA ve EN 51 20 20 50 RT ZA 89 17 17 00 TN 0 95 PH IN AR E MA 10 CY MG #5 91 TA BL ET LE 66 07 08 14 8 00 AR Ac VA 99 -1 -1 4. 00 L- ti LB 30 3- 1- 00 07 MA ve UT 02 20 20 0 49 RT ER 32 17 17 83 OL 7 56 PH AR 1. MA 25 CY MG #5 /3 91 ML SO L LO 00 07 08 30 30 00 AR Ac RA 78 -1 -1 .0 00 L- ti TA 15 9- 1- 00 08 MA ve DI 07 20 20 84 RT NE 70 17 17 02 1 08 PH 10 AR MA MG CY TA #5 BL 91 ET FL 60 07 08 16 30 00 AR Ac UT 43 -1 -1 .0 00 L- ti IC 20 9- 1- 00 07 MA ve 26 20 20 49 RT ON 41 17 17 78 E 5 66 PH TN AR OP MA CY 50 #5 MC 91 G SP RA Y AZ 51 07 08 30 30 00 AR Ac EL 52 -1 -1 .0 00 L- ti 50 9- 1- 00 07 MA ve TI 29 20 20 49 RT NE 40 17 17 78 3 67 PH 0. AR 1% MA CY (1 37 #5 91 MC G) SP RY 64 07 08 4. 28 00 AR Ac T 38 -1 -1 00 00 L- ti D2 00 9- 1- 0 07 MA ve 73 20 20 49 RT 1. 70 17 17 97 25 6 33 PH AR MG MA CY (5 0, #5 00 91 0 UN IT ) KE 17 07 08 5. 50 00 [facility] TO 47 -1 -0 00 00 L- ti TI 80 0- 4- 0 08 MA ve FE 71 20 20 84 RT N 71 17 17 02 FU 0 09 PH M AR 0. MA 02 CY 5% #[address] OP S MO 31 07 08 30 30 00 [facility] NT 72 -1 -0 .0 00 L- ti EL 20 2- 4- 00 07 MA ve UK 72 20 20 49 RT 61 17 17 78 T 0 68 PH SO AR D MA 10 CY MG #5 91 TA BL ET AZ 51 06 07 30 30 00 [facility] EL 52 -2 -2 .0 00 L- ti 50 6- 8- 00 07 MA ve TI 29 20 20 44 RT NE 40 17 17 85 3 44 PH 0. AR 1% MA CY (1 37 #5 91 MC G) SP RY OH 57 06 07 30 30 00 [facility] RT 23 -2 -2 .0 00 L- ti AZ 70 6- 8- 00 07 MA ve AP 00 20 20 45 RT IN 93 17 17 83 E 0 99 PH 30 AR MA MG CY TA #5 BL 91 ET LA 00 07 30 30 00 [facility] NS 09 -2 -2 .0 00 L- ti OP 37 6- 8- 00 07 MA ve RA 35 20 20 45 RT ZO 15 17 17 83 LE [address] MA CY 30 #5 MG 91 CA PS UL E CY 68 06 07 90 30 00 [facility] CL 64 -2 -2 .0 00 L- ti OB 50 6- 8- 00 07 MA ve EN 51 20 20 45 RT ZA 89 17 17 83 TN 0 98 PH IN AR E MA 10 CY MG #5 91 TA BL ET GA 00 06 07 90 30 00 [facility] BA 22 -2 -2 .0 00 L- ti PE 82 6- 8- 00 07 MA ve NT 63 20 20 44 RT IN 65 17 17 49 0 50 PH 60 AR 0 MA MG CY TA #5 BL 91 ET AC 00 06 07 60 30 00 [facility] YC 09 -2 -2 .0 00 L- [...] ve LO 52 20 20 44 RT TN 05 17 17 54 AM 4 27 PH AR 20 MA CY MG #5 TA 91 BL ET FL 60 06 16 30 00 AR Ac UT 43 -2 -2 .0 00 L- ti IC 20 6 8- 07 MA ve 26 20 20 44 RT ON 41 17 17 85 E 5 36 PH TN AR OP MA CY 50 #5 MC 91 G SP RA Y MU 63 06 07 60 30 00 AR Ac CI 82 -1 -1 .0 00 L- ti NE 40 8 4- 08 MA ve X 00 20 20 83 RT ER 83 17 17 88 2 80 PH 60 AR 0 MA MG CY TA #5 BL 91 ET MO 31 11 26 29 30 00 AR Ac NT 72 -1 -1 .0 00 L- ti EL 20 9- 4- 00 07 MA ve UK 72 20 20 47 RT 61 17 17 46 T 0 38 PH SO AR D MA 10 CY MG #5 91 TA BL ET GA 00 10 25 89 30 00 AR Ac BA 22 -2 -2 .0 00 L- ti PE 82 7- 3- 00 07 MA ve NT 63 20 20 45 RT IN 65 17 17 83 0 92 PH 60 AR 0 MA MG CY TA #5 BL 91 ET LO 00 10 25 29 30 00 AR Ac RA 78 -2 -2 .0 00 [...] FL 00 05 06 12 30 00 AR Ac OV 17 -2 -2 .0 00 L- ti EN 30 7- 3- 00 07 MA ve T 71 20 20 46 RT HF 92 17 17 55 A 0 99 PH 11 AR 0 MA MC CY G IN #5 MENDEZ 91 LE R FL 55 05 06 1. 1 00 [facility] UC 11 -2 -2 00 00 L- ti ON 10 7- 3- 0 07 MA ve AZ 14 20 20 46 RT OL 51 17 17 68 E 2 06 PH 15 AR 0 MA MG CY TA #5 BL 91 ET OH 57 05 30 30 00 [facility] RT 23 -2 -2 .0 00 L- ti AZ 70 7- 3- 00 07 MA ve AP 00 20 20 45 RT IN 93 17 17 83 E 0 99 PH 30 AR MA MG CY TA #5 BL 91 ET QU 16 05 30 30 00 [facility] ET 72 -2 -2 .0 00 L- ti IA 90 7- 3- 00 07 MA ve PI 15 20 20 45 RT NE 00 17 17 84 1 01 PH FU AR MA MA RA CY TE #5 40 91 0 MG TA B FL 60 04 05 16 60 00 [facility] UT 43 -1 -1 .0 00 L- ti IC 20 5- 2- 00 07 MA ve 26 20 20 48 RT ON 41 17 17 06 E 5 16 PH TN AR OP MA CY 50 #5 MC 91 G SP RA Y MO 54 04 04 30 30 00 [facility] NT 45 -0 -2 .0 00 L- ti EL 80 5- 8- 00 07 MA ve UK 89 20 20 48 RT 01 17 17 06 T 0 14 PH SO AR D MA 10 CY MG #5 91 TA BL ET LO 00 04 30 30 00 AR Ac RA 78 -0 -2 .0 00 L- ti TA 15 5- 8- 00 08 MA ve DI 07 20 20 83 RT NE 70 17 17 88 1 79 PH 10 AR MA MG CY TA #5 BL 91 ET AZ 51 04 04 30 30 00 AR Ac EL 52 -0 -2 .0 00 [...] 47 RT ZA 89 17 17 38 TN 0 39 PH IN AR E MA 10 CY MG #5 91 TA BL ET FL 55 03 03 2. 2 00 AR Ac UC 11 -0 -3 00 00 [...] MU 63 03 03 60 30 00 AR Ac CI 82 -0 -3 .0 00 L- ti NE 40 6- 1- 00 08 MA ve X 00 20 20 83 RT ER 83 17 17 83 4 63 PH 60 AR 0 MA MG CY TA #5 BL 91 ET AM 00 03 03 20 10 00 AR Ac OX 78 -0 -3 .0 00 L- ti -C 11 7- 07 MA ve LA 85 20 20 47 RT V 22 17 17 47 87 0 96 PH 5- AR 12 MA 5 CY MG #5 TA 91 BL ET CASTELLANOS 65 03 03 20 10 00 AR Ac LF 86 -0 -3 .0 00 L- ti AM 20 8- 00 07 MA ve ET 42 20 20 47 RT HO 00 17 17 50 XA 5 79 PH ZO AR LE MA -T CY MP #5 DS 91 TA BL ET FL 60 03 03 16 60 00 [facility] [place] 43 -0 -2 .0 00 L- ti IC 20 1- 4- 00 07 MA ve 26 20 20 47 RT ON 41 17 17 37 E 5 81 PH TN AR OP MA CY 50 #5 MC 91 G SP RA Y LA 69 02 03 60 30 00 AR Ac MO 09 -1 -1 .0 00 L- ti TR 70 6- 7- 00 07 MA ve IG 15 20 20 45 RT IN 20 17 17 83 E 3 95 PH 20 AR 0 MA MG CY TA #5 BL 91 ET GA 00 02 03 90 30 00 AR Ac BA 22 -1 -1 .0 00 [...] PA 54 02 03 30 30 00 AR Ac RO 45 -1 -1 .0 00 L- ti XE 80 6- 7- 00 07 MA ve TI 98 20 20 45 RT NE 91 17 17 84 0 00 PH HC AR L MA 20 CY MG #5 91 TA BL ET MO 54 02 03 30 30 00 AR Ac NT 45 -1 -1 .0 00 L- ti EL 80 6- 7- 00 07 MA ve UK 89 20 20 44 RT 01 17 17 85 T 0 42 PH SO AR D MA 10 CY MG #5 91 TA BL ET MU 63 02 03 30 15 00 AR Ac CI 82 -1 -1 .0 00 L- ti NE 40 6- 7- 00 08 MA ve X 05 20 20 83 RT D 73 17 17 77 ER 6 58 PH AR 60 MA 0- CY 60 #5 MG 91 TA BL ET AC 00 02 03 60 30 00 AR Ac YC 09 -0 -1 .0 00 L- ti LO 38 9- 0- 00 07 MA ve 94 20 20 40 RT R 70 17 17 32 80 1 76 PH 0 AR MG MA CY TA BL #5 ET 91 LA 00 02 03 30 30 00 AR Ac NS 09 -0 -0 .0 00 L- ti OP 37 4- 3- 00 07 MA ve RA 35 20 20 40 RT ZO 15 17 17 32 LE [address] MA CY 30 #5 MG 91 CA PS UL E CY 68 02 03 90 30 00 AR Ac CL 64 -0 -0 .0 00 L- ti OB 50 4- 3- 00 07 MA ve EN 51 20 20 40 RT ZA 89 17 17 32 TN 0 71 PH IN AR E MA 10 CY MG #5 91 TA BL ET QU 16 02 03 30 30 00 AR Ac ET 72 -0 -0 .0 00 L- ti IA 90 4- 3- 00 07 MA ve PI 15 20 20 45 RT NE 00 17 17 84 1 01 PH FU AR MA MA RA CY TE #5 40 91 0 MG TA B OH 57 02 03 30 30 00 AR Ac RT 23 -0 -0 .0 00 L- ti AZ 70 4- 3- 00 07 MA ve AP 00 20 20 45 RT IN 93 17 17 83 E 0 99 PH 30 AR MA MG CY TA #5 BL 91 ET FL 55 01 02 1. 1 00 AR Ac UC 11 -2 -1 00 00 L- ti ON 10 5- 7- 0 07 MA ve AZ 14 20 20 46 RT OL 51 17 17 68 E 2 06 PH 15 AR 0 MA MG CY TA #5 BL 91 ET AM 00 01 02 20 10 00 AR Ac OX 14 -2 -1 .0 00 L- ti IC 39 5- 7- 00 07 MA ve IL 95 20 20 46 RT LI 10 17 17 68 N 1 08 PH 87 AR 5 MA MG CY TA #5 BL 91 ET AL 00 01 02 75 5 00 [facility] BU 48 -2 -1 .0 00 L- ti TE 79 5- 7- 00 07 MA ve RO 50 20 20 46 RT L 12 17 17 68 CASTELLANOS 5 65 PH L AR 2. MA 5 CY MG /3 #5 [address] FL 00 01 02 12 30 00 [facility] OV 17 -1 -1 .0 00 L- ti EN 30 9- 7- 00 07 MA ve T 71 20 20 46 RT HF 92 17 17 55 A 0 99 PH 11 AR 0 MA MC CY G IN #5 MENDEZ 91 LE R MO 54 01 02 30 30 00 [facility] NT 45 -1 -1 .0 00 L- ti EL 80 4- 0- 00 07 MA ve UK 89 20 20 44 RT 01 17 17 85 T 0 42 PH SO AR D MA 10 CY MG #5 91 TA BL ET PA 54 01 02 30 30 00 [facility] RO 45 -1 -1 .0 00 L- ti XE 80 4- 0- 00 07 MA ve TI 98 20 20 45 RT NE 91 17 17 84 0 00 PH HC AR L MA 20 CY MG #5 91 TA BL ET LA 69 01 02 60 30 00 [facility] MO 09 -1 -1 .0 00 L- ti TR 70 4- 0- 00 07 MA ve IG 15 20 20 45 RT IN 20 17 17 83 E 3 95 PH 20 AR 0 MA MG CY TA #5 BL 91 ET AC 00 01 02 90 30 00 AR Ac ET 09 -1 -1 .0 00 L- ti AM 30 6- 0- 00 04 MA ve IN 15 20 20 52 RT OP 01 17 17 87 HE 0 41 PH N- AR CO MA D CY #3 #5 TA 91 BL ET ## 01 02 30 15 00 AR Ac ## -1 -1 .0 00 L- ti ## 8- 0- 00 08 MA ve ## 20 20 83 RT ## 17 17 77 # 58 PH AR MA CY #5 91 AC 00 01 02 60 30 00 AR Ac YC 09 -1 -1 .0 00 [...] #5 40 91 0 MG TA B OH 57 01 02 30 30 00 AR Ac RT 23 -0 -0 .0 00 [...] LA 00 01 02 30 30 00 AR Ac NS 09 -0 -0 .0 00 [...] 40 RT ZA 89 17 17 32 TN 0 71 PH IN AR E MA 10 CY MG #5 91 TA BL ET FL 60 01 01 16 60 00 WA Ac UT 43 -0 -2 .0 00 L- ti IC 20 1- 7- 00 07 MA ve 26 20 20 40 RT ON 41 17 17 32 E 5 79 PH TN AR OP MA CY 50 #5 MC 91 G SP RA Y TN 00 01 01 20 10 00 WA Ac OM 60 -0 -2 0. 00 L- ti ET 31 4- 7- 00 07 MA ve MENDEZ 58 20 20 0 46 RT ZI 65 17 17 26 NE 8 85 PH -D AR M MA SY CY RU P #5 91 AZ 59 01 01 6. 5 00 AR Ac IT 76 -0 -2 00 00 L- ti HR 23 4- 7- 0 07 MA ve OM 06 20 20 46 RT YC 00 17 17 26 IN 1 86 PH AR 25 MA 0 CY MG #5 TA 91 BL ET TN 00 01 01 10 5 00 AR Ac ED 14 -0 -2 .0 00 L- ti NI 39 4- 7- 00 07 MA ve SO 73 20 20 46 RT NE 80 17 17 26 5 87 PH 20 AR MA MG CY TA #5 BL 91 ET BE 51 12 01 21 7 00 [facility] NZ 22 -3 -2 .0 00 L- ti ON 40 0- 7- 00 07 MA ve AT 00 20 20 46 RT AT 16 16 17 17 E 0 02 PH 20 AR 0 MA MG CY CA #5 PS 91 UL E AC 00 12 01 60 30 00 [facility] YC 09 -2 -1 .0 00 L- ti LO 38 0- 3- 00 07 MA ve 94 20 20 45 RT R 70 16 17 83 80 1 97 PH 0 AR MG MA CY TA BL #5 ET 91 PA 54 12 01 30 30 00 [facility] RO 45 -1 -0 .0 00 L- ti XE 80 4- 9- 00 07 MA ve TI 98 20 20 45 RT NE 91 16 17 84 0 00 PH HC AR L MA 20 CY MG #5 91 TA BL ET LA 69 12 01 60 30 00 AR Ac MO 09 -1 -0 .0 00 L- ti TR 70 4- 9- 00 07 MA ve IG 15 20 20 45 RT IN 20 16 17 83 E 3 95 PH 20 AR 0 MA MG CY TA #5 BL 91 ET AC 00 12 01 90 30 00 AR Ac ET 09 -1 -0 .0 00 L- ti AM 30 4- 9- 00 04 MA ve IN 15 20 20 52 RT OP 01 16 17 87 HE 0 41 PH N- AR CO MA D CY #3 #5 TA 91 BL ET OH 57 12 01 30 30 00 AR Ac RT 23 -1 -0 .0 00 [...] UL E CY 68 12 30 00 AR Ac CL 64 -1 -0 .0 00 L- ti OB 50 07 MA ve EN 45 20 20 45 RT ZA 09 16 17 83 TN 0 98 PH IN AR E MA 10 CY MG #5 91 TA BL ET Encounters Encounter Start End Date Code Location Performer Type Date [facility] - 7 7 [facility] - 7 7 [facility] - 7 7 [facility] - 7 7 [facility] - 7 7 [facility] - 7 7 [facility] - 6 6 [facility] - 6 6 [facility] - 6 6 [facility] - 6 6 [facility] - 6 6 [facility] - 6 6 [facility] - 6 6 [facility] - 6 6 [facility] - 6 6 [facility] - 6 6 [facility] - 5 5 [facility] - 5 5 [facility] - 4 4 [facility] - 4 4 [facility]
--- OUTSIDE RECORDS SUMMARY | 2017-05-28 13:26 | External Medical Summary Rpt | CCD ---
Demographics Preferred Language Indonesian Marital Status Unknown Mormonism Affiliation Unknown Race Unknown Ethnic Group Unknown Author Author , DEIDRE JIANG Address Unknown Phone Immunization No patient found.
--- OUTSIDE RECORDS SUMMARY | 2017-05-28 13:26 | External Medical Summary Rpt | CCD ---
Demographics Preferred Language Bulgarian Marital Status Unknown Mormonism Affiliation Unknown Race Unknown Ethnic Group Unknown Author Author , DEIDRE JIANG Address Unknown Phone Immunization No patient found.
--- OUTSIDE RECORDS SUMMARY | 2017-05-28 13:27 | External Medical Summary Rpt ---
[...] been Serum or defined Plasma by the [facility] e and an Endocrine Society practice guideline as alevel of serum 25-OH vitamin D less than 20 ng/mL (1,2).The Endocrine Society went on to further define vitamin Dinsuffic iency as a level between 21 and 29 ng/mL (2).1. IOM (Institut e of Medicine) . 2010. Dietary reference intakes for calcium and D. [place]: [employer].2. Norris MF, Teja NC, Maurilio Marinelli MENDEZ, et al.Evalua tion, treatment , and preventio n of vitamin Ddeficien cy: an Endocrine Society clinical practiceg uideline. JCEM. 2010; 96(7):191 1-30.Perf ormed at: CB - [facility] [address] [id number] Government Professor: Howie Antunez PhD, Phone: [phone] CBC W Auto Differential panel in [...] 37.0 - % Normal No Dec 31 rydre/100 80.0 informati 2017 8:55 leukocyte on in [...]
--- OUTSIDE RECORDS SUMMARY | 2017-05-28 13:27 | External Medical Summary Rpt ---
[...] been Serum or defined Plasma by the [facility] e and an Endocrine Society practice guideline as alevel of serum 25-OH vitamin D less than 20 ng/mL (1,2).The Endocrine Society went on to further define vitamin Dinsuffic iency as a level between 21 and 29 ng/mL (2).1. IOM (Institut e of Medicine) . 2010. Dietary reference intakes for calcium and D. [place]: [employer].2. Norris MF, Teja NC, Maurilio Marinelli MENDEZ, et al.Evalua tion, treatment , and preventio n of vitamin Ddeficien cy: an Endocrine Society clinical practiceg uideline. JCEM. 2010; 96(7):191 1-30.Perf ormed at: CB - [facility] [address] [id number] Stevedoring Superintendent: Howie Antunez PhD, Phone: [phone] CBC W Auto Differential panel in [...]
--- NOTE | 2017-05-28 14:55 | RADIOLOGY REPORT PS360 ---
CHEST(2 VIEWS-NOT PORTABLE) HISTORY: Cough and congestion CHEST CONGESTION ORDERING PHYSICIAN: GAURAV CABA APRN PATIENT AGE: 46 years COMPARISON: 03/15/2017 FINDINGS: The cardiomediastinal silhouette and pulmonary vascularity are within normal limits. The lungs are clear without infiltrates, suspicious nodules, or pleural effusions. No acute bony abnormalities. IMPRESSION: Negative chest, no acute finding
== END 2017-05-28 13:22 | disposition home or self-care (01) ==
LOC: UTC 12:00 → ER 12:00 → UTC 12:04
DX: J06.9 Acute upper respiratory infection, unspecified (principal)